=== PATIENT | female | born 1985 | race Caucasian/White ===

== ENCOUNTER 2018-11-05 08:21 | Emergency (ER) | payer SELFPAY ==
[~2018-11-05] VITALS: Ht 154.9 cm; Wt 117.9 kg
[~2018-11-05 08:21] MED LIST: ALPR1TAB2 PO; Docusate Sodium PO; Hydrocodone Bit/Acetaminophen PO; Ibuprofen PO; METF500T8 PO; NAPR-243 PO; OXYC-12 PO; PREN1TAB39
[2018-11-05 09:02] LABS: BILIRUBIN,URINE NEGATIVE (NEGATIVE); CLARITY,URINE SLIGHTLY CLOUDY; COLOR,URINE YELLOW; GLUCOSE, URINE (UA) NEGATIVE (NEGATIVE); KETONES,URINE NEGATIVE (NEGATIVE); LEUKOCYTE ESTERASE ,URINE NEGATIVE (NEGATIVE); NITRITE,URINE NEGATIVE (NEGATIVE); PH,URINE 6.5 (5-9); PROTEIN,URINE 1+ (NEGATIVE); UROBILINOGEN,URINE NORMAL (NORMAL)
[2018-11-05 09:15] LABS: BACTERIA,URINE LARGE /HPF; WBC,URINE 0-2 /HPF
[2018-11-05] MEDS ORDERED: NS IV 1000 ML 1,000 ML IV ONE (09:49)
[2018-11-05] MEDS ORDERED: fentaNYL INJECTION 100 MCG/2 ML AMP IVP STA (09:49)
[2018-11-05] MEDS ORDERED: KETOROLAC 30 MG/ML VIAL IVP STA (09:49)
--- NOTE | 2018-11-05 09:53 | ED Abdominal Pain ---
General Chief Complaint: Abdominal/GI Problems Stated Complaint: LOWER ABD PAIN Nursing Triage Note: pt presents to ed with complaints of l lower abdominal pain x 3 days that radiates to her back. pt also reports nausea but no vomting/diahrrea. Sepsis Screen: No Definite Risk Source of Information: Patient Exam Limitations: No Limitations History of Present Illness Date Seen by Provider: Nov 05, 2018 Time Seen by Provider: 09:44 Initial Comments Here with report of left-sided abdominal pain last 3 days. Pain radiates to her back. Better with positioning and worse when moving towards the left side. Denies nausea or vomiting. Denies weakness or breathing problems. Denies problems with bowel movements. Timing/Duration: 3-4 Days Severity/Quality: Mild, Moderate, Aching Location: LLQ, Flank Radiation: Back Activities at Onset: None Modifying Factors: Worsens With Movement; Improves With Resting Associated Symptoms: Back Pain; No Chest Pain, No Fever/Chills, No Nausea/ Vomiting, No Shortness of Air, No Weakness Allergies and Home Medications Allergies Coded Allergies: No Known Drug Allergies (Verified , 04/25/09) Home Medications Alprazolam 1 Mg Tablet, 1 MG PO QID PRN for ANXIETY, (Reported) PRN ANXIETY [Docusate Sodium] 100 MG CAP, 100 MG PO BID PRN for CONSTIPATION Prescribed by: AZAEL JOHNSON on 08/26/141751 [Hydrocodone Bit/Acetaminophen] 1 EA TABLET, 1-2 EA PO Q6H PRN for PAIN Prescribed by: AZAEL JOHNSON on 08/26/141751 [Ibuprofen] 600 MG TAB, 600 MG PO Q6H PRN for PAIN Prescribed by: AZAEL JOHNSON on 08/26/141751 Patient Home Medication List Home Medication List Reviewed: Yes Review of Systems Review of Systems Constitutional: see HPI; No chills, No fever EENTM: No Symptoms Reported Respiratory: No Symptoms Reported Cardiovascular: No Symptoms Reported Gastrointestinal: See HPI; Denies Constipated, Denies Diarrhea Genitourinary: No Symptoms Reported Musculoskeletal: see HPI Skin: no symptoms reported Psychiatric/Neurological: No Symptoms Reported All Other Systems Reviewed Negative Unless Noted: Yes Past Rvyvamx-Maqhdk-Rkicus Hx Past Med/Social Hx: Reviewed Nursing Past Med/Soc Hx Patient Social History Alcohol Use: Rarely Uses Recreational Drug Use: No Smoking Status: Never a Smoker Recent Foreign Travel: No Contact w/Someone Who Travel: No Recent Infectious Disease Expo: No Recent Hopitalizations: Yes Past Medical History Surgeries: Yes (pilodyal cyst removed, lower pannus removed, gastric sleeve) Section, Hysterectomy Respiratory: No Cardiac: No Neurological: No Reproductive Disorders: Yes Sexually Transmitted Disease: No Genitourinary: No Gastrointestinal: Yes Gastroesophageal Reflux Musculoskeletal: Yes (sciatica) Fibromyalgia Endocrine: No Psychosocial: Yes Sleep Difficulties, Anxiety Blood Disorders: No Adverse Reaction/Blood Tranf: No Family Medical History Reviewed Nursing Family Hx Alcoholism 19 FATHER Drug abuse 19 FATHER No Family History of: AIDS Jason's disease Alzheimer's disease Arthritis Cardiovascular disease Colon cancer Completed stroke Diabetes mellitus Hypertension Myocardial infarction Parkinson's disease Prostate cancer Psychosocial problem Respiratory disorder Seizure disorder Severe allergy Thyroid disease Tuberculosis No Pertinent Family Hx Physical Exam Vital Signs Vital Signs - First Documented 11/05/18 08:54 Temp 97.9 Pulse 80 Resp 16 B/P (MAP) 128/66 (86) Pulse Ox 100 Capillary Refill : Less Than 3 Seconds Height/Weight/BMI Height: 5'1.00" Weight: 260lbs. oz. 117.732781uf; BMI Method:Stated General Appearance: WD/WN, no apparent distress HEENT: PERRL/EOMI, pharynx normal Neck: full range of motion, supple Respiratory: lungs clear, normal breath sounds Cardiovascular: regular rate, rhythm, no murmur Gastrointestinal: non tender, soft, other (defect noted to the right side of the umbilicus. Defect noted on CT scan. Reducible without difficulty.) Extremities: non-tender, normal inspection Back: normal inspection, no CVA tenderness, no vertebral tenderness Neurologic/Psychiatric: alert, oriented x 3 Skin: normal color, warm/dry Progress/Results/Core Measures Results/Orders Lab Results Laboratory Tests Test 11/05/18 08:28 11/05/18 08:43 Range/Units Urine Color YELLOW Urine Clarity SLIGHTLY CLOUDY Urine pH 6.5 5-9 Urine Specific [place] 1.020 1.016-1.022 Urine Protein 1+ H NEGATIVE Urine Glucose (UA) NEGATIVE NEGATIVE Urine Ketones NEGATIVE NEGATIVE Urine Nitrite NEGATIVE NEGATIVE Urine Bilirubin NEGATIVE NEGATIVE Urine Urobilinogen NORMAL NORMAL MG/DL Urine Leukocyte Esterase NEGATIVE NEGATIVE Urine RBC (Auto) NEGATIVE NEGATIVE Urine RBC NONE /HPF Urine WBC 0-2 /HPF Urine Squamous Epithelial Cells 10-25 H /HPF Urine Crystals NONE /LPF Urine Bacteria LARGE H /HPF Urine Casts NONE /LPF Urine Mucus SMALL H /LPF Urine Culture Indicated YES White Blood Count 8.4 4.3-11.0 10^3/uL Red Blood Count 4.74 4.35-5.85 10^6/uL Hemoglobin 13.2 11.5-16.0 G/DL Hematocrit 42 35-52 % Mean Corpuscular Volume 88 80-99 FL Mean Corpuscular Hemoglobin 28 25-34 PG Mean Corpuscular Hemoglobin Concent 32 32-36 G/DL Red Cell Distribution Width 14.5 10.0-14.5 % Platelet Count 182 130-400 10^3/uL Mean Platelet Volume 13.1 H 7.4-10.4 FL Neutrophils (%) (Auto) 61 42-75 % Lymphocytes (%) (Auto) 31 12-44 % Monocytes (%) (Auto) 7 0-12 % Eosinophils (%) (Auto) 1 0-10 % Basophils (%) (Auto) 1 0-10 % Neutrophils # (Auto) 5.1 1.8-7.8 X 10^3 Lymphocytes # (Auto) 2.6 1.0-4.0 X 10^3 Monocytes # (Auto) 0.6 0.0-1.0 X 10^3 Eosinophils # (Auto) 0.1 0.0-0.3 10^3/uL Basophils # (Auto) 0.0 0.0-0.1 10^3/uL Sodium Level 139 135-145 MMOL/L Potassium Level 3.8 3.6-5.0 MMOL/L Chloride Level 106 98-107 MMOL/L Carbon Dioxide Level 24 21-32 MMOL/L Anion Gap 9 5-14 MMOL/L Blood Urea Nitrogen 12 7-18 MG/DL Creatinine 0.73 0.60-1.30 MG/DL Estimat Glomerular Filtration Rate > 60 BUN/Creatinine Ratio 16 Glucose Level 83 70-105 MG/DL Calcium Level 9.1 8.5-10.1 MG/DL Corrected Calcium 9.2 8.5-10.1 MG/DL Total Bilirubin 0.5 0.1-1.0 MG/DL Aspartate Amino Transf (AST/SGOT) 14 5-34 U/L Alanine Aminotransferase (ALT/SGPT) 17 0-55 U/L Alkaline Phosphatase 92 40-136 U/L C-Reactive Protein High Sensitivity 0.52 H 0.00-0.50 MG/DL Total Protein 6.4 6.4-8.2 GM/DL Albumin 3.9 3.2-4.5 GM/DL Lipase 26 8-78 U/L My Orders Orders - ALEXANDRA ROSALES MD Ua Culture If Indicated (11/05/18 08:50) Urine Culture (11/05/18 08:28) Cbc With Automated Diff (11/05/18 09:49) Comprehensive Metabolic Panel (11/05/18 09:49) Hs C Reactive Protein (11/05/18 09:49) Lipase (11/05/18 09:49) Saline Lock/Iv-Start (11/05/18 09:49) Ns Iv 1000 Ml (Sodium Chloride 0.9%) (11/05/18 09:49) Fentanyl Injection (Sublimaze Injection (11/05/18 09:49) Ketorolac Injection (Toradol Injection) (11/05/18 09:49) Ct Abdomen/Pelvis W (11/05/18 09:53) Iohexol Injection (Omnipaque 350 Mg/Ml 1 (11/05/18 10:45) Contrast Received (Contrast Received) (11/05/18 10:45) Ns (Ivpb) (Sodium Chloride 0.9% Ivpb Bag (11/05/18 10:45) Medications Given in ED Current Medications Medications Dose Ordered Sig/Stuart Route Start Time Stop Time Status Last Admin Dose Admin Iohexol 100 ml ONCE ONCE IV 11/05/18 10:45 11/05/18 10:46 DC 11/05/18 10:52 100 ML Sodium Chloride 100 ml ONCE ONCE IV 11/05/18 10:45 11/05/18 10:46 DC 11/05/18 10:52 80 ML Sodium Chloride 1,000 ml @ 0 mls/hr Q0M ONCE IV 11/05/18 09:49 11/05/18 09:51 DC 11/05/18 10:14 0 MLS/HR Vital Signs/I&O 11/05/18 08:54 Temp 97.9 Pulse 80 Resp 16 B/P (MAP) 128/66 (86) Pulse Ox 100 Blood Pressure Mean: 86 Progress Progress Note : Progress Note Seen and evaluated. IV, labs, UA, normal saline 1 L bolus, fentanyl 50 g IV, toradol 30 mg IV, NS [address] A/P ordered. Monitor patient. 1200: Ct results reviewed. No acute findings noted on CT other than abdominal defect. Was better with pain medicines but he is returning a little bit. She is declining further pain medicines. Discussed following up outpatient with surgeon which patient will do. Discharged home with return precautions. Patient verbalize understanding instructions and agreement with plan. Diagnostic Imaging Diagonstic Imaging: CT Plain Films/CT/US/NM/MRI: abdomen, pelvis Comments NAME: VALENTIN GUTIERREZ [facility] REC#: [id number] PT STATUS: REG ER : 1985 PHYSICIAN: ALEXANDRA ROSALES MD ADMIT DATE: 11/05/18/ER Draft Date of Exam:11/05/18 CT ABDOMEN/PELVIS W PROCEDURE: CT abdomen and pelvis with contrast. TECHNIQUE: Multiple contiguous axial images were obtained through the abdomen and pelvis after administration of intravenous contrast. INDICATION: Low abdominal pain. FINDINGS: The previous CT abdomen/pelvis exam of 06/27/2011 noted that there was a small retro-umbilical hernia. In the interval since the prior exam, the anterior abdominal wall near midline has become thinned, and a sizable collection of mesenteric fat has extended through the anterior abdominal wall into the subcutaneous region. This finding is best visualized on sagittal image 49/92. The mesenteric fat measures approximately 5.7 x 9.8 cm. There is no incarceration or obstruction of the bowel in this area. There is no acute abnormality of the abdomen or pelvis. The liver is of lower density than usually seen, and this appearance does suggest fatty metamorphosis. In the interval since the prior exam, the patient has undergone a cholecystectomy. Surgical clips are evident within the gallbladder fossa. The spleen, pancreas, adrenals, kidneys, aorta, and inferior vena cava show no sign of an acute abnormality. There are postsurgical changes involving the stomach consistent with the patient's history of a gastric sleeve procedure in 2016. There is no pelvic mass or free fluid collection evident. Also, in the interval since the prior exam, the patient has undergone a hysterectomy. The appendix was not well visualized, but there are no indirect signs of acute appendicitis. There do appear to be a few diverticula in the sigmoid and descending colon, but there is no sign of acute diverticulitis. The bone windows show no evidence for a fracture or for a destructive lesion. The lung bases are clear. IMPRESSION: 1. In the interval since the prior exam, a defect has developed in the anterior abdominal wall and there is a sizable portion of the mesenteric fat extending into the subcutaneous space in this region. There is no incarceration or obstruction of the bowel, however. 2. There is no acute abnormality of the abdomen or pelvis noted otherwise. 3. There are postsurgical changes consistent with an interval gastric sleeve procedure, a cholecystectomy, and a hysterectomy. Dictated on workstation # [id number] Dict: 11/05/18 1119 Trans: 11/05/18 1151 [id number] Interpreted by: MORGAN GARCIA MD Electronically signed by: Departure Impression Primary Impression: Left sided abdominal pain Additional Impression: Acute left-sided low back pain Qualified Codes: M54.5 - Low back pain Disposition: 01 HOME, SELF-CARE Condition: Improved Departure-Patient Inst. Decision time for Depature: 12:09 Referrals: LINCOLN DOSS MD (PCP) Primary Care Physician JOSE JUAN MUJICA MD Patient Instructions: Acute Abdomen (Belly Pain), Adult (DC), Low Back Pain ( DC) Add. Discharge Instructions: All discharge instructions reviewed with patient and/or family. Voiced understanding. You may take ibuprofen 600 mg every 8 hours as needed for pain. You may take Tylenol/acetaminophen 1000 mg every 8 hours as needed for pain. Follow-up with your Dr. in a few days for recheck. Follow-up with surgeon listed ordered choice to evaluate abdominal defect with hernia. Return for worse pain, fever, vomiting, weakness, breathing problems or other concerns as needed. Drink plenty of fluids. Eat a light diet or use clear liquids for 24 hours and then advance as tolerated. ALEXANDRA ROSALES MD Nov 05, 2018 09:53
[2018-11-05 09:55] LABS: BASOPHILS % (AUTO) 1 % (0-10); EOSINOPHILS # (AUTO) 0.1 10^3/uL (0.0-0.3); EOSINOPHILS % (AUTO) 1 % (0-10); HEMATOCRIT 42 % (35-52); HEMOGLOBIN 13.2 G/DL (11.5-16.0); LYMPHOCYTES # (AUTO) 2.6 X 10^3 (1.0-4.0); LYMPHOCYTES % (AUTO) 31 % (12-44); MEAN CORPUSCULAR HEMOGLOBIN 28 PG (25-34); MEAN CORPUSCULAR HGB CONC 32 G/DL (32-36); MEAN CORPUSCULAR VOLUME 88 FL (80-99); MEAN PLATELET VOLUME 13.1 FL (7.4-10.4); MONOCYTES # (AUTO) 0.6 X 10^3 (0.0-1.0); MONOCYTES % (AUTO) 7 % (0-12); NEUTROPHILS # (AUTO) 5.1 X 10^3 (1.8-7.8); NEUTROPHILS % (AUTO) 61 % (42-75); PLATELET COUNT 182 10^3/uL (130-400); RED BLOOD COUNT 4.74 10^6/uL (4.35-5.85); RED CELL DISTRIBUTION WIDTH 14.5 % (10.0-14.5); WHITE BLOOD COUNT 8.4 10^3/uL (4.3-11.0)
[2018-11-05 10:10] LABS: ALANINE AMINOTRANSFERASE 17 U/L (0-55); ALBUMIN 3.9 GM/DL (3.2-4.5); ALKALINE PHOSPHATASE 92 U/L (40-136); BILIRUBIN,TOTAL 0.5 MG/DL (0.1-1.0); BUN/CREATININE RATIO 16; CALCIUM 9.1 MG/DL (8.5-10.1); CARBON DIOXIDE 24 MMOL/L (21-32); CHLORIDE 106 MMOL/L (98-107); CREATININE SERUM 0.73 MG/DL (0.60-1.30); GFR ESTIMATED > 60; GLUCOSE 83 MG/DL (70-105); LIPASE 26 U/L (8-78); POTASSIUM 3.8 MMOL/L (3.6-5.0); SODIUM 139 MMOL/L (135-145); TOTAL PROTEIN 6.4 GM/DL (6.4-8.2)
[2018-11-05] MEDS ORDERED: NS 100 ML (IVPB) BAG IV ONE (10:45)
[2018-11-05] MEDS ORDERED: RECEIVED CONTRAST (Hold Metformin) IV SCH (10:45)
[2018-11-05] MEDS ORDERED: IOHEXOL 350 MG/ML 100 ML (OMNIPAQUE 350) VIAL IV ONE (10:45)
--- NOTE | 2018-11-05 11:52 | Diagnostic Imaging Report ---
PROCEDURE: CT abdomen and pelvis with contrast. TECHNIQUE: Multiple contiguous axial images were obtained through the abdomen and pelvis after administration of intravenous contrast. INDICATION: Low abdominal pain. FINDINGS: The previous CT abdomen/pelvis exam of 06/27/2011 noted that there was a small retro-umbilical hernia. In the interval since the prior exam, the anterior abdominal wall near midline has become thinned and there is now a defect in the anterior abdominal wall. Furthermore, a sizable collection of mesenteric fat has extended through the anterior abdominal wall into the subcutaneous region. This finding is best visualized on sagittal image 49/92. The amount of mesenteric fat measures approximately 5.7 x 9.8 cm. There is no incarceration or obstruction of the bowel in this area. There is no acute abnormality of the abdomen or pelvis. The liver is of lower density than usually seen, and this appearance does suggest fatty metamorphosis. In the interval since the prior exam, the patient has undergone a cholecystectomy. Surgical clips are evident within the gallbladder fossa. The spleen, pancreas, adrenals, kidneys, aorta, and inferior vena cava show no sign of an acute abnormality. There are postsurgical changes involving the stomach consistent with the patient's history of a gastric sleeve procedure in 2015. There is no pelvic mass or free fluid collection evident. Also, in the interval since the prior exam, the patient has undergone a hysterectomy. The appendix was not well visualized, but there are no indirect signs of acute appendicitis. There do appear to be a few diverticula in the sigmoid and descending colon, but there is no sign of acute diverticulitis. The bone windows show no evidence for a fracture or for a destructive lesion. The lung bases are clear. IMPRESSION: 1. In the interval since the prior exam, a defect has developed in the anterior abdominal wall and there is a sizable portion of the mesenteric fat extending into the subcutaneous space in this region. There is no incarceration or obstruction of the bowel, however. 2. There is no acute abnormality of the abdomen or pelvis noted otherwise. 3. There are postsurgical changes consistent with an interval gastric sleeve procedure, a cholecystectomy, and a hysterectomy. Dictated by: Dictated on workstation # [id number]
[2018-11-05 12:15] VITALS: BP 115/64
== END 2018-11-05 12:15 | disposition home or self-care (01) ==
LOC: EDUNIT# 08:21 → ER 08:22
DX: M54.5 Low back pain (principal); R10.32 Left lower quadrant pain; K21.9 Gastro-esophageal reflux disease without esophagitis; F41.9 Anxiety disorder, unspecified; Z90.710 Acquired absence of both cervix and uterus; Z98.890 Other specified postprocedural states; Z98.84 Bariatric surgery status
CPT/HCPCS: 36415; 74177; 80053; 81000; 83690; 85025; 86141; 87088; 96361; 96374; 96375

== ENCOUNTER 2018-11-14 05:38 | Outpatient (CLI) | payer OTHER ==
[~2018-11-14] VITALS: Ht 154.9 cm; Wt 117.9 kg
[2018-11-14] MEDS ORDERED: NF-ACI30T PO (10:49)
[2018-11-14] MEDS ORDERED: HYDR-3816 PO (10:49)
[2018-11-14] MEDS ORDERED: ZOLP10TA PO (10:49)
== END 2018-11-14 11:01 | disposition home or self-care (01) ==
LOC: PREOP 05:38
PROVIDERS: ATTEND Surgery
DX: Z01.818 Encounter for other preprocedural examination (principal)

== ENCOUNTER 2018-11-17 05:35 | Outpatient (CLI) | payer OTHER ==
[~2018-11-17] VITALS: Ht 154.9 cm; Wt 117.9 kg
[~2018-11-17 05:35] MED LIST changes: +HYDR-3816 PO; +NF-ACI30T PO; +ZOLP10TA PO
== END 2018-11-17 10:54 | disposition home or self-care (01) ==
LOC: PREOP 05:35
PROVIDERS: ATTEND Surgery
DX: Z01.818 Encounter for other preprocedural examination (principal)
CPT/HCPCS: 87081

== ENCOUNTER 2018-11-17 09:09 | Day surgery (SDC) | payer OTHER ==
[~2018-11-17] VITALS: Ht 154.9 cm; Wt 117.9 kg
[2018-11-17] MEDS ORDERED: LACTATED RINGERS 1,000 ML IV STA (09:42)
[2018-11-17] MEDS ORDERED: LACTATED RINGERS 1,000 ML IV ONE (09:46)
[2018-11-17 09:52] VITALS: BP 112/66
[2018-11-17] MEDS ORDERED: FAMOTIDINE 20MG/2ML IV (PEPCID) ONE (10:16)
[2018-11-17] MEDS ORDERED: FAMOTIDINE 20MG/2ML IV (PEPCID) IV ONE (10:30)
--- NOTE | 2018-11-17 13:22 | Progress Note-Pre Operative ---
Pre-Operative Progress Note H&P Reviewed The H&P was reviewed, patient examined and no changes noted. Time Seen by Provider: 13:19 Date H&P Reviewed: Nov 17, 2018 Time H&P Reviewed: 13:20 Pre-Operative Diagnosis: rectal bleed BRITTNEY MONTEZ DO Nov 17, 2018 13:22
[2018-11-17] MEDS ORDERED: PROPOFOL INJECTION 50 ML IV ONE (13:50)
[2018-11-17] MEDS ORDERED: MIDAZOLAM 2 MG/2 ML (VERSED) VIAL ONE (13:51)
[2018-11-17] MEDS ORDERED: HURRICAINE EXT TUBE (BENZOCAINE) ONE (13:55)
--- NOTE | 2018-11-17 14:25 | Progress Note-Post Operative ---
Post-Operative Progess Note Surgeon (s)/Pharmacy Picking Technician (s) Surgeon BRITTNEY MONTEZ DO Pharmacy Picking Technician: none Pre-Operative Diagnosis rectal bleed Post-Operative Diagnosis Nodules in terminal ileum Int hemorrhoids Procedure & Operative Findings Date of Procedure 11/17/18 Procedure Performed/Findings Colon with cold bx Anesthesia Type IV sedation by MILK SAMPLER Estimated Blood Loss Estimated blood loss (mL): scant Specimens/Packing Specimens Removed TI BRITTNEY Cochran DO Nov 17, 2018 14:25
--- NOTE | 2018-11-17 14:26 | Endoscopy Discharge Instruct ---
Endo Procedure/Findings Findings 1.: Internal Hemorrhoids Discharge Instructions - Activity: You might feel a little sleepy until tomorrow. This is due to the medicine you received to relax you. Until tomorrow, you should: NOT drive a car, operate machinery or power tools. NOT drink any alcoholic beverages. NOT make any important decisions or sign importortant papers. Do not return to work until tomorrow, unless otherwise instructed. Resume previous activities tomorrow. Diet: Start by taking liquids. If you tolerate liquids, advance to solid food. make an appointment for one week Notify Physician - If you experience excessive bleeding, unusual abdominal pain, fever, or chest pain, contact your doctor immediately. Follow-Up: - I have received and understand the above instructions and will call my doctor if I have any further questions. Patient Signature Date Nurse Signature Other (Relationship) BRITTNEY MONTEZ DO Nov 17, 2018 14:26
[2018-11-17 14:35] VITALS: BP 110/64
[2018-11-17 15:00] VITALS: BP 104/70
[2018-11-17 15:05] VITALS: BP 104/70
--- NOTE | 2018-11-17 15:43 | Anesthesia-General Post-Op ---
MAC Patient Condition Mental Status/LOC: Same as Preop Cardiovascular: Satisfactory Nausea/Vomiting: Absent Respiratory: Satisfactory Pain: Controlled Complications: Absent Post Op Complications Complications None Follow Up Care/Instructions Patient Instructions None needed. Anesthesiology Discharge Order Discharge Order Patient was seen after the procedure and she was doing well, no complaints, stable vital signs, no apparent adverse anesthesia problems. LIZ MARTE DO Nov 17, 2018 15:43
--- NOTE | 2018-11-18 03:26 | OPERATIVE REPORT ---
DATE OF SERVICE: 11/17/2018 PREOPERATIVE DIAGNOSIS: Rectal bleed. POSTOPERATIVE DIAGNOSES: Terminal ileum nodularity, internal hemorrhoids. PROCEDURE: Colonoscopy with biopsy. SURGEON: Teto Ng DO. DATA SYSTEMS ANALYST: None. ANESTHESIA: IV sedation by the ASSESSMENT COORDINATOR. SPECIMEN: Biopsy from terminal ileum. BLOOD LOSS: Scant. FLUIDS: Per anesthesia. POSTOPERATIVE CONDITION: Stable. INDICATION FOR PROCEDURE: The patient is a 33-year-old female who has been having some rectal bleeding and then needed workup. FINDINGS: The patient had some nodularity in the terminal ileum and some internal hemorrhoids, but no other obvious pathology. PROCEDURE NOTE: After informed consent was obtained, the patient was brought to the endoscopy suite, placed in the left lateral decubitus position. She administered IV sedation by the ASSESSMENT COORDINATOR who then monitored her vitals the entire time, heart rate, blood pressure, pulse ox and the scope was inserted, pushed all the way about 140 cm, able to get all the way to cecum, took a picture of appendiceal orifice and then noted the ileocecal valve, able to push in, noted some nodularity, like to do a biopsy here. Did a cold biopsy and then slowly withdrew the scope insufflating to look circumferentially at the pinto looking at the cecum up the ascending colon to the hepatic flexure, then down the transverse colon, the splenic flexure, into the descending colon and down to the sigmoid and finally into the rectum, retroflexed the rectal vault, saw some minimal internal hemorrhoids, took a picture and then removed the scope, all looked for anal fissure, did not see one. The patient tolerated the procedure. She was recovered in endoscopy suite. Job ID: [id number] DocumentID: [id number] Dictated Date: 11/17/2018 19:55:36 Cotton Classer Date: 11/18/2018 03:25:49 Dictated By: TETO NG DO
== END 2018-11-17 15:05 | disposition home or self-care (01) ==
LOC: ENDO 09:09
PROVIDERS: ATTEND Surgery
DX: K63.89 Other specified diseases of intestine (principal); K62.5 Hemorrhage of anus and rectum; M79.7 Fibromyalgia; K42.0 Umbilical hernia with obstruction, without gangrene; K21.9 Gastro-esophageal reflux disease without esophagitis; Z87.891 Personal history of nicotine dependence

== ENCOUNTER 2018-11-24 09:15 | Day surgery (SDC) | payer OTHER ==
[~2018-11-24] VITALS: Ht 154.9 cm; Wt 117.1 kg
[2018-11-24 09:15] VITALS: BP 112/72
[2018-11-24] MEDS ORDERED: ceFAZolin 2 GM IV Premixed 50 ML IV ONE (09:30)
--- OUTSIDE RECORDS SUMMARY | 2018-11-24 09:33 | XMS REPORT | Clinical Summary ---
Author Author [facility] Organization [facility] Address Unknown Phone Unavailable Care Team Providers Care Medical Office Technologist Name Role Phone Gavi Haywood MD Unavailable Dionicio Zee MD PCP Source Comments Some departments are not documenting in the electronic medical record. If you do not see the information that you expected, contact Release of Information in the Health Information Management department at [phone] for further assistance in locating additional records.[facility] Allergies No Known Allergies Medications End Date Status Medication Sig Dispensed Refills Start Date Active HYDROcodone/acetaminophen Take 1 Tab by 0 (NORCO) 5-325 mg tablet mouth every 8 hours as needed. Active ALPRAZolam (XANAX) 1 mg Take 1 mg by 0 tablet mouth as Needed. Active spironolactone Take 1 Tab by 90 Tab 3 (ALDACTONE) 100 mg tablet mouth daily. 4 Active norgestimate-ethinyl Take 1 Tab by 84 Tab 3 estradiol(+) mouth daily. 4 (TRI-SPRINTEC (28)) tablet Active Problems Problem Noted Date PCOS (polycystic ovarian syndrome) 06/03/2014 Obesity 06/03/2014 Irregular menstrual cycle 06/03/2014 Family History Relation Name Status Comments Father Alive Mother Alive Social History Date Tobacco Use Types Packs/Day Years Used Current Some Day Smoker Sex Assigned at Date Recorded Not on file Industry Job Start Date Occupation Not on file Not on file Not on file Travel End Travel History Travel Start No recent travel history available. Last Filed Vital Signs Time Taken Vital Sign Reading 06/03/2014 1:30 PM CDT Blood Pressure 118/75 06/03/2014 1:30 PM CDT Pulse 82 - Temperature - - Respiratory Rate - - Oxygen Saturation - - Inhaled Oxygen - Concentration 06/03/2014 1:30 PM CDT Weight 154.9 kg (341 lb 6.4 oz) 06/03/2014 1:30 PM CDT Height 160 cm (5' 3") 06/03/2014 1:30 PM CDT Body Mass Index 60.48 Plan of Treatment Health Maintenance Due Date Last Done Comments PHYSICAL (COMPREHENSIVE) 1991 EXAM HIV SCREENING 1999 DTAP/TDAP VACCINES (1 - 2002 Tdap) CERVICAL CANCER SCREENING 2014 INFLUENZA VACCINE 06/04/2018 Results Not on filefrom Last 3 Months Insurance Payer Benefit Subscriber ID Type Phone Address Plan / Group [employer] [place] [employer] x[employer]xx Medicaid [employer] Advance Directives Patient has advance care planning documents on file. For more information, please contact: [facility] [address] [place] [address]
--- OUTSIDE RECORDS SUMMARY | 2018-11-24 09:33 | XMS REPORT ---
Author Author [facility] Address [address] [place] [address] Care Team Providers [employer] Name Role Phone JOSY TIPTON Unavailable PROBLEMS Type Condition ICD9-CM Code [id number] Code Onset Dates Condition Status SNOMED Code Problem Sciatica, right side M54.31 Active 30117107 Problem Other chronic pain G89.29 Active 71000519 Problem Muscle spasm M62.838 Active 57798990 Problem Seasonal allergies J30.2 Active 991534293 Problem Episode of recurrent major depressive disorder, unspecified depression episode severity F33.9 Active 914908427 Problem Fibromyalgia M79.7 Active 890746791 Problem Chronic pain disorder G89.4 Active 345828067 Problem Morbid obesity E66.01 Active 077382405 Problem Mood disorder F39 Active 41885616 Problem Anxiety F41.9 Active 07449339 Problem Sciatica M54.30 Active 37648449 Problem Insomnia G47.00 Active 794245882 Problem GERD (gastroesophageal reflux disease) K21.9 Active 208929693 Problem Anemia D64.9 Active 319683414 Problem Major depressive disorder, recurrent episode, moderate F33.1 Active 871073995 Problem Obesity E66.9 Active 719078481 Problem Major depressive disorder with single episode, remission status unspecified F32.9 Active 62936759 Problem Skin tags, multiple acquired L91.8 Active 756812802 Problem Sciatica of left side M54.32 Active 59812905 ALLERGIES No Information ENCOUNTERS Encounter Location Date Diagnosis [facility] [address] [address] Oct, [facility] [address] [address] Oct, Major depressive disorder with single episode, remission status unspecified F32.9 ; Obesity E66.9 and Fibromyalgia M79.7 [facility] [id number] [address] Sep, [facility] [address] [facility] [id number] [address] Sep, Sciatica M54.30 ; BMI 40.0-44.9, adult Z68.41 ; Major depressive disorder with single episode, remission status unspecified F32.9 ; Fibromyalgia M79.7 and Obesity E66.[address] [id number] [id number] Aug, Chronic pain disorder G89.4 [address] [place] [address] [id number] Jul, BMI 45.0-49.9, adult Z68.42 ; Anxiety F41.9 ; Chronic pain disorder G89.4 and Insomnia G47.00 [address] [id number] [place] [address] [id number] Jun, Chronic pain disorder G89.4 ; Anxiety F41.9 ; Insomnia G47.00 ; GERD ( gastroesophageal reflux disease) K21.9 ; Episode of recurrent major depressive disorder, unspecified depression episode severity F33.9 and Seasonal allergies J30.2 [place] [id number] [place] [address] [id number] Jun, Chronic pain disorder G89.4 and Obesity E66.9 [address] [place] [address] [id number] Jun, [place] [id number] [place] [address] [id number] May, Plantar fasciitis, left M72.2 ; Anxiety F41.9 and BMI 40.0-44.9, adult Z68.41 [place] [id number] [place] [address] [id number] May, Chronic pain disorder G89.4 and Obesity E66.9 [address] [place] [address] [id number] May, [place] [id number] [place] [address] [id number] Apr, Episode of recurrent major depressive disorder, unspecified depression episode severity F33.9 ; Chronic pain disorder G89.4 ; Obesity E66.9 and BMI 40.0-44.9, adult Z68.41 [facility] [id number] [place] [address] [id number] Apr, [facility] [id number] [place] [address] [id number] Apr, Chronic pain disorder G89.4 and Obesity E66.9 [facility] [id number] [place] [address] [id number] March, Chronic pain disorder G89.4 and Obesity E66.9 [place] [address] [address] March, [facility] [id number] [place] [address] [id number] Feb, Chronic pain disorder G89.[address] [id number] Feb, Chronic pain disorder G89.4 and Obesity E66.9 [place] [id number] [place] [address] [id number] Jan, Insomnia G47.00 [place] [id number] [place] [address] [id number] Jan, Obesity E66.9 and Chronic pain disorder G89.4 [place] [id number] [place] [address] [id number] Jan, Chronic pain disorder G89.4 [facility] [id number] [place] [address] 2546 Jan, [facility] [id number] [place] [address]651[address] 6[address] Dec, [facility] [id number] [place] [address] [id number] Dec, Chronic pain disorder G89.4 [place] [id number] [place] [address] [id number] Dec, Calcaneal spur of left foot M77.32 and BMI 40.0-44.9, adult Z68.41 [address] [place] [address] 4[address] Nov, Chronic pain disorder G89.4 ; Sciatica, right side M54.31 ; Pain of left heel M79.672 ; Morbid obesity E66.01 ; Mood disorder F39 ; Obesity E66.9 ; Anxiety F41.9 ; Insomnia G47.00 and Muscle spasm M62.838 [id number] [id number] Nov, Chronic pain disorder G89.4 ; Sciatica, right side M54.31 ; Morbid obesity E66.01 ; Mood disorder F39 ; Obesity E66.9 ; Pain of left heel M79.672 ; Anxiety F41.9 ; Insomnia G47.00 ; Muscle spasm M62.838 and BMI 40.0-44.9, adult Z68.41 [address] [place] [address]35- 3[address] Oct, Chronic pain disorder G89.4 [id number] [place] [address]66[address] 48[address] Sep, Anxiety F41.9 ; Fibromyalgia M79.7 ; Chronic pain disorder G89.4 ; Mood disorder F39 ; GERD (gastroesophageal reflux disease) K21.9 and Muscle spasm M62.838 [address] [place] [address]- 2629 Sep, Plantar fasciitis M72.2 ; Morbid obesity E66.01 and BMI 40.0 -44.9, adult Z68.41 [place] [id number] [place] [address] 39179- 0[address] Aug, [address] [address] Aug, Anxiety F41.9 ; Muscle spasm M62.838 ; Major depressive disorder, recurrent episode, moderate F33.1 ; Obesity E66.9 ; Insomnia G47.00 ; Fibromyalgia M79.7 ; Chronic pain disorder G89.4 and Other chronic pain G89.29 [place] [address] [address] Jul, Muscle spasm M62.838 ; Anxiety F41.9 ; Sciatica M54.30 ; Insomnia G47.00 ; Major depressive disorder, recurrent episode, moderate F33.1 ; Other chronic pain G89.29 and GERD (gastroesophageal reflux disease) K21.9 [facility] [address] [address] Jun, Acute non-recurrent maxillary sinusitis J01.00 [facility] [place] [address] [address] Jun, Acute nasopharyngitis (common cold) J00 [place] [address] [address] May, Anxiety F41.9 [place] [address] [address] Apr, Insomnia G47.[address] [address] March, Anxiety F41.9 and Insomnia G47.00 [place] [address] [address] Feb, Obesity E66.9 and Screening cholesterol level Z13.220 [place] [address] [address] Feb, Insomnia G47.[address] [address] Dec, Sciatica M54.30 ; Obesity E66.9 ; Anxiety F41.9 ; Insomnia G47.00 ; GERD (gastroesophageal reflux disease) K21.9 ; Major depressive disorder, recurrent episode, moderate F33.1 ; Pain management R52 and Screening cholesterol level Z13.220 [place] [address], [place] [address] Dec, [facility] [id number] [place] [address] Nov, Acute non-recurrent frontal sinusitis J01.10 and Sore throat J02.9 [facility] [id number] [place] [address] 44398- 9838 Nov, [facility] [id number] [place] [address]51- 7095 Nov, Sciatica, right side M54.31 and Sciatica of left side M54.32 [facility] [id number] [place] [address] 58[address] Oct, [facility] [id number] [place] [address] 80378- 8561 Sep, [facility] [id number] [place] [address] 58887- [address] Aug, [facility] [id number] [place] [address] 70710- 5266 Aug, [facility] [id number] [place] [address] 10758- 1385 Jul, [facility] [id number], [place] [address] Jul, [facility] [id number] [place] [address] 02413- 1416 Jun, Sciatica M54.30 ; Insomnia G47.00 ; Obesity E66.9 ; Anxiety F41.9 and Major depressive disorder with single episode, remission status unspecified F32.9 [facility] [address] [place] [address] 72148- 7172 Jun, Major depressive disorder with single episode, remission status unspecified F32.9 [facility] [id number] [place] [address] 87078- 8970 Jun, [place] [id number] [place] [address] 20930- 9327 Jun, [place] [id number] [place] [address] 66474- 6747 Jun, Major depressive disorder with single episode, remission status unspecified F32.9 [place] [id number] [place] [address] 78571- 1775 Jun, Major depressive disorder, recurrent episode, moderate F33.1 [place] [id number] [place] [address] 75314- 0997 May, [place] [id number] [place] [address] 12751- 0810 Apr, [place] [id number] [place] [address] 95105- 2769 March, Obesity E66.9 ; Anxiety F41.9 ; Insomnia G47.00 ; GERD ( gastroesophageal reflux disease) K21.9 and Other chronic pain G89.29 [place] [id number] [place] [address] 41214- 4476 March, Sciatica M54.30 [place] [id number] [place] [address] 59040- 5132 March, Insomnia G47.00 and Anxiety F41.9 [place] [id number] [place] [address] 33905- 7731 Feb, Sciatica M54.30 [place] [id number] [place] [address] 31799- 1102 Feb, Dental examination Z01.20 [place] [id number] [place] [address] 20620- 3394 Jan, Obesity E66.9 ; Sciatica M54.30 ; Anxiety F41.9 ; Insomnia G47.00 ; GERD (gastroesophageal reflux disease) K21.9 and Anemia D64.9 [place] [id number], [place] [address] Dec, [facility] [id number] [place] [address] 01283- 1990 Dec, Skin tags, multiple acquired L91.8 [facility] [id number] [place] [address] 13808- 2695 Dec, [facility] [id number] [place] [address] 42395- 7246 Nov, Obesity E66.9 [facility] [id number] [place] [address] 11346- 9371 Nov, Sciatica M54.30 ; Obesity E66.9 ; Anxiety F41.9 ; Insomnia G47.00 and GERD (gastroesophageal reflux disease) K21.9 [facility] [id number] [place] [address] 58649- 5726 Aug, Sciatica M54.30 ; Obesity E66.9 ; Anxiety F41.9 ; Insomnia G47.00 and GERD (gastroesophageal reflux disease) K21.9 [facility] [id number] [place] [address] 42172- 2283 Feb, [facility] [id number] [place] [address] 34265- 3154 Feb, [facility] [address] [place] [address] 70463- 3964 Feb, [facility] [id number] [place] [address] 09447- 4715 Feb, [facility] [id number] [place] [address] 18175- 4411 Feb, [facility] [id number] [place] [address] 08061- 8226 Jan, [facility] [id number] [id number] Nov, [facility] [id number] [place] [address], [place] [id number] Nov, [facility] [address] [facility] [id number] Oct, [facility] [address] [facility] [id number] [address] Feb, [facility] [address] [facility] [id number] [address] Aug, [facility] [address] [facility] [id number] 10 Jul, 2010 IMMUNIZATIONS No Known Immunizations SOCIAL HISTORY Never Assessed REASON FOR VISIT Lab (walk-in) PLAN OF CARE Activity Details Pending Test TSH w/ FREE T4 Pending Test LIPID PANEL Pending Test CMP Pending Test ESR/SED RATE Pending Test CRP Pending Test RA (RHEUMATOID) FACTOR Pending Test JENNIFER VITAL SIGNS MEDICATIONS Unknown Medications RESULTS No Results PROCEDURES Procedure Date Ordered Result Body Site ASSAY THYROID STIM HORMONE Oct 14, 2018 ASSAY OF FREE THYROXINE Oct 14, 2018 ANTINUCLEAR ANTIBODIES Oct 14, 2018 RHEUMATOID FACTOR, QUANT Oct 14, 2018 COMPREHEN METABOLIC PANEL Oct 14, 2018 LIPID PANEL Oct 14, 2018 C-REACTIVE PROTEIN Oct 14, 2018 RBC SED RATE, AUTOMATED Oct 14, 2018 INSTRUCTIONS MEDICATIONS ADMINISTERED No Known Medications MEDICAL (GENERAL) HISTORY Type Description Date Medical History pcos Medical History metabolic syndrome Medical History sciatica Medical History anxiety Medical History insomnia Medical History depression Medical History obesity Medical History GERD Medical History seasonal allergies Surgical History hysterectomy-partial due to cyst on ovaries sep 2014 Surgical History tailbone cyst removed Surgical History tubal ligation Surgical History section Surgical History cholecystectomy Surgical History gastric sleeve march 2015 Hospitalization History for surgeries only
--- OUTSIDE RECORDS SUMMARY | 2018-11-24 09:33 | XMS REPORT ---
Author Author JOSY TIPTON Organization [facility] Address [address] [place] [address] Care Team Providers Care [employer] Professor Name Role Phone JOSY TIPTON Unavailable PROBLEMS Type Condition ICD9-CM Code HEM70-AL Code Onset Dates Condition Status SNOMED Code Problem Sciatica, right side M54.31 Active 15151562 Problem Other chronic pain G89.29 Active 86989343 Problem Muscle spasm M62.838 Active 92022122 Problem Seasonal allergies J30.2 Active 300828845 Problem Episode of recurrent major depressive disorder, unspecified depression episode severity F33.9 Active 082573578 Problem Fibromyalgia M79.7 Active 834042495 Problem Chronic pain disorder G89.4 Active 847311666 Problem Morbid obesity E66.01 Active 086080969 Problem Mood disorder F39 Active 99109116 Problem Anxiety F41.9 Active 76855706 Problem Sciatica M54.30 Active 05384210 Problem Insomnia G47.00 Active 785897383 Problem GERD (gastroesophageal reflux disease) K21.9 Active 915948847 Problem Anemia D64.9 Active 700721862 Problem Major depressive disorder, recurrent episode, moderate F33.1 Active 185490469 Problem Obesity E66.9 Active 036576025 Problem Major depressive disorder with single episode, remission status unspecified F32.9 Active 32632071 Problem Skin tags, multiple acquired L91.8 Active 286103929 Problem Sciatica of left side M54.32 Active 01981502 ALLERGIES No Known Allergies ENCOUNTERS Encounter Location Date Diagnosis [facility] [address] [address] 14 Oct, 2018 Fibromyalgia M79.7 ; Chronic pain disorder G89.4 and BMI 45.0-49.9, adult Z68.42 [facility] [id number] [address] 11 Oct, 2018 Major depressive disorder with single episode, remission status unspecified F32.9 ; Obesity E66.9 and Fibromyalgia M79.7 [facility] [address] [facility] [id number] [address] Sep, [facility] [address] [address] 14 Sep, 2018 Sciatica M54.30 ; BMI 40.0-44.9, adult Z68.41 ; Major depressive disorder with single episode, remission status unspecified F32.9 ; Fibromyalgia M79.7 and Obesity E66.[address] [id number] [id number] Aug, Chronic pain disorder G89.4 [address] [place] [address] [id number] Jul, BMI 45.0-49.9, adult Z68.42 ; Anxiety F41.9 ; Chronic pain disorder G89.4 and Insomnia G47.[address] [place] [id number] [place] [address] [id number] Jun, Chronic pain disorder G89.4 ; Anxiety F41.9 ; Insomnia G47.00 ; GERD ( gastroesophageal reflux disease) K21.9 ; Episode of recurrent major depressive disorder, unspecified depression episode severity F33.9 and Seasonal allergies J30.[address] [place] [address] [id number] Jun, Chronic pain disorder G89.4 and Obesity E66.9 [address] [place] [address] [id number] Jun, [address] [place] [address] [id number] May, Plantar fasciitis, left M72.2 ; Anxiety F41.9 and BMI 40.0-44.9, adult Z68.41 [address] [place] [address] [id number] May, Chronic pain disorder G89.4 and Obesity E66.9 [place] [id number] [place] [address] [id number] May, [facility] [place] [facility] [id number] [id number] Apr, Episode of recurrent major depressive disorder, unspecified depression episode severity F33.9 ; Chronic pain disorder G89.4 ; Obesity E66.9 and BMI 40.0-44.9, adult Z68.41 [facility] [place] [facility] [id number] [place] [address] [phone] Apr, [facility] [place] [facility] [address] [id number] Apr, Chronic pain disorder G89.4 and Obesity E66.9 [facility] [place] [facility] [id number] [place] [address] [id number] March, Chronic pain disorder G89.4 and Obesity E66.9 [facility] [id number] [place] [address] March, [facility] [place] [facility] [id number] [place] [address] [id number] Feb, Chronic pain disorder G89.4 [facility] [id number] [place] [address] [phone] Feb, Chronic pain disorder G89.4 and Obesity E66.9 [facility] [id number] [place] [address] [id number] Jan, Insomnia G47.00 [facility] [place] [facility] [id number] [place] [address] [id number] Jan, Obesity E66.9 and Chronic pain disorder G89.4 [facility] [place] [facility] [id number] [place] [address] [id number] Jan, Chronic pain disorder G89.4 [facility] [id number] [place] [id number] Jan, [facility] [id number] [place] [address] 34129- 2216 Dec, [facility] [id number] [place] [address] [id number] Dec, Chronic pain disorder G89.4 [facility] [address] [id number] [id number] Dec, Calcaneal spur of left foot M77.32 and BMI 40.0-44.9, adult Z68.41 [place] [id number] [place] [address]92[address] 9[address] Nov, Chronic pain disorder G89.4 ; Sciatica, right side M54.31 ; Pain of left heel M79.672 ; Morbid obesity E66.01 ; Mood disorder F39 ; Obesity E66.9 ; Anxiety F41.9 ; Insomnia G47.00 and Muscle spasm M62.838 [facility] [id number] [place] [address] [id number] Nov, Chronic pain disorder G89.4 ; Sciatica, right side M54.31 ; Morbid obesity E66.01 ; Mood disorder F39 ; Obesity E66.9 ; Pain of left heel M79.672 ; Anxiety F41.9 ; Insomnia G47.00 ; Muscle spasm M62.838 and BMI 40.0-44.9, adult Z68.41 [place] [address] [address] Oct, Chronic pain disorder G89.4 [place] [id number] [place] [address]8876- 2726 Sep, Anxiety F41.9 ; Fibromyalgia M79.7 ; Chronic pain disorder G89.4 ; Mood disorder F39 ; GERD (gastroesophageal reflux disease) K21.9 and Muscle spasm M62.838 [place] [id number] [place] [address]- 0[address] Sep, Plantar fasciitis M72.2 ; Morbid obesity E66.01 and BMI 40.0 -44.9, adult Z68.41 [place] [id number] [place] [address] 807[address]- [address] Aug, [place] [id number] [place] [address] 29[address] Aug, Anxiety F41.9 ; Muscle spasm M62.838 ; Major depressive disorder, recurrent episode, moderate F33.1 ; Obesity E66.9 ; Insomnia G47.00 ; Fibromyalgia M79.7 ; Chronic pain disorder G89.4 and Other chronic pain G89.29 [place] [address] [address] Jul, Muscle spasm M62.838 ; Anxiety F41.9 ; Sciatica M54.30 ; Insomnia G47.00 ; Major depressive disorder, recurrent episode, moderate F33.1 ; Other chronic pain G89.29 and GERD (gastroesophageal reflux disease) K21.9 [facility] [place] [address] [address] Jun, Acute non-recurrent maxillary sinusitis J01.00 [facility] [place] [address] [address] Jun, Acute nasopharyngitis (common cold) J00 [place] [address] [address] May, Anxiety F41.9 [place] [address] [address] Apr, Insomnia G47.[address] [address] March, Anxiety F41.9 and Insomnia G47.00 [place] [address] [address] Feb, Obesity E66.9 and Screening cholesterol level Z13.220 [place] [address] [address] Feb, Insomnia G47.00 [place] [address] [address] Dec, Sciatica M54.30 ; Obesity E66.9 ; Anxiety F41.9 ; Insomnia G47.00 ; GERD (gastroesophageal reflux disease) K21.9 ; Major depressive disorder, recurrent episode, moderate F33.1 ; Pain management R52 and Screening cholesterol level Z13.220 [facility] [id number] [place] [address]13[address] 9[address] Dec, [facility] [id number] [place] [address] 74961 -[address]87 Nov, Acute non-recurrent frontal sinusitis J01.10 and Sore throat J02.9 [facility] [id number] [place] [address] 05309- 0[address] Nov, [facility] [id number] [place] [address] 00133- 1362 Nov, Sciatica, right side M54.31 and Sciatica of left side M54.32 [place] [id number] [place] [address] 13807- 2664 Oct, [facility] [id number] [place] [address] 12250- 5991 Sep, [facility] [id number] [place] [address] 25944- 0735 Aug, [place] [id number] [place] [address] 58967- 8415 Aug, [place] [id number] [place] [address] 75305- 0719 16 Jul, 2016 [facility] [id number] [place] [address] 07527- 2225 Jul, [facility] [id number] [place] [address] 19165- 2616 Jun, Sciatica M54.30 ; Insomnia G47.00 ; Obesity E66.9 ; Anxiety F41.9 and Major depressive disorder with single episode, remission status unspecified F32.9 [facility] [address] [place] [address] 01229- 3870 Jun, Major depressive disorder with single episode, remission status unspecified F32.9 [facility] [id number] [place] [address] 61731- 0538 Jun, [facility] [id number] [place] [address] 68982- 6772 Jun, [facility] [id number] [place] [address] 17580- 1061 Jun, Major depressive disorder with single episode, remission status unspecified F32.9 [place] [id number] [place] [address] 39221- 8646 Jun, Major depressive disorder, recurrent episode, moderate F33.1 [place] [address] [address]- [address] May, [place] [id number] [place] [address] 19223- 7791 Apr, [place] [address] [address] March, Obesity E66.9 ; Anxiety F41.9 ; Insomnia G47.00 ; GERD ( gastroesophageal reflux disease) K21.9 and Other chronic pain G89.29 [place] [id number] [place] [address] 52165- 5778 March, Sciatica M54.30 [place] [id number] [place] [address] 62793- 5666 March, Insomnia G47.00 and Anxiety F41.9 [place] [id number] [place] [address] 52474- 1086 Feb, Sciatica M54.30 [place] [address] 28546- 6335 Feb, Dental examination Z01.20 [place] [id number] [place] [address] 82163- 7751 Jan, Obesity E66.9 ; Sciatica M54.30 ; Anxiety F41.9 ; Insomnia G47.00 ; GERD (gastroesophageal reflux disease) K21.9 and Anemia D64.9 [facility] [id number] [place] [address] 75636- 6328 Dec, [facility] [id number] [place] [address] 16513- 3112 Dec, Skin tags, multiple acquired L91.8 [facility] [address] 74873- 6387 Dec, [facility] [id number] [place] [address] 19957- 6525 Nov, Obesity E66.9 [place] [address] 16660- [address]32 Nov, Sciatica M54.30 ; Obesity E66.9 ; Anxiety F41.9 ; Insomnia G47.00 and GERD (gastroesophageal reflux disease) K21.9 [place] [id number] [place] [address] 16347- 3150 Aug, Sciatica M54.30 ; Obesity E66.9 ; Anxiety F41.9 ; Insomnia G47.00 and GERD (gastroesophageal reflux disease) K21.9 [place] [id number] [place] [address] 24747- 3674 Feb, [place] [address] [place] [address] 04910- 3720 Feb, [facility] [id number] [place] [address] 71464- 5632 Feb, [facility] [id number] [place] [address] 89545- 2055 Feb, [place] [id number] [place] [address] 68035- 6512 Feb, [facility] [address] [place] [address] 94984- 3422 Jan, [address] [place] [id number] Nov, [facility] [address] [facility] [id number] [place] [id number] Nov, [facility] [address] [facility] [id number] [address] Oct, [facility] [address] [facility] [id number] [address] 63[address] Feb, [facility] [address] [facility] [id number] [place] Aug, [facility] [address] [facility] [id number] [place] Jul, IMMUNIZATIONS No Known Immunizations SOCIAL HISTORY Never Assessed REASON FOR VISIT Med Review Ricky JACKSON PLAN OF CARE Activity Details Follow Up 3 Months Reason:pain VITAL SIGNS Height 63 in 2018-10-17 Weight 255.9 lbs 2018-10-17 Temperature 97.9 degrees Fahrenheit 2018-10-17 Heart Rate 78 bpm 2018-10-17 Respiratory Rate 18 2018-10-17 BMI 45.33 kg/m2 2018-10-17 Blood pressure systolic 122 mmHg 2018-10-17 Blood pressure diastolic 72 mmHg 2018-10-17 MEDICATIONS Medication Instructions Dosage Frequency Start Date End Date Duration Status Hydrocodone-Acetaminophen 7.5-325 MG Orally 3 times a day 1 tablet as needed 8h Oct, 28 days Active Ambien 10 mg Orally Once a day 1 tablet at bedtime as needed 24h 12 Jul, 2017 30 days Active Aciphex 20 mg Orally Once a day 1 tablet 24h Sep, Active Flonase 50 MCG/ACT Nasally Once a day 1 spray in each nostril 24h Jun, 90 days Active Duloxetine HCl 30 MG Orally Once a day 1 capsule 24h Sep, 30 day(s) Active RESULTS No Results PROCEDURES No Known procedures INSTRUCTIONS MEDICATIONS ADMINISTERED No Known Medications MEDICAL [...]
--- OUTSIDE RECORDS SUMMARY | 2018-11-24 09:34 | XMS REPORT ---
Author Author JOSY TIPTON [facility] Address [address] [place] [address] Care Team Providers Care Tax Compliance Agent Name Role Phone JOSY TIPTON Unavailable PROBLEMS Type Condition ICD9-CM Code [id number] Code Onset Dates Condition Status SNOMED Code Problem Sciatica, right side M54.31 Active 16087305 Problem Other chronic pain G89.29 Active 55546439 Problem Muscle spasm M62.838 Active 86890483 Problem Seasonal allergies J30.2 Active 988905901 Problem Episode of recurrent major depressive disorder, unspecified depression episode severity F33.9 Active 408125497 Problem Fibromyalgia M79.7 Active 079258218 Problem Chronic pain disorder G89.4 Active 724499707 Problem Morbid obesity E66.01 Active 308924952 Problem Mood disorder F39 Active 96403803 Problem Anxiety F41.9 Active 54718072 Problem Sciatica M54.30 Active 50297377 Problem Insomnia G47.00 Active 995410147 Problem GERD (gastroesophageal reflux disease) K21.9 Active 775939521 Problem Anemia D64.9 Active 277471947 Problem Major depressive disorder, recurrent episode, moderate F33.1 Active 847187231 Problem Obesity E66.9 Active 770905133 Problem Major depressive disorder with single episode, remission status unspecified F32.9 Active 59833450 Problem Skin tags, multiple acquired L91.8 Active 140254569 Problem Sciatica of left side M54.32 Active 50338680 ALLERGIES No Information ENCOUNTERS Encounter Location Date Diagnosis [facility] [address] [facility] [id number] [address] Oct, [facility] [address] [id number] [address] 29 Sep, 2018 [facility] [address] [id number] [address] 14 Nov, 2018 Sciatica M54.30 ; BMI 40.0-44.9, adult Z68.41 ; Major depressive disorder with single episode, remission status unspecified F32.9 ; Fibromyalgia M79.7 and Obesity E66.[address] [id number] [id number] Aug, Chronic pain disorder G89.4 [facility] [address] [facility] [id number] [id number] Jul, BMI 45.0-49.9, adult Z68.42 ; Anxiety F41.9 ; Chronic pain disorder G89.4 and Insomnia G47.[id number] [place] [address] [id number] Jun, Chronic pain disorder G89.4 ; Anxiety F41.9 ; Insomnia G47.00 ; GERD ( gastroesophageal reflux disease) K21.9 ; Episode of recurrent major depressive disorder, unspecified depression episode severity F33.9 and Seasonal allergies J30.[id number] [place] [address] [id number] Jun, Chronic pain disorder G89.4 and Obesity E66.[address] [id number] [id number] Jun, [place] [id number] [place] [address] [id number] May, Plantar fasciitis, left M72.2 ; Anxiety F41.9 and BMI 40.0-44.9, adult Z68.41 [address] [place] [address] [id number] May, Chronic pain disorder G89.4 and Obesity E66.9 [address] [place] [address] [id number] May, [place] [id number] [place] [address] [id number] Apr, Episode of recurrent major depressive disorder, unspecified depression episode severity F33.9 ; Chronic pain disorder G89.4 ; Obesity E66.9 and BMI 40.0-44.9, adult Z68.41 [id number] [id number] Apr, [facility] [id number] [id number] Apr, Chronic pain disorder G89.4 and Obesity E66.9 [facility] [id number] [place] [address] [id number] March, Chronic pain disorder G89.4 and Obesity E66.9 [place] [address] [address] March, [facility] [id number] [place] [address] [id number] Feb, Chronic pain disorder G89.4 [facility] [place] [id number] [place] [address] [id number] Feb, Chronic pain disorder G89.4 and Obesity E66.9 [facility] [id number] [place] [address] [id number] Jan, Insomnia G47.00 [facility] [id number] [place] [address] [id number] Jan, Obesity E66.9 and Chronic pain disorder G89.4 [facility] [id number] [place] [address] [id number] Jan, Chronic pain disorder G89.4 [place] [address] [place] [address] Jan, [place] [id number] [place] [address] Dec, [facility] [id number] [place] [address] [id number] Dec, Chronic pain disorder G89.4 [facility] [id number] [place] [address] [id number] Dec, Calcaneal spur of left foot M77.32 and BMI 40.0-44.9, adult Z68.41 [facility] [id number] [place] [address]671[address] Nov, Chronic pain disorder G89.4 ; Sciatica, right side M54.31 ; Pain of left heel M79.672 ; Morbid obesity E66.01 ; Mood disorder F39 ; Obesity E66.9 ; Anxiety F41.9 ; Insomnia G47.00 and Muscle spasm M62.838 [facility] [address] [id number] [id number] Nov, Chronic pain disorder G89.4 ; Sciatica, right side M54.31 ; Morbid obesity E66.01 ; Mood disorder F39 ; Obesity E66.9 ; Pain of left heel M79.672 ; Anxiety F41.9 ; Insomnia G47.00 ; Muscle spasm M62.838 and BMI 40.0-44.9, adult Z68.41 [id number] [place] [address] Oct, Chronic pain disorder G89.4 [place] [id number] [place] [address] Sep, Anxiety F41.9 ; Fibromyalgia M79.7 ; Chronic pain disorder G89.4 ; Mood disorder F39 ; GERD (gastroesophageal reflux disease) K21.9 and Muscle spasm M62.838 [id number] [place] [address]- [address] Sep, Plantar fasciitis M72.2 ; Morbid obesity E66.01 and BMI 40.0 -44.9, adult Z68.41 [place] [id number] [place] [address]- [address] Aug, [place] [id number] [place] [address] 8[address]55- [address] Aug, Anxiety F41.9 ; Muscle spasm M62.838 ; Major depressive disorder, recurrent episode, moderate F33.1 ; Obesity E66.9 ; Insomnia G47.00 ; Fibromyalgia M79.7 ; Chronic pain disorder G89.4 and Other chronic pain G89.29 [place] [id number] [place] [address]43- [address] 12 Sep, 2017 Muscle spasm M62.838 ; Anxiety F41.9 ; Sciatica M54.30 ; Insomnia G47.00 ; Major depressive disorder, recurrent episode, moderate F33.1 ; Other chronic pain G89.29 and GERD (gastroesophageal reflux disease) K21.9 [facility] [id number] [place] [address] Jun, Acute non-recurrent maxillary sinusitis J01.00 [facility] [address] [address] Jun, Acute nasopharyngitis (common cold) J00 [place] [address] [address] May, Anxiety F41.9 [place] [address] [address] Apr, Insomnia G47.[address] [address] March, Anxiety F41.9 and Insomnia G47.00 [place] [address] [address] Feb, Obesity E66.9 and Screening cholesterol level Z13.220 [place] [address] [address] Feb, Insomnia G47.[address] [address] Dec, Sciatica M54.30 ; Obesity E66.9 ; Anxiety F41.9 ; Insomnia G47.00 ; GERD (gastroesophageal reflux disease) K21.9 ; Major depressive disorder, recurrent episode, moderate F33.1 ; Pain management R52 and Screening cholesterol level Z13.220 [place] [id number] [place] [address]10- [address] Dec, [facility] [address] [address] Nov, Acute non-recurrent frontal sinusitis J01.10 and Sore throat J02.9 [facility] [address] [place] [address]- 3[address] Nov, [facility] [id number] [place] [address]56[address] Nov, Sciatica, right side M54.31 and Sciatica of left side M54.32 [facility] [id number] [place] [address] 43244- 3983 Oct, [facility] [id number] [place] [address]61- [address] Sep, [facility] [id number] [place] [address] 03710- [address]14 14 Aug, 2016 [facility] [id number] [place] [address] 22841- 9940 Aug, [facility] [id number] [place] [address] 70772- 4728 Jul, [facility] [id number] [place] [address] 94864- 3904 Jul, [facility] [id number] [place] [address] 76881- 0262 Jun, Sciatica M54.30 ; Insomnia G47.00 ; Obesity E66.9 ; Anxiety F41.9 and Major depressive disorder with single episode, remission status unspecified F32.9 [facility] [address] [address] Jun, Major depressive disorder with single episode, remission status unspecified F32.9 [facility] [id number] [place] [address] 52038- 2989 Jun, [facility] [id number] [place] [address] 72726- 8142 Jun, [facility] [id number] [place] [address] 87082- 1451 Jun, Major depressive disorder with single episode, remission status unspecified F32.9 [place] [address] [address]- [address]793 Jun, Major depressive disorder, recurrent episode, moderate F33.1 [place] [address] [address]- [address]67 May, [place] [address] [address]12- [address] Apr, [place] [address] [address]- [address] March, Obesity E66.9 ; Anxiety F41.9 ; Insomnia G47.00 ; GERD ( gastroesophageal reflux disease) K21.9 and Other chronic pain G89.29 [place] [address] [address]- [address] March, Sciatica M54.30 [place] [address] [address]63- 58[address] March, Insomnia G47.00 and Anxiety F41.9 [place] [address] 45482- 5799 Feb, Sciatica M54.30 [place] [address] 91202- 1352 Feb, Dental examination Z01.20 [place] [address] 57064- 8738 Jan, Obesity E66.9 ; Sciatica M54.30 ; Anxiety F41.9 ; Insomnia G47.00 ; GERD (gastroesophageal reflux disease) K21.9 and Anemia D64.9 [place] [address] [address]- [address] Dec, [place] [address] [address]- [address] 05 Feb, 2016 Skin tags, multiple acquired L91.8 [facility] [address] [address] Dec, [facility] [id number] [place] [address] 28803- 3576 Nov, Obesity E66.9 [facility] [id number] [place] [address] 94426 2546 Nov, Sciatica M54.30 ; Obesity E66.9 ; Anxiety F41.9 ; Insomnia G47.00 and GERD (gastroesophageal reflux disease) K21.9 [facility] [id number] [place] [address] 26711- 3048 Aug, Sciatica M54.30 ; Obesity E66.9 ; Anxiety F41.9 ; Insomnia G47.00 and GERD (gastroesophageal reflux disease) K21.9 [facility] [id number] [place] [address] 40483- 4534 Feb, [facility] [id number] [place] [address] 97363- 9809 Feb, [facility] [id number] [place] [address] 02720- 7771 Feb, [facility] [address] [address] Feb, [facility] [id number] [place] [address] 47687- 7579 Feb, [facility] [address] [address] Jan, [facility] [id number] [id number] Nov, [facility] [id number] [id number] Nov, [facility] [address] [address] Oct, [facility] [id number] [address] 13 Feb, 2011 [facility] [address] [facility] [id number] [place] [address] 2747 Aug, [facility] [address] [facility] [id number] [place] [address]- [address] 10 Jul, 2010 IMMUNIZATIONS No Known Immunizations SOCIAL HISTORY Never Assessed REASON FOR VISIT Controlled Med Refill PLAN OF CARE VITAL SIGNS MEDICATIONS Unknown Medications RESULTS No Results PROCEDURES No Known procedures [...]
--- OUTSIDE RECORDS SUMMARY | 2018-11-24 09:34 | XMS REPORT ---
Author Author ALBINO MEDINA [facility] Address [address] [place] [address] Care Team Providers Care Court Orderly Name Role Phone MEDINAALBINO Unavailable PROBLEMS Type Condition ICD9-CM Code VFO41-GE Code Onset Dates Condition Status SNOMED Code Problem Sciatica, right side M54.31 Active 88356729 Problem Other chronic pain G89.29 Active 68795617 Problem Muscle spasm M62.838 Active 91282211 Problem Seasonal allergies J30.2 Active 274849133 Problem Episode of recurrent major depressive disorder, unspecified depression episode severity F33.9 Active 878345210 Problem Fibromyalgia M79.7 Active 820916581 Problem Chronic pain disorder G89.4 Active 053451722 Problem Morbid obesity E66.01 Active 918377976 Problem Mood disorder F39 Active 33668905 Problem Anxiety F41.9 Active 27838723 Problem Sciatica M54.30 Active 44700889 Problem Insomnia G47.00 Active 004678088 Problem GERD (gastroesophageal reflux disease) K21.9 Active 449214458 Problem Anemia D64.9 Active 391322550 Problem Major depressive disorder, recurrent episode, moderate F33.1 Active 029858614 Problem Obesity E66.9 Active 554376605 Problem Major depressive disorder with single episode, remission status unspecified F32.9 Active 34917404 Problem Skin tags, multiple acquired L91.8 Active 551543516 Problem Sciatica of left side M54.32 Active 76156245 ALLERGIES No Information ENCOUNTERS Encounter Location Date Diagnosis [facility] [address] [facility] [id number] [place] [address] Sep, [facility] [address] [id number] [id number] Aug, Chronic pain disorder G89.4 [facility] [address] [id number] [id number] Jul, BMI 45.0-49.9, adult Z68.42 ; Anxiety F41.9 ; Chronic pain disorder G89.4 and Insomnia G47.00 [place] [id number] [place] [address] [id number] Jun, Chronic pain disorder G89.4 ; Anxiety F41.9 ; Insomnia G47.00 ; GERD ( gastroesophageal reflux disease) K21.9 ; Episode of recurrent major depressive disorder, unspecified depression episode severity F33.9 and Seasonal allergies J30.2 [place] [id number] [place] [address] [id number] Jun, Chronic pain disorder G89.4 and Obesity E66.9 [place] [id number] [place] [address] [id number] Jun, [address] [id number] May, Plantar fasciitis, left M72.2 ; Anxiety F41.9 and BMI 40.0-44.9, adult Z68.41 [place] [id number] [place] [address] [id number] May, Chronic pain disorder G89.4 and Obesity E66.9 [place] [id number] [place] [address] [id number] May, [place] [id number] [place] [address] [id number] Apr, Episode of recurrent major depressive disorder, unspecified depression episode severity F33.9 ; Chronic pain disorder G89.4 ; Obesity E66.9 and BMI 40.0-44.9, adult Z68.41 [address] [place] [address] [id number] Apr, [address] [place] [address] [id number] Apr, Chronic pain disorder G89.4 and Obesity E66.9 [place] [id number] [place] [address] [id number] March, Chronic pain disorder G89.4 and Obesity E66.9 [facility] [address] [place] [address] March, [facility] [id number] [id number] Feb, Chronic pain disorder G89.4 [address] [place] [address] [id number] Feb, Chronic pain disorder G89.4 and Obesity E66.9 [address] [place] [address] [id number] Jan, Insomnia G47.00 [place] [id number] [place] [address] [id number] Jan, Obesity E66.9 and Chronic pain disorder G89.4 [place] [id number] [place] [address] [id number] Jan, Chronic pain disorder G89.4 [place] [address] [place] [id number] [place] [address] Jan, [facility] [address] [place] [id number] [place] [address] Dec, [address] [place] [address] [id number] Dec, Chronic pain disorder G89.4 [address] [place] [address] [id number] Dec, Calcaneal spur of left foot M77.32 and BMI 40.0-44.9, adult Z68.41 [facility] [address] [place] [id number] [place] [address] Nov, Chronic pain disorder G89.4 ; Sciatica, right side M54.31 ; Pain of left heel M79.672 ; Morbid obesity E66.01 ; Mood disorder F39 ; Obesity E66.9 ; Anxiety F41.9 ; Insomnia G47.00 and Muscle spasm M62.838 [address] [id number] Nov, Chronic pain disorder G89.4 ; Sciatica, right side M54.31 ; Morbid obesity E66.01 ; Mood disorder F39 ; Obesity E66.9 ; Pain of left heel M79.672 ; Anxiety F41.9 ; Insomnia G47.00 ; Muscle spasm M62.838 and BMI 40.0-44.9, adult Z68.41 [place] [id number] [place] [address] Oct, Chronic pain disorder G89.[address] [address] Sep, Anxiety F41.9 ; Fibromyalgia M79.7 ; Chronic pain disorder G89.4 ; Mood disorder F39 ; GERD (gastroesophageal reflux disease) K21.9 and Muscle spasm M62.[address] [address] Sep, Plantar fasciitis M72.2 ; Morbid obesity E66.01 and BMI 40.0 -44.9, adult Z68.[address] [address] Aug, [address] [address] Aug, Anxiety F41.9 ; Muscle spasm M62.838 ; Major depressive disorder, recurrent episode, moderate F33.1 ; Obesity E66.9 ; Insomnia G47.00 ; Fibromyalgia M79.7 ; Chronic pain disorder G89.4 and Other chronic pain G89.29 [place] [id number] [place] [address] Jul, Muscle spasm M62.838 ; Anxiety F41.9 ; Sciatica M54.30 ; Insomnia G47.00 ; Major depressive disorder, recurrent episode, moderate F33.1 ; Other chronic pain G89.29 and GERD (gastroesophageal reflux disease) K21.9 [facility] [place] [id number] [place] [address] Jun, Acute non-recurrent maxillary sinusitis J01.00 [facility] [address] [place] [address] Jun, Acute nasopharyngitis (common cold) J00 [facility] [address] [address] May, Anxiety F41.9 [facility] [address] [address] Apr, Insomnia G47.00 [place] [address] [address] March, Anxiety F41.9 and Insomnia G47.[address] [address] Feb, Obesity E66.9 and Screening cholesterol level Z13.220 [place] [address] [address] Feb, Insomnia G47.00 [place] [address] [address] Dec, Sciatica M54.30 ; Obesity E66.9 ; Anxiety F41.9 ; Insomnia G47.00 ; GERD (gastroesophageal reflux disease) K21.9 ; Major depressive disorder, recurrent episode, moderate F33.1 ; Pain management R52 and Screening cholesterol level Z13.220 [place] [address] [place] [id number] [place] [address] Dec, [facility] [address] [address] Nov, Acute non-recurrent frontal sinusitis J01.10 and Sore throat J02.9 [place] [address] [address] Nov, [facility] [address] [address] Nov, Sciatica, right side M54.31 and Sciatica of left side M54.32 [place] [address] [place] [address] Oct, [facility] [address] [address] Sep, [facility] [address] [address] 14 Aug, 2016 [facility] [address] [place] [address] Aug, [facility] [address] [place] [address] 16 Jul, 2016 [facility] [address] [place] [address] Jul, [facility] [address] [address] Jun, Sciatica M54.30 ; Insomnia G47.00 ; Obesity E66.9 ; Anxiety F41.9 and Major depressive disorder with single episode, remission status unspecified F32.9 [facility] [address] [address] Jun, Major depressive disorder with single episode, remission status unspecified F32.9 [facility] [address] [address] Jun, [facility] [address] [address] Jun, [facility] [address] [address] Jun, Major depressive disorder with single episode, remission status unspecified F32.9 [facility] [address] [address] Jun, Major depressive disorder, recurrent episode, moderate F33.1 [facility] [address] [address] May, [facility] [address] [address] Apr, [place] [address] [address] March, Obesity E66.9 ; Anxiety F41.9 ; Insomnia G47.00 ; GERD ( gastroesophageal reflux disease) K21.9 and Other chronic pain G89.29 [place] [address] [address] March, Sciatica M54.30 [place] [address] [address] March, Insomnia G47.00 and Anxiety F41.9 [place] [address] [address] Feb, Sciatica M54.30 [place] [address] [address]- [address] Feb, Dental examination Z01.20 [place] [address] [address] Jan, Obesity E66.9 ; Sciatica M54.30 ; Anxiety F41.9 ; Insomnia G47.00 ; GERD (gastroesophageal reflux disease) K21.9 and Anemia D64.9 [place] [address] [address] Dec, [place] [address] [address] Dec, Skin tags, multiple acquired L91.8 [place] [address] [address] Dec, [place] [address] [address] Nov, Obesity E66.9 [place] [address] [address]- [address] Nov, Sciatica M54.30 ; Obesity E66.9 ; Anxiety F41.9 ; Insomnia G47.00 and GERD (gastroesophageal reflux disease) K21.9 [facility] [address] [place] [id number] [place] [address]367- 47[address] Aug, Sciatica M54.30 ; Obesity E66.9 ; Anxiety F41.9 ; Insomnia G47.00 and GERD (gastroesophageal reflux disease) K21.9 [facility] [address] [place] [id number] [place] [address] 09363- 9450 Feb, [facility] [address] [place] [id number] [place] [address] 70936- 0772 Feb, [facility] [address] [place] [id number] [place] [address]106- 4900 Feb, [facility] [address] [place] [id number] [place] [address]88- 3664 Feb, [facility] [address] [place] [id number] [place] [address] 79887- 4129 Feb, [facility] [address] [place] [id number] [place] [address] 71658- [address] Jan, [place] [id number] [place] [address] [id number] Nov, [place] [id number] [place] [address] [id number] Nov, [facility] [address] [place] [id number] [place] [address]43- 3541 Oct, [facility] [address] [place] [id number] [place] [address]01- 7139 Feb, [facility] [address] [place] [id number] [place] [address] 66568- 1573 Aug, [facility] [address] [place] [id number] [place] [address] 59644- 7749 10 Jul, 2010 IMMUNIZATIONS No Known Immunizations SOCIAL HISTORY Never Assessed REASON FOR VISIT refill request PLAN OF CARE VITAL SIGNS MEDICATIONS Medication Instructions Dosage Frequency Start Date End Date Duration Status Hydrocodone-Acetaminophen 7.5-325 MG Orally 3 times a day 1 tablet as needed 8h Aug, 14 days Active RESULTS No Results PROCEDURES No Known [...]
--- OUTSIDE RECORDS SUMMARY | 2018-11-24 09:34 | XMS REPORT ---
Author Author JOSY TIPTON Organization [facility] [place] Address [address] [place] [address] Care Team Providers Care Imaging Analyst Name Role Phone JOSY TIPTON Unavailable PROBLEMS Type Condition ICD9-CM Code [id number] Code Onset Dates Condition Status SNOMED Code Problem Sciatica, right side M54.31 Active 75096012 Problem Other chronic pain G89.29 Active 28588950 Problem Muscle spasm M62.838 Active 15885049 Problem Seasonal allergies J30.2 Active 970016245 Problem Episode of recurrent major depressive disorder, unspecified depression episode severity F33.9 Active 991003356 Problem Fibromyalgia M79.7 Active 797646864 Problem Chronic pain disorder G89.4 Active 107338824 Problem Morbid obesity E66.01 Active 833926173 Problem Mood disorder F39 Active 90647901 Problem Anxiety F41.9 Active 97422519 Problem Sciatica M54.30 Active 93873105 Problem Insomnia G47.00 Active 757116668 Problem GERD (gastroesophageal reflux disease) K21.9 Active 626527206 Problem Anemia D64.9 Active 478467029 Problem Major depressive disorder, recurrent episode, moderate F33.1 Active 568067903 Problem Obesity E66.9 Active 063586483 Problem Major depressive disorder with single episode, remission status unspecified F32.9 Active 88342866 Problem Skin tags, multiple acquired L91.8 Active 766152504 Problem Sciatica of left side M54.32 Active 14858783 ALLERGIES No Known Allergies ENCOUNTERS Encounter Location Date Diagnosis [facility] [place] [address] [facility] [id number], [place] [address] Oct, [facility] [place] [address] [facility] [id number], [place] [address] 14 Sep, 2018 Sciatica M54.30 ; BMI 40.0-44.9, adult Z68.41 ; Major depressive disorder with single episode, remission status unspecified F32.9 ; Fibromyalgia M79.7 and Obesity E66.9 [place] [address] [facility] [id number] [id number] Aug, Chronic pain disorder G89.4 [facility] [id number] [place] [address] [id number] Jul, BMI 45.0-49.9, adult Z68.42 ; Anxiety F41.9 ; Chronic pain disorder G89.4 and Insomnia G47.00 [place] [address] [place] [id number] [place] [address] [id number] Jun, Chronic pain disorder G89.4 ; Anxiety F41.9 ; Insomnia G47.00 ; GERD ( gastroesophageal reflux disease) K21.9 ; Episode of recurrent major depressive disorder, unspecified depression episode severity F33.9 and Seasonal allergies J30.[id number] [place] [address] [id number] Jun, Chronic pain disorder G89.4 and Obesity E66.9 [address] [place] [address] [id number] Jun, [place] [id number] [place] [address] [id number] May, Plantar fasciitis, left M72.2 ; Anxiety F41.9 and BMI 40.0-44.9, adult Z68.41 [address] [place] [address] [id number] May, Chronic pain disorder G89.4 and Obesity E66.9 [place] [id number] [place] [address] [id number] May, [address] [place] [address] [id number] Apr, Episode of recurrent major depressive disorder, unspecified depression episode severity F33.9 ; Chronic pain disorder G89.4 ; Obesity E66.9 and BMI 40.0-44.9, adult Z68.41 [address] [place] [address] [id number] Apr, [place] [id number] [place] [address] [id number] Apr, Chronic pain disorder G89.4 and Obesity E66.9 [address] [place] [address] [id number] March, Chronic pain disorder G89.4 and Obesity E66.9 [facility] [place] [address] [place] [id number] [place] [address] March, [facility] [address] [place] [id number] [place] [address] [id number] Feb, Chronic pain disorder G89.4 [address] [place] [address] [id number] Feb, Chronic pain disorder G89.4 and Obesity E66.9 [place] [id number] [place] [address] [id number] Jan, Insomnia G47.[address] [place] [address] [id number] Jan, Obesity E66.9 and Chronic pain disorder G89.4 [place] [id number] [place] [address] [id number] Jan, Chronic pain disorder G89.4 [facility] [place] [address] [place] [id number] [place] [address] Jan, [facility] [place] [id number] [place] [address] [id number] Dec, [place] [id number] [place] [address] [id number] Dec, Chronic pain disorder G89.4 [address] [place] [address] [id number] Dec, Calcaneal spur of left foot M77.32 and BMI 40.0-44.9, adult Z68.41 [facility] [place] [address] [place] [address] Nov, Chronic pain disorder G89.4 ; Sciatica, right side M54.31 ; Pain of left heel M79.672 ; Morbid obesity E66.01 ; Mood disorder F39 ; Obesity E66.9 ; Anxiety F41.9 ; Insomnia G47.00 and Muscle spasm M62.838 [facility] [address] [facility] [id number] [id number] Nov, Chronic pain disorder G89.4 ; Sciatica, right side M54.31 ; Morbid obesity E66.01 ; Mood disorder F39 ; Obesity E66.9 ; Pain of left heel M79.672 ; Anxiety F41.9 ; Insomnia G47.00 ; Muscle spasm M62.838 and BMI 40.0-44.9, adult Z68.41 [place] [address] [place] [address] Oct, Chronic pain disorder G89.4 [place] [id number] [place] [address] Sep, Anxiety F41.9 ; Fibromyalgia M79.7 ; Chronic pain disorder G89.4 ; Mood disorder F39 ; GERD (gastroesophageal reflux disease) K21.9 and Muscle spasm M62.838 [address] [place] [address] Sep, Plantar fasciitis M72.2 ; Morbid obesity E66.01 and BMI 40.0 -44.9, adult Z68.41 [address] [place] [address] Aug, [place] [id number] [place] [address] Aug, Anxiety F41.9 ; Muscle spasm M62.838 ; Major depressive disorder, recurrent episode, moderate F33.1 ; Obesity E66.9 ; Insomnia G47.00 ; Fibromyalgia M79.7 ; Chronic pain disorder G89.4 and Other chronic pain G89.29 [place] [address] [place] [address] Jul, Muscle spasm M62.838 ; Anxiety F41.9 ; Sciatica M54.30 ; Insomnia G47.00 ; Major depressive disorder, recurrent episode, moderate F33.1 ; Other chronic pain G89.29 and GERD (gastroesophageal reflux disease) K21.9 [facility] [address] [address] Jun, Acute non-recurrent maxillary sinusitis J01.00 [facility] [place] [address] [address] Jun, Acute nasopharyngitis (common cold) J00 [place] [address] [address] May, Anxiety F41.9 [place]2507[address] Apr, Insomnia G47.[address] [address] March, Anxiety F41.9 and Insomnia G47.00 [place] [address] [address] Feb, Obesity E66.9 and Screening cholesterol level Z13.[address] 065331- [address] Feb, Insomnia G47.[address] [address] Dec, Sciatica M54.30 ; Obesity E66.9 ; Anxiety F41.9 ; Insomnia G47.00 ; GERD (gastroesophageal reflux disease) K21.9 ; Major depressive disorder, recurrent episode, moderate F33.1 ; Pain management R52 and Screening cholesterol level Z13.[address] [address] Dec, [facility] [address] [address] Nov, Acute non-recurrent frontal sinusitis J01.10 and Sore throat J02.9 [id number] [address] Nov, [facility] [place] [address] [address] Nov, Sciatica, right side M54.31 and Sciatica of left side M54.32 [facility] [place] [address], [place] [address] Oct, [facility] [place] [address] [place] [id number] [place] [address] Sep, [facility] [place] [address] [address] Aug, [facility] [place] [address] [place] [id number] [place] [address] 207[address] Aug, [facility] [place] [address], [place] [address] Jul, [facility] [place] [address], [place] [address] Jul, [facility] [place] [address], [place] [address] Jun, Sciatica M54.30 ; Insomnia G47.00 ; Obesity E66.9 ; Anxiety F41.9 and Major depressive disorder with single episode, remission status unspecified F32.9 [facility] [place] [address], [place] [address] Jun, Major depressive disorder with single episode, remission status unspecified F32.9 [facility] [place] [address], [place] [address] Jun, [facility] [place] [address], [place] [address] Jun, [facility] [place] [address] [address] Jun, Major depressive disorder with single episode, remission status unspecified F32.9 [place] [address] [address] Jun, Major depressive disorder, recurrent episode, moderate F33.1 [place] [address] [address] May, [place] [address] [address] Apr, [place] [address] [address] March, Obesity E66.9 ; Anxiety F41.9 ; Insomnia G47.00 ; GERD ( gastroesophageal reflux disease) K21.9 and Other chronic pain G89.29 [place] [address] [address] March, Sciatica M54.30 [place] [address] [address] March, Insomnia G47.00 and Anxiety F41.9 [place] [address] [address]- [address] Feb, Sciatica M54.30 [place] [address] [address]- [address] Feb, Dental examination Z01.20 [place] [address] [address] Jan, Obesity E66.9 ; Sciatica M54.30 ; Anxiety F41.9 ; Insomnia G47.00 ; GERD (gastroesophageal reflux disease) K21.9 and Anemia D64.9 [place] [address] [address]- [address] Dec, [place] [address] [address]- [address] 05 Dec, 2015 Skin tags, multiple acquired L91.8 [place] [address] [address] Dec, [facility] [place] [address], [place] [address] Nov, Obesity E66.9 [facility] [address] [place] [address]- [address] Nov, Sciatica M54.30 ; Obesity E66.9 ; Anxiety F41.9 ; Insomnia G47.00 and GERD (gastroesophageal reflux disease) K21.9 [facility] [address] [place] [id number] [place] [address]- [address] Aug, Sciatica M54.30 ; Obesity E66.9 ; Anxiety F41.9 ; Insomnia G47.00 and GERD (gastroesophageal reflux disease) K21.9 [facility] [place] [address] [place] [id number] [place] [address]39- [address] Feb, [facility] [place] [address] [place] [id number] [place] [address] 19522- 1762 Feb, [facility] [place] [address] [place] [id number] [place] [address] 65[address]- [address] Feb, [facility] [place] [address] [place] [id number] [place] [address] 84841- [address] Feb, [facility] [place] [address] [place] [address] 67[address]- 0858 Feb, [facility] [place] [address], [place] [address] Jan, [facility] [id number] [id number] Nov, [facility] [id number] [id number] Nov, [facility] [place] [address] [place] [id number] [place] [address]90- 4736 Oct, [facility] [place] [address], [place] [address] Feb, [facility] [place] [address] [id number] [address] Aug, [facility] [address] [facility] [id number] [place] [address] Jul, IMMUNIZATIONS No Known Immunizations SOCIAL HISTORY Never Assessed REASON FOR VISIT New provider visit David Brown MA PLAN OF CARE Activity Details Follow Up 3 months or as indicated by lab Reason:pain. Pain VITAL SIGNS Height 63 in 2018-09-17 Weight 253.2 lbs 2018-09-17 Temperature 97.8 degrees Fahrenheit 2018-09-17 Heart Rate 74 bpm 2018-09-17 Respiratory Rate 20 2018-09-17 BMI 44.85 kg/m2 2018-09-17 Blood pressure systolic 128 mmHg 2018-09-17 Blood pressure diastolic 72 mmHg 2018-09-17 MEDICATIONS Medication Instructions Dosage Frequency Start Date End Date Duration Status Ambien 10 mg Orally Once a day 1 tablet at bedtime as needed 24h 12 Jul, 2017 30 days Active Aciphex 20 mg Orally Once a day 1 tablet 24h Sep, Active Flonase 50 MCG/ACT Nasally Once a day 1 spray in each nostril 24h Jun, 90 days Active Hydrocodone-Acetaminophen 7.5-325 MG Orally 3 times a day 1 tablet as needed 8h Sep, 28 days Active Duloxetine HCl 30 MG Orally [...]
--- OUTSIDE RECORDS SUMMARY | 2018-11-24 09:35 | XMS REPORT ---
Author Author BRAXTON ABDI [facility] Address [address] [place] [address] Care Team Providers Care Switchboard Troubleshooter Name Role Phone BRAXTON ABDI Unavailable PROBLEMS Type Condition ICD9-CM Code LRT96-XS Code Onset Dates Condition Status SNOMED Code Problem Sciatica, right side M54.31 Active 33918679 Problem Other chronic pain G89.29 Active 14894996 Problem Muscle spasm M62.838 Active 90717784 Problem Seasonal allergies J30.2 Active 506741996 Problem Episode of recurrent major depressive disorder, unspecified depression episode severity F33.9 Active 281843940 Problem Fibromyalgia M79.7 Active 636472327 Problem Chronic pain disorder G89.4 Active 510137876 Problem Morbid obesity E66.01 Active 075959692 Problem Mood disorder F39 Active 50896102 Problem Anxiety F41.9 Active 85106076 Problem Sciatica M54.30 Active 80073466 Problem Insomnia G47.00 Active 489067035 Problem GERD (gastroesophageal reflux disease) K21.9 Active 924686218 Problem Anemia D64.9 Active 948331031 Problem Major depressive disorder, recurrent episode, moderate F33.1 Active 409381674 Problem Obesity E66.9 Active 664421191 Problem Major depressive disorder with single episode, remission status unspecified F32.9 Active 52806415 Problem Skin tags, multiple acquired L91.8 Active 642953246 Problem Sciatica of left side M54.32 Active 76728946 ALLERGIES No Known Allergies ENCOUNTERS Encounter Location Date Diagnosis [address] [id number] [id number] Jul, BMI 45.0-49.9, adult Z68.42 ; Anxiety F41.9 ; Chronic pain disorder G89.4 and Insomnia G47.[address] [id number] [id number] Jun, Chronic pain disorder G89.4 ; Anxiety F41.9 ; Insomnia G47.00 ; GERD ( gastroesophageal reflux disease) K21.9 ; Episode of recurrent major depressive disorder, unspecified depression episode severity F33.9 and Seasonal allergies J30.2 [facility] [id number] [place] [id number] Jun, Chronic pain disorder G89.4 and Obesity E66.9 [place] [id number] [place] [id number] Jun, [address] [id number] May, Plantar fasciitis, left M72.2 ; Anxiety F41.9 and BMI 40.0-44.9, adult Z68.[address] [place] [id number] [place] [address] [id number] May, Chronic pain disorder G89.4 and Obesity E66.9 [place] [id number] [place] [address] [id number] May, [facility] [id number] [place] [address] [id number] Apr, Episode of recurrent major depressive disorder, unspecified depression episode severity F33.9 ; Chronic pain disorder G89.4 ; Obesity E66.9 and BMI 40.0-44.9, adult Z68.41 [facility] [address] [place] [address] [id number] Apr, [place] [id number] [place] [address] [id number] Apr, Chronic pain disorder G89.4 and Obesity E66.9 [address] [place] [address] [id number] March, Chronic pain disorder G89.4 and Obesity E66.9 [facility] [address] [address] March, [facility] [address] [place] [address] [id number] Feb, Chronic pain disorder G89.4 [id number] [id number] Feb, Chronic pain disorder G89.4 and Obesity E66.9 [facility] [address] [id number] Jan, Insomnia G47.00 [address] [place] [address] [id number] Jan, Obesity E66.9 and Chronic pain disorder G89.4 [facility] [place] [id number] [place] [address] [id number] Jan, Chronic pain disorder G89.4 [place] [address] [place] [address] [id number] [place] [address] [phone] Jan, [place] [address] [place] [address] [id number] [place] [id number] 2546 Dec, [address] [place] [address] [id number] Dec, Chronic pain disorder G89.4 [facility] [place] [id number] [place] [address] [id number] Dec, Calcaneal spur of left foot M77.32 and BMI 40.0-44.9, adult Z68.41 [place] [address] [place] [address] [id number] [place] [address]395 Nov, Chronic pain disorder G89.4 ; Sciatica, right side M54.31 ; Pain of left heel M79.672 ; Morbid obesity E66.01 ; Mood disorder F39 ; Obesity E66.9 ; Anxiety F41.9 ; Insomnia G47.00 and Muscle spasm M62.838 [address] [place] [address] [id number] Nov, Chronic pain disorder G89.4 ; Sciatica, right side M54.31 ; Morbid obesity E66.01 ; Mood disorder F39 ; Obesity E66.9 ; Pain of left heel M79.672 ; Anxiety F41.9 ; Insomnia G47.00 ; Muscle spasm M62.838 and BMI 40.0-44.9, adult Z68.41 [place] [address] [place] [address] [id number] [place] [address] 8086 Oct, Chronic pain disorder G89.4 [place] [address] [address] Sep, Anxiety F41.9 ; Fibromyalgia M79.7 ; Chronic pain disorder G89.4 ; Mood disorder F39 ; GERD (gastroesophageal reflux disease) K21.9 and Muscle spasm M62.[address] [address] Sep, Plantar fasciitis M72.2 ; Morbid obesity E66.01 and BMI 40.0 -44.9, adult Z68.[address] [address] Aug, [address] [address] Aug, Anxiety F41.9 ; Muscle spasm M62.838 ; Major depressive disorder, recurrent episode, moderate F33.1 ; Obesity E66.9 ; Insomnia G47.00 ; Fibromyalgia M79.7 ; Chronic pain disorder G89.4 and Other chronic pain G89.29 [place] [id number] [place] [address] 70[address] Jul, Muscle spasm M62.838 ; Anxiety F41.9 ; Sciatica M54.30 ; Insomnia G47.00 ; Major depressive disorder, recurrent episode, moderate F33.1 ; Other chronic pain G89.29 and GERD (gastroesophageal reflux disease) K21.9 [facility] [address] [place] [id number] [place] [address]83 Jun, Acute non-recurrent maxillary sinusitis J01.00 [facility] [address] [place] [id number] [place] [address] Jun, Acute nasopharyngitis (common cold) J00 [address] [address] May, Anxiety F41.9 [facility] [id number] [place] [address] Apr, Insomnia G47.00 [place] [address] [address] March, Anxiety F41.9 and Insomnia G47.00 [place] [address] [address] Feb, Obesity E66.9 and Screening cholesterol level Z13.220 [facility] [address] [address] Feb, Insomnia G47.00 [place] [address] [address]- [address] Dec, Sciatica M54.30 ; Obesity E66.9 ; Anxiety F41.9 ; Insomnia G47.00 ; GERD (gastroesophageal reflux disease) K21.9 ; Major depressive disorder, recurrent episode, moderate F33.1 ; Pain management R52 and Screening cholesterol level Z13.220 [place] [address] [address] Dec, [facility] [id number] [place] [address] Nov, Acute non-recurrent frontal sinusitis J01.10 and Sore throat J02.9 [place] [address] [place] [address] [id number] [place] [address] 48062- 5[address] Nov, [facility] [address] [address] Nov, Sciatica, right side M54.31 and Sciatica of left side M54.32 [place] [address] [address] Oct, [facility] [address] [address]- [address] Sep, [place] [address] [address] 14 Aug, 2016 [facility] [id number] [place] [address] 64365- [address] 11 Aug, 2016 [facility] [address] [id number] [address] 16 Jul, 2016 [facility] [id number] [place] [address] 38358- 0[address] 07 Jul, 2016 [facility] [address] [place] [address] 83312- 2955 Jun, Sciatica M54.30 ; Insomnia G47.00 ; Obesity E66.9 ; Anxiety F41.9 and Major depressive disorder with single episode, remission status unspecified F32.9 [facility] [address], [place] [address] Jun, Major depressive disorder with single episode, remission status unspecified F32.9 [facility] [address], [place] [address] Jun, [facility] [address] [place] [address] 93001- 6801 Jun, [facility] [address], [place] [address] Jun, Major depressive disorder with single episode, remission status unspecified F32.9 [facility] [address], [place] [address] Jun, Major depressive disorder, recurrent episode, moderate F33.1 [facility] [address], [place] [address] May, [facility] [id number] [address] Apr, [facility] [address] [place] [address] March, Obesity E66.9 ; Anxiety F41.9 ; Insomnia G47.00 ; GERD ( gastroesophageal reflux disease) K21.9 and Other chronic pain G89.29 [place] [address] [address]- [address] March, Sciatica M54.30 [place] [address] [address]- [address] March, Insomnia G47.00 and Anxiety F41.9 [place] [address] [address]- [address] Feb, Sciatica M54.30 [place] [address] 6[address]42- 9193 Feb, Dental examination Z01.20 [place] [address] [address]- [address] Jan, Obesity E66.9 ; Sciatica M54.30 ; Anxiety F41.9 ; Insomnia G47.00 ; GERD (gastroesophageal reflux disease) K21.9 and Anemia D64.9 [place] [address] [address]- [address] Dec, [place] [address] 75267- 6980 Dec, Skin tags, multiple acquired L91.8 [place] [address] [address]- 2427 Dec, [place] [address] [address]- [address]141 Nov, Obesity E66.9 [place] [address] 31639- 6783 Nov, Sciatica M54.30 ; Obesity E66.9 ; Anxiety F41.9 ; Insomnia G47.00 and GERD (gastroesophageal reflux disease) K21.9 [place] [address] [address]- 6917 Aug, Sciatica M54.30 ; Obesity E66.9 ; Anxiety F41.9 ; Insomnia G47.00 and GERD (gastroesophageal reflux disease) K21.9 [facility] [id number] [place] [address] 9[address]60- 2868 14 Feb, 2015 [facility] [id number] [place] [address] 69856- 9067 Feb, [facility] [id number] [place] [address] 53193- 8064 Feb, [facility] [id number] [place] [address] 24252- 9053 Feb, [facility] [address] [address]- [address]228 Feb, [facility] [address] [place] [address] [id number] [place] [address] 73362- 1293 Jan, [facility] [address] [id number] [place] [address] [id number] Nov, [place] [id number] [place] [address] [id number] Nov, [facility] [address] [id number] [place] [address] 01178- 1440 Oct, [facility] [id number] [place] [address] 59219- 2287 Feb, [facility] [address] [id number] [place] [address] 79393- 9082 Aug, [facility] [id number] [place] [address] 54751- 3313 Jul, IMMUNIZATIONS No Known Immunizations SOCIAL HISTORY Never Assessed REASON FOR VISIT Anxiety follow up Latasha [facility] PLAN OF CARE Activity Details Follow Up 3 Months Reason:chronic pain VITAL SIGNS Height 63 in 2018-07-29 Weight 254.2 lbs 2018-07-29 Temperature 98.1 degrees Fahrenheit 2018-07-29 Heart Rate 70 bpm 2018-07-29 Respiratory Rate 18 2018-07-29 BMI 45.02 kg/m2 2018-07-29 Blood pressure systolic 110 mmHg 2018-07-29 Blood pressure diastolic 60 mmHg 2018-07-29 MEDICATIONS Medication Instructions Dosage Frequency Start Date End Date Duration Status Hydrocodone-Acetaminophen 7.5-325 MG Orally 3 times a day 1 tablet as needed 8h Jul, 30 days Active Ambien 10 mg Orally Once a day 1 tablet at bedtime as needed 24h 12 Jul, 2017 30 days Active Aciphex 20 mg Orally Once a day 1 tablet 24h Sep, Active Lorazepam 0.5 MG Orally 2 times a day 1 tablet as needed 12h May, 30 days Active Flonase 50 MCG/ACT Nasally Once a day 1 spray in each nostril 24h Jun, 90 days Active Sertraline HCl 100 mg Orally Once a day 1 tablet 24h Jun, 90 days Active RESULTS No Results PROCEDURES No [...]
--- OUTSIDE RECORDS SUMMARY | 2018-11-24 09:35 | XMS REPORT ---
Author Author BRAXTON ABDI [facility] Address [address] [place] [address] Care Team Providers Care Brothel Keeper Name Role Phone BRAXTON ABDI Unavailable PROBLEMS Type Condition ICD9-CM Code XUQ26-DM Code Onset Dates Condition Status SNOMED Code Problem Sciatica, right side M54.31 Active 34607950 Problem Other chronic pain G89.29 Active 27417785 Problem Muscle spasm M62.838 Active 20654279 Problem Seasonal allergies J30.2 Active 048789181 Problem Episode of recurrent major depressive disorder, unspecified depression episode severity F33.9 Active 067221455 Problem Fibromyalgia M79.7 Active 963904738 Problem Chronic pain disorder G89.4 Active 979393254 Problem Morbid obesity E66.01 Active 354653150 Problem Mood disorder F39 Active 00758126 Problem Anxiety F41.9 Active 44422407 Problem Sciatica M54.30 Active 21896139 Problem Insomnia G47.00 Active 037932374 Problem GERD (gastroesophageal reflux disease) K21.9 Active 844899058 Problem Anemia D64.9 Active 288133531 Problem Major depressive disorder, recurrent episode, moderate F33.1 Active 940867942 Problem Obesity E66.9 Active 099654429 Problem Major depressive disorder with single episode, remission status unspecified F32.9 Active 51892713 Problem Skin tags, multiple acquired L91.8 Active 679729356 Problem Sciatica of left side M54.32 Active 64793037 ALLERGIES No Information ENCOUNTERS Encounter Location Date Diagnosis [address] [id number] [id number] Jul, BMI 45.0-49.9, adult Z68.42 ; Anxiety F41.9 ; Chronic pain disorder G89.4 and Insomnia G47.00 [facility] [address] [facility] [id number] [phone] Jun, Chronic pain disorder G89.4 ; Anxiety F41.9 ; Insomnia G47.00 ; GERD ( gastroesophageal reflux disease) K21.9 ; Episode of recurrent major depressive disorder, unspecified depression episode severity F33.9 and Seasonal allergies J30.2 [facility] [id number] [place] [id number] Jun, Chronic pain disorder G89.4 and Obesity E66.9 [place] [id number] [place] [address] [id number] Jun, [facility] [address] [id number] May, Plantar fasciitis, left M72.2 ; Anxiety F41.9 and BMI 40.0-44.9, adult Z68.41 [place] [id number] [place] [address] [id number] May, Chronic pain disorder G89.4 and Obesity E66.9 [place] [id number] [place] [address] [id number] May, [facility] [id number] [place] [address] [id number] Apr, Episode of recurrent major depressive disorder, unspecified depression episode severity F33.9 ; Chronic pain disorder G89.4 ; Obesity E66.9 and BMI 40.0-44.9, adult Z68.41 [facility] [address] [place] [address] [id number] Apr, [place] [id number] [place] [address] [id number] Apr, Chronic pain disorder G89.4 and Obesity E66.9 [facility] [address] [place] [address] [id number] March, Chronic pain disorder G89.4 and Obesity E66.9 [facility] [address] [place] [address] [id number] March, [facility] [address] [place] [address] [id number] Feb, Chronic pain disorder G89.4 [facility] [address] [id number] Feb, Chronic pain disorder G89.4 and Obesity E66.9 [facility] [id number] [place] [id number] Jan, Insomnia G47.00 [facility] [id number] [place] [address] [id number] Jan, Obesity E66.9 and Chronic pain disorder G89.4 [facility] [id number] [place] [address] [id number] Jan, Chronic pain disorder G89.4 [place] [address] [address] Jan, [place] [id number] [place] [phone] Dec, [facility] [address] [place] [address] [id number] Dec, Chronic pain disorder G89.4 [facility] [id number] [place] [address] [id number] Dec, Calcaneal spur of left foot M77.32 and BMI 40.0-44.9, adult Z68.41 [place] [id number] [place] [address] Nov, Chronic pain disorder G89.4 ; Sciatica, right side M54.31 ; Pain of left heel M79.672 ; Morbid obesity E66.01 ; Mood disorder F39 ; Obesity E66.9 ; Anxiety F41.9 ; Insomnia G47.00 and Muscle spasm M62.838 [facility] [address] [place] [address] [id number] Nov, Chronic pain disorder G89.4 ; Sciatica, right side M54.31 ; Morbid obesity E66.01 ; Mood disorder F39 ; Obesity E66.9 ; Pain of left heel M79.672 ; Anxiety F41.9 ; Insomnia G47.00 ; Muscle spasm M62.838 and BMI 40.0-44.9, adult Z68.41 [place] [id number] [place] [address] Oct, Chronic pain disorder G89.[address] [address] Sep, Anxiety F41.9 ; Fibromyalgia M79.7 ; Chronic pain disorder G89.4 ; Mood disorder F39 ; GERD (gastroesophageal reflux disease) K21.9 and Muscle spasm M62.[address] [address] Sep, Plantar fasciitis M72.2 ; Morbid obesity E66.01 and BMI 40.0 -44.9, adult Z68.[address] [address] Aug, [address] [address] Aug, Anxiety F41.9 ; Muscle spasm M62.838 ; Major depressive disorder, recurrent episode, moderate F33.1 ; Obesity E66.9 ; Insomnia G47.00 ; Fibromyalgia M79.7 ; Chronic pain disorder G89.4 and Other chronic pain G89.[address] [address] Jul, Muscle spasm M62.838 ; Anxiety F41.9 ; Sciatica M54.30 ; Insomnia G47.00 ; Major depressive disorder, recurrent episode, moderate F33.1 ; Other chronic pain G89.29 and GERD (gastroesophageal reflux disease) K21.9 [facility] [address] [place] [id number] [place] [phone] Jun, Acute non-recurrent maxillary sinusitis J01.00 [facility] [address] [place] [id number] [place] [address]686 Jun, Acute nasopharyngitis (common cold) J00 [address] [address] May, Anxiety F41.9 [facility] [id number] [place] [address] Apr, Insomnia G47.00 [place] [address] [address] March, Anxiety F41.9 and Insomnia G47.00 [place] [address] [address] Feb, Obesity E66.9 and Screening cholesterol level Z13.220 [facility] [address] [address] Feb, Insomnia G47.00 [place] [address] [address] Dec, Sciatica M54.30 ; Obesity E66.9 ; Anxiety F41.9 ; Insomnia G47.00 ; GERD (gastroesophageal reflux disease) K21.9 ; Major depressive disorder, recurrent episode, moderate F33.1 ; Pain management R52 and Screening cholesterol level Z13.220 [place] [address] [address] Dec, [facility] [address] [address] Nov, Acute non-recurrent frontal sinusitis J01.10 and Sore throat J02.9 [place] [address] [address]- [address] Nov, [facility] [address] [address] Nov, Sciatica, right side M54.31 and Sciatica of left side M54.32 [facility] [address] [address] Oct, [facility] [address] [address] Sep, [facility] [address] [address] 14 Aug, 2016 [facility] [id number] [place] [address]- [address] 11 Aug, 2016 [facility] [address] [address] 16 Jul, 2016 [facility] [address] [place] [address]- [address] 07 Jul, 2016 [facility] [address] [address] Jun, Sciatica M54.30 ; Insomnia G47.00 ; Obesity E66.9 ; Anxiety F41.9 and Major depressive disorder with single episode, remission status unspecified F32.9 [facility] [address] [address] Jun, Major depressive disorder with single episode, remission status unspecified F32.9 [facility] [address] [address] Jun, [facility] [address] [address] Jun, [facility] [address] [address] Jun, Major depressive disorder with single episode, remission status unspecified F32.9 [facility] [address] [address] Jun, Major depressive disorder, recurrent episode, moderate F33.1 [facility] [address] [address] May, [facility] [id number] [address] Apr, [facility] [address] [address] March, Obesity E66.9 ; Anxiety F41.9 ; Insomnia G47.00 ; GERD ( gastroesophageal reflux disease) K21.9 and Other chronic pain G89.29 [place] [address] [address] March, Sciatica M54.30 [place] [address] [address]- [address] March, Insomnia G47.00 and Anxiety F41.9 [place] [address] [address] Feb, Sciatica M54.30 [place] [address] [address]- [address] Feb, Dental examination Z01.20 [place] [address] [address]- [address] Jan, Obesity E66.9 ; Sciatica M54.30 ; Anxiety F41.9 ; Insomnia G47.00 ; GERD (gastroesophageal reflux disease) K21.9 and Anemia D64.9 [place] [address] [address]- [address] Dec, [place] [address] [address]- [address] Dec, Skin tags, multiple acquired L91.8 [place] [address] [address]- [address] Dec, [place] [address] [address]- [address] Nov, Obesity E66.9 [place] [address] [address]- 287[address] Nov, Sciatica M54.30 ; Obesity E66.9 ; Anxiety F41.9 ; Insomnia G47.00 and GERD (gastroesophageal reflux disease) K21.9 [place] [address] [address] Aug, Sciatica M54.30 ; Obesity E66.9 ; Anxiety F41.9 ; Insomnia G47.00 and GERD (gastroesophageal reflux disease) K21.9 [facility] [id number] [place] [address]81- 8092 Feb, [facility] [id number] [place] [address] 72847- 9211 Feb, [facility] [id number] [place] [address] 638[address]- 2994 Feb, [facility] [id number] [place] [address] 579655- 9895 Feb, [facility] [id number] [place] [address] 516803- 9933 Feb, [facility] [id number] [place] [address] 8[address]32- [address] Jan, [place] [id number] [place] [address] [id number] Nov, [place] [id number] [place] [address] [id number] Nov, [facility] [id number] [place] [address] 98456- 9344 Oct, [facility] [id number] [place] [address] 646[address]- 0727 Feb, [facility] [id number] [place] [address] 01601- 1677 Aug, [facility] [id number] [place] [address] 23777- 7289 Jul, IMMUNIZATIONS No Known Immunizations SOCIAL HISTORY Never Assessed REASON FOR VISIT narcotic refill PLAN OF CARE VITAL SIGNS MEDICATIONS Medication Instructions Dosage Frequency Start Date End Date Duration Status Hydrocodone-Acetaminophen 7.5-325 MG Orally 3 times a day 1 tablet as needed 8h Apr, 30 days Active Phentermine HCl 37.5 MG Orally Once a day 1 tablet 24h Jan, 30 days Active RESULTS No Results PROCEDURES No [...]
--- OUTSIDE RECORDS SUMMARY | 2018-11-24 09:35 | XMS REPORT ---
Author Author BRAXTON ABDI [facility] Address [address] [place] [address] Care Team Providers Care Automatic Coil Machine Operator Name Role Phone BRAXTON ABDI Unavailable PROBLEMS Type Condition ICD9-CM Code FMA52-HN Code Onset Dates Condition Status SNOMED Code Problem Sciatica, right side M54.31 Active 53260854 Problem Other chronic pain G89.29 Active 26815140 Problem Muscle spasm M62.838 Active 74814847 Problem Seasonal allergies J30.2 Active 627362347 Problem Episode of recurrent major depressive disorder, unspecified depression episode severity F33.9 Active 275493822 Problem Fibromyalgia M79.7 Active 049526805 Problem Chronic pain disorder G89.4 Active 358531417 Problem Morbid obesity E66.01 Active 674009118 Problem Mood disorder F39 Active 83675702 Problem Anxiety F41.9 Active 05329010 Problem Sciatica M54.30 Active 19901752 Problem Insomnia G47.00 Active 148783967 Problem GERD (gastroesophageal reflux disease) K21.9 Active 333410538 Problem Anemia D64.9 Active 967550631 Problem Major depressive disorder, recurrent episode, moderate F33.1 Active 564301046 Problem Obesity E66.9 Active 174561745 Problem Major depressive disorder with single episode, remission status unspecified F32.9 Active 23810779 Problem Skin tags, multiple acquired L91.8 Active 013289806 Problem Sciatica of left side M54.32 Active 54124619 ALLERGIES No Known Allergies ENCOUNTERS Encounter Location Date Diagnosis [address] [id number] [id number] Jul, BMI 45.0-49.9, adult Z68.42 ; Anxiety F41.9 ; Chronic pain disorder G89.4 and Insomnia G47.[address] [id number] [id number] Jun, Chronic pain disorder G89.4 ; Anxiety F41.9 ; Insomnia G47.00 ; GERD ( gastroesophageal reflux disease) K21.9 ; Episode of recurrent major depressive disorder, unspecified depression episode severity F33.9 and Seasonal allergies J30.2 [facility] [id number] [place] [address] [id number] Jun, Chronic pain disorder G89.4 and Obesity E66.9 [place] [id number] [place] [id number] Jun, [address] [id number] May, Plantar fasciitis, left M72.2 ; Anxiety F41.9 and BMI 40.0-44.9, adult Z68.41 [place] [id number] [place] [address] [id number] May, Chronic pain disorder G89.4 and Obesity E66.9 [place] [id number] [place] [address] [id number] May, [facility] [id number] [place] [address] [id number] Apr, Episode of recurrent major depressive disorder, unspecified depression episode severity F33.9 ; Chronic pain disorder G89.4 ; Obesity E66.9 and BMI 40.0-44.9, adult Z68.41 [facility] [address] [place] [address] [id number] Apr, [place] [id number] [place] [address] [id number] Apr, Chronic pain disorder G89.4 and Obesity E66.9 [address] [place] [address] [id number] March, Chronic pain disorder G89.4 and Obesity E66.9 [facility] [address] [address] March, [facility] [address] [place] [address] [id number] Feb, Chronic pain disorder G89.4 [place] [id number] [id number] Feb, Chronic pain disorder G89.4 and Obesity E66.9 [facility] [address] [id number] Jan, Insomnia G47.[address] [place] [address] [id number] Jan, Obesity E66.9 and Chronic pain disorder G89.4 [facility] [place] [id number] [place] [address] [id number] Jan, Chronic pain disorder G89.4 [place] [address] [place] [id number] [place] [id number] [phone] Jan, [place] [address] [place] [id number] [place] [address]64 [phone] Dec, [address] [place] [address] [id number] Dec, Chronic pain disorder G89.4 [facility] [place] [id number] [place] [address] [id number] Dec, Calcaneal spur of left foot M77.32 and BMI 40.0-44.9, adult Z68.41 [facility] [address] [place] [id number] [place] [address]- 8774 Nov, Chronic pain disorder G89.4 ; Sciatica, right side M54.31 ; Pain of left heel M79.672 ; Morbid obesity E66.01 ; Mood disorder F39 ; Obesity E66.9 ; Anxiety F41.9 ; Insomnia G47.00 and Muscle spasm M62.838 [address] [place] [address] [id number] Nov, Chronic pain disorder G89.4 ; Sciatica, right side M54.31 ; Morbid obesity E66.01 ; Mood disorder F39 ; Obesity E66.9 ; Pain of left heel M79.672 ; Anxiety F41.9 ; Insomnia G47.00 ; Muscle spasm M62.838 and BMI 40.0-44.9, adult Z68.41 [place] [place] [address] [place] [id number] [place] [address] 9[address]79- 6663 Oct, Chronic pain disorder G89.4 [place] [address] [address] Sep, Anxiety F41.9 ; Fibromyalgia M79.7 ; Chronic pain disorder G89.4 ; Mood disorder F39 ; GERD (gastroesophageal reflux disease) K21.9 and Muscle spasm M62.[address] [address] Sep, Plantar fasciitis M72.2 ; Morbid obesity E66.01 and BMI 40.0 -44.9, adult Z68.[address] [address] Aug, [address] [address] Aug, Anxiety F41.9 ; Muscle spasm M62.838 ; Major depressive disorder, recurrent episode, moderate F33.1 ; Obesity E66.9 ; Insomnia G47.00 ; Fibromyalgia M79.7 ; Chronic pain disorder G89.4 and Other chronic pain G89.29 [place] [id number] [place] [address]- [address] Jul, Muscle spasm M62.838 ; Anxiety F41.9 ; Sciatica M54.30 ; Insomnia G47.00 ; Major depressive disorder, recurrent episode, moderate F33.1 ; Other chronic pain G89.29 and GERD (gastroesophageal reflux disease) K21.9 [facility] [address] [place] [id number] [place] [address]703 Jun, Acute non-recurrent maxillary sinusitis J01.00 [facility] [address] [place] [id number] [place] [phone] Jun, Acute nasopharyngitis (common cold) J00 [address] [address] May, Anxiety F41.9 [facility] [id number] [place] [address]016- 3090 Apr, Insomnia G47.00 [place] [address] [address] March, Anxiety F41.9 and Insomnia G47.00 [place] [address] [address] Feb, Obesity E66.9 and Screening cholesterol level Z13.220 [facility] [address] [address] Feb, Insomnia G47.00 [place] [address] [address]- [address] Dec, Sciatica M54.30 ; Obesity E66.9 ; Anxiety F41.9 ; Insomnia G47.00 ; GERD (gastroesophageal reflux disease) K21.9 ; Major depressive disorder, recurrent episode, moderate F33.1 ; Pain management R52 and Screening cholesterol level Z13.220 [place] [address] [address]- [address]164 Dec, [facility] [id number] [place] [address]8478 Nov, Acute non-recurrent frontal sinusitis J01.10 and Sore throat J02.9 [place] [address] [place] [id number] [place] [address] 87498- 8501 Nov, [facility] [address] [address]- [address] Nov, Sciatica, right side M54.31 and Sciatica of left side M54.32 [place] [address] [address]- 2011 Oct, [facility] [address] [address] Sep, [place] [address], [place] [address] 14 Aug, 2016 [facility] [address] [id number] [place] [address] 84575- 9601 11 Aug, 2016 [facility] [id number] [address] 16 Jul, 2016 [facility] [id number] [place] [address] 92940- 6087 07 Jul, 2016 [facility] [address] [place] [address] 59475- 7909 Jun, Sciatica M54.30 ; Insomnia G47.00 ; Obesity E66.9 ; Anxiety F41.9 and Major depressive disorder with single episode, remission status unspecified F32.9 [facility] [address], [place] [address] Jun, Major depressive disorder with single episode, remission status unspecified F32.9 [facility] [address], [place] [address] Jun, [facility] [address] [place] [address] 62193- 1751 Jun, [facility] [address], [place] [address] Jun, Major depressive disorder with single episode, remission status unspecified F32.9 [facility] [address] [address] Jun, Major depressive disorder, recurrent episode, moderate F33.1 [facility] [address], [place] [address] May, [facility] [address] [id number] [address] Apr, [facility] [address], [place] [address] March, Obesity E66.9 ; Anxiety F41.9 ; Insomnia G47.00 ; GERD ( gastroesophageal reflux disease) K21.9 and Other chronic pain G89.29 [place] [address] [address]- [address] March, Sciatica M54.30 [place] [address] [address]- [address]67 March, Insomnia G47.00 and Anxiety F41.9 [place] [address] [address]- [address] Feb, Sciatica M54.30 [place] [address] [address]- [address] Feb, Dental examination Z01.20 [place] [address] [address]- 6[address] Jan, Obesity E66.9 ; Sciatica M54.30 ; Anxiety F41.9 ; Insomnia G47.00 ; GERD (gastroesophageal reflux disease) K21.9 and Anemia D64.9 [place] [address] [address]- [address]83 Dec, [place] [address] [address]- [address] Dec, Skin tags, multiple acquired L91.8 [place] [address] 7[address]66- 8148 Dec, [place] [address] 47153- 1362 Nov, Obesity E66.9 [place] [address] [address]27- 4367 Nov, Sciatica M54.30 ; Obesity E66.9 ; Anxiety F41.9 ; Insomnia G47.00 and GERD (gastroesophageal reflux disease) K21.9 [place] [address] 4[address]- 9736 Aug, Sciatica M54.30 ; Obesity E66.9 ; Anxiety F41.9 ; Insomnia G47.00 and GERD (gastroesophageal reflux disease) K21.9 [facility] [id number] [place] [address]- 1993 Feb, [facility] [address] [place] [id number] [place] [address] 30170- 8563 Feb, [facility] [address] [address]- 5776 Feb, [facility] [address] [address]21- [address]70 Feb, [facility] [address] [address]72- [address]64 Feb, [facility] [address] [place] [id number] [place] [address] 03193- 8117 Jan, [facility] [address] [id number] [place] [address] [id number] Nov, [place] [id number] [place] [address] [id number] Nov, [facility] [address] [place] [id number] [place] [address] 28722- 5174 Oct, [facility] [id number] [place] [address] 11822- 9223 Feb, [facility] [address] [place] [id number] [place] [address] 63161- 6708 Aug, [facility] [address] [id number] [place] [address] 65714- 8013 Jul, IMMUNIZATIONS No Known Immunizations SOCIAL HISTORY Never Assessed REASON FOR VISIT CHM- Chronic Pain Valarie JACKSON PLAN OF CARE Activity Details Follow Up 3 Months Reason: VITAL SIGNS Height 63 in 2018-07-03 Weight 254 lbs 2018-07-03 Temperature 97.1 degrees Fahrenheit 2018-07-03 Heart Rate 73 bpm 2018-07-03 Respiratory Rate 16 2018-07-03 BMI 44.99 kg/m2 2018-07-03 Blood pressure systolic 128 mmHg 2018-07-03 Blood pressure diastolic 70 mmHg 2018-07-03 MEDICATIONS Medication Instructions Dosage Frequency Start Date End Date Duration Status Flonase 50 MCG/ACT Nasally Once a day 1 spray in each nostril 24h Jun, 90 days Active Hydrocodone-Acetaminophen 7.5-325 MG Orally 3 times a day 1 tablet as needed 8h Jun, 30 days Active Ambien 10 mg Orally Once a day 1 tablet at bedtime as needed 24h Jul, Active Lorazepam 0.5 MG Orally 2 times a day 1 tablet as needed 12h May, Active Flonase 50 MCG/ACT Nasally Once a day 1 spray in each nostril 24h Jun, 30 day(s) Active Aciphex 20 mg Orally Once a day 1 tablet 24h Sep, Active Sertraline HCl 100 mg Orally Once [...]
--- OUTSIDE RECORDS SUMMARY | 2018-11-24 09:35 | XMS REPORT ---
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 Name Role Phone BRAXTON ABDI Unavailable PROBLEMS Type Condition ICD9-CM Code EJM25-YL Code Onset Dates Condition Status SNOMED Code Problem Sciatica, right side M54.31 Active 16835404 Problem Other chronic pain G89.29 Active 03724925 Problem Muscle spasm M62.838 Active 90251260 Problem Seasonal allergies J30.2 Active 034577577 Problem Episode of recurrent major depressive disorder, unspecified depression episode severity F33.9 Active 257929574 Problem Fibromyalgia M79.7 Active 269701531 Problem Chronic pain disorder G89.4 Active 587633929 Problem Morbid obesity E66.01 Active 937192865 Problem Mood disorder F39 Active 48405000 Problem Anxiety F41.9 Active 95214066 Problem Sciatica M54.30 Active 46916837 Problem Insomnia G47.00 Active 853490565 Problem GERD (gastroesophageal reflux disease) K21.9 Active 725626835 Problem Anemia D64.9 Active 827929293 Problem Major depressive disorder, recurrent episode, moderate F33.1 Active 332437797 Problem Obesity E66.9 Active 818631703 Problem Major depressive disorder with single episode, remission status unspecified F32.9 Active 10714104 Problem Skin tags, multiple acquired L91.8 Active 427697104 Problem Sciatica of left side M54.32 Active 61578091 ALLERGIES No Known Allergies ENCOUNTERS Encounter Location Date Diagnosis [address] [id number] [id number] Jul, BMI 45.0-49.9, adult Z68.42 ; Anxiety F41.9 ; Chronic pain disorder G89.4 and Insomnia G47.[address] [id number] [id number] Jun, Chronic pain disorder G89.4 ; Anxiety F41.9 ; Insomnia G47.00 ; GERD ( gastroesophageal reflux disease) K21.9 ; Episode of recurrent major depressive disorder, unspecified depression episode severity F33.9 and Seasonal allergies J30.2 [facility] [id number] [place] [id number] Jun, Chronic pain disorder G89.4 and Obesity E66.9 [place] [id number] [place] [id number] Jun, [address] [id number] May, Plantar fasciitis, left M72.2 ; Anxiety F41.9 and BMI 40.0-44.9, adult Z68.41 [place] [id number] [place] [address] [id number] May, Chronic pain disorder G89.4 and Obesity E66.9 [place] [id number] [place] [address] [id number] May, [facility] [id number] [place] [address] [id number] Apr, Episode of recurrent major depressive disorder, unspecified depression episode severity F33.9 ; Chronic pain disorder G89.4 ; Obesity E66.9 and BMI 40.0-44.9, adult Z68.41 [facility] [address] [place] [address] [id number] Apr, [place] [id number] [place] [address] [id number] Apr, Chronic pain disorder G89.4 and Obesity E66.9 [address] [place] [address] [id number] March, Chronic pain disorder G89.4 and Obesity E66.9 [facility] [address] [address] March, [facility] [address] [place] [address] [id number] Feb, Chronic pain disorder G89.4 [id number] [id number] Feb, Chronic pain disorder G89.4 and Obesity E66.9 [facility] [address] [id number] Jan, Insomnia G47.[address] [place] [address] [id number] Jan, Obesity E66.9 and Chronic pain disorder G89.4 [facility] [place] [id number] [place] [address] [id number] Jan, Chronic pain disorder G89.4 [place] [id number] [place] [id number] Jan, [place] [address] [id number] [place] [address] 2546 Dec, [address] [place] [address] [id number] Dec, Chronic pain disorder G89.4 [facility] [place] [id number] [place] [address] [id number] Dec, Calcaneal spur of left foot M77.32 and BMI 40.0-44.9, adult Z68.41 [place] [address] [address] [id number] [place] [address]- [address] Nov, Chronic pain disorder G89.4 ; Sciatica, right side M54.31 ; Pain of left heel M79.672 ; Morbid obesity E66.01 ; Mood disorder F39 ; Obesity E66.9 ; Anxiety F41.9 ; Insomnia G47.00 and Muscle spasm M62.838 [address] [place] [address] [id number] Nov, Chronic pain disorder G89.4 ; Sciatica, right side M54.31 ; Morbid obesity E66.01 ; Mood disorder F39 ; Obesity E66.9 ; Pain of left heel M79.672 ; Anxiety F41.9 ; Insomnia G47.00 ; Muscle spasm M62.838 and BMI 40.0-44.9, adult Z68.41 [place] [address] [id number] [place] [address] 6[address] Oct, Chronic pain disorder G89.4 [place] [address] [address] Sep, Anxiety F41.9 ; Fibromyalgia M79.7 ; Chronic pain disorder G89.4 ; Mood disorder F39 ; GERD (gastroesophageal reflux disease) K21.9 and Muscle spasm M62.[address] [address] Sep, Plantar fasciitis M72.2 ; Morbid obesity E66.01 and BMI 40.0 -44.9, adult Z68.[address] [address] Aug, [address] [address] Aug, Anxiety F41.9 ; Muscle spasm M62.838 ; Major depressive disorder, recurrent episode, moderate F33.1 ; Obesity E66.9 ; Insomnia G47.00 ; Fibromyalgia M79.7 ; Chronic pain disorder G89.4 and Other chronic pain G89.29 [place] [id number] [place] [address] Jul, Muscle spasm M62.838 ; Anxiety F41.9 ; Sciatica M54.30 ; Insomnia G47.00 ; Major depressive disorder, recurrent episode, moderate F33.1 ; Other chronic pain G89.29 and GERD (gastroesophageal reflux disease) K21.9 [facility] [address] [place], [place] [id number] [place] [address] Jun, Acute non-recurrent maxillary sinusitis J01.00 [facility] [address] [place] [id number] [place] [address] Jun, Acute nasopharyngitis (common cold) J00 [address] [address] May, Anxiety F41.9 [facility] [id number] [place] [address] Apr, Insomnia G47.00 [place] [address] [address] March, Anxiety F41.9 and Insomnia G47.00 [place] [address] [address] Feb, Obesity E66.9 and Screening cholesterol level Z13.220 [facility] [address] [address] Feb, Insomnia G47.00 [place] [address] [address] Dec, Sciatica M54.30 ; Obesity E66.9 ; Anxiety F41.9 ; Insomnia G47.00 ; GERD (gastroesophageal reflux disease) K21.9 ; Major depressive disorder, recurrent episode, moderate F33.1 ; Pain management R52 and Screening cholesterol level Z13.220 [place] [address] [address] Dec, [facility] [id number] [place] [address] Nov, Acute non-recurrent frontal sinusitis J01.10 and Sore throat J02.9 [place] [address] [address] [id number] [place] [address]656- 3546 Nov, [facility] [address] [address] Nov, Sciatica, right side M54.31 and Sciatica of left side M54.32 [place] [address] [address] Oct, [facility] [address] [address] Sep, [place] [address] [address] 14 Aug, 2016 [facility] [id number] [place] [address]- [address] 11 Aug, 2016 [facility] [id number] [address] 16 Jul, 2016 [facility] [id number] [place] [address] 9[address]38- [address] 07 Jul, 2016 [facility] [address] [place] [address] 13293- 4[address] Jun, Sciatica M54.30 ; Insomnia G47.00 ; Obesity E66.9 ; Anxiety F41.9 and Major depressive disorder with single episode, remission status unspecified F32.9 [facility] [address] [address] Jun, Major depressive disorder with single episode, remission status unspecified F32.9 [facility] [address] [address] Jun, [facility] [address] [place] [address] 07960- 9163 Jun, [facility] [address] [address] Jun, Major depressive disorder with single episode, remission status unspecified F32.9 [facility] [address] [address] Jun, Major depressive disorder, recurrent episode, moderate F33.1 [facility] [address] [address] May, [facility] [id number] [address] Apr, [facility] [address] [address] March, Obesity E66.9 ; Anxiety F41.9 ; Insomnia G47.00 ; GERD ( gastroesophageal reflux disease) K21.9 and Other chronic pain G89.29 [place] [address] [address] March, Sciatica M54.30 [place] [address] [address] March, Insomnia G47.00 and Anxiety F41.9 [place] [address] [address] Feb, Sciatica M54.30 [place] [address] [address]- [address] Feb, Dental examination Z01.20 [place] [address] [address]- [address] Jan, Obesity E66.9 ; Sciatica M54.30 ; Anxiety F41.9 ; Insomnia G47.00 ; GERD (gastroesophageal reflux disease) K21.9 and Anemia D64.9 [place] [address] [address]- [address] Dec, [place] [address] [address]- [address] Dec, Skin tags, multiple acquired L91.8 [place] [address] [address]- [address] Dec, [place] [address] [address] Nov, Obesity E66.9 [place] [address] [address]- [address] Nov, Sciatica M54.30 ; Obesity E66.9 ; Anxiety F41.9 ; Insomnia G47.00 and GERD (gastroesophageal reflux disease) K21.9 [place] [address] [address]- [address] Aug, Sciatica M54.30 ; Obesity E66.9 ; Anxiety F41.9 ; Insomnia G47.00 and GERD (gastroesophageal reflux disease) K21.9 [facility] [id number] [place] [address]- [address]78 Feb, [facility] [id number] [place] [address] 07650- 8012 Feb, [facility] [address] [address]- [address] Feb, [facility] [address] [address]- [address] Feb, [facility] [address] [address]- [address] Feb, [facility] [address] [id number] [place] [address] 7[address]- [address] Jan, [facility] [id number] [place] [address] [id number] Nov, [place] [id number] [place] [address] [id number] Nov, [facility] [address] [address] [id number] [place] [address] 46[address]- 8724 Oct, [facility] [address] [id number] [place] [address] 14307- 3333 Feb, [facility] [address] [address] [id number] [place] [address] 59083- 4226 Aug, [facility] [address] [address] [id number] [place] [address] 51755- 4351 Jul, IMMUNIZATIONS No Known Immunizations SOCIAL HISTORY Never Assessed REASON FOR VISIT Procedure- plantar fascia injection, left foot [facility] PLAN OF CARE Activity Details Follow Up prn Reason: VITAL SIGNS Height 63 in 2018-05-30 Weight 251 lbs 2018-05-30 Temperature 97.8 degrees Fahrenheit 2018-05-30 Heart Rate 78 bpm 2018-05-30 Respiratory Rate 16 2018-05-30 BMI 44.46 kg/m2 2018-05-30 Blood pressure systolic 120 mmHg 2018-05-30 Blood pressure diastolic 68 mmHg 2018-05-30 MEDICATIONS Medication Instructions Dosage Frequency Start Date End Date Duration Status Sertraline HCl 50 mg Orally Once a day 2 tablet 24h Apr, 45 days Active Lorazepam 0.5 MG Orally 2 times a day 1 tablet as needed 12h May, 30 days Active Aciphex 20 mg Orally Once a day 1 tablet 24h Sep, 30 day(s) Active Phentermine HCl 37.5 MG Orally Once a day 1 tablet 24h Jan, 30 days Active Rabeprazole Sodium 20 MG TAKE ONE TABLET BY MOUTH ONCE DAILY 30 Active Cyclobenzaprine HCl 10 mg Orally Three times a day 1 tablet as needed 8h Jul, 90 days Active Flonase 50 MCG/ACT Nasally Once a day 1 spray in each nostril 24h Jun, 30 day(s) Active Ambien 10 mg Orally Once a day 1 tablet at bedtime as needed 24h Jul, 30 days Active Hydrocodone-Acetaminophen 7.5-325 MG Orally 3 times a day 1 tablet as needed 8h Apr, 30 days Active RESULTS No Results PROCEDURES Procedure Date Ordered Result Body Site INJ TENDON SHEATH/LIGAMENT May 30, 2018 INSTRUCTIONS MEDICATIONS ADMINISTERED No Known Medications [...]
--- OUTSIDE RECORDS SUMMARY | 2018-11-24 09:36 | XMS REPORT ---
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 Name Role Phone BRAXTON ABDI Unavailable PROBLEMS Type Condition ICD9-CM Code RWO79-AV Code Onset Dates Condition Status SNOMED Code Problem Sciatica, right side M54.31 Active 03812771 Problem Other chronic pain G89.29 Active 97413570 Problem Muscle spasm M62.838 Active 54593418 Problem Seasonal allergies J30.2 Active 517571122 Problem Episode of recurrent major depressive disorder, unspecified depression episode severity F33.9 Active 697197269 Problem Fibromyalgia M79.7 Active 650078591 Problem Chronic pain disorder G89.4 Active 516948944 Problem Morbid obesity E66.01 Active 283814263 Problem Mood disorder F39 Active 85387009 Problem Anxiety F41.9 Active 58952172 Problem Sciatica M54.30 Active 51323304 Problem Insomnia G47.00 Active 264703437 Problem GERD (gastroesophageal reflux disease) K21.9 Active 404134814 Problem Anemia D64.9 Active 176649723 Problem Major depressive disorder, recurrent episode, moderate F33.1 Active 837257332 Problem Obesity E66.9 Active 855004261 Problem Major depressive disorder with single episode, remission status unspecified F32.9 Active 57940163 Problem Skin tags, multiple acquired L91.8 Active 308172614 Problem Sciatica of left side M54.32 Active 55675499 ALLERGIES No Information ENCOUNTERS Encounter Location Date Diagnosis [address] [id number] [id number] Jun, Chronic pain disorder G89.4 ; Anxiety F41.9 ; Insomnia G47.00 ; GERD ( gastroesophageal reflux disease) K21.9 ; Episode of recurrent major depressive disorder, unspecified depression episode severity F33.9 and Seasonal allergies J30.2 [facility] [address] [id number] Jun, Chronic pain disorder G89.4 and Obesity E66.9 [facility] [id number] [place] [address] [id number] Jun, [facility] [address] [id number] May, Plantar fasciitis, left M72.2 ; Anxiety F41.9 and BMI 40.0-44.9, adult Z68.41 [facility] [id number] [place] [address] [id number] May, Chronic pain disorder G89.4 and Obesity E66.9 [facility] [id number] [place] [address] [id number] May, [facility] [id number] [place] [address] [id number] Apr, Episode of recurrent major depressive disorder, unspecified depression episode severity F33.9 ; Chronic pain disorder G89.4 ; Obesity E66.9 and BMI 40.0-44.9, adult Z68.41 [facility] [id number] [place] [address] [id number] Apr, [facility] [id number] [place] [address] [id number] Apr, Chronic pain disorder G89.4 and Obesity E66.9 [address] [place] [address] [id number] March, Chronic pain disorder G89.4 and Obesity E66.9 [facility] [address] [address] March, [facility] [address] [place] [address] [id number] Feb, Chronic pain disorder G89.4 [place] [id number] [place] [address] [id number] Feb, Chronic pain disorder G89.4 and Obesity E66.9 [address] [place] [address] [id number] Jan, Insomnia G47.00 [place] [id number] [id number] Jan, Obesity E66.9 and Chronic pain disorder G89.4 [facility] [id number] [place] [address] [id number] Jan, Chronic pain disorder G89.4 [place] [address] [place] [id number] [place] [address] 85458- 9730 Jan, [place] [address] [id number] [place] [address] 36957- 7347 Dec, [facility] [address] [place] [address] [id number] Dec, Chronic pain disorder G89.4 [address] [place] [address] [id number] Dec, Calcaneal spur of left foot M77.32 and BMI 40.0-44.9, adult Z68.41 [place] [id number] [place] [address] 60139- 1236 Nov, Chronic pain disorder G89.4 ; Sciatica, right side M54.31 ; Pain of left heel M79.672 ; Morbid obesity E66.01 ; Mood disorder F39 ; Obesity E66.9 ; Anxiety F41.9 ; Insomnia G47.00 and Muscle spasm M62.838 [address] [place] [address] [id number] Nov, Chronic pain disorder G89.4 ; Sciatica, right side M54.31 ; Morbid obesity E66.01 ; Mood disorder F39 ; Obesity E66.9 ; Pain of left heel M79.672 ; Anxiety F41.9 ; Insomnia G47.00 ; Muscle spasm M62.838 and BMI 40.0-44.9, adult Z68.41 [place] [address] [place] [address] 75860- 3287 Oct, Chronic pain disorder G89.4 [place] [address] [id number] [place] [address] 53916- 9504 Sep, Anxiety F41.9 ; Fibromyalgia M79.7 ; Chronic pain disorder G89.4 ; Mood disorder F39 ; GERD (gastroesophageal reflux disease) K21.9 and Muscle spasm M62.[address] [address]67- 7505 Sep, Plantar fasciitis M72.2 ; Morbid obesity E66.01 and BMI 40.0 -44.9, adult Z68.[address] 38973- 7842 Aug, [address] 70291- 7905 Aug, Anxiety F41.9 ; Muscle spasm M62.838 ; Major depressive disorder, recurrent episode, moderate F33.1 ; Obesity E66.9 ; Insomnia G47.00 ; Fibromyalgia M79.7 ; Chronic pain disorder G89.4 and Other chronic pain G89.[address] 8[address]23- 7155 Jul, Muscle spasm M62.838 ; Anxiety F41.9 ; Sciatica M54.30 ; Insomnia G47.00 ; Major depressive disorder, recurrent episode, moderate F33.1 ; Other chronic pain G89.29 and GERD (gastroesophageal reflux disease) K21.9 [facility] [address] [address] Jun, Acute non-recurrent maxillary sinusitis J01.00 [facility] IN [place] [id number] [place] [address] 28523 -7587 Jun, Acute nasopharyngitis (common cold) J00 [address] 90089- 8340 May, Anxiety F41.[address] 70248- 3856 Apr, Insomnia G47.[address] 62484- 9664 March, Anxiety F41.9 and Insomnia G47.00 [facility] [address] [address]12- 3161 Feb, Obesity E66.9 and Screening cholesterol level Z13.220 [facility] [address] 07626- 5796 Feb, Insomnia G47.00 [place] [address] 54077- 4546 Dec, Sciatica M54.30 ; Obesity E66.9 ; Anxiety F41.9 ; Insomnia G47.00 ; GERD (gastroesophageal reflux disease) K21.9 ; Major depressive disorder, recurrent episode, moderate F33.1 ; Pain management R52 and Screening cholesterol level Z13.220 [place] [address] 80738- 7895 Dec, [facility] [address] [address]74 [address] Nov, Acute non-recurrent frontal sinusitis J01.10 and Sore throat J02.9 [place] [address] 33587- 6546 Nov, [place] [address] 00778- 1822 Nov, Sciatica, right side M54.31 and Sciatica of left side M54.32 [place] [id number] [place] [address] 34528- 9075 Oct, [place] [address] 29985- 1904 Sep, [place] [address] 45946- 5910 14 Aug, 2016 [place] [address] 09436- 2742 Aug, [place] [address] [address] 16 Jul, 2016 [facility] [id number] [place] [address] 65311- 2888 Jul, [facility] [address] [place] [address] 48610- 9414 Jun, Sciatica M54.30 ; Insomnia G47.00 ; Obesity E66.9 ; Anxiety F41.9 and Major depressive disorder with single episode, remission status unspecified F32.9 [facility] [address] [place] [address] 59957- 2785 Jun, Major depressive disorder with single episode, remission status unspecified F32.9 [facility] [id number] [place] [address] 20164- 7836 Jun, [place] [id number] [place] [address] 24655- 1703 Jun, [facility] [id number] [place] [address] 89085- 1993 Jun, Major depressive disorder with single episode, remission status unspecified F32.9 [facility] [address] [place] [address] 36175- 5636 Jun, Major depressive disorder, recurrent episode, moderate F33.1 [place] [address] [address] 9[address] May, [facility] [address] [place] [address] 28466- 7197 Apr, [facility] [id number] [place] [address] 35112- 7215 March, Obesity E66.9 ; Anxiety F41.9 ; Insomnia G47.00 ; GERD ( gastroesophageal reflux disease) K21.9 and Other chronic pain G89.29 [facility] [address] [address] March, Sciatica M54.30 [place] [address] 47032- 0779 March, Insomnia G47.00 and Anxiety F41.9 [place] [address] 08514- 2660 Feb, Sciatica M54.30 [place] [address] 08699- 8014 Feb, Dental examination Z01.20 [place] [address] 61327- 1153 Jan, Obesity E66.9 ; Sciatica M54.30 ; Anxiety F41.9 ; Insomnia G47.00 ; GERD (gastroesophageal reflux disease) K21.9 and Anemia D64.9 [place] [address] 90338- 0910 Dec, [place] [address] 81128- 5098 Dec, Skin tags, multiple acquired L91.8 [place] [address] 58894- 5092 Dec, [place] [address] 96011- 9252 Nov, Obesity E66.9 [place] [address] 40226- 9080 Nov, Sciatica M54.30 ; Obesity E66.9 ; Anxiety F41.9 ; Insomnia G47.00 and GERD (gastroesophageal reflux disease) K21.9 [place] [address] 23436- 8264 13 Aug, 2015 Sciatica M54.30 ; Obesity E66.9 ; Anxiety F41.9 ; Insomnia G47.00 and GERD (gastroesophageal reflux disease) K21.9 [place] [address] 41140- 6064 14 Feb, 2015 [facility] [id number] [address]- 68[address] Feb, [facility] [address], [place] [address]- 4986 Feb, [facility] [address], [place] [address]- 9657 Feb, [facility] [address], [place] [address]- 9612 Feb, [facility] [address], [place] [address]- 2491 Jan, [facility] [address] [id number] Nov, [facility] [address] [id number] Nov, [facility] [address], [place] [address]- 2733 Oct, [facility] [address], [place] [address]- 3188 Feb, [facility] [address], [place] [address]- 9264 Aug, [facility] [address], [place] [address]- 5904 10 Jul, 2010 IMMUNIZATIONS No Known Immunizations SOCIAL HISTORY Never Assessed REASON FOR VISIT Controlled Med Refill PLAN OF CARE VITAL SIGNS MEDICATIONS No Known Medications RESULTS No Results PROCEDURES No Known [...]
--- OUTSIDE RECORDS SUMMARY | 2018-11-24 09:36 | XMS REPORT ---
Author Author BRAXTON ABDI [facility] [place] Address [address] [place] [address] Care Team Providers Care Orthotist Name Role Phone BRAXTON ABDI Unavailable PROBLEMS Type Condition ICD9-CM Code EHW28-VA Code Onset Dates Condition Status SNOMED Code Problem Sciatica, right side M54.31 Active 86824130 Problem Other chronic pain G89.29 Active 42481348 Problem Muscle spasm M62.838 Active 55763496 Problem Seasonal allergies J30.2 Active 885112489 Problem Episode of recurrent major depressive disorder, unspecified depression episode severity F33.9 Active 099417477 Problem Fibromyalgia M79.7 Active 844184721 Problem Chronic pain disorder G89.4 Active 210317849 Problem Morbid obesity E66.01 Active 507387446 Problem Mood disorder F39 Active 26358490 Problem Anxiety F41.9 Active 46203979 Problem Sciatica M54.30 Active 05544615 Problem Insomnia G47.00 Active 293070035 Problem GERD (gastroesophageal reflux disease) K21.9 Active 998956897 Problem Anemia D64.9 Active 445589448 Problem Major depressive disorder, recurrent episode, moderate F33.1 Active 926010416 Problem Obesity E66.9 Active 269971255 Problem Major depressive disorder with single episode, remission status unspecified F32.9 Active 00192462 Problem Skin tags, multiple acquired L91.8 Active 176208527 Problem Sciatica of left side M54.32 Active 23664208 ALLERGIES No Information ENCOUNTERS Encounter Location Date Diagnosis [address] [id number] [id number] Jul, [facility] [address] [facility] [id number] [id number] Jun, Chronic pain disorder G89.4 ; Anxiety F41.9 ; Insomnia G47.00 ; GERD ( gastroesophageal reflux disease) K21.9 ; Episode of recurrent major depressive disorder, unspecified depression episode severity F33.9 and Seasonal allergies J30.2 [facility] [id number] [place] [address] [id number] Jun, Chronic pain disorder G89.4 and Obesity E66.9 [facility] [id number] [place] [address] [id number] Jun, [facility] [id number] [place] [address] [id number] May, Plantar fasciitis, left M72.2 ; Anxiety F41.9 and BMI 40.0-44.9, adult Z68.41 [facility] [id number] [place] [address] [id number] May, Chronic pain disorder G89.4 and Obesity E66.9 [facility] [id number] [place] [address] [id number] May, [facility] [id number] [place] [address] [id number] Apr, Episode of recurrent major depressive disorder, unspecified depression episode severity F33.9 ; Chronic pain disorder G89.4 ; Obesity E66.9 and BMI 40.0-44.9, adult Z68.41 [facility] [id number] [place] [address] [id number] Apr, [facility] [id number] [place] [address] [id number] Apr, Chronic pain disorder G89.4 and Obesity E66.9 [facility] [id number] [place] [address] [id number] March, Chronic pain disorder G89.4 and Obesity E66.9 [facility] [place] [address] [address] March, [facility] [id number] [place] [address] [id number] Feb, Chronic pain disorder G89.4 [facility] [id number] [place] [address] [id number] Feb, Chronic pain disorder G89.4 and Obesity E66.9 [facility] [id number] [id number] Jan, Insomnia G47.00 [facility] [id number] [place] [address] [id number] Jan, Obesity E66.9 and Chronic pain disorder G89.4 [facility] [id number] [place] [address] [id number] Jan, Chronic pain disorder G89.4 [place] [address] [id number]- 0282 Jan, [place] [address] [place] [id number] [place] [address] 17892- 0655 Dec, [facility] [id number] [place] [address] [id number] Dec, Chronic pain disorder G89.4 [facility] [address] [place] [address] [id number] Dec, Calcaneal spur of left foot M77.32 and BMI 40.0-44.9, adult Z68.41 [place] [address] [place] [id number] [place] [address] 87575- 5659 Nov, Chronic pain disorder G89.4 ; Sciatica, right side M54.31 ; Pain of left heel M79.672 ; Morbid obesity E66.01 ; Mood disorder F39 ; Obesity E66.9 ; Anxiety F41.9 ; Insomnia G47.00 and Muscle spasm M62.838 [facility] [address] [id number] Nov, Chronic pain disorder G89.4 ; Sciatica, right side M54.31 ; Morbid obesity E66.01 ; Mood disorder F39 ; Obesity E66.9 ; Pain of left heel M79.672 ; Anxiety F41.9 ; Insomnia G47.00 ; Muscle spasm M62.838 and BMI 40.0-44.9, adult Z68.41 [place] [address] [place] [address] [id number]- 0241 Oct, Chronic pain disorder G89.4 [place] [address] [place] [id number] [place] [address] 01942- 5582 Sep, Anxiety F41.9 ; Fibromyalgia M79.7 ; Chronic pain disorder G89.4 ; Mood disorder F39 ; GERD (gastroesophageal reflux disease) K21.9 and Muscle spasm M62.838 [place] [address] 74419- 4830 Sep, Plantar fasciitis M72.2 ; Morbid obesity E66.01 and BMI 40.0 -44.9, adult Z68.[address] 91937- 7399 Aug, [address] 62501- 9392 Aug, Anxiety F41.9 ; Muscle spasm M62.838 ; Major depressive disorder, recurrent episode, moderate F33.1 ; Obesity E66.9 ; Insomnia G47.00 ; Fibromyalgia M79.7 ; Chronic pain disorder G89.4 and Other chronic pain G89.29 [place] [id number] [place] [address]90- 1983 Jul, Muscle spasm M62.838 ; Anxiety F41.9 ; Sciatica M54.30 ; Insomnia G47.00 ; Major depressive disorder, recurrent episode, moderate F33.1 ; Other chronic pain G89.29 and GERD (gastroesophageal reflux disease) K21.9 [facility] [address] [place] [id number] [place] [address] 25988 -0752 Jun, Acute non-recurrent maxillary sinusitis J01.00 [facility] [place] [id number] [place] [address] 22148 -1016 Jun, Acute nasopharyngitis (common cold) J00 [place] [id number] [place] [address] 61236- 4897 May, Anxiety F41.[address] 93171- 3802 Apr, Insomnia G47.00 [place] [address] [place] [address] [id number] [place] [address] 66478- 4226 March, Anxiety F41.9 and Insomnia G47.00 [place] [address] 52807- 6927 Feb, Obesity E66.9 and Screening cholesterol level Z13.220 [place] [address] 50087- 2795 Feb, Insomnia G47.00 [place] [address] 49387- 6874 Dec, Sciatica M54.30 ; Obesity E66.9 ; Anxiety F41.9 ; Insomnia G47.00 ; GERD (gastroesophageal reflux disease) K21.9 ; Major depressive disorder, recurrent episode, moderate F33.1 ; Pain management R52 and Screening cholesterol level Z13.220 [place] [address] 10535- 7295 Dec, [facility] [address] 98539 -8648 Nov, Acute non-recurrent frontal sinusitis J01.10 and Sore throat J02.[address] 38675- 2782 Nov, [place] [address] 27920- 9318 Nov, Sciatica, right side M54.31 and Sciatica of left side M54.[address] 14968- 5037 Oct, [place] [address] 64755- 7926 Sep, [place] [address] 57186- 6540 14 Aug, 2016 [place] [address] [place] [address] 94795- 9046 Aug, [facility] [place] [address] [place] [id number] [place] [address] 12746- 8710 16 Jul, 2016 [facility] [place] [address] [place] [id number] [place] [address] 54229- 1939 Jul, [place] [address] [place] [id number] [place] [address] 01580- 7530 Jun, Sciatica M54.30 ; Insomnia G47.00 ; Obesity E66.9 ; Anxiety F41.9 and Major depressive disorder with single episode, remission status unspecified F32.9 [place] [address] [place] [id number] [place] [address] 87182- 2663 Jun, Major depressive disorder with single episode, remission status unspecified F32.9 [place] [address] [place] [id number] [place] [address] 75551- 3850 Jun, [place] [address] [place] [id number] [place] [address] 36038- 0392 Jun, [place] [address] [place] [id number] [place] [address] 13989- 0148 Jun, Major depressive disorder with single episode, remission status unspecified F32.9 [place] [address] [place] [id number] [place] [address] 94402- 6915 Jun, Major depressive disorder, recurrent episode, moderate F33.1 [place] [address] [place] [id number] [place] [address] 88018- 9854 May, [facility] [place] [address] [place] [address] 21586- 1719 Apr, [place] [address] [place] [id number] [place] [address] 85210- 0759 March, Obesity E66.9 ; Anxiety F41.9 ; Insomnia G47.00 ; GERD ( gastroesophageal reflux disease) K21.9 and Other chronic pain G89.29 [place] [address] 02184- 3530 March, Sciatica M54.30 [place] [address] 77559- 1507 March, Insomnia G47.00 and Anxiety F41.9 [place] [address] 78756- 9826 Feb, Sciatica M54.30 [place] [address] 23555- 9922 Feb, Dental examination Z01.20 [place] [address] 23452- 5884 Jan, Obesity E66.9 ; Sciatica M54.30 ; Anxiety F41.9 ; Insomnia G47.00 ; GERD (gastroesophageal reflux disease) K21.9 and Anemia D64.9 [place] [address] 11683- 1227 Dec, [place] [address] 98760- 9091 Dec, Skin tags, multiple acquired L91.8 [place] [address] 81667- 8565 Dec, [place] [address] 56822- 8371 Nov, Obesity E66.9 [place] [address] 48869- 9377 Nov, Sciatica M54.30 ; Obesity E66.9 ; Anxiety F41.9 ; Insomnia G47.00 and GERD (gastroesophageal reflux disease) K21.9 [place] [address] [place] [id number] [place] [address] 55161- 2654 Aug, Sciatica M54.30 ; Obesity E66.9 ; Anxiety F41.9 ; Insomnia G47.00 and GERD (gastroesophageal reflux disease) K21.9 [facility] [place] [id number] [place] [address] 14 Feb, 2015 [facility], [place] [id number], [place] [address] Feb, [facility], [place] [id number] [place] [address] Feb, [facility], [place] [id number] [place] [address] Feb, [facility], [place] [id number] [place] [address] Feb, [facility], [place] [id number] [place] [id number] Jan, [id number] [id number] Nov, [place] [id number] [place] [id number] Nov, [facility], [place] [id number], [place] [address] Oct, [facility], [place] [id number] [address] Feb, [facility], [place] [id number], [place] [address] Aug, [facility], [place] [id number] [address] 10 Jul, 2010 IMMUNIZATIONS No Known Immunizations SOCIAL HISTORY Never Assessed REASON FOR VISIT Medication refill request PLAN OF CARE VITAL SIGNS MEDICATIONS Unknown [...]
--- OUTSIDE RECORDS SUMMARY | 2018-11-24 09:36 | XMS REPORT ---
Author Author BRAXTON ABDI [facility] Address [address] [place] [address] Care Team Providers Care Yard Brakeman Name Role Phone BRAXTON ABDI Unavailable PROBLEMS Type Condition ICD9-CM Code NDB55-VX Code Onset Dates Condition Status SNOMED Code Problem Sciatica, right side M54.31 Active 75703297 Problem Other chronic pain G89.29 Active 47676927 Problem Muscle spasm M62.838 Active 84627224 Problem Seasonal allergies J30.2 Active 232532916 Problem Episode of recurrent major depressive disorder, unspecified depression episode severity F33.9 Active 689727983 Problem Fibromyalgia M79.7 Active 594694381 Problem Chronic pain disorder G89.4 Active 474578585 Problem Morbid obesity E66.01 Active 363635853 Problem Mood disorder F39 Active 70063070 Problem Anxiety F41.9 Active 05239118 Problem Sciatica M54.30 Active 74697024 Problem Insomnia G47.00 Active 071654129 Problem GERD (gastroesophageal reflux disease) K21.9 Active 131648923 Problem Anemia D64.9 Active 571518195 Problem Major depressive disorder, recurrent episode, moderate F33.1 Active 139019419 Problem Obesity E66.9 Active 060988081 Problem Major depressive disorder with single episode, remission status unspecified F32.9 Active 25123789 Problem Skin tags, multiple acquired L91.8 Active 003474481 Problem Sciatica of left side M54.32 Active 09848109 ALLERGIES No Information ENCOUNTERS Encounter Location Date Diagnosis [address] [id number] [id number] Jun, Chronic pain disorder G89.4 ; Anxiety F41.9 ; Insomnia G47.00 ; GERD ( gastroesophageal reflux disease) K21.9 ; Episode of recurrent major depressive disorder, unspecified depression episode severity F33.9 and Seasonal allergies J30.2 [facility] [address] [id number] Jun, Chronic pain disorder G89.4 and Obesity E66.9 [facility] [address] [place] [id number] [place] [address] [id number] Jun, [facility] [address] [id number] May, Plantar fasciitis, left M72.2 ; Anxiety F41.9 and BMI 40.0-44.9, adult Z68.41 [facility] [id number] [place] [address] [phone] May, Chronic pain disorder G89.4 and Obesity E66.9 [facility] [id number] [place] [address] [id number] May, [facility] [id number] [place] [address] [id number] Apr, Episode of recurrent major depressive disorder, unspecified depression episode severity F33.9 ; Chronic pain disorder G89.4 ; Obesity E66.9 and BMI 40.0-44.9, adult Z68.41 [facility] [id number] [place] [address] [id number] Apr, [facility] [id number] [place] [address] [id number] Apr, Chronic pain disorder G89.4 and Obesity E66.9 [address] [place] [address] [id number] March, Chronic pain disorder G89.4 and Obesity E66.9 [facility] [address] [address] March, [facility] [address] [place] [address] [id number] Feb, Chronic pain disorder G89.4 [place] [id number] [place] [address] [id number] Feb, Chronic pain disorder G89.4 and Obesity E66.9 [address] [place] [address] [id number] Jan, Insomnia G47.00 [place] [id number] [id number] Jan, Obesity E66.9 and Chronic pain disorder G89.4 [facility] [id number] [place] [address] [id number] Jan, Chronic pain disorder G89.4 [place] [address] [place] [address] [id number] [place] [address] 14357- 3096 Jan, [place] [address] [place] [address] [id number] [place] [address] 57461- 5743 Dec, [facility] [address] [place] [address] [id number] Dec, Chronic pain disorder G89.4 [address] [place] [address] [id number] Dec, Calcaneal spur of left foot M77.32 and BMI 40.0-44.9, adult Z68.41 [place] [address] [place] [address] [id number] [place] [address] 83020- 4616 Nov, Chronic pain disorder G89.4 ; Sciatica, right side M54.31 ; Pain of left heel M79.672 ; Morbid obesity E66.01 ; Mood disorder F39 ; Obesity E66.9 ; Anxiety F41.9 ; Insomnia G47.00 and Muscle spasm M62.[address] [place] [address] [id number] Nov, Chronic pain disorder G89.4 ; Sciatica, right side M54.31 ; Morbid obesity E66.01 ; Mood disorder F39 ; Obesity E66.9 ; Pain of left heel M79.672 ; Anxiety F41.9 ; Insomnia G47.00 ; Muscle spasm M62.838 and BMI 40.0-44.9, adult Z68.41 [place] [address] [place] [address] 37267- 9439 Oct, Chronic pain disorder G89.4 [place] [address] [place] [id number] [place] [address] 63617- 3769 Sep, Anxiety F41.9 ; Fibromyalgia M79.7 ; Chronic pain disorder G89.4 ; Mood disorder F39 ; GERD (gastroesophageal reflux disease) K21.9 and Muscle spasm M62.[address] 00118- 4461 Sep, Plantar fasciitis M72.2 ; Morbid obesity E66.01 and BMI 40.0 -44.9, adult Z68.[address] [address]76- 6494 Aug, [address] 79081- 4184 Aug, Anxiety F41.9 ; Muscle spasm M62.838 ; Major depressive disorder, recurrent episode, moderate F33.1 ; Obesity E66.9 ; Insomnia G47.00 ; Fibromyalgia M79.7 ; Chronic pain disorder G89.4 and Other chronic pain G89.[address] 47359- 2083 Jul, Muscle spasm M62.838 ; Anxiety F41.9 ; Sciatica M54.30 ; Insomnia G47.00 ; Major depressive disorder, recurrent episode, moderate F33.1 ; Other chronic pain G89.29 and GERD (gastroesophageal reflux disease) K21.9 [facility] [address] [address]2317 Jun, Acute non-recurrent maxillary sinusitis J01.00 [facility] [place] [id number] [place] [address] 10200 -6754 Jun, Acute nasopharyngitis (common cold) J[address] 05696- 8120 May, Anxiety F41.[address] 65160- 7922 Apr, Insomnia G47.[address] 41363- 8410 March, Anxiety F41.9 and Insomnia G47.00 [facility] [address] 84641- 3988 Feb, Obesity E66.9 and Screening cholesterol level Z13.220 [facility] [address] 04045- 3482 Feb, Insomnia G47.00 [place] [address] 09253- 2505 Dec, Sciatica M54.30 ; Obesity E66.9 ; Anxiety F41.9 ; Insomnia G47.00 ; GERD (gastroesophageal reflux disease) K21.9 ; Major depressive disorder, recurrent episode, moderate F33.1 ; Pain management R52 and Screening cholesterol level Z13.220 [place] [address] 36031- 4086 Dec, [facility] [address] 73172 -7893 Nov, Acute non-recurrent frontal sinusitis J01.10 and Sore throat J02.9 [place] [address] 64443- 5930 Nov, [place] [address] 52932- 3317 Nov, Sciatica, right side M54.31 and Sciatica of left side M54.32 [place] [address] [place] [address] [id number] [place] [address] 85001- 8445 Oct, [place] [address] 91504- 9102 Sep, [place] [address] 04373- 1607 14 Aug, 2016 [place] [address] 66138- 4304 Aug, [place] [address] [address] 7[address] 16 Jul, 2016 [facility] [id number] [place] [address] 25341- 7000 Jul, [facility] [address] [place] [address] 33677- 3797 Jun, Sciatica M54.30 ; Insomnia G47.00 ; Obesity E66.9 ; Anxiety F41.9 and Major depressive disorder with single episode, remission status unspecified F32.9 [facility] [address] [place] [address] 06449- 3171 Jun, Major depressive disorder with single episode, remission status unspecified F32.9 [facility] [id number] [place] [address] 85315- 9234 Jun, [place] [id number] [place] [address] 55726- 0920 Jun, [facility] [id number] [place] [address] 92003- 4356 Jun, Major depressive disorder with single episode, remission status unspecified F32.9 [facility] [address] [place] [address] 27831- 5113 Jun, Major depressive disorder, recurrent episode, moderate F33.1 [place] [address] [address] 8[address] May, [facility] [address] [place] [address] 02423- 2272 Apr, [facility] [id number] [place] [address] 62367- 1108 March, Obesity E66.9 ; Anxiety F41.9 ; Insomnia G47.00 ; GERD ( gastroesophageal reflux disease) K21.9 and Other chronic pain G89.29 [facility] [address] [address] March, Sciatica M54.30 [place] [address] 94861- 9236 March, Insomnia G47.00 and Anxiety F41.9 [place] [address] 10549- 2925 Feb, Sciatica M54.30 [place] [address] 46920- 8389 Feb, Dental examination Z01.20 [place] [address] 59015- 7973 Jan, Obesity E66.9 ; Sciatica M54.30 ; Anxiety F41.9 ; Insomnia G47.00 ; GERD (gastroesophageal reflux disease) K21.9 and Anemia D64.9 [place] [address] 43527- 6000 Dec, [place] [address] 64097- 6058 Dec, Skin tags, multiple acquired L91.8 [place] [address] 78447- 1195 Dec, [place] [address] 78003- 0593 Nov, Obesity E66.9 [place] [address] 91687- 9235 Nov, Sciatica M54.30 ; Obesity E66.9 ; Anxiety F41.9 ; Insomnia G47.00 and GERD (gastroesophageal reflux disease) K21.9 [place] [address] 81958- 3651 13 Aug, 2015 Sciatica M54.30 ; Obesity E66.9 ; Anxiety F41.9 ; Insomnia G47.00 and GERD (gastroesophageal reflux disease) K21.9 [place] [address] 58484- 6496 14 Feb, 2015 [facility] [address] [id number] [address] Feb, [facility] [address] [address]- 0086 Feb, [facility] [address] [address]- 9976 Feb, [facility] [address] [id number] [address]- 4020 Feb, [facility] [address] [address]- 2[address] Jan, [address] [place] [address] [id number] Nov, [address] [place] [address] [phone] Nov, [facility] [address] [address]- 0111 Oct, [facility] [address] [address]- 6602 Feb, [facility] [address] [place] [address] 94647- 9443 Aug, [facility] [address] [address]- 3039 10 Jul, 2010 IMMUNIZATIONS No Known Immunizations SOCIAL HISTORY Never Assessed REASON FOR VISIT refill for narcotics PLAN OF CARE VITAL SIGNS MEDICATIONS Medication Instructions Dosage Frequency Start Date End Date Duration Status Hydrocodone-Acetaminophen 7.5-325 MG Orally 3 times a day 1 tablet as needed 8h May, 30 days Active Phentermine HCl 37.5 MG [...]
--- OUTSIDE RECORDS SUMMARY | 2018-11-24 09:37 | XMS REPORT ---
Author Author BRAXTON ABDI [facility] Address [address] [place] [address] Care Team Providers Care Chemical Preparer Name Role Phone BRAXTON ABDI Unavailable PROBLEMS Type Condition ICD9-CM Code UZR31-SI Code Onset Dates Condition Status SNOMED Code Problem Sciatica, right side M54.31 Active 96396112 Problem Muscle spasm M62.838 Active 01118241 Problem Sciatica of left side M54.32 Active 43964390 Problem Episode of recurrent major depressive disorder, unspecified depression episode severity F33.9 Active 943485738 Problem Morbid obesity E66.01 Active 093899336 Problem Chronic pain disorder G89.4 Active 611276211 Problem Other chronic pain G89.29 Active 00713869 Problem Mood disorder F39 Active 78494862 Problem Fibromyalgia M79.7 Active 895500526 Problem GERD (gastroesophageal reflux disease) K21.9 Active 492194164 Problem Anxiety F41.9 Active 26609162 Problem Insomnia G47.00 Active 022993480 Problem Skin tags, multiple acquired L91.8 Active 445356874 Problem Anemia D64.9 Active 108823503 Problem Sciatica M54.30 Active 14261106 Problem Major depressive disorder, recurrent episode, moderate F33.1 Active 172274316 Problem Obesity E66.9 Active 779908961 Problem Major depressive disorder with single episode, remission status unspecified F32.9 Active 95023241 ALLERGIES No Information ENCOUNTERS Encounter Location Date Diagnosis [facility] [address] [id number] [id number] Jun, [facility] [address] [id number] [id number] Jun, Chronic pain disorder G89.4 and Obesity E66.9 [facility] [address] [id number] [id number] Jun, [facility] [id number] [place] [address] [id number] May, Plantar fasciitis, left M72.2 and Anxiety F41.9 [facility] [address] [place] [id number] [place] [address] [id number] May, Chronic pain disorder G89.4 and Obesity E66.9 [facility] [address] [id number] [place] [address] [id number] May, [facility] [address] [id number] Apr, Episode of recurrent major depressive disorder, unspecified depression episode severity F33.9 ; Chronic pain disorder G89.4 ; Obesity E66.9 and BMI 40.0-44.9, adult Z68.41 [facility] [address] [place] [id number] [place] [address] [id number] Apr, [facility] [id number] [place] [address] [id number] Apr, Chronic pain disorder G89.4 and Obesity E66.9 [facility] [id number] [place] [address] [id number] March, Chronic pain disorder G89.4 and Obesity E66.9 [facility] [address] 30536- 9073 March, [facility] [id number] [place] [address] [id number] Feb, Chronic pain disorder G89.4 [facility] [id number] [place] [address] [id number] Feb, Chronic pain disorder G89.4 and Obesity E66.9 [place] [id number] [place] [address] [id number] Jan, Insomnia G47.00 [facility] [address] [id number] Jan, Obesity E66.9 and Chronic pain disorder G89.4 [facility] [address] [id number] [place] [address] [id number] Jan, Chronic pain disorder G89.4 [facility] [address] [place] [id number] [place] [address] [phone]- 6356 Jan, [place] [address] 61375- 9726 Dec, [facility] [address] [place] [address] [id number] Dec, Chronic pain disorder G89.4 [facility] [address] [id number] [place] [address] [id number] Dec, Calcaneal spur of left foot M77.32 and BMI 40.0-44.9, adult Z68.41 [place] [address] 83989- 0539 Nov, Chronic pain disorder G89.4 ; Sciatica, right side M54.31 ; Pain of left heel M79.672 ; Morbid obesity E66.01 ; Mood disorder F39 ; Obesity E66.9 ; Anxiety F41.9 ; Insomnia G47.00 and Muscle spasm M62.838 [facility] [address] [place] [address] [id number] Nov, Chronic pain disorder G89.4 ; Sciatica, right side M54.31 ; Morbid obesity E66.01 ; Mood disorder F39 ; Obesity E66.9 ; Pain of left heel M79.672 ; Anxiety F41.9 ; Insomnia G47.00 ; Muscle spasm M62.838 and BMI 40.0-44.9, adult Z68.41 [place] [address] [place] [id number] [place] [address] 90625- 0082 Oct, Chronic pain disorder G89.4 [place] [address] [place] [id number] [place] [address] 52960- 1560 Sep, Anxiety F41.9 ; Fibromyalgia M79.7 ; Chronic pain disorder G89.4 ; Mood disorder F39 ; GERD (gastroesophageal reflux disease) K21.9 and Muscle spasm M62.838 [place] [address] [place] [id number] [place] [address] 11513- 1729 27 Nov, 2017 Plantar fasciitis M72.2 ; Morbid obesity E66.01 and BMI 40.0 -44.9, adult Z68.[address] 06304- 5343 Aug, [place] [address] 99227- 5263 Aug, Anxiety F41.9 ; Muscle spasm M62.838 ; Major depressive disorder, recurrent episode, moderate F33.1 ; Obesity E66.9 ; Insomnia G47.00 ; Fibromyalgia M79.7 ; Chronic pain disorder G89.4 and Other chronic pain G89.[address] 10602- 3476 Jul, Muscle spasm M62.838 ; Anxiety F41.9 ; Sciatica M54.30 ; Insomnia G47.00 ; Major depressive disorder, recurrent episode, moderate F33.1 ; Other chronic pain G89.29 and GERD (gastroesophageal reflux disease) K21.9 [facility] [address] [id number] [place] [address] 78975 -8592 Jun, Acute non-recurrent maxillary sinusitis J01.00 [facility] [address] 36492 -0725 Jun, Acute nasopharyngitis (common cold) J00 [place] [id number] [place] [address] 50539- 9238 May, Anxiety F41.9 [place] [address] 13596- 8481 Apr, Insomnia G47.[address] 48216- 5803 March, Anxiety F41.9 and Insomnia G47.00 [place] [id number] [place] [address] 93542- 0688 Feb, Obesity E66.9 and Screening cholesterol level Z13.220 [place] [address] [place] [address] 51333- 9733 Feb, Insomnia G47.00 [facility] [address] 79098- 4275 Dec, Sciatica M54.30 ; Obesity E66.9 ; Anxiety F41.9 ; Insomnia G47.00 ; GERD (gastroesophageal reflux disease) K21.9 ; Major depressive disorder, recurrent episode, moderate F33.1 ; Pain management R52 and Screening cholesterol level Z13.220 [facility] [address] 66392- 2593 Dec, [facility] [address] 81977 -8216 Nov, Acute non-recurrent frontal sinusitis J01.10 and Sore throat J02.9 [place] [address] 31239- 4577 Nov, [facility] [address] 55426- 5017 Nov, Sciatica, right side M54.31 and Sciatica of left side M54.32 [place] [address] [place] [id number] [place] [address] 70173- 1522 Oct, [facility] [address] [place] [id number] [place] [address] 27071- 0624 Sep, [facility] [address] [place] [id number] [place] [address] 04528- 6180 14 Aug, 2016 [facility] [address] [place] [id number] [place] [address] 13020- 1405 11 Aug, 2016 [facility] [address] 41932- 3157 16 Jul, 2016 [facility] [address] [place] [id number] [place] [address] 86716- 5198 07 Jul, 2016 [facility] [address] 44524- 7311 Jun, Sciatica M54.30 ; Insomnia G47.00 ; Obesity E66.9 ; Anxiety F41.9 and Major depressive disorder with single episode, remission status unspecified F32.9 [facility] [address] [place] [id number] [place] [address] 83319- 0076 Jun, Major depressive disorder with single episode, remission status unspecified F32.9 [facility] [address] [place] [id number] [place] [address] 09669- 7706 Jun, [facility] [address] [place] [id number] [place] [address] 55373- 7410 Jun, [place] [address] [place] [id number] [place] [address] 55166- 1241 Jun, Major depressive disorder with single episode, remission status unspecified F32.9 [place] [address] [place] [id number] [place] [address] 43853- 7317 Jun, Major depressive disorder, recurrent episode, moderate F33.1 [place] [address] [place] [id number] [place] [address] 05307- 4997 May, [place] [address] [place] [id number] [place] [address] 75566- 9254 Apr, [place] [address] [place] [id number] [place] [address] 29991- 3297 March, Obesity E66.9 ; Anxiety F41.9 ; Insomnia G47.00 ; GERD ( gastroesophageal reflux disease) K21.9 and Other chronic pain G89.29 [place] [address] [place] [id number] [place] [address] 36096- 5350 March, Sciatica M54.30 [place] [address] [place] [id number] [place] [address] 21380- 7385 March, Insomnia G47.00 and Anxiety F41.9 [place] [address] [place] [id number] [place] [address] 12719- 7164 Feb, Sciatica M54.30 [place] [address] [place] [id number] [place] [address] 22708- 3078 Feb, Dental examination Z01.20 [place] [address] 12561- 2954 Jan, Obesity E66.9 ; Sciatica M54.30 ; Anxiety F41.9 ; Insomnia G47.00 ; GERD (gastroesophageal reflux disease) K21.9 and Anemia D64.9 [place] [address] 87443- 7244 Dec, [place] [address] 68419- 4840 Dec, Skin tags, multiple acquired L91.8 [place] [address] 96231- 4944 Dec, [place] [address] 66535- 1726 Nov, Obesity E66.9 [place] [address] 96169- 9000 Nov, Sciatica M54.30 ; Obesity E66.9 ; Anxiety F41.9 ; Insomnia G47.00 and GERD (gastroesophageal reflux disease) K21.9 [place] [address] 14121- 3680 Aug, Sciatica M54.30 ; Obesity E66.9 ; Anxiety F41.9 ; Insomnia G47.00 and GERD (gastroesophageal reflux disease) K21.9 [place] [address] [place] [id number] [place] [address] 71518- 7596 Feb, [place] [address] 45734- 2676 Feb, [place] [address] 90905- 5477 Feb, [place] [address], [place] [address]- 4796 Feb, [facility] [address], [place] [address]- 8916 Feb, [facility] [address], [place] [address]- [address] Jan, [facility] [id number] [id number] Nov, [facility] [address] [place] [id number] [place] [id number] Nov, [facility] [id number] [place] [address] Oct, [facility] [id number] [place] [address] Feb, [facility] [id number] [address] Aug, [facility] [id number] [address] Jul, 2010 IMMUNIZATIONS No Known Immunizations SOCIAL HISTORY Never Assessed REASON FOR VISIT refill phentermine and hydrocone PLAN OF CARE VITAL SIGNS MEDICATIONS Unknown [...]
--- OUTSIDE RECORDS SUMMARY | 2018-11-24 09:37 | XMS REPORT ---
Author Author BRAXTON ABDI [facility] Address [address] [place] [address] Care Team Providers Care Manager Of Development Name Role Phone BRAXTON ABDI Unavailable PROBLEMS Type Condition ICD9-CM Code [id number] Code Onset Dates Condition Status SNOMED Code Problem Sciatica, right side M54.31 Active 66246364 Problem Muscle spasm M62.838 Active 20316670 Problem Sciatica of left side M54.32 Active 24852045 Problem Episode of recurrent major depressive disorder, unspecified depression episode severity F33.9 Active 157688508 Problem Morbid obesity E66.01 Active 329129838 Problem Chronic pain disorder G89.4 Active 899598698 Problem Other chronic pain G89.29 Active 34729664 Problem Mood disorder F39 Active 19768314 Problem Fibromyalgia M79.7 Active 771544033 Problem GERD (gastroesophageal reflux disease) K21.9 Active 738681775 Problem Anxiety F41.9 Active 68647977 Problem Insomnia G47.00 Active 908770177 Problem Skin tags, multiple acquired L91.8 Active 380916414 Problem Anemia D64.9 Active 816648591 Problem Sciatica M54.30 Active 03610503 Problem Major depressive disorder, recurrent episode, moderate F33.1 Active 173845405 Problem Obesity E66.9 Active 551997263 Problem Major depressive disorder with single episode, remission status unspecified F32.9 Active 09706642 ALLERGIES No Information ENCOUNTERS Encounter Location Date Diagnosis [facility] [address] [id number] [id number] Jun, [facility] [address] [id number][place] [id number] Jun, [facility] [address] [id number][place] [phone] May, Plantar fasciitis, left M72.2 and Anxiety F41.9 [facility] [address] [id number][place] [id number] May, Chronic pain disorder G89.4 and Obesity E66.9 [facility] [place] [id number] [place] [address] [id number] May, [facility] [place] [id number] [place] [address] [id number] Apr, Episode of recurrent major depressive disorder, unspecified depression episode severity F33.9 ; Chronic pain disorder G89.4 ; Obesity E66.9 and BMI 40.0-44.9, adult Z68.41 [facility] [place] [id number] [place] [address] [id number] Apr, [facility] [place] [id number] [place] [address] [id number] Apr, Chronic pain disorder G89.4 and Obesity E66.9 [facility] [place] [id number] [place] [address] [id number] March, Chronic pain disorder G89.4 and Obesity E66.9 [facility] [id number] [place] [address] [id number] March, [facility] [place] [id number] [place] [address] [id number] Feb, Chronic pain disorder G89.4 [facility] [place] [id number] [place] [address] [id number] Feb, Chronic pain disorder G89.4 and Obesity E66.9 [facility] [place] [id number] [place] [address] [id number] Jan, Insomnia G47.00 [facility] [place] [id number] [place] [address] [id number] Jan, Obesity E66.9 and Chronic pain disorder G89.4 [facility] [place] [id number] [place] [address] [id number] Jan, Chronic pain disorder G89.4 [facility] [address] [address] Jan, [facility] [address] [place] [address] Dec, [facility] [id number] [place] [address] [id number] Dec, Chronic pain disorder G89.4 [facility] [id number] [place] [address] [id number] Dec, Calcaneal spur of left foot M77.32 and BMI 40.0-44.9, adult Z68.41 [place] [address] [address] Nov, Chronic pain disorder G89.4 ; Sciatica, right side M54.31 ; Pain of left heel M79.672 ; Morbid obesity E66.01 ; Mood disorder F39 ; Obesity E66.9 ; Anxiety F41.9 ; Insomnia G47.00 and Muscle spasm M62.838 [facility] [id number] [place] [address] [id number] Nov, Chronic pain disorder G89.4 ; Sciatica, right side M54.31 ; Morbid obesity E66.01 ; Mood disorder F39 ; Obesity E66.9 ; Pain of left heel M79.672 ; Anxiety F41.9 ; Insomnia G47.00 ; Muscle spasm M62.838 and BMI 40.0-44.9, adult Z68.41 [place] [id number] [place] [address] Oct, Chronic pain disorder G89.4 [place] [id number] [place] [address] Sep, Anxiety F41.9 ; Fibromyalgia M79.7 ; Chronic pain disorder G89.4 ; Mood disorder F39 ; GERD (gastroesophageal reflux disease) K21.9 and Muscle spasm M62.838 [place] [address] [address] Sep, Plantar fasciitis M72.2 ; Morbid obesity E66.01 and BMI 40.0 -44.9, adult Z68.41 [place] [address] [address] Aug, [place] [address] [address] Aug, Anxiety F41.9 ; Muscle spasm M62.838 ; Major depressive disorder, recurrent episode, moderate F33.1 ; Obesity E66.9 ; Insomnia G47.00 ; Fibromyalgia M79.7 ; Chronic pain disorder G89.4 and Other chronic pain G89.29 [place] [address] [address] Jul, Muscle spasm M62.838 ; Anxiety F41.9 ; Sciatica M54.30 ; Insomnia G47.00 ; Major depressive disorder, recurrent episode, moderate F33.1 ; Other chronic pain G89.29 and GERD (gastroesophageal reflux disease) K21.9 [facility] [address] [address] Jun, Acute non-recurrent maxillary sinusitis J01.00 [facility] [address] [address] Jun, Acute nasopharyngitis (common cold) J00 [place] [address] [address] May, Anxiety F41.[address] [address] Apr, Insomnia G47.[address] [address] March, Anxiety F41.9 and Insomnia G47.[address] [address] Feb, Obesity E66.9 and Screening cholesterol level Z13.[address] [address] Feb, Insomnia G47.00 [address] [place] [address] 24 Dec, 2016 Sciatica M54.30 ; Obesity E66.9 ; Anxiety F41.9 ; Insomnia G47.00 ; GERD (gastroesophageal reflux disease) K21.9 ; Major depressive disorder, recurrent episode, moderate F33.1 ; Pain management R52 and Screening cholesterol level Z13.220 [facility] [address] [address] Dec, [facility] [address] [address] Nov, Acute non-recurrent frontal sinusitis J01.10 and Sore throat J02.9 [place] [address] [address] Nov, [place] [address] [address] Nov, Sciatica, right side M54.31 and Sciatica of left side M54.32 [place] [id number] [place] [address] Oct, [place] [address] [address] Sep, [place] [address] [address] 14 Aug, 2016 [place] [id number] [place] [address] Aug, [place] [id number] [place] [address]- [address] 16 Jul, 2016 [place] [address] [address] Jul, [place] [address] [address] Jun, Sciatica M54.30 ; Insomnia G47.00 ; Obesity E66.9 ; Anxiety F41.9 and Major depressive disorder with single episode, remission status unspecified F32.9 [facility] [address] [address] Jun, Major depressive disorder with single episode, remission status unspecified F32.9 [facility] [id number] [place] [address]- [address] Jun, [facility] [id number] [place] [address]- [address] Jun, [facility] [id number] [place] [address]- [address] Jun, Major depressive disorder with single episode, remission status unspecified F32.9 [facility] [id number] [place] [address]- [address] Jun, Major depressive disorder, recurrent episode, moderate F33.1 [place] [id number] [place] [address]- [address] May, [facility] [id number] [place] [address]- [address] Apr, [place] [id number] [place] [address]- [address] March, Obesity E66.9 ; Anxiety F41.9 ; Insomnia G47.00 ; GERD ( gastroesophageal reflux disease) K21.9 and Other chronic pain G89.29 [place] [id number] [place] [address]- [address] March, Sciatica M54.30 [place] [id number] [place] [address]- [address] March, Insomnia G47.00 and Anxiety F41.9 [place] [id number] [place] [address]- [address] Feb, Sciatica M54.30 [place] [id number] [place] [address]58- [address] 06 Apr, 2016 Dental examination Z01.20 [facility] [id number] [place] [address]- [address] Jan, Obesity E66.9 ; Sciatica M54.30 ; Anxiety F41.9 ; Insomnia G47.00 ; GERD (gastroesophageal reflux disease) K21.9 and Anemia D64.9 [place] [address] [address] Dec, [place] [address] [address] Dec, Skin tags, multiple acquired L91.8 [place] [address] [address]- [address] Dec, [place] [address] [address] Nov, Obesity E66.9 [place] [address] [address]- [address] Nov, Sciatica M54.30 ; Obesity E66.9 ; Anxiety F41.9 ; Insomnia G47.00 and GERD (gastroesophageal reflux disease) K21.9 [place] [address] [address] Aug, Sciatica M54.30 ; Obesity E66.9 ; Anxiety F41.9 ; Insomnia G47.00 and GERD (gastroesophageal reflux disease) K21.9 [place] [address] [address]- [address] Feb, [place] [address] [address] Feb, [place] [address] [address]- [address] Feb, [place] [address] [address]- [address] Feb, [place] [address] [address]- [address] Feb, [facility] [address] [facility] [id number] [address] Jan, [facility] [address] [id number] [id number] Nov, [facility] [address] [facility] [id number] [id number] Nov, [facility] [address] [address] Oct, [facility] [address] [facility] [id number] [address] Feb, [facility] [address] [place] [address] Aug, [facility] [address] [facility] [id number], [place] [address] Jul, IMMUNIZATIONS No Known Immunizations SOCIAL HISTORY Never Assessed REASON FOR VISIT PLAN OF CARE VITAL SIGNS MEDICATIONS Medication Instructions Dosage Frequency Start Date End Date Duration Status Phentermine HCl 37.5 MG Orally Once a day 1 tablet 24h Jan, 28 days Active Hydrocodone-Acetaminophen 7.5-325 MG Orally 3 times a day 1 tablet as needed 8h Apr, 28 days Active Topamax 25 MG Orally Once a day 1 tablet 24h 28 days Active RESULTS No Results PROCEDURES No [...]
--- OUTSIDE RECORDS SUMMARY | 2018-11-24 09:37 | XMS REPORT ---
Author Author BRAXTON ABDI [facility] Address [address] [place] [address] Care Team Providers Care Senior Payroll Specialist Name Role Phone BRAXTON ABDI Unavailable PROBLEMS Type Condition ICD9-CM Code [id number] Code Onset Dates Condition Status SNOMED Code Problem Sciatica, right side M54.31 Active 01925231 Problem Other chronic pain G89.29 Active 49071901 Problem Muscle spasm M62.838 Active 61498468 Problem Seasonal allergies J30.2 Active 806623208 Problem Episode of recurrent major depressive disorder, unspecified depression episode severity F33.9 Active 839910593 Problem Fibromyalgia M79.7 Active 380863064 Problem Chronic pain disorder G89.4 Active 812165011 Problem Morbid obesity E66.01 Active 256097535 Problem Mood disorder F39 Active 33606861 Problem Anxiety F41.9 Active 19415907 Problem Sciatica M54.30 Active 06459472 Problem Insomnia G47.00 Active 139896692 Problem GERD (gastroesophageal reflux disease) K21.9 Active 631432095 Problem Anemia D64.9 Active 033642846 Problem Major depressive disorder, recurrent episode, moderate F33.1 Active 776231056 Problem Obesity E66.9 Active 906278383 Problem Major depressive disorder with single episode, remission status unspecified F32.9 Active 86570347 Problem Skin tags, multiple acquired L91.8 Active 110627583 Problem Sciatica of left side M54.32 Active 65578821 ALLERGIES No Known Allergies ENCOUNTERS Encounter Location Date Diagnosis [address] [id number] [id number] Jun, Chronic pain disorder G89.4 ; Anxiety F41.9 ; Insomnia G47.00 ; GERD ( gastroesophageal reflux disease) K21.9 ; Episode of recurrent major depressive disorder, unspecified depression episode severity F33.9 and Seasonal allergies J30.2 [facility] [id number] [place] [address] [id number] Jun, Chronic pain disorder G89.4 and Obesity E66.9 [facility] [id number] [place] [address] [id number] Jun, [facility] [id number] [place] [address] [id number] May, Plantar fasciitis, left M72.2 ; Anxiety F41.9 and BMI 40.0-44.9, adult Z68.41 [facility] [id number] [place] [address] [id number] May, Chronic pain disorder G89.4 and Obesity E66.9 [place] [id number] [place] [address] [id number] May, [facility] [id number] [place] [address] [id number] Apr, Episode of recurrent major depressive disorder, unspecified depression episode severity F33.9 ; Chronic pain disorder G89.4 ; Obesity E66.9 and BMI 40.0-44.9, adult Z68.41 [facility] [id number] [place] [address] [id number] Apr, [facility] [id number] [place] [address] [id number] Apr, Chronic pain disorder G89.4 and Obesity E66.9 [address] [place] [address] [id number] March, Chronic pain disorder G89.4 and Obesity E66.9 [facility] [address] [address] March, [facility] [address] [id number] Feb, Chronic pain disorder G89.4 [address] [place] [address] [id number] Feb, Chronic pain disorder G89.4 and Obesity E66.9 [address] [place] [address] [id number] Jan, Insomnia G47.00 [facility] [id number] [id number] Jan, Obesity E66.9 and Chronic pain disorder G89.4 [facility] [address] [place] [address] [id number] Jan, Chronic pain disorder G89.4 [place] [id number] [place] [address]- [address] Jan, [place] [id number] [place] [address]82- 5366 Dec, [facility] [address] [place] [address] [id number] Dec, Chronic pain disorder G89.4 [address] [place] [address] [id number] Dec, Calcaneal spur of left foot M77.32 and BMI 40.0-44.9, adult Z68.41 [place] [id number] [place] [address] Nov, Chronic pain disorder G89.4 ; Sciatica, right side M54.31 ; Pain of left heel M79.672 ; Morbid obesity E66.01 ; Mood disorder F39 ; Obesity E66.9 ; Anxiety F41.9 ; Insomnia G47.00 and Muscle spasm M62.838 [facility] [address] [place] [address] [id number] Nov, Chronic pain disorder G89.4 ; Sciatica, right side M54.31 ; Morbid obesity E66.01 ; Mood disorder F39 ; Obesity E66.9 ; Pain of left heel M79.672 ; Anxiety F41.9 ; Insomnia G47.00 ; Muscle spasm M62.838 and BMI 40.0-44.9, adult Z68.41 [place] [id number] [place] [address]18- 9839 Oct, Chronic pain disorder G89.4 [place] [id number] [place] [address] 9[address]25- [address]879 Sep, Anxiety F41.9 ; Fibromyalgia M79.7 ; Chronic pain disorder G89.4 ; Mood disorder F39 ; GERD (gastroesophageal reflux disease) K21.9 and Muscle spasm M62.838 [place] [address] [address] Sep, Plantar fasciitis M72.2 ; Morbid obesity E66.01 and BMI 40.0 -44.9, adult Z68.[address] [address] Aug, [address] [address] Aug, Anxiety F41.9 ; Muscle spasm M62.838 ; Major depressive disorder, recurrent episode, moderate F33.1 ; Obesity E66.9 ; Insomnia G47.00 ; Fibromyalgia M79.7 ; Chronic pain disorder G89.4 and Other chronic pain G89.[address] [address] Jul, Muscle spasm M62.838 ; Anxiety F41.9 ; Sciatica M54.30 ; Insomnia G47.00 ; Major depressive disorder, recurrent episode, moderate F33.1 ; Other chronic pain G89.29 and GERD (gastroesophageal reflux disease) K21.9 [facility] [address] [address] Jun, Acute non-recurrent maxillary sinusitis J01.00 [facility] [place] [id number] [place] [address] Jun, Acute nasopharyngitis (common cold) J00 [address] [address] May, Anxiety F41.[address] [address] Apr, Insomnia G47.[address] [address] March, Anxiety F41.9 and Insomnia G47.00 [facility] [address] [address] Feb, Obesity E66.9 and Screening cholesterol level Z13.220 [facility] [address] [address] Feb, Insomnia G47.00 [place] [address] [address] Dec, Sciatica M54.30 ; Obesity E66.9 ; Anxiety F41.9 ; Insomnia G47.00 ; GERD (gastroesophageal reflux disease) K21.9 ; Major depressive disorder, recurrent episode, moderate F33.1 ; Pain management R52 and Screening cholesterol level Z13.220 [facility] [address] [address] Dec, [facility] [address] [address] Nov, Acute non-recurrent frontal sinusitis J01.10 and Sore throat J02.9 [place] [address] [address] Nov, [facility] [address] [address] Nov, Sciatica, right side M54.31 and Sciatica of left side M54.32 [place] [id number] [place] [address] 06148- [address] Oct, [facility] [address] [address] Sep, [facility] [address] [address]- [address] 14 Aug, 2016 [facility] [address] [address] Aug, [facility] [address] [address] 16 Jul, 2016 [facility] [id number] [place] [address]58[address] Jul, [facility] [id number] [place] [address] 32286- [address] Jun, Sciatica M54.30 ; Insomnia G47.00 ; Obesity E66.9 ; Anxiety F41.9 and Major depressive disorder with single episode, remission status unspecified F32.9 [place] [id number] [place] [address]29- [address] Jun, Major depressive disorder with single episode, remission status unspecified F32.9 [place] [id number] [place] [address] Jun, [place] [id number] [place] [address] 10144- 36[address] Jun, [place] [id number] [place] [address] 24[address]- 18[address] Jun, Major depressive disorder with single episode, remission status unspecified F32.9 [place] [id number] [place] [address] 77124- 58[address] Jun, Major depressive disorder, recurrent episode, moderate F33.1 [place] [id number] [place] [address] 20887- 6[address] May, [place] [id number] [place] [address] 18631- 86[address] Apr, [place] [id number] [place] [address] 0[address]24- [address] March, Obesity E66.9 ; Anxiety F41.9 ; Insomnia G47.00 ; GERD ( gastroesophageal reflux disease) K21.9 and Other chronic pain G89.29 [place] [id number] [place] [address] 89265- [address] March, Sciatica M54.30 [place] [address] [address]- [address] March, Insomnia G47.00 and Anxiety F41.9 [place] [address] [address]- [address] Feb, Sciatica M54.30 [place] [address] 8[address]- [address] Feb, Dental examination Z01.20 [place] [address] [address]- [address] Jan, Obesity E66.9 ; Sciatica M54.30 ; Anxiety F41.9 ; Insomnia G47.00 ; GERD (gastroesophageal reflux disease) K21.9 and Anemia D64.9 [place] [address] [address]- [address] Dec, [place] [address] [address]- [address] Dec, Skin tags, multiple acquired L91.8 [place] [address] 6[address]25- [address] Dec, [place] [address] [address]- [address] Nov, Obesity E66.9 [place] [address] 8[address]01- 60[address] Nov, Sciatica M54.30 ; Obesity E66.9 ; Anxiety F41.9 ; Insomnia G47.00 and GERD (gastroesophageal reflux disease) K21.9 [place] [address] [address]- [address] Aug, Sciatica M54.30 ; Obesity E66.9 ; Anxiety F41.9 ; Insomnia G47.00 and GERD (gastroesophageal reflux disease) K21.9 [place] [address] [address]- [address] 14 Feb, 2015 [facility] [id number] [address] Feb, [facility] [address], [place] [address] Feb, [facility] [address], [place] [address]46 Feb, [facility] [id number] [address] Feb, [facility] [address], [place] [address] Jan, [facility] [address] [place] [address] [phone] Nov, [facility] [address] [place] [address] [id number] Nov, [facility] [id number] [place] [address] 36742- 0763 Oct, [facility] [address], [place] [address] Feb, [facility] [id number] [place] [address] 24314- 9523 Aug, [facility] [address], [place] [address] Jul, IMMUNIZATIONS No Known Immunizations SOCIAL HISTORY Never Assessed REASON FOR VISIT Routine 3 month follow up for controlled pain medication, Follow up, on Phentermine [place] [facility] Activity Details Follow Up 4-6 wks depression, 3 months for chronic pain Reason: VITAL SIGNS Height 63 in 2018 Weight 247 lbs 2018 Temperature 98 degrees Fahrenheit 2018 Heart Rate 82 bpm 2018 Respiratory Rate 16 2018 BMI 43.75 kg/m2 2018 Blood pressure systolic 110 mmHg 2018 Blood pressure diastolic 68 mmHg 2018 MEDICATIONS Medication Instructions Dosage Frequency Start Date End Date Duration Status Phentermine HCl 37.5 MG Orally Once a day 1 tablet 24h Jan,May 30 days Active Cyclobenzaprine HCl 10 mg Orally Three times a day 1 tablet as needed 8h Jul, 90 days Active Hydrocodone-Acetaminophen 7.5-325 MG Orally 3 times a day 1 tablet as needed 8h Apr, May, 30 days Active Aciphex 20 mg Orally Once a day 1 tablet 24h Sep, 30 day(s) Active Sertraline HCl 50 mg Orally Once a day 2 tablet 24h Apr, 45 days Active Ambien 10 mg Orally Once a day 1 tablet at bedtime as needed 24h Jul, 30 days Active Flonase 50 MCG/ACT Nasally Once a day 1 spray in each nostril 24h Jun, 30 day(s) Active RESULTS No Results PROCEDURES [...]
--- OUTSIDE RECORDS SUMMARY | 2018-11-24 09:37 | XMS REPORT ---
Author Author BRAXTON ABDI [facility] Address [address] [place] [address] Care Team Providers Care Hair Designer Name Role Phone BRAXTON ABDI Unavailable PROBLEMS Type Condition ICD9-CM Code XPP12-YQ Code Onset Dates Condition Status SNOMED Code Problem Sciatica, right side M54.31 Active 03101051 Problem Muscle spasm M62.838 Active 47186641 Problem Sciatica of left side M54.32 Active 13741247 Problem Episode of recurrent major depressive disorder, unspecified depression episode severity F33.9 Active 685940036 Problem Morbid obesity E66.01 Active 379829191 Problem Chronic pain disorder G89.4 Active 501949032 Problem Other chronic pain G89.29 Active 68295769 Problem Mood disorder F39 Active 83639400 Problem Fibromyalgia M79.7 Active 353411649 Problem GERD (gastroesophageal reflux disease) K21.9 Active 144141843 Problem Anxiety F41.9 Active 39520905 Problem Insomnia G47.00 Active 894753042 Problem Skin tags, multiple acquired L91.8 Active 624371346 Problem Anemia D64.9 Active 417798195 Problem Sciatica M54.30 Active 30594268 Problem Major depressive disorder, recurrent episode, moderate F33.1 Active 621584374 Problem Obesity E66.9 Active 940085316 Problem Major depressive disorder with single episode, remission status unspecified F32.9 Active 48560302 ALLERGIES No Information ENCOUNTERS Encounter Location Date Diagnosis [facility] [address] [facility] [id number] [id number] May, Plantar fasciitis, left M72.2 and Anxiety F41.9 [facility] [address] [id number] [id number] May, Chronic pain disorder G89.4 and Obesity E66.9 [facility] [address] [id number] [id number] May, [facility] [id number] [id number] Apr, Episode of recurrent major depressive disorder, unspecified depression episode severity F33.9 ; Chronic pain disorder G89.4 ; Obesity E66.9 and BMI 40.0-44.9, adult Z68.41 [facility] [address] [place] [id number] [place] [id number] Apr, [facility] [id number] [place] [address] [id number] Apr, Chronic pain disorder G89.4 and Obesity E66.9 [facility] [place] [id number] [place] [id number] March, Chronic pain disorder G89.4 and Obesity E66.9 [facility] [id number] [place] [address] 10023- 2606 March, [facility] [id number] [place] [address] [id number] Feb, Chronic pain disorder G89.4 [facility] [id number] [place] [address] [id number] Feb, Chronic pain disorder G89.4 and Obesity E66.9 [facility] [id number] [place] [address] [id number] Jan, Insomnia G47.00 [facility] [id number] [place] [id number] Jan, Obesity E66.9 and Chronic pain disorder G89.4 [facility] [id number] [place] [address] [id number] Jan, Chronic pain disorder G89.4 [facility] [address] [id number] Jan, [facility] [address] [id number] Dec, [facility] [id number] [place] [id number] Dec, Chronic pain disorder G89.4 [facility] [address] [id number] [id number] Dec, Calcaneal spur of left foot M77.32 and BMI 40.0-44.9, adult Z68.41 [place] [id number] [place] [address] 80500- 7540 Nov, Chronic pain disorder G89.4 ; Sciatica, right side M54.31 ; Pain of left heel M79.672 ; Morbid obesity E66.01 ; Mood disorder F39 ; Obesity E66.9 ; Anxiety F41.9 ; Insomnia G47.00 and Muscle spasm M62.838 [facility] [id number] [place] [id number] Nov, Chronic pain disorder G89.4 ; Sciatica, right side M54.31 ; Morbid obesity E66.01 ; Mood disorder F39 ; Obesity E66.9 ; Pain of left heel M79.672 ; Anxiety F41.9 ; Insomnia G47.00 ; Muscle spasm M62.838 and BMI 40.0-44.9, adult Z68.41 [place] [id number] [place] [address] 02613- 3923 Oct, Chronic pain disorder G89.4 [facility] [place] [id number] [place] [address] 50644- 4029 Sep, Anxiety F41.9 ; Fibromyalgia M79.7 ; Chronic pain disorder G89.4 ; Mood disorder F39 ; GERD (gastroesophageal reflux disease) K21.9 and Muscle spasm M62.838 [place] [id number] [place] [address] 55568- 1506 Sep, Plantar fasciitis M72.2 ; Morbid obesity E66.01 and BMI 40.0 -44.9, adult Z68.41 [place] [id number] [place] [address] 16661- 5773 Aug, [place] [address] 16[address]- 1277 Aug, Anxiety F41.9 ; Muscle spasm M62.838 ; Major depressive disorder, recurrent episode, moderate F33.1 ; Obesity E66.9 ; Insomnia G47.00 ; Fibromyalgia M79.7 ; Chronic pain disorder G89.4 and Other chronic pain G89.29 [place] [address] [address]- [address] Jul, Muscle spasm M62.838 ; Anxiety F41.9 ; Sciatica M54.30 ; Insomnia G47.00 ; Major depressive disorder, recurrent episode, moderate F33.1 ; Other chronic pain G89.29 and GERD (gastroesophageal reflux disease) K21.9 [facility] [place] [address] [address] Jun, Acute non-recurrent maxillary sinusitis J01.00 [facility] [place] [address] [address] Jun, Acute nasopharyngitis (common cold) J00 [place] [address] 97[address]- [address]1 May, Anxiety F41.9 [place] [address] 65784- 4774 Apr, Insomnia G47.00 [place] [address] 73074- 8191 March, Anxiety F41.9 and Insomnia G47.00 [place] [address] 75886- 0836 Feb, Obesity E66.9 and Screening cholesterol level Z13.220 [place] [address] [address]48- 4865 Feb, Insomnia G47.00 [place] [address] 94417- 9428 Dec, Sciatica M54.30 ; Obesity E66.9 ; Anxiety F41.9 ; Insomnia G47.00 ; GERD (gastroesophageal reflux disease) K21.9 ; Major depressive disorder, recurrent episode, moderate F33.1 ; Pain management R52 and Screening cholesterol level Z13.220 [facility] [id number] [place] [address] 27523- 3198 07 Dec, 2016 [facility] [id number] [place] [address]28 -0089 Nov, Acute non-recurrent frontal sinusitis J01.10 and Sore throat J02.9 [facility] [id number] [place] [address] 15297- 9080 Nov, [facility] [id number] [place] [address] 85357- 4070 Nov, Sciatica, right side M54.31 and Sciatica of left side M54.32 [place] [id number] [place] [address] 69912- 7346 Oct, [facility] [address] 40631- 1022 Sep, [facility] [id number] [place] [address] 24301- 3174 Aug, [place] [id number] [place] [address] 28237- 1802 Aug, [place] [id number] [place] [address] 14578- 5517 16 Jul, 2016 [facility] [id number] [place] [address] 25496- 9783 Jul, [facility] [id number] [place] [address] 91589- 2923 Jun, Sciatica M54.30 ; Insomnia G47.00 ; Obesity E66.9 ; Anxiety F41.9 and Major depressive disorder with single episode, remission status unspecified F32.9 [facility] [id number] [place] [address] 78873- 7988 Jun, Major depressive disorder with single episode, remission status unspecified F32.9 [facility] [id number] [place] [address] 61260- 3801 Jun, [facility] [id number] [place] [address] 93518- 1129 Jun, [place] [id number] [place] [address] 98067- 4605 Jun, Major depressive disorder with single episode, remission status unspecified F32.9 [facility] [id number] [place] [address] 57284- 8461 Jun, Major depressive disorder, recurrent episode, moderate F33.1 [place] [id number] [place] [address] 22355- 1594 May, [place] [id number] [place] [address] 89604- 3335 Apr, [place] [id number] [place] [address] 04211- 4056 March, Obesity E66.9 ; Anxiety F41.9 ; Insomnia G47.00 ; GERD ( gastroesophageal reflux disease) K21.9 and Other chronic pain G89.29 [place] [id number] [place] [address] 18869- 9992 March, Sciatica M54.30 [place] [id number] [place] [address] 81388- 9953 March, Insomnia G47.00 and Anxiety F41.9 [place] [id number] [place] [address] 46107- 3148 Feb, Sciatica M54.30 [place] [id number] [place] [address] 97522- 1492 Feb, Dental examination Z01.20 [place] [id number] [place] [address] 27958- 6879 Jan, Obesity E66.9 ; Sciatica M54.30 ; Anxiety F41.9 ; Insomnia G47.00 ; GERD (gastroesophageal reflux disease) K21.9 and Anemia D64.9 [facility] [id number] [place] [address] 11006- 9419 Dec, [facility] [id number] [place] [address] 74763- 9015 Dec, Skin tags, multiple acquired L91.8 [facility] [id number] [place] [address] 94225- 9589 Dec, [facility] [id number] [place] [address] 35360- 0969 Nov, Obesity E66.9 [place] [id number] [place] [address] 57538- 3975 Nov, Sciatica M54.30 ; Obesity E66.9 ; Anxiety F41.9 ; Insomnia G47.00 and GERD (gastroesophageal reflux disease) K21.9 [facility] [id number] [place] [address] 35757- 7745 Aug, Sciatica M54.30 ; Obesity E66.9 ; Anxiety F41.9 ; Insomnia G47.00 and GERD (gastroesophageal reflux disease) K21.9 [facility] [id number] [place] [address] 17764- 5139 Feb, [facility] [id number] [place] [address] 23083- 8246 Feb, [facility] [id number] [place] [address] 29341- 9019 Feb, [facility] [id number] [place] [address] 39165- 9415 Feb, [facility] [id number] [place] [address] 73451- 3868 Feb, [facility] [id number] [place] [address] 74127- 0169 Jan, [place] [id number] [place] [id number] Nov, [facility] [address] [facility] [id number] [place] [id number] Nov, [facility] [address] [id number] [address]- 8056 Oct, [facility] [address] [id number] [address]- 1574 Feb, [facility] [address] [address]- 5883 Aug, [facility] [address] [id number] Jul, IMMUNIZATIONS No Known Immunizations SOCIAL HISTORY Never Assessed REASON FOR VISIT Controlled Med Refill PLAN OF CARE VITAL SIGNS MEDICATIONS Medication Instructions Dosage Frequency Start Date End Date Duration Status Topamax 25 MG Orally Once a day 1 tablet 24h 30 days Active Hydrocodone-Acetaminophen 7.5-325 MG Orally 3 times a day 1 tablet as needed 8h March, 30 days Active Phentermine HCl 37.5 MG [...]
--- OUTSIDE RECORDS SUMMARY | 2018-11-24 09:38 | XMS REPORT ---
Author Author BRAXTON ABDI [facility] Address [address] [place] [address] Care Team Providers Care Side Panel Padder Name Role Phone BRAXTON ABDI Unavailable PROBLEMS Type Condition ICD9-CM Code [id number] Code Onset Dates Condition Status SNOMED Code Problem Sciatica, right side M54.31 Active 24744234 Problem Muscle spasm M62.838 Active 25514706 Problem Sciatica of left side M54.32 Active 17375025 Problem Episode of recurrent major depressive disorder, unspecified depression episode severity F33.9 Active 131582931 Problem Morbid obesity E66.01 Active 545444043 Problem Chronic pain disorder G89.4 Active 016379378 Problem Other chronic pain G89.29 Active 01592469 Problem Mood disorder F39 Active 12609204 Problem Fibromyalgia M79.7 Active 598011654 Problem GERD (gastroesophageal reflux disease) K21.9 Active 506178060 Problem Anxiety F41.9 Active 07634077 Problem Insomnia G47.00 Active 291473931 Problem Skin tags, multiple acquired L91.8 Active 625741876 Problem Anemia D64.9 Active 647310423 Problem Sciatica M54.30 Active 14607575 Problem Major depressive disorder, recurrent episode, moderate F33.1 Active 494465457 Problem Obesity E66.9 Active 008025772 Problem Major depressive disorder with single episode, remission status unspecified F32.9 Active 20273576 ALLERGIES No Information ENCOUNTERS Encounter Location Date Diagnosis [facility] [address] [facility] [id number] [id number] May, Plantar fasciitis, left M72.2 and Anxiety F41.9 [facility] [address] [id number] [id number] May, Chronic pain disorder G89.4 and Obesity E66.9 [facility] [address] [id number] [id number] May, [facility] [id number] [id number] Apr, Episode of recurrent major depressive disorder, unspecified depression episode severity F33.9 ; Chronic pain disorder G89.4 ; Obesity E66.9 and BMI 40.0-44.9, adult Z68.41 [facility] [id number] [place] [address] [id number] Apr, [facility] [id number] [place] [address] [id number] Apr, Chronic pain disorder G89.4 and Obesity E66.9 [facility] [id number] [place] [address] [id number] March, Chronic pain disorder G89.4 and Obesity E66.9 [facility] [id number] [place] [address] 80160- 4936 March, [facility] [id number] [place] [address] [id number] Feb, Chronic pain disorder G89.4 [facility] [id number] [place] [address] [id number] Feb, Chronic pain disorder G89.4 and Obesity E66.9 [facility] [id number] [place] [address] [id number] Jan, Insomnia G47.00 [facility] [id number] [place] [address] [id number] Jan, Obesity E66.9 and Chronic pain disorder G89.4 [facility] [id number] [place] [address] [id number] Jan, Chronic pain disorder G89.4 [facility] [address] [id number] Jan, [facility] [address] [id number] Dec, [facility] [id number] [place] [address] [id number] Dec, Chronic pain disorder G89.4 [facility] [address] [id number] [id number] Dec, Calcaneal spur of left foot M77.32 and BMI 40.0-44.9, adult Z68.41 [place] [id number] [place] [address] 65048- 5979 Nov, Chronic pain disorder G89.4 ; Sciatica, right side M54.31 ; Pain of left heel M79.672 ; Morbid obesity E66.01 ; Mood disorder F39 ; Obesity E66.9 ; Anxiety F41.9 ; Insomnia G47.00 and Muscle spasm M62.838 [facility] [id number] [place] [address] [id number] Nov, Chronic pain disorder G89.4 ; Sciatica, right side M54.31 ; Morbid obesity E66.01 ; Mood disorder F39 ; Obesity E66.9 ; Pain of left heel M79.672 ; Anxiety F41.9 ; Insomnia G47.00 ; Muscle spasm M62.838 and BMI 40.0-44.9, adult Z68.41 [place] [id number] [place] [address] 86304- 2069 Oct, Chronic pain disorder G89.4 [place] [id number] [place] [address] 36602- 1158 Sep, Anxiety F41.9 ; Fibromyalgia M79.7 ; Chronic pain disorder G89.4 ; Mood disorder F39 ; GERD (gastroesophageal reflux disease) K21.9 and Muscle spasm M62.838 [place] [id number] [place] [address] 84220- 1306 Sep, Plantar fasciitis M72.2 ; Morbid obesity E66.01 and BMI 40.0 -44.9, adult Z68.41 [place] [id number] [place] [address] 96307- 3692 Aug, [place] [address] 92519- 3189 Aug, Anxiety F41.9 ; Muscle spasm M62.838 ; Major depressive disorder, recurrent episode, moderate F33.1 ; Obesity E66.9 ; Insomnia G47.00 ; Fibromyalgia M79.7 ; Chronic pain disorder G89.4 and Other chronic pain G89.29 [place] [address] 58480- 4861 Jul, Muscle spasm M62.838 ; Anxiety F41.9 ; Sciatica M54.30 ; Insomnia G47.00 ; Major depressive disorder, recurrent episode, moderate F33.1 ; Other chronic pain G89.29 and GERD (gastroesophageal reflux disease) K21.9 [facility] [place] [address] [address] Jun, Acute non-recurrent maxillary sinusitis J01.00 [facility] [place] [address] 86582 -2490 Jun, Acute nasopharyngitis (common cold) J00 [place] [address] 36179- 8314 May, Anxiety F41.9 [place] [address] 55849- 8198 Apr, Insomnia G47.00 [place] [address] 04078- 0902 March, Anxiety F41.9 and Insomnia G47.00 [place] [address] 53327- 9188 Feb, Obesity E66.9 and Screening cholesterol level Z13.220 [place] [address] 20064- 2756 Feb, Insomnia G47.00 [place] [address] 06043- 4612 Dec, Sciatica M54.30 ; Obesity E66.9 ; Anxiety F41.9 ; Insomnia G47.00 ; GERD (gastroesophageal reflux disease) K21.9 ; Major depressive disorder, recurrent episode, moderate F33.1 ; Pain management R52 and Screening cholesterol level Z13.220 [facility] [id number] [place] [address] 07809- 4655 07 Dec, 2016 [facility] [id number] [place] [address] 90345 -1347 Nov, Acute non-recurrent frontal sinusitis J01.10 and Sore throat J02.9 [facility] [id number] [place] [address] 98272- 2107 Nov, [facility] [id number] [place] [address] 31125- 8283 Nov, Sciatica, right side M54.31 and Sciatica of left side M54.32 [place] [id number] [place] [address] 51358- 4651 Oct, [facility] [address] 98692- 2712 Sep, [facility] [id number] [place] [address] 95706- 8883 Aug, [place] [id number] [place] [address] 00344- 2524 Aug, [place] [id number] [place] [address] 41138- 4757 16 Jul, 2016 [facility] [id number] [place] [address] 31126- 5390 Jul, [facility] [id number] [place] [address] 14608- 1870 Jun, Sciatica M54.30 ; Insomnia G47.00 ; Obesity E66.9 ; Anxiety F41.9 and Major depressive disorder with single episode, remission status unspecified F32.9 [facility] [id number] [place] [address] 08761- 0850 Jun, Major depressive disorder with single episode, remission status unspecified F32.9 [facility] [id number] [place] [address] 83821- 5076 Jun, [facility] [id number] [place] [address] 91961- 9162 Jun, [place] [id number] [place] [address] 61228- 9674 Jun, Major depressive disorder with single episode, remission status unspecified F32.9 [facility] [id number] [place] [address] 39814- 6348 Jun, Major depressive disorder, recurrent episode, moderate F33.1 [place] [id number] [place] [address] 34686- 2543 May, [place] [id number] [place] [address] 49474- 0137 Apr, [place] [id number] [place] [address] 61243- 5554 March, Obesity E66.9 ; Anxiety F41.9 ; Insomnia G47.00 ; GERD ( gastroesophageal reflux disease) K21.9 and Other chronic pain G89.29 [place] [id number] [place] [address] 40900- 8266 March, Sciatica M54.30 [place] [id number] [place] [address] 83456- 7708 March, Insomnia G47.00 and Anxiety F41.9 [place] [id number] [place] [address] 06417- 1311 Feb, Sciatica M54.30 [place] [id number] [place] [address] 55244- 0920 Feb, Dental examination Z01.20 [place] [id number] [place] [address] 54396- 1144 Jan, Obesity E66.9 ; Sciatica M54.30 ; Anxiety F41.9 ; Insomnia G47.00 ; GERD (gastroesophageal reflux disease) K21.9 and Anemia D64.9 [facility] [id number] [place] [address] 00558- 9695 Dec, [facility] [id number] [place] [address] 69015- 2880 Dec, Skin tags, multiple acquired L91.8 [facility] [id number] [place] [address] 48969- 5646 Dec, [facility] [id number] [place] [address] 83580- 7751 Nov, Obesity E66.9 [place] [id number] [place] [address] 31099- 7596 Nov, Sciatica M54.30 ; Obesity E66.9 ; Anxiety F41.9 ; Insomnia G47.00 and GERD (gastroesophageal reflux disease) K21.9 [facility] [id number] [place] [address] 85714- 3002 Aug, Sciatica M54.30 ; Obesity E66.9 ; Anxiety F41.9 ; Insomnia G47.00 and GERD (gastroesophageal reflux disease) K21.9 [facility] [id number] [place] [address] 65677- 5248 Feb, [facility] [id number] [place] [address] 48619- 6532 Feb, [facility] [id number] [place] [address] 50719- 1363 Feb, [facility] [id number] [place] [address] 94811- 9561 Feb, [facility] [id number] [place] [address] 81562- 7632 Feb, [facility] [id number] [place] [address] 77398- 6674 Jan, [place] [id number] [id number] Nov, [facility] [address] [facility] [id number] [place] [id number] Nov, [facility] [address] [address] 3143 Oct, [facility] [address] [address]- 6437 Feb, [facility] [address] [address]- 0712 Aug, [facility] [address] [address]- 0682 10 Jul, 2010 IMMUNIZATIONS No Known Immunizations SOCIAL HISTORY Never Assessed REASON FOR VISIT Requests return call PLAN OF CARE VITAL SIGNS MEDICATIONS Unknown [...]
--- OUTSIDE RECORDS SUMMARY | 2018-11-24 09:38 | XMS REPORT ---
Author Author BRAXTON ABDI [facility] Address [address] [place] [address] Care Team Providers Care Hair Machine Operator Name Role Phone BRAXTON ABDI Unavailable PROBLEMS Type Condition ICD9-CM Code QQD49-YC Code Onset Dates Condition Status SNOMED Code Problem Sciatica, right side M54.31 Active 37356062 Problem Muscle spasm M62.838 Active 73996851 Problem Sciatica of left side M54.32 Active 88394410 Problem Episode of recurrent major depressive disorder, unspecified depression episode severity F33.9 Active 499763294 Problem Morbid obesity E66.01 Active 309415272 Problem Chronic pain disorder G89.4 Active 337220339 Problem Other chronic pain G89.29 Active 31109520 Problem Mood disorder F39 Active 72830649 Problem Fibromyalgia M79.7 Active 133868612 Problem GERD (gastroesophageal reflux disease) K21.9 Active 839277814 Problem Anxiety F41.9 Active 52362503 Problem Insomnia G47.00 Active 551245061 Problem Skin tags, multiple acquired L91.8 Active 399261717 Problem Anemia D64.9 Active 021193201 Problem Sciatica M54.30 Active 53634885 Problem Major depressive disorder, recurrent episode, moderate F33.1 Active 983550130 Problem Obesity E66.9 Active 609371320 Problem Major depressive disorder with single episode, remission status unspecified F32.9 Active [id number] ALLERGIES No Information ENCOUNTERS Encounter Location Date Diagnosis [facility] [address] [facility] [id number] [id number] May, Plantar fasciitis, left M72.2 and Anxiety F41.9 [facility] [address] [id number] [id number] May, Chronic pain disorder G89.4 and Obesity E66.9 [facility] [address] [id number] [id number] May, [facility] [place] [id number] [id number] Apr, Episode of recurrent major depressive disorder, unspecified depression episode severity F33.9 ; Chronic pain disorder G89.4 ; Obesity E66.9 and BMI 40.0-44.9, adult Z68.41 [facility] [place] [address] [place] [id number] [place] [id number] Apr, [facility] [place] [id number] [place] [address] [id number] Apr, Chronic pain disorder G89.4 and Obesity E66.9 [facility] [place] [id number] [place] [address] [id number] March, Chronic pain disorder G89.4 and Obesity E66.9 [facility] [id number] [place] [address] 56156- 7036 March, [facility] [id number] [place] [address] [id number] Feb, Chronic pain disorder G89.4 [facility] [id number] [place] [address] [id number] Feb, Chronic pain disorder G89.4 and Obesity E66.9 [facility] [id number] [place] [address] [id number] Jan, Insomnia G47.00 [facility] [place] [id number] [place] [address] [id number] Jan, Obesity E66.9 and Chronic pain disorder G89.4 [facility] [id number] [place] [address] [id number] Jan, Chronic pain disorder G89.4 [facility] [address] [id number] Jan, [facility] [address] [id number] Dec, [facility] [id number] [place] [address] [id number] Dec, Chronic pain disorder G89.4 [facility] [address] [id number] [id number] Dec, Calcaneal spur of left foot M77.32 and BMI 40.0-44.9, adult Z68.41 [place] [id number] [place] [address] 01591- 1117 Nov, Chronic pain disorder G89.4 ; Sciatica, right side M54.31 ; Pain of left heel M79.672 ; Morbid obesity E66.01 ; Mood disorder F39 ; Obesity E66.9 ; Anxiety F41.9 ; Insomnia G47.00 and Muscle spasm M62.838 [facility] [id number] [place] [id number] Nov, Chronic pain disorder G89.4 ; Sciatica, right side M54.31 ; Morbid obesity E66.01 ; Mood disorder F39 ; Obesity E66.9 ; Pain of left heel M79.672 ; Anxiety F41.9 ; Insomnia G47.00 ; Muscle spasm M62.838 and BMI 40.0-44.9, adult Z68.41 [place] [id number] [place] [address] 26902- 9311 Oct, Chronic pain disorder G89.4 [place] [id number] [place] [address] 46491- 0703 Sep, Anxiety F41.9 ; Fibromyalgia M79.7 ; Chronic pain disorder G89.4 ; Mood disorder F39 ; GERD (gastroesophageal reflux disease) K21.9 and Muscle spasm M62.838 [place] [id number] [place] [address] 56829- 6556 Sep, Plantar fasciitis M72.2 ; Morbid obesity E66.01 and BMI 40.0 -44.9, adult Z68.41 [place] [id number] [place] [address] 89239- 6051 Aug, [place] [address] 87749- 7481 Aug, Anxiety F41.9 ; Muscle spasm M62.838 ; Major depressive disorder, recurrent episode, moderate F33.1 ; Obesity E66.9 ; Insomnia G47.00 ; Fibromyalgia M79.7 ; Chronic pain disorder G89.4 and Other chronic pain G89.29 [place] [address] 34513- 7985 Jul, Muscle spasm M62.838 ; Anxiety F41.9 ; Sciatica M54.30 ; Insomnia G47.00 ; Major depressive disorder, recurrent episode, moderate F33.1 ; Other chronic pain G89.29 and GERD (gastroesophageal reflux disease) K21.9 [facility] [place] [address] [address]83 -2762 Jun, Acute non-recurrent maxillary sinusitis J01.00 [facility] [place] [address] 13702 -3769 Jun, Acute nasopharyngitis (common cold) J00 [place] [address] 98712- 8963 May, Anxiety F41.9 [place] [address] 88608- 0993 Apr, Insomnia G47.00 [place] [address] 93073- 3328 March, Anxiety F41.9 and Insomnia G47.00 [place] [address] 19880- 6455 Feb, Obesity E66.9 and Screening cholesterol level Z13.220 [place] [address] 66661- 5035 Feb, Insomnia G47.00 [place] [address] 50574- 5852 Dec, Sciatica M54.30 ; Obesity E66.9 ; Anxiety F41.9 ; Insomnia G47.00 ; GERD (gastroesophageal reflux disease) K21.9 ; Major depressive disorder, recurrent episode, moderate F33.1 ; Pain management R52 and Screening cholesterol level Z13.220 [facility] [id number] [place] [address] 41683- 1963 07 Dec, 2016 [facility] [id number] [place] [address] 19162 -6595 Nov, Acute non-recurrent frontal sinusitis J01.10 and Sore throat J02.9 [facility] [id number] [place] [address] 63040- 4280 Nov, [facility] [id number] [place] [address] 35587- 6720 Nov, Sciatica, right side M54.31 and Sciatica of left side M54.32 [place] [id number] [place] [address] 91863- 6558 Oct, [facility] [address] 93469- 7919 Sep, [facility] [id number] [place] [address] 51005- 8907 Aug, [place] [id number] [place] [address] 98992- 1340 Aug, [place] [id number] [place] [address] 19938- 0168 16 Jul, 2016 [facility] [id number] [place] [address] 85825- 9927 Jul, [facility] [id number] [place] [address] 61476- 2247 Jun, Sciatica M54.30 ; Insomnia G47.00 ; Obesity E66.9 ; Anxiety F41.9 and Major depressive disorder with single episode, remission status unspecified F32.9 [facility] [id number] [place] [address] 43627- 1464 Jun, Major depressive disorder with single episode, remission status unspecified F32.9 [facility] [address] [place] [address] 74154- 4109 Jun, [facility] [id number] [place] [address] 61140- 4488 Jun, [place] [id number] [place] [address] 85299- 9240 Jun, Major depressive disorder with single episode, remission status unspecified F32.9 [facility] [id number] [place] [address] 34173- 6691 Jun, Major depressive disorder, recurrent episode, moderate F33.1 [place] [id number] [place] [address] 96128- 5908 May, [place] [id number] [place] [address] 24666- 8412 Apr, [place] [id number] [place] [address] 17290- 7951 March, Obesity E66.9 ; Anxiety F41.9 ; Insomnia G47.00 ; GERD ( gastroesophageal reflux disease) K21.9 and Other chronic pain G89.29 [place] [id number] [place] [address] 01384- 8736 March, Sciatica M54.30 [place] [id number] [place] [address] 08728- 2151 March, Insomnia G47.00 and Anxiety F41.9 [place] [id number] [place] [address] 60306- 5747 Feb, Sciatica M54.30 [place] [id number] [place] [address] 31305- 7816 Feb, Dental examination Z01.20 [place] [id number] [place] [address] 64590- 1018 Jan, Obesity E66.9 ; Sciatica M54.30 ; Anxiety F41.9 ; Insomnia G47.00 ; GERD (gastroesophageal reflux disease) K21.9 and Anemia D64.9 [facility] [address] [place] [address] 93745- 8640 Dec, [facility] [id number] [place] [address] 95052- 5170 Dec, Skin tags, multiple acquired L91.8 [facility] [id number] [place] [address] 08064- 6056 Dec, [facility] [id number] [place] [address] 14748- 1189 Nov, Obesity E66.9 [place] [id number] [place] [address] 62035- 3585 Nov, Sciatica M54.30 ; Obesity E66.9 ; Anxiety F41.9 ; Insomnia G47.00 and GERD (gastroesophageal reflux disease) K21.9 [facility] [id number] [place] [address] 02922- 7349 Aug, Sciatica M54.30 ; Obesity E66.9 ; Anxiety F41.9 ; Insomnia G47.00 and GERD (gastroesophageal reflux disease) K21.9 [facility] [address] [place] [address] 20370- 4901 Feb, [facility] [address] [place] [address] 50464- 0025 Feb, [facility] [address] [place] [address] 37639- 1804 Feb, [facility] [address] [place] [address] 03547- 2987 Feb, [facility] [address] [place] [address] 71721- 7366 Feb, [facility] [address] [place] [address] 57206- 0020 Jan, [place] [id number] [place] [phone] Nov, [facility] [address] [facility] [id number] [place] [id number] Nov, [facility] [address] [address]- 6896 Oct, [facility] [address] [address]- 1357 Feb, [facility] [address] [address]- 2199 Aug, [facility] [address] [address]- 8438 10 Jul, 2010 IMMUNIZATIONS No Known Immunizations SOCIAL HISTORY Never Assessed REASON FOR VISIT refill for phentermine and hydrocodone PLAN OF CARE VITAL SIGNS MEDICATIONS Medication Instructions Dosage Frequency Start Date End Date Duration Status Phentermine HCl 37.5 MG Orally Once a day 1 tablet 24h Jan,March 14 days Active RESULTS No Results PROCEDURES [...]
--- OUTSIDE RECORDS SUMMARY | 2018-11-24 09:38 | XMS REPORT ---
Author Author BRAXTON ABDI [facility] Address [address] [place] [address] Care Team Providers Care Hot Stamp Operator Name Role Phone BRAXTON ABDI Unavailable PROBLEMS Type Condition ICD9-CM Code LOQ30-ZW Code Onset Dates Condition Status SNOMED Code Problem Sciatica, right side M54.31 Active 52406003 Problem Muscle spasm M62.838 Active 94122030 Problem Sciatica of left side M54.32 Active 24024642 Problem Episode of recurrent major depressive disorder, unspecified depression episode severity F33.9 Active 769554811 Problem Morbid obesity E66.01 Active 603937350 Problem Chronic pain disorder G89.4 Active 702392907 Problem Other chronic pain G89.29 Active 43173868 Problem Mood disorder F39 Active 56687303 Problem Fibromyalgia M79.7 Active 805005459 Problem GERD (gastroesophageal reflux disease) K21.9 Active 672283993 Problem Anxiety F41.9 Active 56250695 Problem Insomnia G47.00 Active 309394346 Problem Skin tags, multiple acquired L91.8 Active 375289343 Problem Anemia D64.9 Active 742719979 Problem Sciatica M54.30 Active 97317780 Problem Major depressive disorder, recurrent episode, moderate F33.1 Active 663276229 Problem Obesity E66.9 Active 190658671 Problem Major depressive disorder with single episode, remission status unspecified F32.9 Active 85977241 ALLERGIES No Information ENCOUNTERS Encounter Location Date Diagnosis [facility] [address] [facility] [id number] [id number] May, Plantar fasciitis, left M72.2 and Anxiety F41.9 [facility] [address] [id number] [id number] May, Chronic pain disorder G89.4 and Obesity E66.9 [facility] [address] [id number] [id number] May, [facility] [id number] [id number] Apr, Episode of recurrent major depressive disorder, unspecified depression episode severity F33.9 ; Chronic pain disorder G89.4 ; Obesity E66.9 and BMI 40.0-44.9, adult Z68.41 [facility] [id number] [place] [id number] Apr, [facility] [id number] [place] [id number] Apr, Chronic pain disorder G89.4 and Obesity E66.9 [facility] [id number] [place] [id number] March, Chronic pain disorder G89.4 and Obesity E66.9 [facility] [id number] [place] [address] 61270- 4586 March, [facility] [id number] [place] [address] [id number] Feb, Chronic pain disorder G89.4 [facility] [id number] [place] [address] [id number] Feb, Chronic pain disorder G89.4 and Obesity E66.9 [facility] [id number] [place] [address] [id number] Jan, Insomnia G47.00 [facility] [id number] [place] [address] [id number] Jan, Obesity E66.9 and Chronic pain disorder G89.4 [facility] [id number] [place] [address] [id number] Jan, Chronic pain disorder G89.4 [facility] [address] [id number] [id number] Jan, [facility] [address] [phone] Dec, [facility] [id number] [place] [address] [id number] Dec, Chronic pain disorder G89.4 [facility] [address] [id number] [id number] Dec, Calcaneal spur of left foot M77.32 and BMI 40.0-44.9, adult Z68.41 [place] [id number] [place] [address] 05166- 2121 Nov, Chronic pain disorder G89.4 ; Sciatica, right side M54.31 ; Pain of left heel M79.672 ; Morbid obesity E66.01 ; Mood disorder F39 ; Obesity E66.9 ; Anxiety F41.9 ; Insomnia G47.00 and Muscle spasm M62.838 [facility] [id number] [place] [address] [id number] Nov, Chronic pain disorder G89.4 ; Sciatica, right side M54.31 ; Morbid obesity E66.01 ; Mood disorder F39 ; Obesity E66.9 ; Pain of left heel M79.672 ; Anxiety F41.9 ; Insomnia G47.00 ; Muscle spasm M62.838 and BMI 40.0-44.9, adult Z68.41 [place] [id number] [place] [address] 54562- 6575 Oct, Chronic pain disorder G89.4 [place] [id number] [place] [address] 35881- 0828 Sep, Anxiety F41.9 ; Fibromyalgia M79.7 ; Chronic pain disorder G89.4 ; Mood disorder F39 ; GERD (gastroesophageal reflux disease) K21.9 and Muscle spasm M62.838 [place] [id number] [place] [address] 59525- 6036 Sep, Plantar fasciitis M72.2 ; Morbid obesity E66.01 and BMI 40.0 -44.9, adult Z68.41 [place] [id number] [place] [address] 94906- 8117 Aug, [place] [address] 55280- 7008 Aug, Anxiety F41.9 ; Muscle spasm M62.838 ; Major depressive disorder, recurrent episode, moderate F33.1 ; Obesity E66.9 ; Insomnia G47.00 ; Fibromyalgia M79.7 ; Chronic pain disorder G89.4 and Other chronic pain G89.29 [place] [address] 56467- 8496 Jul, Muscle spasm M62.838 ; Anxiety F41.9 ; Sciatica M54.30 ; Insomnia G47.00 ; Major depressive disorder, recurrent episode, moderate F33.1 ; Other chronic pain G89.29 and GERD (gastroesophageal reflux disease) K21.9 [facility] [place] [address] 7[address]12 -[phone] Jun, Acute non-recurrent maxillary sinusitis J01.00 [facility] [place] [address] 54871 -0751 Jun, Acute nasopharyngitis (common cold) J00 [place] [address] 58235- 3382 May, Anxiety F41.9 [place] [address] 45635- 8726 Apr, Insomnia G47.00 [place] [address] 46907- 5612 March, Anxiety F41.9 and Insomnia G47.00 [place] [address] 67545- 3273 Feb, Obesity E66.9 and Screening cholesterol level Z13.220 [place] [address] 28358- 5217 Feb, Insomnia G47.00 [place] [address] 21931- 5001 Dec, Sciatica M54.30 ; Obesity E66.9 ; Anxiety F41.9 ; Insomnia G47.00 ; GERD (gastroesophageal reflux disease) K21.9 ; Major depressive disorder, recurrent episode, moderate F33.1 ; Pain management R52 and Screening cholesterol level Z13.220 [facility] [id number] [place] [address] 38457- 6874 07 Dec, 2016 [facility] [id number] [place] [address] 61495 -1142 Nov, Acute non-recurrent frontal sinusitis J01.10 and Sore throat J02.9 [facility] [id number] [place] [address] 92579- 9285 Nov, [facility] [id number] [place] [address] 51972- 0368 Nov, Sciatica, right side M54.31 and Sciatica of left side M54.32 [place] [id number] [place] [address] 12085- 9900 Oct, [facility] [address] 96520- 7518 Sep, [facility] [id number] [place] [address] 13465- 7701 Aug, [place] [id number] [place] [address] 83909- 8534 Aug, [place] [id number] [place] [address] 07274- 0560 16 Jul, 2016 [facility] [id number] [place] [address] 91622- 8400 Jul, [facility] [id number] [place] [address] 90258- 4701 Jun, Sciatica M54.30 ; Insomnia G47.00 ; Obesity E66.9 ; Anxiety F41.9 and Major depressive disorder with single episode, remission status unspecified F32.9 [facility] [id number] [place] [address] 63505- 8542 Jun, Major depressive disorder with single episode, remission status unspecified F32.9 [facility] [id number] [place] [address] 00864- 5501 Jun, [facility] [id number] [place] [address] 77057- 3328 Jun, [place] [id number] [place] [address] 94574- 2229 Jun, Major depressive disorder with single episode, remission status unspecified F32.9 [facility] [id number] [place] [address] 07919- 3999 Jun, Major depressive disorder, recurrent episode, moderate F33.1 [place] [id number] [place] [address] 59285- 1888 May, [place] [id number] [place] [address] 29416- 4364 Apr, [place] [id number] [place] [address] 61437- 3811 March, Obesity E66.9 ; Anxiety F41.9 ; Insomnia G47.00 ; GERD ( gastroesophageal reflux disease) K21.9 and Other chronic pain G89.29 [place] [id number] [place] [address] 53267- 2161 March, Sciatica M54.30 [place] [id number] [place] [address] 11891- 5223 March, Insomnia G47.00 and Anxiety F41.9 [place] [id number] [place] [address] 90193- 5249 Feb, Sciatica M54.30 [place] [id number] [place] [address] 72730- 3072 Feb, Dental examination Z01.20 [place] [id number] [place] [address] 45606- 6531 Jan, Obesity E66.9 ; Sciatica M54.30 ; Anxiety F41.9 ; Insomnia G47.00 ; GERD (gastroesophageal reflux disease) K21.9 and Anemia D64.9 [facility] [id number] [place] [address] 46877- 7905 Dec, [facility] [id number] [place] [address] 75772- 4224 Dec, Skin tags, multiple acquired L91.8 [facility] [id number] [place] [address] 66724- 8655 Dec, [facility] [id number] [place] [address] 13758- 8138 Nov, Obesity E66.9 [place] [id number] [place] [address] 20697- 3159 Nov, Sciatica M54.30 ; Obesity E66.9 ; Anxiety F41.9 ; Insomnia G47.00 and GERD (gastroesophageal reflux disease) K21.9 [facility] [id number] [place] [address] 75608- 3377 Aug, Sciatica M54.30 ; Obesity E66.9 ; Anxiety F41.9 ; Insomnia G47.00 and GERD (gastroesophageal reflux disease) K21.9 [facility] [id number] [place] [address] 93728- 8023 Feb, [facility] [id number] [place] [address] 71829- 9294 Feb, [facility] [id number] [place] [address] 06061- 9051 Feb, [facility] [id number] [place] [address] 44417- 9385 Feb, [facility] [id number] [place] [address] 78946- 9461 Feb, [facility] [id number] [place] [address] 91323- 1524 Jan, [place] [id number] [place] [id number] Nov, [facility] [address] [facility] [id number] [place] [id number] Nov, [facility] [address] [address] 8353 Oct, [facility] [address] [address]- 0545 Feb, [facility] [id number] [address]75 Aug, [facility] [id number] [id number]- 2462 Jul, IMMUNIZATIONS No Known Immunizations SOCIAL HISTORY Never Assessed REASON FOR VISIT refill on hydrocodone PLAN OF CARE VITAL SIGNS MEDICATIONS Medication Instructions Dosage Frequency Start Date End Date Duration Status Hydrocodone-Acetaminophen 7.5-325 MG Orally 3 times a day 1 tablet as needed Jan, 14 days Active RESULTS No Results PROCEDURES [...]
--- OUTSIDE RECORDS SUMMARY | 2018-11-24 09:39 | XMS REPORT ---
Author Author BRAXTON ABDI [facility] Address [address] [place] [address] Care Team Providers Care Sewer Hand Name Role Phone BRAXTON ABDI Unavailable PROBLEMS Type Condition ICD9-CM Code [id number] Code Onset Dates Condition Status SNOMED Code Problem Sciatica, right side M54.31 Active 70104829 Problem Muscle spasm M62.838 Active 60398283 Problem Sciatica of left side M54.32 Active 27284479 Problem Episode of recurrent major depressive disorder, unspecified depression episode severity F33.9 Active 192587271 Problem Morbid obesity E66.01 Active 822918306 Problem Chronic pain disorder G89.4 Active 019003146 Problem Other chronic pain G89.29 Active 19027027 Problem Mood disorder F39 Active 47953527 Problem Fibromyalgia M79.7 Active 615835806 Problem GERD (gastroesophageal reflux disease) K21.9 Active 624847596 Problem Anxiety F41.9 Active 46157206 Problem Insomnia G47.00 Active 942340536 Problem Skin tags, multiple acquired L91.8 Active 480947358 Problem Anemia D64.9 Active 718571160 Problem Sciatica M54.30 Active 40413324 Problem Major depressive disorder, recurrent episode, moderate F33.1 Active 826564338 Problem Obesity E66.9 Active 748420361 Problem Major depressive disorder with single episode, remission status unspecified F32.9 Active 38921086 ALLERGIES No Known Allergies ENCOUNTERS Encounter Location Date Diagnosis [facility] [address] [facility] [id number] [id number] May, Plantar fasciitis, left M72.2 and Anxiety F41.9 [facility] [address] [id number] [id number] May, Chronic pain disorder G89.4 and Obesity E66.9 [facility] [address] [id number] [id number] May, [facility] [place] [id number] [id number] Apr, Episode of recurrent major depressive disorder, unspecified depression episode severity F33.9 ; Chronic pain disorder G89.4 ; Obesity E66.9 and BMI 40.0-44.9, adult Z68.41 [facility] [place] [id number] [place] [id number] Apr, [facility] [place] [id number] [place] [id number] Apr, Chronic pain disorder G89.4 and Obesity E66.9 [facility] [place] [id number] [place] [phone] March, Chronic pain disorder G89.4 and Obesity E66.9 [facility] [id number] [place] [address] 69590- 4886 March, [facility] [place] [id number] [place] [address] [id number] Feb, Chronic pain disorder G89.4 [facility] [id number] [place] [address] [id number] Feb, Chronic pain disorder G89.4 and Obesity E66.9 [facility] [id number] [place] [address] [id number] Jan, Insomnia G47.00 [facility] [place] [id number] [place] [address] [id number] Jan, Obesity E66.9 and Chronic pain disorder G89.4 [facility] [id number] [place] [address] [id number] Jan, Chronic pain disorder G89.4 [facility] [address] [address]- [address]33 Jan, [facility] [address] [id number] [phone] Dec, [facility] [id number] [place] [address] [id number] Dec, Chronic pain disorder G89.4 [place] [address] [id number] [id number] Dec, Calcaneal spur of left foot M77.32 and BMI 40.0-44.9, adult Z68.41 [facility] [id number] [place] [address] 69281- 4006 Nov, Chronic pain disorder G89.4 ; Sciatica, right side M54.31 ; Pain of left heel M79.672 ; Morbid obesity E66.01 ; Mood disorder F39 ; Obesity E66.9 ; Anxiety F41.9 ; Insomnia G47.00 and Muscle spasm M62.838 [facility] [id number] [place] [address] [id number] Nov, Chronic pain disorder G89.4 ; Sciatica, right side M54.31 ; Morbid obesity E66.01 ; Mood disorder F39 ; Obesity E66.9 ; Pain of left heel M79.672 ; Anxiety F41.9 ; Insomnia G47.00 ; Muscle spasm M62.838 and BMI 40.0-44.9, adult Z68.41 [place] [id number] [place] [address] 58424- 5637 Oct, Chronic pain disorder G89.4 [place] [id number] [place] [address] 00351- 7371 Sep, Anxiety F41.9 ; Fibromyalgia M79.7 ; Chronic pain disorder G89.4 ; Mood disorder F39 ; GERD (gastroesophageal reflux disease) K21.9 and Muscle spasm M62.838 [place] [address] [id number] [place] [address] 47380- 6109 Sep, Plantar fasciitis M72.2 ; Morbid obesity E66.01 and BMI 40.0 -44.9, adult Z68.41 [facility] [id number] [place] [address] 39864- 3730 Aug, [place] [id number] [place] [address] 70283- 0994 03 Oct, 2017 Anxiety F41.9 ; Muscle spasm M62.838 ; Major depressive disorder, recurrent episode, moderate F33.1 ; Obesity E66.9 ; Insomnia G47.00 ; Fibromyalgia M79.7 ; Chronic pain disorder G89.4 and Other chronic pain G89.29 [place] [address] 81434- 4802 Jul, Muscle spasm M62.838 ; Anxiety F41.9 ; Sciatica M54.30 ; Insomnia G47.00 ; Major depressive disorder, recurrent episode, moderate F33.1 ; Other chronic pain G89.29 and GERD (gastroesophageal reflux disease) K21.9 [facility] [address] [place] [address] [address] Jun, Acute non-recurrent maxillary sinusitis J01.00 [facility] [place] [address] [address]1096 Jun, Acute nasopharyngitis (common cold) J00 [place] [address] [address]66- [address] May, Anxiety F41.9 [place] [address] 03060- 9153 Apr, Insomnia G47.00 [place] [address] 66052- 2384 March, Anxiety F41.9 and Insomnia G47.00 [place] [address] 60862- 3573 Feb, Obesity E66.9 and Screening cholesterol level Z13.220 [place] [address] 84009- 3559 Feb, Insomnia G47.00 [place] [address] 14851- 5691 Dec, Sciatica M54.30 ; Obesity E66.9 ; Anxiety F41.9 ; Insomnia G47.00 ; GERD (gastroesophageal reflux disease) K21.9 ; Major depressive disorder, recurrent episode, moderate F33.1 ; Pain management R52 and Screening cholesterol level Z13.220 [facility] [id number] [place] [address] 12279- 4164 07 Dec, 2016 [facility] [id number] [place] [address] 69397 -0795 Nov, Acute non-recurrent frontal sinusitis J01.10 and Sore throat J02.9 [facility] [id number] [place] [address] 52571- 5860 Nov, [facility] [id number] [place] [address] 66291- 0793 Nov, Sciatica, right side M54.31 and Sciatica of left side M54.32 [place] [id number] [place] [address] 83865- 8975 Oct, [place] [id number] [place] [address] 56006- 5646 Sep, [facility] [id number] [place] [address] 23195- 7237 Aug, [place] [id number] [place] [address] 81338- 6459 Aug, [place] [id number] [place] [address] 78450- 6124 Jul, [place] [id number] [place] [address] 96208- 3511 Jul, [place] [id number] [place] [address] 02882- 4805 Jun, Sciatica M54.30 ; Insomnia G47.00 ; Obesity E66.9 ; Anxiety F41.9 and Major depressive disorder with single episode, remission status unspecified F32.9 [facility] [id number] [place] [address] 69338- 9857 Jun, Major depressive disorder with single episode, remission status unspecified F32.9 [facility] [id number] [place] [address] 28398- 2163 Jun, [facility] [id number] [place] [address] 66938- 1307 Jun, [place] [id number] [place] [address] 90447- 1653 Jun, Major depressive disorder with single episode, remission status unspecified F32.9 [place] [id number] [place] [address] 59044- 6363 Jun, Major depressive disorder, recurrent episode, moderate F33.1 [place] [id number] [place] [address] 22598- 6048 May, [place] [id number] [place] [address] 27493- 8415 Apr, [place] [id number] [place] [address] 87559- 8540 March, Obesity E66.9 ; Anxiety F41.9 ; Insomnia G47.00 ; GERD ( gastroesophageal reflux disease) K21.9 and Other chronic pain G89.29 [place] [id number] [place] [address] 20243- 5731 March, Sciatica M54.30 [place] [id number] [place] [address] 87391- 0161 March, Insomnia G47.00 and Anxiety F41.9 [place] [id number] [place] [address] 77660- 9488 Feb, Sciatica M54.30 [place] [id number] [place] [address] 35119- 9831 Feb, Dental examination Z01.20 [place] [id number] [place] [address] 15140- 9315 Jan, Obesity E66.9 ; Sciatica M54.30 ; Anxiety F41.9 ; Insomnia G47.00 ; GERD (gastroesophageal reflux disease) K21.9 and Anemia D64.9 [facility] [id number] [place] [address] 18877- 0165 Dec, [facility] [id number] [place] [address] 55631- 8156 Dec, Skin tags, multiple acquired L91.8 [facility] [address] 42644- 7897 Dec, [facility] [id number] [place] [address] 68653- 9210 Nov, Obesity E66.9 [place] [id number] [place] [address] 78585- 2557 Nov, Sciatica M54.30 ; Obesity E66.9 ; Anxiety F41.9 ; Insomnia G47.00 and GERD (gastroesophageal reflux disease) K21.9 [facility] [id number] [place] [address] 85433- 2256 Aug, Sciatica M54.30 ; Obesity E66.9 ; Anxiety F41.9 ; Insomnia G47.00 and GERD (gastroesophageal reflux disease) K21.9 [facility] [id number] [place] [address] 51353- 1489 Feb, [place] [id number] [place] [address] 68811- 5838 Feb, [facility] [id number] [place] [address] 77139- 6744 Feb, [facility] [id number] [place] [address] 60884- 9987 Feb, [facility] [id number] [place] [address] 58674- 7615 Feb, [facility] [id number] [place] [address] 01299- 3615 Jan, [place] [id number] [place] [id number] Nov, [facility] [address] [facility] [id number] [place] [id number] Nov, [facility] [address] [facility] [id number] [place] [address]- 9465 Oct, [facility] [address] [facility] [id number] [place] [address]- 7017 Feb, [facility] [address] [facility] [id number] [place] [address]- 0690 Aug, [facility] [address] [facility] [id number] [place] [address]- 8563 Jul, IMMUNIZATIONS No Known Immunizations SOCIAL HISTORY Never Assessed 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 PLAN OF CARE Activity Details Follow Up 3 Months Reason: VITAL SIGNS Height 63 in 2018-01-30 Weight 253.6 lbs 2018-01-30 Temperature 98.6 degrees Fahrenheit 2018-01-30 Heart Rate 90 bpm 2018-01-30 Respiratory Rate 16 2018-01-30 BMI 44.92 kg/m2 2018-01-30 Blood pressure systolic 132 mmHg 2018-01-30 Blood pressure diastolic 84 mmHg 2018-01-30 MEDICATIONS Medication Instructions Dosage Frequency Start Date End Date Duration Status Topamax 25 MG Orally Once a day 1 tablet 24h Jan, 28 days Active Aciphex 20 mg Orally Once a day 1 tablet 24h Sep, 30 day(s) Active Phentermine HCl 37.5 MG Orally Once a day 1 tablet 24h Jan,Feb 28 days Active Clonazepam 1 MG Orally Twice a day 1 tablet 12h Aug, 28 days Not-Taking Ambien 10 mg Orally Once a day 1 tablet at bedtime as needed 24h Jul, 30 days Active Hydrocodone-Acetaminophen 7.5-325 MG Orally 3 times a day 1 tablet as needed 8h Jan, 28 days Active Paxil 20 mg Orally Once a day 1 tablet in the morning 24h 18 Nov, 2017 90 days Not-Taking Cyclobenzaprine HCl 10 mg Orally Three times a day 1 tablet as needed 8h Jul, 90 days Active Flonase 50 MCG/ACT Nasally Once a day 1 spray in each nostril 24h Jun, 30 day(s) Active Albuterol Sulfate (2.5 MG/3ML) 0.083% Inhalation Three times a day 3 ml 8h Active RESULTS No Results PROCEDURES No Known [...]
--- OUTSIDE RECORDS SUMMARY | 2018-11-24 09:39 | XMS REPORT ---
Author Author BRAXTON ABDI [facility] Address [address] [place] [address] Care Team Providers Care Chief Librarian Music Department Name Role Phone BRAXTON ABDI Unavailable PROBLEMS Type Condition ICD9-CM Code IOX76-SN Code Onset Dates Condition Status SNOMED Code Problem Sciatica, right side M54.31 Active 95221862 Problem Muscle spasm M62.838 Active 31571928 Problem Sciatica of left side M54.32 Active 06925412 Problem Episode of recurrent major depressive disorder, unspecified depression episode severity F33.9 Active 340019116 Problem Morbid obesity E66.01 Active 129682723 Problem Chronic pain disorder G89.4 Active 557764768 Problem Other chronic pain G89.29 Active 46471238 Problem Mood disorder F39 Active 30922865 Problem Fibromyalgia M79.7 Active 085521089 Problem GERD (gastroesophageal reflux disease) K21.9 Active 573608437 Problem Anxiety F41.9 Active 58588628 Problem Insomnia G47.00 Active 700273868 Problem Skin tags, multiple acquired L91.8 Active 666613146 Problem Anemia D64.9 Active 075565711 Problem Sciatica M54.30 Active 92723778 Problem Major depressive disorder, recurrent episode, moderate F33.1 Active 273813331 Problem Obesity E66.9 Active 880968154 Problem Major depressive disorder with single episode, remission status unspecified F32.9 Active 97711851 ALLERGIES No Information ENCOUNTERS Encounter Location Date Diagnosis [facility] [address] [facility] [id number] [place] [id number] May, [place] [address] [facility] [id number] [id number] Apr, Episode of recurrent major depressive disorder, unspecified depression episode severity F33.9 ; Chronic pain disorder G89.4 ; Obesity E66.9 and BMI 40.0-44.9, adult Z68.41 [facility] [id number] [id number] Apr, [facility] [place] [address] [place] [id number] [place] [id number] Apr, Chronic pain disorder G89.4 and Obesity E66.9 [facility] [place] [address] [place] [id number] [place] [id number] March, Chronic pain disorder G89.4 and Obesity E66.9 [place] [id number] [place] [id number] [place] [address] March, [facility] [place] [id number] [place] [address] [id number] Feb, Chronic pain disorder G89.4 [facility] [place] [address] [id number] [place] [address] [id number] Feb, Chronic pain disorder G89.4 and Obesity E66.9 [place] [id number] [place] [address] [id number] Jan, Insomnia G47.00 [facility] [address] [place] [id number] [place] [address] [id number] Jan, Obesity E66.9 and Chronic pain disorder G89.4 [facility] [place] [address] [place] [id number] [place] [address] [id number] Jan, Chronic pain disorder G89.4 [facility] [address] [place] [id number] [place] [address] 66674- 4476 Jan, [facility] [address] [place] [id number] [place] [address] 2546 Dec, [facility] [id number] [place] [address] [id number] Dec, Chronic pain disorder G89.4 [facility] [address] [place] [id number] [place] [address] [id number] Dec, Calcaneal spur of left foot M77.32 and BMI 40.0-44.9, adult Z68.41 [facility] [address] [place] [id number] [place] [address]- 9224 Nov, Chronic pain disorder G89.4 ; Sciatica, right side M54.31 ; Pain of left heel M79.672 ; Morbid obesity E66.01 ; Mood disorder F39 ; Obesity E66.9 ; Anxiety F41.9 ; Insomnia G47.00 and Muscle spasm M62.838 [id number] [id number] Nov, Chronic pain disorder G89.4 ; Sciatica, right side M54.31 ; Morbid obesity E66.01 ; Mood disorder F39 ; Obesity E66.9 ; Pain of left heel M79.672 ; Anxiety F41.9 ; Insomnia G47.00 ; Muscle spasm M62.838 and BMI 40.0-44.9, adult Z68.41 [place] [id number] [place] [address] 29847- 75[address] Oct, Chronic pain disorder G89.4 [place] [id number] [place] [address] 56566- 6647 Sep, Anxiety F41.9 ; Fibromyalgia M79.7 ; Chronic pain disorder G89.4 ; Mood disorder F39 ; GERD (gastroesophageal reflux disease) K21.9 and Muscle spasm M62.838 [address] [place] [address] [place] [address] 71232- 3636 Sep, Plantar fasciitis M72.2 ; Morbid obesity E66.01 and BMI 40.0 -44.9, adult Z68.41 [address] [place] [address] [place] [address] 78999- 1544 Aug, [place] [id number] [place] [address] 54627- 6795 Aug, Anxiety F41.9 ; Muscle spasm M62.838 ; Major depressive disorder, recurrent episode, moderate F33.1 ; Obesity E66.9 ; Insomnia G47.00 ; Fibromyalgia M79.7 ; Chronic pain disorder G89.4 and Other chronic pain G89.29 [place] [id number] [place] [address] 71626- 9795 Jul, Muscle spasm M62.838 ; Anxiety F41.9 ; Sciatica M54.30 ; Insomnia G47.00 ; Major depressive disorder, recurrent episode, moderate F33.1 ; Other chronic pain G89.29 and GERD (gastroesophageal reflux disease) K21.9 [facility] [address] [address] Jun, Acute non-recurrent maxillary sinusitis J01.00 [facility] [address] [address] Jun, Acute nasopharyngitis (common cold) J00 [place] [address] [address] May, Anxiety F41.9 [place] [address] 25[address]- [address] Apr, Insomnia G47.00 [place] [address] 8[address]30- [address] March, Anxiety F41.9 and Insomnia G47.00 [place] [address] 80981- [address] Feb, Obesity E66.9 and Screening cholesterol level Z13.220 [place] [address] 71697- [address]6 Feb, Insomnia G47.00 [place] [address] 05707- [address]66 Dec, Sciatica M54.30 ; Obesity E66.9 ; Anxiety F41.9 ; Insomnia G47.00 ; GERD (gastroesophageal reflux disease) K21.9 ; Major depressive disorder, recurrent episode, moderate F33.1 ; Pain management R52 and Screening cholesterol level Z13.220 [place] [address] [address]5867- [address]9 Dec, [facility] [address] [address] Nov, Acute non-recurrent frontal sinusitis J01.10 and Sore throat J02.9 [facility] [address] [place] [address] 02572- 0678 Nov, [facility] [address] [place] [id number] [place] [address] 81973- 2157 Nov, Sciatica, right side M54.31 and Sciatica of left side M54.32 [facility] [address] [place] [id number] [place] [address] 51078- 0388 Oct, [facility] [address] [place] [id number] [place] [address] 76829- 9564 Sep, [facility] [address] [place] [id number] [place] [address] 08082- 5448 14 Aug, 2016 [facility] [address] [place] [id number] [place] [address] 49942- 6441 Aug, [facility] [address] [place] [id number] [place] [address] 45098- 1663 16 Jul, 2016 [facility] [address] [place] [id number] [place] [address] 92899- 3089 Jul, [facility] [address] [place] [id number] [place] [address] 11296- 5435 Jun, Sciatica M54.30 ; Insomnia G47.00 ; Obesity E66.9 ; Anxiety F41.9 and Major depressive disorder with single episode, remission status unspecified F32.9 [facility] [address] [address] Jun, Major depressive disorder with single episode, remission status unspecified F32.9 [facility] [address] [place] [id number] [place] [address] 92914- 4334 Jun, [facility] [address] [place] [id number] [place] [address] 37868- 8811 Jun, [facility] [address] [place] [id number] [place] [address] 54669- 2401 Jun, Major depressive disorder with single episode, remission status unspecified F32.9 [place] [address] 48935- 9036 Jun, Major depressive disorder, recurrent episode, moderate F33.1 [place] [address] [address]77- [address] May, [place] [address] [address]- [address] Apr, [place] [address] 55118- 34[address] March, Obesity E66.9 ; Anxiety F41.9 ; Insomnia G47.00 ; GERD ( gastroesophageal reflux disease) K21.9 and Other chronic pain G89.29 [place] [address] 64894- 6431 March, Sciatica M54.30 [place] [address] 75213- 6[address] March, Insomnia G47.00 and Anxiety F41.9 [place] [address] 48[address]- [address] Feb, Sciatica M54.30 [place] [address] [place] [id number] [place] [address] 26317- 3616 Feb, Dental examination Z01.20 [place] [address] 74487- 5283 Jan, Obesity E66.9 ; Sciatica M54.30 ; Anxiety F41.9 ; Insomnia G47.00 ; GERD (gastroesophageal reflux disease) K21.9 and Anemia D64.9 [place] [address] [place] [id number] [place] [address] 69980- 4719 Dec, [place] [address] 58315- 1739 Dec, Skin tags, multiple acquired L91.8 [facility] [address] [place] [id number] [place] [address] 56448- 7958 Dec, [facility] [address] [place] [id number] [place] [address] 40907- 5190 Nov, Obesity E66.9 [facility] [address] 18575- 4079 Nov, Sciatica M54.30 ; Obesity E66.9 ; Anxiety F41.9 ; Insomnia G47.00 and GERD (gastroesophageal reflux disease) K21.9 [facility] [address] 75002- 2967 Aug, Sciatica M54.30 ; Obesity E66.9 ; Anxiety F41.9 ; Insomnia G47.00 and GERD (gastroesophageal reflux disease) K21.9 [facility] [address] [place] [id number] [place] [address] 38943- 1385 Feb, [facility] [address] [place] [id number] [place] [address] 33912- 3073 Feb, [facility] [address] [place] [id number] [place] [address] 98091- 0017 Feb, [facility] [address] [place] [id number] [place] [address] 61100- 5856 Feb, [facility] [address] [place] [id number] [place] [address] 20544- 7036 Feb, [facility] [address] [place] [id number] [place] [address] 90553- 9056 Jan, [facility] [address] [id number] [place] [address] [id number] Nov, [facility] [address] [place] [id number] [place] [address] [id number] Nov, [facility] [address] [place] [id number] [place] [address] 469416- 4842 Oct, [facility] [address] [facility] [id number] [place] [address] Feb, [facility] [address] [facility] [id number] [address] Aug, [facility] [address] [facility] [id number] [place] 10 Jul, 2010 IMMUNIZATIONS No Known Immunizations SOCIAL HISTORY Never Assessed REASON FOR VISIT refill request for Ambien PLAN OF CARE VITAL SIGNS MEDICATIONS Medication Instructions Dosage Frequency Start Date End Date Duration Status Ambien 10 mg Orally Once a day 1 tablet at bedtime as needed 24h Jul, 30 days Active RESULTS No Results PROCEDURES [...]
--- OUTSIDE RECORDS SUMMARY | 2018-11-24 09:39 | XMS REPORT ---
Author FIDELINA Townsend [facility] e[employer] Address Unknown Phone Unavailable Care Team Providers Care Manager Icu Name Role Phone FIDELINA TIPTON CP Unavailable Allergies, Adverse Reactions, Alerts Substance Reaction Event Type N.K.D.A. Info Not Available Non Drug Allergy Problems Problem Type Condition Code Onset Dates Condition Status Assessment GERD (gastroesophageal reflux disease) K21.9 Active Assessment Anxiety F41.9 Active Assessment Insomnia G47.00 Active Problem Obesity E66.9 Active Problem Anxiety F41.9 Active Problem Sciatica M54.30 Active Assessment Sciatica M54.30 Active Assessment Obesity E66.9 Active Problem Insomnia G47.00 Active Problem GERD (gastroesophageal reflux disease) K21.9 Active Medications Medication Code System Code Instructions Start Date End Date Status Dosage Zolpidem Tartrate [facility] [address]-78 5 MG Orally Once a day 1 tablet at bedtime Hydrocodone-Acetaminophen [facility] [address]-08 7.5-325 MG Orally every 6 hrs 1 tablet as needed Aciphex [facility] [address]-72 20 MG Orally 2 times a day Aug 16, 2015 1 tablet Xanax [facility] [address]-03 1 MG Orally Twice a day prn 1 tablet Procedures Procedure Coding System Code Date DRUG SCREEN NON TLC DEVICES CPT-4 52263 Nov 21, 2015 Office Visit, Est Pt., Level 4 CPT-4 15183 Nov 21, 2015 Vital Signs Date/Time: Nov 21, 2015 Temperature 97.7 F Weight 252.7 lbs Height 63 in BMI 44.76 Index Blood Pressure Diastolic 80 mmHg Blood Pressure Systolic 116 mmHg Cardiac Monitoring Heart Rate 72 bpm Results Name Result Date Reference Range Unit Abnormality Flag URINE DRUG SCREEN (IN HOUSE) ----MDMA negative 20151121 ----TCA negative 20151121 ----BENZO positive 20151121 ----OPIATE negative 20151121 ----THC negative 20151121 ----MTD negative 20151121 ----AMPH negative 20151121 ----BAR negative 20151121 ----PCP negative 20151121 ----MAMP negative 20151121 ----OXY negative 20151121 ----Lot # [id number] ----Exp date 20151121 ----Control + 20151121 ----COCAINE negative 20151121 Summary Purpose eClinicalWorks Submission
--- OUTSIDE RECORDS SUMMARY | 2018-11-24 09:39 | XMS REPORT ---
Author Author BRAXTON ABDI [facility] Address [address] [place] [address] Care Team Providers Care Check Processing Clerk Name Role Phone BRAXTON ABDI Unavailable PROBLEMS Type Condition ICD9-CM Code [id number] Code Onset Dates Condition Status SNOMED Code Problem Sciatica, right side M54.31 Active 98058733 Problem Muscle spasm M62.838 Active 16695518 Problem Sciatica of left side M54.32 Active 57169539 Problem Episode of recurrent major depressive disorder, unspecified depression episode severity F33.9 Active 054048898 Problem Morbid obesity E66.01 Active 802012317 Problem Chronic pain disorder G89.4 Active 833511084 Problem Other chronic pain G89.29 Active 88976964 Problem Mood disorder F39 Active 03013606 Problem Fibromyalgia M79.7 Active 729359000 Problem GERD (gastroesophageal reflux disease) K21.9 Active 765896993 Problem Anxiety F41.9 Active 95488069 Problem Insomnia G47.00 Active 593835110 Problem Skin tags, multiple acquired L91.8 Active 459663911 Problem Anemia D64.9 Active 108608359 Problem Sciatica M54.30 Active 57448786 Problem Major depressive disorder, recurrent episode, moderate F33.1 Active 970818649 Problem Obesity E66.9 Active 216342913 Problem Major depressive disorder with single episode, remission status unspecified F32.9 Active 50426963 ALLERGIES No Information ENCOUNTERS Encounter Location Date Diagnosis [place] [address] [facility] [id number] [id number] Apr, Episode of recurrent major depressive disorder, unspecified depression episode severity F33.9 ; Chronic pain disorder G89.4 ; Obesity E66.9 and BMI 40.0-44.9, adult Z68.41 [facility] [address] [facility] [id number] [place] [id number] Apr, [facility] [id number] [place] [id number] Apr, Chronic pain disorder G89.4 and Obesity E66.9 [facility] [address] [place] [id number] [place] [address] [id number] March, Chronic pain disorder G89.4 and Obesity E66.9 [place] [address] [place] [id number] [place] [address] 43298 2546 March, [facility] [address] [id number] [place] [address] [phone] Feb, Chronic pain disorder G89.4 [facility] [address] [id number] [place] [address] [id number] Feb, Chronic pain disorder G89.4 and Obesity E66.9 [facility] [address] [id number] [place] [address] [phone] Jan, Insomnia G47.00 [facility] [address] [place] [id number] [place] [address] [phone] Jan, Obesity E66.9 and Chronic pain disorder G89.4 [facility] [address] [id number] [place] [address] [phone] Jan, Chronic pain disorder G89.4 [place] [address] [place] [id number] [place] [address] 52033- 5296 Jan, [facility] [address] [place] [id number] [place] [address] 75896- 2293 Dec, [facility] [address] [id number] [place] [address] [id number] Dec, Chronic pain disorder G89.4 [facility] [address] [place] [address] [id number] Dec, Calcaneal spur of left foot M77.32 and BMI 40.0-44.9, adult Z68.41 [facility] [address] [place] [address] 02347- 9396 Nov, Chronic pain disorder G89.4 ; Sciatica, right side M54.31 ; Pain of left heel M79.672 ; Morbid obesity E66.01 ; Mood disorder F39 ; Obesity E66.9 ; Anxiety F41.9 ; Insomnia G47.00 and Muscle spasm M62.838 [facility] [address] [place] [id number] [id number] Nov, Chronic pain disorder G89.4 ; Sciatica, right side M54.31 ; Morbid obesity E66.01 ; Mood disorder F39 ; Obesity E66.9 ; Pain of left heel M79.672 ; Anxiety F41.9 ; Insomnia G47.00 ; Muscle spasm M62.838 and BMI 40.0-44.9, adult Z68.41 [place] [address] [place] [id number] [place] [address] 21784- 0252 Oct, Chronic pain disorder G89.4 [place] [address] [place] [id number] [place] [address] 65911- 4605 Sep, Anxiety F41.9 ; Fibromyalgia M79.7 ; Chronic pain disorder G89.4 ; Mood disorder F39 ; GERD (gastroesophageal reflux disease) K21.9 and Muscle spasm M62.838 [place] [address] [place] [id number] [place] [address] 70157- 6141 Sep, Plantar fasciitis M72.2 ; Morbid obesity E66.01 and BMI 40.0 -44.9, adult Z68.41 [place] [address] [place] [address] 80455- 6054 Aug, [place] [address] [place] [id number] [place] [address] 52146- 9723 Aug, Anxiety F41.9 ; Muscle spasm M62.838 ; Major depressive disorder, recurrent episode, moderate F33.1 ; Obesity E66.9 ; Insomnia G47.00 ; Fibromyalgia M79.7 ; Chronic pain disorder G89.4 and Other chronic pain G89.29 [place] [address] [place] [id number] [place] [address] 60680- 2499 Jul, Muscle spasm M62.838 ; Anxiety F41.9 ; Sciatica M54.30 ; Insomnia G47.00 ; Major depressive disorder, recurrent episode, moderate F33.1 ; Other chronic pain G89.29 and GERD (gastroesophageal reflux disease) K21.9 [facility] [address] [address] Jun, Acute non-recurrent maxillary sinusitis J01.00 [facility] [address] [address]2268 Jun, Acute nasopharyngitis (common cold) J00 [place] [address] 65[address]- 8538 May, Anxiety F41.[address] 07176- 6697 Apr, Insomnia G47.[address] [address]- [address] March, Anxiety F41.9 and Insomnia G47.[address] 13756- 4106 Feb, Obesity E66.9 and Screening cholesterol level Z13.[address] 57354- 5514 Feb, Insomnia G47.[address] 86896- 4261 Dec, Sciatica M54.30 ; Obesity E66.9 ; Anxiety F41.9 ; Insomnia G47.00 ; GERD (gastroesophageal reflux disease) K21.9 ; Major depressive disorder, recurrent episode, moderate F33.1 ; Pain management R52 and Screening cholesterol level Z13.[address] 70795- 7142 Dec, [facility] [address] [address] Nov, Acute non-recurrent frontal sinusitis J01.10 and Sore throat J02.9 [facility] [address] [address] 6[address] Nov, [facility] [address] [place] [id number] [place] [address] 81915- 3060 Nov, Sciatica, right side M54.31 and Sciatica of left side M54.32 [facility] [address] [place] [address] 17417- 3779 Oct, [facility] [address] [place] [id number] [place] [address] 47738- 4240 Sep, [facility] [address] [place] [id number] [place] [address] 52898- 9787 Aug, [facility] [address] [place] [id number] [place] [address] 97266- 3381 Aug, [facility] [address] [place] [id number] [place] [address] 06655- 4765 Jul, [facility] [address] [place] [address] 77654- 6869 Jul, [facility] [address] [place] [id number] [place] [address] 55269- 3765 Jun, Sciatica M54.30 ; Insomnia G47.00 ; Obesity E66.9 ; Anxiety F41.9 and Major depressive disorder with single episode, remission status unspecified F32.9 [facility] [address], [place] [address] Jun, Major depressive disorder with single episode, remission status unspecified F32.9 [facility] [address] [address]- 2417 Jun, [facility] [address] [place] [address] 97582- 0181 Jun, [facility] [address] [address]- 5262 Jun, Major depressive disorder with single episode, remission status unspecified F32.9 [place] [address] [place] [id number] [place] [address] 21254- 2773 Jun, Major depressive disorder, recurrent episode, moderate F33.1 [place] [address] [place] [id number] [place] [address] 62627- 2196 May, [place] [address] 13745- 7703 Apr, [place] [address] 03107- 4339 March, Obesity E66.9 ; Anxiety F41.9 ; Insomnia G47.00 ; GERD ( gastroesophageal reflux disease) K21.9 and Other chronic pain G89.29 [place] [address] 45548- 3680 March, Sciatica M54.30 [place] [address] 12352- 9282 March, Insomnia G47.00 and Anxiety F41.9 [place] [address] 56012- 3979 Feb, Sciatica M54.30 [place] [address] 71136- 8964 Feb, Dental examination Z01.20 [place] [address] 83818- 2769 Jan, Obesity E66.9 ; Sciatica M54.30 ; Anxiety F41.9 ; Insomnia G47.00 ; GERD (gastroesophageal reflux disease) K21.9 and Anemia D64.9 [place] [address] 32428- 5730 Dec, [place] [address] 55616- 8707 05 Dec, 2015 Skin tags, multiple acquired L91.8 [place] [address] [place] [address] 4[address] Dec, [facility] [address] [place] [id number] [place] [address] 625126- 4703 Nov, Obesity E66.9 [facility] [address] [place] [id number] [place] [address] 22899- 4334 Nov, Sciatica M54.30 ; Obesity E66.9 ; Anxiety F41.9 ; Insomnia G47.00 and GERD (gastroesophageal reflux disease) K21.9 [facility] [address] [place] [id number] [place] [address] 56239- 3547 Aug, Sciatica M54.30 ; Obesity E66.9 ; Anxiety F41.9 ; Insomnia G47.00 and GERD (gastroesophageal reflux disease) K21.9 [facility] [address] [place] [id number] [place] [address] 16513- 3096 Feb, [facility] [address] [place] [id number] [place] [address] 34436- 8362 Feb, [facility] [address] [place] [id number] [place] [address] 92075- 8685 Feb, [facility] [address] [place] [id number] [place] [address] 38533- 9380 Feb, [facility] [address] [place] [id number] [place] [address] 31611- 3517 Feb, [facility] [address] [place] [id number] [place] [address] 80788- 5529 Jan, [facility] [id number] [id number] Nov, [facility] [id number] [place] [address] [id number] Nov, [facility] [address] [place] [id number] [place] [address] 59364- 9616 Oct, [facility] [address] [place] [id number] [place] [address] 423699- 6979 Feb, [facility] [address] [facility] [id number] [place] [address] Aug, [facility] [address] [facility] [id number] [place] Jul, IMMUNIZATIONS No Known Immunizations SOCIAL HISTORY Never Assessed REASON FOR VISIT refill request for hydrocodone PLAN OF CARE VITAL SIGNS MEDICATIONS Medication Instructions Dosage Frequency Start Date End Date Duration Status Hydrocodone-Acetaminophen 7.5-325 MG Orally 3 times a day 1 tablet as needed 8h Jan, 28 days Active RESULTS No Results PROCEDURES [...]
--- OUTSIDE RECORDS SUMMARY | 2018-11-24 09:40 | XMS REPORT ---
Author Author MADAI MENDENHALL [facility] Address [address] [place] [address] Care Team Providers Care Linux Systems Analyst Name Role Phone MADAI MENDENHALL Unavailable PROBLEMS Type Condition ICD9-CM Code TTW28-SM Code Onset Dates Condition Status SNOMED Code Problem Major depressive disorder with single episode, remission status unspecified F32.9 Active 79925071 Problem Sciatica of left side M54.32 Active 14182635 Problem Sciatica, right side M54.31 Active 61491917 Problem Morbid obesity E66.01 Active 653627441 Problem Mood disorder F39 Active 98675780 Problem Other chronic pain G89.29 Active 47158053 Problem Muscle spasm M62.838 Active 25282766 Problem Fibromyalgia M79.7 Active 478084091 Problem Chronic pain disorder G89.4 Active 260633752 Problem Insomnia G47.00 Active 561012990 Problem GERD (gastroesophageal reflux disease) K21.9 Active 968595526 Problem Obesity E66.9 Active 800378646 Problem Skin tags, multiple acquired L91.8 Active 871893227 Problem Anxiety F41.9 Active 49559734 Problem Anemia D64.9 Active 219966096 Problem Sciatica M54.30 Active 82214082 Problem Major depressive disorder, recurrent episode, moderate F33.1 Active 342332712 ALLERGIES No Known Allergies ENCOUNTERS Encounter Location Date Diagnosis [facility] [id number] [id number] Apr, Chronic pain disorder G89.4 and Obesity E66.9 [facility] [id number] [place] [address] [id number] March, Chronic pain disorder G89.4 and Obesity E66.9 [facility] [address] [place] [id number] [address] March, [facility] [id number] [place] [address] [phone] Feb, Chronic pain disorder G89.4 [facility] [address] [id number] [id number] Feb, Chronic pain disorder G89.4 and Obesity E66.9 [facility] [id number] [id number] Jan, Insomnia G47.00 [facility] [id number] [id number] Jan, Obesity E66.9 and Chronic pain disorder G89.4 [facility] [id number] [id number] Jan, Chronic pain disorder G89.4 [facility] [address] [place] [id number] [place] [address] 62451- 2546 Jan, [facility] [id number] [place] [address] 27848- 0065 Dec, [facility] [id number] [place] [address] [id number] Dec, Chronic pain disorder G89.4 [address] [id number] Dec, Calcaneal spur of left foot M77.32 and BMI 40.0-44.9, adult Z68.41 [facility] [address] [address]- 7989 Nov, Chronic pain disorder G89.4 ; Sciatica, right side M54.31 ; Pain of left heel M79.672 ; Morbid obesity E66.01 ; Mood disorder F39 ; Obesity E66.9 ; Anxiety F41.9 ; Insomnia G47.00 and Muscle spasm M62.838 [facility] [address] [place] [address] [id number] Nov, Chronic pain disorder G89.4 ; Sciatica, right side M54.31 ; Morbid obesity E66.01 ; Mood disorder F39 ; Obesity E66.9 ; Pain of left heel M79.672 ; Anxiety F41.9 ; Insomnia G47.00 ; Muscle spasm M62.838 and BMI 40.0-44.9, adult Z68.41 [place] [address] [place] [address] [id number] [place] [address] 00540- 5397 Oct, Chronic pain disorder G89.4 [place] [address] 47363- 4662 Sep, Anxiety F41.9 ; Fibromyalgia M79.7 ; Chronic pain disorder G89.4 ; Mood disorder F39 ; GERD (gastroesophageal reflux disease) K21.9 and Muscle spasm M62.838 [place] [address] 93231- 7672 Sep, Plantar fasciitis M72.2 ; Morbid obesity E66.01 and BMI 40.0 -44.9, adult Z68.41 [place] [address] 36790- 5365 Aug, [address] [address]- 9885 Aug, Anxiety F41.9 ; Muscle spasm M62.838 ; Major depressive disorder, recurrent episode, moderate F33.1 ; Obesity E66.9 ; Insomnia G47.00 ; Fibromyalgia M79.7 ; Chronic pain disorder G89.4 and Other chronic pain G89.29 [place] [address] [place] [id number] [place] [address] 35533- 7612 Jul, Muscle spasm M62.838 ; Anxiety F41.9 ; Sciatica M54.30 ; Insomnia G47.00 ; Major depressive disorder, recurrent episode, moderate F33.1 ; Other chronic pain G89.29 and GERD (gastroesophageal reflux disease) K21.9 [facility] [address] [address]90 Jun, Acute non-recurrent maxillary sinusitis J01.00 [facility] [place] [id number] [place] [address] 86991 -9558 Jun, Acute nasopharyngitis (common cold) J00 [place] [address] [address] [id number] [place] [address] 55681- 4160 May, Anxiety F41.9 [place] [address] 78444- 4872 Apr, Insomnia G47.00 [place] [address] 33859- 3570 March, Anxiety F41.9 and Insomnia G47.00 [place] [address] 05628- 2178 Feb, Obesity E66.9 and Screening cholesterol level Z13.220 [place] [address] 40574- 3047 Feb, Insomnia G47.00 [place] [address] 40712- 4442 Dec, Sciatica M54.30 ; Obesity E66.9 ; Anxiety F41.9 ; Insomnia G47.00 ; GERD (gastroesophageal reflux disease) K21.9 ; Major depressive disorder, recurrent episode, moderate F33.1 ; Pain management R52 and Screening cholesterol level Z13.220 [place] [address] [address] [id number] [place] [address] 07939- 2561 Dec, [facility] [id number] [place] [address] 05213 -0529 Nov, Acute non-recurrent frontal sinusitis J01.10 and Sore throat J02.9 [place] [address] [place] [id number] [place] [address] 74391- 0025 Nov, [address] 49552- 7663 Nov, Sciatica, right side M54.31 and Sciatica of left side M54.32 [place] [address] [place] [id number] [place] [address] 94203- 2583 Oct, [place] [address] [place] [address]- 1559 Sep, [facility] [address] [address]- 1508 14 Aug, 2016 [facility] [address] [address]- 2365 Aug, [facility] [id number] [place] [address] 94293- 4791 16 Jul, 2016 [facility] [address] [place] [address] 52867- 1947 Jul, [facility] [address] [place] [address] 64471- 9633 Jun, Sciatica M54.30 ; Insomnia G47.00 ; Obesity E66.9 ; Anxiety F41.9 and Major depressive disorder with single episode, remission status unspecified F32.9 [facility] [address] [address]- 5383 Jun, Major depressive disorder with single episode, remission status unspecified F32.9 [facility] [address] [address]- 0024 Jun, [facility] [address] [address]- 8696 Jun, [facility] [address] [address]- 3355 Jun, Major depressive disorder with single episode, remission status unspecified F32.9 [facility] [address] [address]- 3800 Jun, Major depressive disorder, recurrent episode, moderate F33.1 [facility] [address] [address]- 8518 May, [facility] [address] [address]- 8723 Apr, [facility] [address] 89105- 2763 March, Obesity E66.9 ; Anxiety F41.9 ; Insomnia G47.00 ; GERD ( gastroesophageal reflux disease) K21.9 and Other chronic pain G89.29 [place] [address] 70208- 1800 March, Sciatica M54.30 [place] [address] 69050- 4279 March, Insomnia G47.00 and Anxiety F41.9 [place] [address] 25815- 8362 Feb, Sciatica M54.30 [place] [address] 71755- 4789 Feb, Dental examination Z01.20 [place] [address] 01393- 6262 Jan, Obesity E66.9 ; Sciatica M54.30 ; Anxiety F41.9 ; Insomnia G47.00 ; GERD (gastroesophageal reflux disease) K21.9 and Anemia D64.9 [place] [address] 29969- 9275 Dec, [place] [address] 08339- 9839 Dec, Skin tags, multiple acquired L91.8 [place] [address] 20273- 0282 Dec, [place] [address] 85558- 0624 Nov, Obesity E66.9 [place] [address] 53344- 9273 Nov, Sciatica M54.30 ; Obesity E66.9 ; Anxiety F41.9 ; Insomnia G47.00 and GERD (gastroesophageal reflux disease) K21.9 [place] [address] [address]- 3728 Aug, Sciatica M54.30 ; Obesity E66.9 ; Anxiety F41.9 ; Insomnia G47.00 and GERD (gastroesophageal reflux disease) K21.9 [facility] [id number] [place] [address] 03457- 4424 14 Feb, 2015 [facility] [address] 54114- 4060 Feb, [facility] [id number] [place] [address] 84739- 4015 Feb, [facility] [id number] [place] [address] 64864- 7340 Feb, [facility] [id number] [place] [address] 94570- 1251 Feb, [facility] [id number] [place] [address] 52386- 3212 Jan, [facility] [id number] [place] [address] [id number] Nov, [place] [id number] [place] [address] [phone] Nov, [facility] [id number] [place] [address] 53588- 0781 Oct, [facility] [id number] [place] [address] 40531- 6925 Feb, [facility] [id number] [place] [address] 95159- 5821 Aug, [facility] [id number] [place] [address] 234624- 7314 Jul, IMMUNIZATIONS No Known Immunizations SOCIAL HISTORY Never Assessed REASON FOR VISIT Foot pain on left heel for two months--Agnieszka Vale MA PLAN OF CARE Activity Details Follow Up Regular appt Reason: VITAL SIGNS Height 63 in 2017-09-30 Weight 251.3 lbs 2017-09-30 Temperature 98.4 degrees Fahrenheit 2017-09-30 Heart Rate 68 bpm 2017-09-30 Respiratory Rate 18 2017-09-30 BMI 44.51 kg/m2 2017-09-30 Blood pressure systolic 120 mmHg 2017-09-30 Blood pressure diastolic 78 mmHg 2017-09-30 MEDICATIONS Medication Instructions Dosage Frequency Start Date End Date Duration Status Ambien 10 mg Orally Once a day 1 tablet at bedtime as needed 24h Jul, 30 days Active Albuterol Sulfate (2.5 MG/3ML) 0.083% Inhalation Three times a day 3 ml 8h Active Xanax 1 MG Orally Twice a day prn 1 tablet 28 days Not-Taking Flonase 50 MCG/ACT Nasally Once a day 1 spray in each nostril 24h Jun, 30 day(s) Not-Taking Omeprazole 40 mg Orally Once a day 1 capsule 24h Jul, 90 days Active Clonazepam 1 MG Orally Twice a day 1 tablet 12h Aug, 30 days Not-Taking Alprazolam 1 MG Orally once daily as needed 1 tablet PRN breakthrough panic attack Aug, 30 days Not-Taking Diclofenac Sodium 75 MG Orally Twice a day 1 tablet with food or milk 12h Sep, Nov, 30 day(s) Active Cyclobenzaprine HCl 10 mg Orally Three times a day 1 tablet as needed 8h Jul, 60 days Active Hydrocodone-Acetaminophen 7.5-325 MG Orally every 8 hours 1 tablet as needed 8h Sep, Sep, 28 days Active RESULTS No Results PROCEDURES [...]
--- OUTSIDE RECORDS SUMMARY | 2018-11-24 09:40 | XMS REPORT ---
Author Author BRAXTON ABDI [facility] Address [address] [place] [address] Care Team Providers Care Configuration Management Specialist Name Role Phone BRAXTON ABDI Unavailable PROBLEMS Type Condition ICD9-CM Code [id number] Code Onset Dates Condition Status SNOMED Code Problem Sciatica, right side M54.31 Active 83575941 Problem Muscle spasm M62.838 Active 07366345 Problem Sciatica of left side M54.32 Active 27168448 Problem Episode of recurrent major depressive disorder, unspecified depression episode severity F33.9 Active 677346218 Problem Morbid obesity E66.01 Active 030465471 Problem Chronic pain disorder G89.4 Active 699771138 Problem Other chronic pain G89.29 Active 44005988 Problem Mood disorder F39 Active 83510959 Problem Fibromyalgia M79.7 Active 140995425 Problem GERD (gastroesophageal reflux disease) K21.9 Active 419566168 Problem Anxiety F41.9 Active 44981336 Problem Insomnia G47.00 Active 218774149 Problem Skin tags, multiple acquired L91.8 Active 263285362 Problem Anemia D64.9 Active 653832082 Problem Sciatica M54.30 Active 63964092 Problem Major depressive disorder, recurrent episode, moderate F33.1 Active 303840285 Problem Obesity E66.9 Active 388290538 Problem Major depressive disorder with single episode, remission status unspecified F32.9 Active 83246874 ALLERGIES No Information ENCOUNTERS Encounter Location Date Diagnosis [place] [address] [address] [facility] [id number] [id number] Apr, Episode of recurrent major depressive disorder, unspecified depression episode severity F33.9 ; Chronic pain disorder G89.4 ; Obesity E66.9 and BMI 40.0-44.9, adult Z68.41 [facility] [address] [facility] [id number] [id number] Apr, [facility] [id number] [id number] Apr, Chronic pain disorder G89.4 and Obesity E66.9 [facility] [id number] [place] [address] [id number] March, Chronic pain disorder G89.4 and Obesity E66.9 [place] [address] [place] [id number] [place] [address] 28451 2546 March, [facility] [id number] [place] [address] [id number] Feb, Chronic pain disorder G89.4 [facility] [id number] [place] [address] [id number] Feb, Chronic pain disorder G89.4 and Obesity E66.9 [facility] [id number] [place] [address] [id number] Jan, Insomnia G47.00 [facility] [id number] [place] [address] [id number] Jan, Obesity E66.9 and Chronic pain disorder G89.4 [facility] [id number] [place] [address] [id number] Jan, Chronic pain disorder G89.4 [place] [address] [place] [id number] [place] [address] 06538- 5466 Jan, [facility] [id number] [place] [address] 22652- 8138 Dec, [facility] [id number] [place] [address] [id number] Dec, Chronic pain disorder G89.4 [facility] [address] [place] [address] [id number] Dec, Calcaneal spur of left foot M77.32 and BMI 40.0-44.9, adult Z68.41 [facility] [address] [place] [address] 22345- 9796 Nov, Chronic pain disorder G89.4 ; Sciatica, right side M54.31 ; Pain of left heel M79.672 ; Morbid obesity E66.01 ; Mood disorder F39 ; Obesity E66.9 ; Anxiety F41.9 ; Insomnia G47.00 and Muscle spasm M62.838 [facility] [address] [id number] [id number] Nov, Chronic pain disorder G89.4 ; Sciatica, right side M54.31 ; Morbid obesity E66.01 ; Mood disorder F39 ; Obesity E66.9 ; Pain of left heel M79.672 ; Anxiety F41.9 ; Insomnia G47.00 ; Muscle spasm M62.838 and BMI 40.0-44.9, adult Z68.41 [place] [address] [place] [id number] [place] [address] 55028- 0848 Oct, Chronic pain disorder G89.4 [place] [address] [place] [id number] [place] [address] 90946- 3259 Sep, Anxiety F41.9 ; Fibromyalgia M79.7 ; Chronic pain disorder G89.4 ; Mood disorder F39 ; GERD (gastroesophageal reflux disease) K21.9 and Muscle spasm M62.838 [place] [address] [place] [id number] [place] [address] 57562- 9583 Sep, Plantar fasciitis M72.2 ; Morbid obesity E66.01 and BMI 40.0 -44.9, adult Z68.41 [place] [address] [place] [address] 81909- 9910 Aug, [place] [address] [place] [id number] [place] [address] 28381- 0887 Aug, Anxiety F41.9 ; Muscle spasm M62.838 ; Major depressive disorder, recurrent episode, moderate F33.1 ; Obesity E66.9 ; Insomnia G47.00 ; Fibromyalgia M79.7 ; Chronic pain disorder G89.4 and Other chronic pain G89.29 [place] [address] [place] [id number] [place] [address] 95705- 6052 Jul, Muscle spasm M62.838 ; Anxiety F41.9 ; Sciatica M54.30 ; Insomnia G47.00 ; Major depressive disorder, recurrent episode, moderate F33.1 ; Other chronic pain G89.29 and GERD (gastroesophageal reflux disease) K21.9 [facility] [address] [address]284 -9500 Jun, Acute non-recurrent maxillary sinusitis J01.00 [facility] [address] 89993 -4069 Jun, Acute nasopharyngitis (common cold) J00 [place] [address] 12832- 3561 May, Anxiety F41.[address] 47810- 2525 Apr, Insomnia G47.[address] 86490- 9281 March, Anxiety F41.9 and Insomnia G47.[address] 43431- 6287 Feb, Obesity E66.9 and Screening cholesterol level Z13.[address] 23851- 5273 Feb, Insomnia G47.[address] 19583- 9924 Dec, Sciatica M54.30 ; Obesity E66.9 ; Anxiety F41.9 ; Insomnia G47.00 ; GERD (gastroesophageal reflux disease) K21.9 ; Major depressive disorder, recurrent episode, moderate F33.1 ; Pain management R52 and Screening cholesterol level Z13.[address] 06396- 8020 Dec, [facility] WALK IN [facility] [address] 59685 -5774 Nov, Acute non-recurrent frontal sinusitis J01.[address] [facility] [address] [address] Nov, [facility] [id number] [place] [address] 10158- 9341 Nov, Sciatica, right side M54.31 and Sciatica of left side M54.32 [facility] [address] [place] [address] 11497- 7356 Oct, [facility] [id number] [place] [address] 19020- 5365 Sep, [facility] [address] [id number] [place] [address] 63084- 9794 Aug, [facility] [id number] [place] [address] 99150- 3020 Aug, [facility] [address] [id number] [place] [address] 57110- 1112 Jul, [facility] [address] [place] [address] 61644- 8003 Jul, [facility] [address] [address] [id number] [place] [address] 76705- 3258 Jun, Sciatica M54.30 ; Insomnia G47.00 ; Obesity E66.9 ; Anxiety F41.9 and Major depressive disorder with single episode, remission status unspecified F32.9 [facility] [address] [address]- 30[address] Jun, Major depressive disorder with single episode, remission status unspecified F32.9 [facility] [address] [address] 97[address] Jun, [facility] [address] [place] [address] 40229- 7535 Jun, [facility] [address] [address]- 8451 Jun, Major depressive disorder with single episode, remission status unspecified F32.9 [place] [address] [place] [id number] [place] [address] 55567- 9587 Jun, Major depressive disorder, recurrent episode, moderate F33.1 [place] [address] [place] [id number] [place] [address] 56251- 6692 May, [place] [address] 62778- 7965 Apr, [place] [address] 30048- 4936 March, Obesity E66.9 ; Anxiety F41.9 ; Insomnia G47.00 ; GERD ( gastroesophageal reflux disease) K21.9 and Other chronic pain G89.29 [place] [address] 39030- 7523 March, Sciatica M54.30 [place] [address] 88075- 6850 March, Insomnia G47.00 and Anxiety F41.9 [place] [address] 68609- 1985 Feb, Sciatica M54.30 [place] [address] 00139- 5049 Feb, Dental examination Z01.20 [place] [address] 52826- 5854 Jan, Obesity E66.9 ; Sciatica M54.30 ; Anxiety F41.9 ; Insomnia G47.00 ; GERD (gastroesophageal reflux disease) K21.9 and Anemia D64.9 [place] [address] 13012- 9618 Dec, [place] [address] 68178- 4780 05 Dec, 2015 Skin tags, multiple acquired L91.8 [place] [address] [place] [address] 12[address] Dec, [facility] [id number] [place] [address] 262225- 8134 Nov, Obesity E66.9 [facility] [address] [id number] [place] [address] 64217- 8324 Nov, Sciatica M54.30 ; Obesity E66.9 ; Anxiety F41.9 ; Insomnia G47.00 and GERD (gastroesophageal reflux disease) K21.9 [facility] [id number] [place] [address] 79455- 8991 Aug, Sciatica M54.30 ; Obesity E66.9 ; Anxiety F41.9 ; Insomnia G47.00 and GERD (gastroesophageal reflux disease) K21.9 [facility] [id number] [place] [address] 00142- 2256 Feb, [facility] [address] [id number] [place] [address] 97386- 3073 Feb, [facility] [address] [id number] [place] [address] 57001- 9696 Feb, [facility] [address] [id number] [place] [address] 95616- 1756 Feb, [facility] [id number] [place] [address] 61690- 7753 Feb, [facility] [id number] [place] [address] 50340- 2313 Jan, [facility] [id number] [id number] Nov, [facility] [id number] [place] [id number] Nov, [facility] [address] [id number] [place] [address] 98637- 2336 Oct, [facility] [id number] [place] [address] 297965- [address] Feb, [facility] [address] [facility] [id number] [place] [address] Aug, [facility] [address] [facility] [id number] [place] [address]88 Jul, IMMUNIZATIONS No Known Immunizations SOCIAL HISTORY Never Assessed REASON FOR VISIT Requests return call PLAN OF CARE VITAL SIGNS MEDICATIONS No [...]
--- OUTSIDE RECORDS SUMMARY | 2018-11-24 09:40 | XMS REPORT ---
Author Author BRAXTON ABDI [facility] Address [address] [place] [address] Care Team Providers Care Tie In Hand Name Role Phone BRAXTON ABDI Unavailable PROBLEMS Type Condition ICD9-CM Code UHC01-TI Code Onset Dates Condition Status SNOMED Code Problem Sciatica, right side M54.31 Active 40780030 Problem Muscle spasm M62.838 Active 82326203 Problem Sciatica of left side M54.32 Active 67865751 Problem Episode of recurrent major depressive disorder, unspecified depression episode severity F33.9 Active 937752329 Problem Morbid obesity E66.01 Active 856072217 Problem Chronic pain disorder G89.4 Active 074430443 Problem Other chronic pain G89.29 Active 74808694 Problem Mood disorder F39 Active 92240851 Problem Fibromyalgia M79.7 Active 214097394 Problem GERD (gastroesophageal reflux disease) K21.9 Active 190596792 Problem Anxiety F41.9 Active 99680706 Problem Insomnia G47.00 Active 114742807 Problem Skin tags, multiple acquired L91.8 Active 021075214 Problem Anemia D64.9 Active 759391015 Problem Sciatica M54.30 Active 83472948 Problem Major depressive disorder, recurrent episode, moderate F33.1 Active 247163743 Problem Obesity E66.9 Active 136283456 Problem Major depressive disorder with single episode, remission status unspecified F32.9 Active 78631169 ALLERGIES No Information ENCOUNTERS Encounter Location Date Diagnosis [place] [address] [facility] [id number] [id number] Apr, Episode of recurrent major depressive disorder, unspecified depression episode severity F33.9 ; Chronic pain disorder G89.4 ; Obesity E66.9 and BMI 40.0-44.9, adult Z68.41 [facility] [address] [facility] [id number] [id number] Apr, [facility] [id number] [id number] Apr, Chronic pain disorder G89.4 and Obesity E66.9 [facility] [address] [id number] [place] [address] [id number] March, Chronic pain disorder G89.4 and Obesity E66.9 [place] [address] [place] [id number] [place] [address] 40207 2546 March, [facility] [address] [id number] [place] [address] [id number] Feb, Chronic pain disorder G89.4 [facility] [address] [id number] [place] [address] [id number] Feb, Chronic pain disorder G89.4 and Obesity E66.9 [facility] [address] [id number] [place] [address] [id number] Jan, Insomnia G47.00 [facility] [address] [place] [id number] [place] [address] [id number] Jan, Obesity E66.9 and Chronic pain disorder G89.4 [facility] [address] [id number] [place] [address] [id number] Jan, Chronic pain disorder G89.4 [place] [address] [place] [id number] [place] [address] 54451- 4316 Jan, [facility] [id number] [place] [address] 60138- 8412 Dec, [facility] [address] [id number] [place] [address] [id number] Dec, Chronic pain disorder G89.4 [facility] [address] [place] [address] [id number] Dec, Calcaneal spur of left foot M77.32 and BMI 40.0-44.9, adult Z68.41 [facility] [address] [place] [address] 77064- 7626 Nov, Chronic pain disorder G89.4 ; Sciatica, right side M54.31 ; Pain of left heel M79.672 ; Morbid obesity E66.01 ; Mood disorder F39 ; Obesity E66.9 ; Anxiety F41.9 ; Insomnia G47.00 and Muscle spasm M62.838 [facility] [address] [place] [id number] [id number] Nov, Chronic pain disorder G89.4 ; Sciatica, right side M54.31 ; Morbid obesity E66.01 ; Mood disorder F39 ; Obesity E66.9 ; Pain of left heel M79.672 ; Anxiety F41.9 ; Insomnia G47.00 ; Muscle spasm M62.838 and BMI 40.0-44.9, adult Z68.41 [place] [address] [address] [id number] [place] [address] 52554- 2960 Oct, Chronic pain disorder G89.4 [place] [address] [place] [address] [id number] [place] [address] 01246- 6886 Sep, Anxiety F41.9 ; Fibromyalgia M79.7 ; Chronic pain disorder G89.4 ; Mood disorder F39 ; GERD (gastroesophageal reflux disease) K21.9 and Muscle spasm M62.838 [place] [address] [address] [id number] [place] [address] 23834- 6907 Sep, Plantar fasciitis M72.2 ; Morbid obesity E66.01 and BMI 40.0 -44.9, adult Z68.41 [place] [address] [place] [address] 18619- 9013 Aug, [place] [address] [id number] [place] [address] 58094- 4062 Aug, Anxiety F41.9 ; Muscle spasm M62.838 ; Major depressive disorder, recurrent episode, moderate F33.1 ; Obesity E66.9 ; Insomnia G47.00 ; Fibromyalgia M79.7 ; Chronic pain disorder G89.4 and Other chronic pain G89.29 [place] [address] [address] [id number] [place] [address] 53084- 6158 Jul, Muscle spasm M62.838 ; Anxiety F41.9 ; Sciatica M54.30 ; Insomnia G47.00 ; Major depressive disorder, recurrent episode, moderate F33.1 ; Other chronic pain G89.29 and GERD (gastroesophageal reflux disease) K21.9 [facility] W[facility] IN [address] 7[address]86 -6239 Jun, Acute non-recurrent maxillary sinusitis J01.00 [facility] [address] 41537 -4788 Jun, Acute nasopharyngitis (common cold) J00 [place] [address] 05321- 4162 May, Anxiety F41.[address] 65323- 4377 Apr, Insomnia G47.[address] 31521- 7286 March, Anxiety F41.9 and Insomnia G47.[address] 61023- 8615 Feb, Obesity E66.9 and Screening cholesterol level Z13.[address] 34432- 5353 Feb, Insomnia G47.[address] 59203- 1564 Dec, Sciatica M54.30 ; Obesity E66.9 ; Anxiety F41.9 ; Insomnia G47.00 ; GERD (gastroesophageal reflux disease) K21.9 ; Major depressive disorder, recurrent episode, moderate F33.1 ; Pain management R52 and Screening cholesterol level Z13.[address] 58129- 8828 Dec, [facility] WALK IN [facility] [address] 40610 -8797 Nov, Acute non-recurrent frontal sinusitis J01.10 and Sore throat J02.9 [facility] [address] [address]- 9387 Nov, [facility] [id number] [place] [address] 04222- 9578 Nov, Sciatica, right side M54.31 and Sciatica of left side M54.32 [facility] [address] [place] [address] 33701- 2536 Oct, [facility] [id number] [place] [address] 67724- 4469 Sep, [facility] [address] [id number] [place] [address] 13993- 2320 Aug, [facility] [id number] [place] [address] 82667- 6555 Aug, [facility] [id number] [place] [address] 82680- 9613 Jul, [facility] [address] [place] [address] 83051- 8982 Jul, [facility] [id number] [place] [address] 74007- 4820 Jun, Sciatica M54.30 ; Insomnia G47.00 ; Obesity E66.9 ; Anxiety F41.9 and Major depressive disorder with single episode, remission status unspecified F32.9 [facility] [address] [address]- 3952 Jun, Major depressive disorder with single episode, remission status unspecified F32.9 [facility] [address] [address]- 6949 Jun, [facility] [address] [place] [address] 01403- 7039 Jun, [facility] [address] [address]- 9692 Jun, Major depressive disorder with single episode, remission status unspecified F32.9 [place] [id number] [place] [address] 87881- 6095 Jun, Major depressive disorder, recurrent episode, moderate F33.1 [place] [id number] [place] [address] 65250- 9101 May, [place] [address] 93100- 3231 Apr, [place] [address] 79479- 9617 March, Obesity E66.9 ; Anxiety F41.9 ; Insomnia G47.00 ; GERD ( gastroesophageal reflux disease) K21.9 and Other chronic pain G89.29 [place] [address] 02858- 8566 March, Sciatica M54.30 [place] [address] 83832- 2034 March, Insomnia G47.00 and Anxiety F41.9 [place] [address] 27859- 6865 Feb, Sciatica M54.30 [place] [address] 23176- 0969 Feb, Dental examination Z01.20 [place] [address] 28881- 3253 Jan, Obesity E66.9 ; Sciatica M54.30 ; Anxiety F41.9 ; Insomnia G47.00 ; GERD (gastroesophageal reflux disease) K21.9 and Anemia D64.9 [place] [address] 92590- 3412 Dec, [place] [address] 29808- 5616 05 Dec, 2015 Skin tags, multiple acquired L91.8 [place] [address] [place] [address]- 3196 Dec, [facility] [id number] [place] [address] 178371- 8212 Nov, Obesity E66.9 [facility] [id number] [place] [address] 64512- 9374 Nov, Sciatica M54.30 ; Obesity E66.9 ; Anxiety F41.9 ; Insomnia G47.00 and GERD (gastroesophageal reflux disease) K21.9 [facility] [id number] [place] [address] 98315- 5205 Aug, Sciatica M54.30 ; Obesity E66.9 ; Anxiety F41.9 ; Insomnia G47.00 and GERD (gastroesophageal reflux disease) K21.9 [facility] [id number] [place] [address] 80235- 3053 Feb, [facility] [id number] [place] [address] 36833- 2479 Feb, [facility] [id number] [place] [address] 30507- 5315 Feb, [facility] [id number] [place] [address] [phone] Feb, [facility] [id number] [place] [address] [phone] Feb, [facility] [id number] [place] [address] [phone] Jan, [facility] [id number] [id number] Nov, [facility] [id number] [place] [id number] Nov, [facility] [id number] [place] [address] [phone] Oct, [facility] [id number] [place] [address] [id number] Feb, [facility] [address] [facility] [id number] [place] [address] Aug, [facility] [address] [facility] [id number] [place] [phone] Jul, IMMUNIZATIONS No Known Immunizations SOCIAL HISTORY Never Assessed REASON FOR VISIT refill request PLAN OF CARE VITAL SIGNS MEDICATIONS No [...]
--- OUTSIDE RECORDS SUMMARY | 2018-11-24 09:40 | XMS REPORT ---
Author FIDELINA Townsend [facility] eClinicalWorks Address Unknown Phone Unavailable Care Team Providers Care Mixed Livestock Farmer Name Role Phone FIDELINA TIPTON CP Unavailable Allergies No Known Allergies Problems Problem Type Condition Code Onset Dates Condition Status Problem Obesity E66.9 Active Problem Anxiety F41.9 Active Problem Sciatica M54.30 Active Problem Insomnia G47.00 Active Problem GERD (gastroesophageal reflux disease) K21.9 Active Medications No Known Medications Results No Known Results Summary Purpose eClinicalWorks Submission
--- OUTSIDE RECORDS SUMMARY | 2018-11-24 09:41 | XMS REPORT ---
Author Author FIDELINA TIPTON [facility] eClinicalWorks Address Unknown Phone Unavailable Care Team Providers Care Ice Guard Inspector Name Role Phone FIDELINA TIPTON CP Unavailable Allergies No Known Allergies Problems Problem Type Condition Code Onset Dates Condition Status Problem Insomnia G47.00 Active Problem GERD (gastroesophageal reflux disease) K21.9 Active Problem Major depressive disorder, recurrent episode, moderate F33.1 Active Problem Anemia D64.9 Active Problem Major depressive disorder with single episode, remission status unspecified F32.9 Active Problem Obesity E66.9 Active Problem Anxiety F41.9 Active Problem Skin tags, multiple acquired L91.8 Active Problem Sciatica M54.30 Active Medications Medication Code System Code Instructions Start Date End Date Status Dosage Xanax [facility] [address]-21 1 MG Orally Twice a day prn 1 tablet Hydrocodone-Acetaminophen [facility] [address]-74 7.5-325 MG Orally 2 times a day 1 tablet as needed Results No Known Results Summary Purpose eClinicalWorks Submission
--- OUTSIDE RECORDS SUMMARY | 2018-11-24 09:41 | XMS REPORT ---
Author Author FIDELINA TIPTON Organization [facility] Address [address] [place] [address] Care Team Providers Care Tip Cutter Name Role Phone FIDELINA TIPTON Unavailable PROBLEMS Type Condition ICD9-CM Code ASZ07-DY Code Onset Dates Condition Status SNOMED Code Problem GERD (gastroesophageal reflux disease) K21.9 Active 468932443 Problem Anxiety F41.9 Active 38215720 Problem Insomnia G47.00 Active 627960286 Problem Major depressive disorder with single episode, remission status unspecified F32.9 Active 25845113 Problem Major depressive disorder, recurrent episode, moderate F33.1 Active 536661825 Problem Sciatica M54.30 Active 50819869 Problem Obesity E66.9 Active 651971172 Problem Anemia D64.9 Active 259002715 Problem Skin tags, multiple acquired L91.8 Active 351595692 ALLERGIES Unknown Allergies SOCIAL HISTORY No smoking Hx information available PLAN OF CARE VITAL SIGNS MEDICATIONS Medication Instructions Dosage Frequency Start Date End Date Duration Status Hydrocodone-Acetaminophen 7.5-325 MG Orally 2 times a day 1 tablet as needed 12h Active RESULTS No Results PROCEDURES No Known procedures IMMUNIZATIONS No Known Immunizations
--- OUTSIDE RECORDS SUMMARY | 2018-11-24 09:41 | XMS REPORT ---
Author Author BRAXTON ABDI [facility] Address [address] [place] [address] Care Team Providers Care Telephone Ad Taker Name Role Phone DAVIDRIPKAIA BRAXTON Unavailable PROBLEMS Type Condition ICD9-CM Code HGA80-FM Code Onset Dates Condition Status SNOMED Code Problem Major depressive disorder with single episode, remission status unspecified F32.9 Active 49917691 Problem Sciatica of left side M54.32 Active 95560236 Problem Sciatica, right side M54.31 Active 33381372 Problem Morbid obesity E66.01 Active 190418572 Problem Mood disorder F39 Active 39697528 Problem Other chronic pain G89.29 Active 37254815 Problem Muscle spasm M62.838 Active 39233139 Problem Fibromyalgia M79.7 Active 170377687 Problem Chronic pain disorder G89.4 Active 542406898 Problem Insomnia G47.00 Active 349854770 Problem GERD (gastroesophageal reflux disease) K21.9 Active 281536315 Problem Obesity E66.9 Active 885116359 Problem Skin tags, multiple acquired L91.8 Active 638046410 Problem Anxiety F41.9 Active 73382778 Problem Anemia D64.9 Active 927054086 Problem Sciatica M54.30 Active 16508063 Problem Major depressive disorder, recurrent episode, moderate F33.1 Active 630092748 ALLERGIES No Known Allergies ENCOUNTERS Encounter Location Date Diagnosis [facility] [address] [id number] [id number] March, Chronic pain disorder G89.4 and Obesity E66.9 [facility] [address] [address] March, [facility] [id number] [id number] Feb, Chronic pain disorder G89.4 [facility] [id number] [id number] Feb, Chronic pain disorder G89.4 and Obesity E66.9 [facility] [id number] [id number] Jan, Insomnia G47.00 [facility] [address] [id number] Jan, Obesity E66.9 and Chronic pain disorder G89.4 [address] [place] [id number] Jan, Chronic pain disorder G89.4 [facility] [id number] [place] [address] Jan, [facility] [id number] [place] [address] Dec, [address] [id number] Dec, Chronic pain disorder G89.4 [address] [place] [id number] Dec, Calcaneal spur of left foot M77.32 and BMI 40.0-44.9, adult Z68.41 [facility] [address] [place] [address] Nov, Chronic pain disorder G89.4 ; Sciatica, right side M54.31 ; Pain of left heel M79.672 ; Morbid obesity E66.01 ; Mood disorder F39 ; Obesity E66.9 ; Anxiety F41.9 ; Insomnia G47.00 and Muscle spasm M62.838 [facility] [address] [id number] [id number] Nov, Chronic pain disorder G89.4 ; Sciatica, right side M54.31 ; Morbid obesity E66.01 ; Mood disorder F39 ; Obesity E66.9 ; Pain of left heel M79.672 ; Anxiety F41.9 ; Insomnia G47.00 ; Muscle spasm M62.838 and BMI 40.0-44.9, adult Z68.41 [facility] [id number] [place] [address] Oct, Chronic pain disorder G89.4 [facility] [address] [address] Sep, Anxiety F41.9 ; Fibromyalgia M79.7 ; Chronic pain disorder G89.4 ; Mood disorder F39 ; GERD (gastroesophageal reflux disease) K21.9 and Muscle spasm M62.838 [facility] [facility] [address] [address] Sep, Plantar fasciitis M72.2 ; Morbid obesity E66.01 and BMI 40.0 -44.9, adult Z68.41 [facility] [address] [address] Aug, [facility] [address] [address] Aug, Anxiety F41.9 ; Muscle spasm M62.838 ; Major depressive disorder, recurrent episode, moderate F33.1 ; Obesity E66.9 ; Insomnia G47.00 ; Fibromyalgia M79.7 ; Chronic pain disorder G89.4 and Other chronic pain G89.29 [facility] [address] [address] Jul, Muscle spasm M62.838 ; Anxiety F41.9 ; Sciatica M54.30 ; Insomnia G47.00 ; Major depressive disorder, recurrent episode, moderate F33.1 ; Other chronic pain G89.29 and GERD (gastroesophageal reflux disease) K21.9 [facility] [id number] [place] [address] Jun, Acute non-recurrent maxillary sinusitis J01.00 [facility] [address] [place] [address] Jun, Acute nasopharyngitis (common cold) J00 [place] [address] [address] May, Anxiety F41.9 [facility] [id number] [place] [address] Apr, Insomnia G47.00 [facility] [id number] [place] [address] March, Anxiety F41.9 and Insomnia G47.00 [facility] [id number] [place] [address]31[address] Feb, Obesity E66.9 and Screening cholesterol level Z13.220 [facility] [facility] [address] [address] Feb, Insomnia G47.00 [facility] [place] [address] [address] Dec, Sciatica M54.30 ; Obesity E66.9 ; Anxiety F41.9 ; Insomnia G47.00 ; GERD (gastroesophageal reflux disease) K21.9 ; Major depressive disorder, recurrent episode, moderate F33.1 ; Pain management R52 and Screening cholesterol level Z13.220 [facility] [id number] [place] [address]4793- [address] Dec, [facility] [id number] [place] [address] Nov, Acute non-recurrent frontal sinusitis J01.10 and Sore throat J02.9 [facility] [id number] [place] [address] 5[address] Nov, [facility] [id number] [place] [address] 10952[address] 9[address] Nov, Sciatica, right side M54.31 and Sciatica of left side M54.32 [facility] [id number] [place] [address]677[address] 39[address] Oct, [facility] [id number] [place] [address] 83215[address] Sep, [facility] [address] [place] [address] 14 Aug, 2016 [facility] [address] [place] [address] 13565- 3607 11 Aug, 2016 [facility] [address] [place] [address] 15907- 8[address] 16 Jul, 2016 [facility] [id number] [place] [address] 31678- 395[address] Jul, [facility] [id number] [place] [address] 43007- 4[address] Jun, Sciatica M54.30 ; Insomnia G47.00 ; Obesity E66.9 ; Anxiety F41.9 and Major depressive disorder with single episode, remission status unspecified F32.9 [facility] [address] [place] [address] 19422[address] 9[address] Jun, Major depressive disorder with single episode, remission status unspecified F32.9 [facility] [address] [place] [address] 23878- 9992 Jun, [facility] [address] [place] [address] 81928- 7[address] Jun, [facility] [address] [place] [address] 52833- 2[address] Jun, Major depressive disorder with single episode, remission status unspecified F32.9 [facility] [address], [place] [address] Jun, Major depressive disorder, recurrent episode, moderate F33.1 [facility] [address], [place] [address] May, [facility] [address] [place] [address] 72385- 3[address] Apr, [facility] [address], [place] [address] March, Obesity E66.9 ; Anxiety F41.9 ; Insomnia G47.00 ; GERD ( gastroesophageal reflux disease) K21.9 and Other chronic pain G89.29 [facility] [facility] [address] [address] March, Sciatica M54.30 [facility] [address] [address] March, Insomnia G47.00 and Anxiety F41.9 [place] [address] [address] Feb, Sciatica M54.30 [facility] [address] [address] Feb, Dental examination Z01.20 [place] [address] [address] Jan, Obesity E66.9 ; Sciatica M54.30 ; Anxiety F41.9 ; Insomnia G47.00 ; GERD (gastroesophageal reflux disease) K21.9 and Anemia D64.9 [facility] [address] [address] Dec, [place] [address] [address] Dec, Skin tags, multiple acquired L91.8 [facility] [facility] [address] [address] Dec, [facility] [address] [address] Nov, Obesity E66.9 [place] [address] [address] Nov, Sciatica M54.30 ; Obesity E66.9 ; Anxiety F41.9 ; Insomnia G47.00 and GERD (gastroesophageal reflux disease) K21.9 [place] [address] [address] Aug, Sciatica M54.30 ; Obesity E66.9 ; Anxiety F41.9 ; Insomnia G47.00 and GERD (gastroesophageal reflux disease) K21.9 [facility] [id number] [place] [address] 80418- 0445 14 Feb, 2015 [facility] [id number] [place] [address] 45624- 2504 Feb, [facility] [address] [address] Feb, [facility] [id number] [place] [address] 39635- 0872 Feb, [facility] [id number] [place] [address] 813361- 3212 Feb, [facility] [id number] [place] [address] 17029- 4046 Jan, [facility] [id number] [place] [phone] Nov, [id number] [place] [address] [phone] Nov, [facility] [id number] [place] [address] 53388- 4906 Oct, [facility] [id number] [place] [address] 31574- 0066 Feb, [facility] [id number] [place] [address] 88134- 4891 Aug, [facility] [id number] [place] [address] 97766- 9006 Jul, IMMUNIZATIONS No Known Immunizations SOCIAL HISTORY Never Assessed REASON FOR VISIT pain management, pt. states shantel was making her very angry so has stopped taking ---CRyburn,CCMA PLAN OF CARE Activity Details Follow Up 4 Weeks Reason: VITAL SIGNS Height 63 in 2017-08-06 Weight 252.3 lbs 2017-08-06 Temperature 97.8 degrees Fahrenheit 2017-08-06 Heart Rate 77 bpm 2017-08-06 Respiratory Rate 18 2017-08-06 BMI 44.69 kg/m2 2017-08-06 Blood pressure systolic 131 mmHg 2017-08-06 Blood pressure diastolic 78 mmHg 2017-08-06 MEDICATIONS Medication Instructions Dosage Frequency Start Date End Date Duration Status Ambien 10 mg Orally Once a day 1 tablet at bedtime as needed 24h Jul, 30 days Active Omeprazole 40 mg Orally Once a day 1 capsule 24h Jul, 90 days Active Cyclobenzaprine HCl 10 mg Orally Three times a day 1 tablet as needed 8h Jul, 60 days Active Albuterol Sulfate (2.5 MG/3ML) 0.083% Inhalation Three times a day 3 ml 8h Active Ambien 10 mg Orally Once a day 1 tablet at bedtime as needed 24h Jan, 28 days Active Xanax 1 MG Orally Twice a day prn 1 tablet 28 days Active Hydrocodone-Acetaminophen 7.5-325 MG Orally every 8 hours, PRN 1 tablet as needed Aug, Sep, 30 days Active Clonazepam 1 MG Orally Twice a day 1 tablet 12h Aug, 30 days Active Alprazolam 1 MG Orally once daily as needed 1 tablet PRN breakthrough panic attack Aug, 30 days Active RESULTS No Results PROCEDURES [...]
--- OUTSIDE RECORDS SUMMARY | 2018-11-24 09:41 | XMS REPORT ---
Author Author FIDELINA TIPTON Organization [facility] Address [address] [place] [address] Care Team Providers Care Outside Operator Name Role Phone FIDELINA TIPTON Unavailable PROBLEMS Type Condition ICD9-CM Code PAU42-GG Code Onset Dates Condition Status SNOMED Code Problem Anxiety F41.9 Active 75579220 Problem Sciatica M54.30 Active 54446453 Problem Obesity E66.9 Active 269092318 Problem GERD (gastroesophageal reflux disease) K21.9 Active 723147093 Problem Insomnia G47.00 Active 183021422 Problem Sciatica, right side M54.31 Active 69810374 Problem Sciatica of left side M54.32 Active 39855013 Problem Anemia D64.9 Active 244004565 Problem Skin tags, multiple acquired L91.8 Active 713463869 Problem Major depressive disorder with single episode, remission status unspecified F32.9 Active 67400771 Problem Major depressive disorder, recurrent episode, moderate F33.1 Active 755130583 ALLERGIES Unknown Allergies SOCIAL HISTORY No smoking Hx information available PLAN OF CARE VITAL SIGNS MEDICATIONS Unknown Medications RESULTS No Results PROCEDURES No Known procedures IMMUNIZATIONS No Known Immunizations
--- OUTSIDE RECORDS SUMMARY | 2018-11-24 09:41 | XMS REPORT ---
Author Author FIDELINA TIPTON [facility] Address [address] [place] [address] Care Team Providers Care Chemical Test Engineer Name Role Phone DANUTA FIDELINA Unavailable PROBLEMS Type Condition ICD9-CM Code UKC55-VR Code Onset Dates Condition Status SNOMED Code Problem Sciatica M54.30 Active 60615638 Problem Anemia D64.9 Active 981544086 Problem Skin tags, multiple acquired L91.8 Active 276350868 Problem Insomnia G47.00 Active 750817086 Problem GERD (gastroesophageal reflux disease) K21.9 Active 020421364 Problem Anxiety F41.9 Active 91860637 Problem Obesity E66.9 Active 787069120 Problem Other chronic pain G89.29 Active 04061192 Problem Muscle spasm M62.838 Active 20479193 Problem Major depressive disorder with single episode, remission status unspecified F32.9 Active 00374249 Problem Major depressive disorder, recurrent episode, moderate F33.1 Active 793968059 Problem Sciatica of left side M54.32 Active 69295369 Problem Sciatica, right side M54.31 Active 72811209 ALLERGIES No Known Allergies SOCIAL HISTORY Never Assessed PLAN OF CARE Activity Details Follow Up 3 Months Reason:[facility] VITAL SIGNS Height 63 in 2016-12-28 Weight 236 lbs 2016-12-28 Temperature 97.7 degrees Fahrenheit 2016-12-28 Heart Rate 78 bpm 2016-12-28 Respiratory Rate 18 2016-12-28 BMI 41.80 kg/m2 2016-12-28 Blood pressure systolic 104 mmHg 2016-12-28 Blood pressure diastolic 72 mmHg 2016-12-28 MEDICATIONS Medication Instructions Dosage Frequency Start Date End Date Duration Status Lexapro 10 mg Orally Once a day 1 24h Active Aciphex 20 mg Orally 2 times a day 1 tablet 12h 13 Aug, 2015 Active Hydrocodone-Acetaminophen 7.5-325 MG Orally 3 times a day 1 tablet as needed 8h 24 Dec, 2016 Active Ambien 10 mg Orally Once a day 1 tablet at bedtime as needed 24h Jan, Active Xanax 1 MG Orally Twice a day prn 1 tablet Active RESULTS Name Result Date Reference Range AMERITOX 2016-12-28 PROCEDURES Procedure Date Ordered Result Body Site No Charge Dec 28, 2016 IMMUNIZATIONS No Known Immunizations MEDICAL (GENERAL) HISTORY Type Description Date Medical [...]
--- OUTSIDE RECORDS SUMMARY | 2018-11-24 09:41 | XMS REPORT ---
Author Author FIDELINA TIPTON [facility] eClinicalWorks Address Unknown Phone Unavailable Care Team Providers Care Fourdrinier Operator Name Role Phone FIDELINA TIPTON Unavailable Allergies No Known Allergies Problems Problem [...] L91.8 Active Problem Sciatica M54.30 Active Medications No Known Medications Results No Known Results Summary Purpose eClinicalWorks Submission
--- OUTSIDE RECORDS SUMMARY | 2018-11-24 09:41 | XMS REPORT ---
Author Author FIDELINA TIPTON [facility] eClinicalWorks Address Unknown Phone Unavailable Care Team Providers Care Chief School Finance Officer Name Role Phone FIDELINA TIPTON CP Unavailable [...] Instructions Start Date End Date Status Dosage Alprazolam [facility] 58192388460 1 MG orally twice daily TAKE ONE TABLET BY MOUTH TWICE DAILY NEEDED Zolpidem Tartrate [facility] 01113940647 10 MG orally once daily TAKE ONE TABLET BY MOUTH AT BEDTIME NEEDED Results No Known Results Summary Purpose eClinicalWorks Submission
--- OUTSIDE RECORDS SUMMARY | 2018-11-24 09:41 | XMS REPORT ---
Author Author FIDELINA TIPTON Organization [facility] Address [address] [place] [address] Care Team Providers Care Bar Hostess Name Role Phone DANUTA FIDELINA Unavailable PROBLEMS Type Condition ICD9-CM Code UWH45-BL Code Onset Dates Condition Status SNOMED Code Problem Anxiety F41.9 Active 29563207 Problem Sciatica M54.30 Active 10501331 Problem Obesity E66.9 Active 044769152 Problem Insomnia G47.00 Active 425683799 Problem GERD (gastroesophageal reflux disease) K21.9 Active 938457872 Problem Sciatica, right side M54.31 Active 01927447 Problem Sciatica of left side M54.32 Active 62125865 Problem Anemia D64.9 Active 704727328 Problem Skin tags, multiple acquired L91.8 Active 137055492 Problem Major depressive disorder with single episode, remission status unspecified F32.9 Active 38797875 Problem Major depressive disorder, recurrent episode, moderate F33.1 Active 250515075 ALLERGIES Unknown Allergies SOCIAL HISTORY No smoking Hx information available PLAN OF CARE VITAL SIGNS MEDICATIONS Medication Instructions Dosage Frequency Start Date End Date Duration Status Hydrocodone-Acetaminophen 7.5-325 MG Orally 2 times a day 1 tablet as needed 12h 10 Nov, 2016 Dec, 28 days Active Ambien 10 mg Orally Once a day 1 tablet at bedtime as needed 24h Jan, 30 days Active Xanax 1 MG Orally Twice a day prn 1 tablet 28 days Active RESULTS No Results PROCEDURES No Known procedures IMMUNIZATIONS No Known Immunizations
--- OUTSIDE RECORDS SUMMARY | 2018-11-24 09:41 | XMS REPORT ---
Author Author CHEMA SILVERIO Organization [facility] Address [address] [place] [address] Care Team Providers Care Research Quality Assurance Analyst Name Role Phone CHEMA SILVERIO Unavailable PROBLEMS Type Condition ICD9-CM Code XJP18-GP Code Onset Dates Condition Status SNOMED Code Problem Anxiety F41.9 Active 28979413 Problem Sciatica M54.30 Active 67429753 Problem Obesity E66.9 Active 143878548 Problem Insomnia G47.00 Active 818088446 Problem GERD (gastroesophageal reflux disease) K21.9 Active 323309574 Problem Sciatica, right side M54.31 Active 85880542 Problem Sciatica of left side M54.32 Active 06370814 Problem Anemia D64.9 Active 887849979 Problem Skin tags, multiple acquired L91.8 Active 621590388 Problem Major depressive disorder with single episode, remission status unspecified F32.9 Active 41866411 Problem Major depressive disorder, recurrent episode, moderate F33.1 Active 694531952 ALLERGIES Substance Reaction Event Type Date Status N.K.D.A. Unknown Non Drug Allergy Nov, Unknown SOCIAL HISTORY No smoking Hx information available PLAN OF CARE Activity Details Follow Up prn Reason: VITAL SIGNS Height 63 in 2016-11-26 Weight 236.4 lbs 2016-11-26 Temperature 97.6 degrees Fahrenheit 2016-11-26 Heart Rate 80 bpm 2016-11-26 Respiratory Rate 18 2016-11-26 BMI 41.87 kg/m2 2016-11-26 Blood pressure systolic 128 mmHg 2016-11-26 Blood pressure diastolic 78 mmHg 2016-11-26 MEDICATIONS Medication Instructions Dosage Frequency Start Date End Date Duration Status Alprazolam 1 MG orally twice daily TAKE ONE TABLET BY MOUTH TWICE DAILY NEEDED Active Augmentin 875-125 MG Orally every 12 hrs 1 tablet 12h 23 Nov, 2016 Dec, 10 day(s) Active Aciphex 20 MG Orally 2 times a day 1 tablet 12h 13 Aug, 2015 Active Lexapro 10 mg Orally Once a day 1 24h 30 Active Ambien 10 mg Orally Once a day 1 tablet at bedtime as needed 24h 29 Jan, 2016 30 days Active Xanax 1 MG Orally Twice a day prn 1 tablet 28 days Active Hydrocodone-Acetaminophen 7.5-325 MG Orally 2 times a day 1 tablet as needed 12h 10 Nov, 2016 Dec, 28 days Active Rabeprazole Sodium 20 MG TAKE ONE TABLET BY MOUTH TWICE DAILY 30 Active RESULTS Name Result Date Reference Range STREP A (IN HOUSE) 2016-11-26 STREP A negative Control + Lot # [id number] Exp date jun 21 PROCEDURES Procedure Date Ordered Related Diagnosis Body Site Office Visit, Est Pt., Level 3 Nov 26, 2016 STREP A ASSAY W/OPTIC Nov 26, 2016 IMMUNIZATIONS No Known Immunizations
[2018-11-24] MEDS: LACTATED RINGERS 1,000 ML IV PRN ×2 (09:42→12:10)
--- OUTSIDE RECORDS SUMMARY | 2018-11-24 09:42 | XMS REPORT ---
Author Author FIDELINA TIPTON Organization [facility] Address [address] [place] [address] Care Team Providers Care Strain Technician Name Role Phone FIDELINA TIPTON Unavailable PROBLEMS Type Condition ICD9-CM Code [id number]-UW Code Onset Dates Condition Status SNOMED Code Problem GERD (gastroesophageal reflux disease) K21.9 Active 894855134 Problem Anxiety F41.9 Active 79193336 Problem Insomnia G47.00 Active 632785018 Problem Major depressive disorder with single episode, remission status unspecified F32.9 Active 61335248 Problem Major depressive disorder, recurrent episode, moderate F33.1 Active 721494302 Problem Sciatica M54.30 Active 85021161 Problem Obesity E66.9 Active 757793563 Problem Anemia D64.9 Active 211995374 Problem Skin tags, multiple acquired L91.8 Active 959966942 ALLERGIES Unknown Allergies SOCIAL HISTORY No smoking Hx information available PLAN OF CARE VITAL SIGNS MEDICATIONS Medication Instructions Dosage Frequency Start Date End Date Duration Status Xanax 1 MG Orally Twice a day prn 1 tablet Active Ambien 10 mg Orally Once a day 1 tablet at bedtime as needed 24h 29 Jan, 2016 Active Hydrocodone-Acetaminophen 7.5-325 MG Orally 2 times a day 1 tablet as needed 12h 12 Oct, 2016 Active RESULTS No Results PROCEDURES No Known procedures IMMUNIZATIONS No Known Immunizations
--- OUTSIDE RECORDS SUMMARY | 2018-11-24 09:42 | XMS REPORT ---
Author Author BRAXTON ABDI [facility] Address [address] [place] [address] Care Team Providers Care Shop And Alteration Tailor Name Role Phone DAVIDRIPKAIA BRAXTON Unavailable PROBLEMS Type Condition ICD9-CM Code [id number] Code Onset Dates Condition Status SNOMED Code Problem Major depressive disorder with single episode, remission status unspecified F32.9 Active 74159439 Problem Sciatica of left side M54.32 Active 67890140 Problem Sciatica, right side M54.31 Active 65362284 Problem Morbid obesity E66.01 Active 678961824 Problem Mood disorder F39 Active 91914413 Problem Other chronic pain G89.29 Active 11629016 Problem Muscle spasm M62.838 Active 85021306 Problem Fibromyalgia M79.7 Active 283127174 Problem Chronic pain disorder G89.4 Active 326598174 Problem Insomnia G47.00 Active 873965046 Problem GERD (gastroesophageal reflux disease) K21.9 Active 780402961 Problem Obesity E66.9 Active 648212797 Problem Skin tags, multiple acquired L91.8 Active 225590725 Problem Anxiety F41.9 Active 19516171 Problem Anemia D64.9 Active 675035712 Problem Sciatica M54.30 Active 62632730 Problem Major depressive disorder, recurrent episode, moderate F33.1 Active 017912051 ALLERGIES No Information ENCOUNTERS Encounter Location Date Diagnosis [facility] [id number] [id number] March, Chronic pain disorder G89.4 and Obesity E66.9 [facility] [id number] [place] [address]50[address] March, [facility] [id number] [id number] Feb, Chronic pain disorder G89.4 [facility] [id number] [place] [id number] Feb, Chronic pain disorder G89.4 and Obesity E66.9 [facility] [id number] [id number] Jan, Insomnia G47.00 [facility] [id number] [place] [address] [id number] Jan, Obesity E66.9 and Chronic pain disorder G89.4 [address] [place] [address] [id number] Jan, Chronic pain disorder G89.4 [place] [id number] [place] [address] 30945- 7756 Jan, [place] [id number] [place] [address] 06233- 9296 Dec, [address] [place] [address] [id number] Dec, Chronic pain disorder G89.4 [address] [place] [address] [id number] Dec, Calcaneal spur of left foot M77.32 and BMI 40.0-44.9, adult Z68.41 [place] [id number] [place] [address] 242492- 0994 Nov, Chronic pain disorder G89.4 ; Sciatica, right side M54.31 ; Pain of left heel M79.672 ; Morbid obesity E66.01 ; Mood disorder F39 ; Obesity E66.9 ; Anxiety F41.9 ; Insomnia G47.00 and Muscle spasm M62.838 [facility] [address] [id number] [id number] Nov, Chronic pain disorder G89.4 ; Sciatica, right side M54.31 ; Morbid obesity E66.01 ; Mood disorder F39 ; Obesity E66.9 ; Pain of left heel M79.672 ; Anxiety F41.9 ; Insomnia G47.00 ; Muscle spasm M62.838 and BMI 40.0-44.9, adult Z68.41 [place] [address] 75134- 6718 Oct, Chronic pain disorder G89.4 [place] [address] 47913- 6027 Sep, Anxiety F41.9 ; Fibromyalgia M79.7 ; Chronic pain disorder G89.4 ; Mood disorder F39 ; GERD (gastroesophageal reflux disease) K21.9 and Muscle spasm M62.838 [place] [address] 21671- 6560 Sep, Plantar fasciitis M72.2 ; Morbid obesity E66.01 and BMI 40.0 -44.9, adult Z68.41 [place] [address] 96701- 3443 Aug, [place] [address] 94270- 1026 Aug, Anxiety F41.9 ; Muscle spasm M62.838 ; Major depressive disorder, recurrent episode, moderate F33.1 ; Obesity E66.9 ; Insomnia G47.00 ; Fibromyalgia M79.7 ; Chronic pain disorder G89.4 and Other chronic pain G89.29 [place] [address] 23654- 2340 Jul, Muscle spasm M62.838 ; Anxiety F41.9 ; Sciatica M54.30 ; Insomnia G47.00 ; Major depressive disorder, recurrent episode, moderate F33.1 ; Other chronic pain G89.29 and GERD (gastroesophageal reflux disease) K21.9 [facility] [id number] [place] [address] 75351 -6362 Jun, Acute non-recurrent maxillary sinusitis J01.00 [facility] [address] [place] [address]017 -3095 Jun, Acute nasopharyngitis (common cold) J00 [place] [address] 27298- 9598 May, Anxiety F41.9 [facility] [id number] [place] [address] 51011- 9355 Apr, Insomnia G47.00 [place] [address] 13601- 3407 March, Anxiety F41.9 and Insomnia G47.00 [place] [address] 66920- 1495 Feb, Obesity E66.9 and Screening cholesterol level Z13.220 [place] [address] 82457- 0980 Feb, Insomnia G47.00 [place] [address] 54171- 4227 Dec, Sciatica M54.30 ; Obesity E66.9 ; Anxiety F41.9 ; Insomnia G47.00 ; GERD (gastroesophageal reflux disease) K21.9 ; Major depressive disorder, recurrent episode, moderate F33.1 ; Pain management R52 and Screening cholesterol level Z13.220 [place] [id number] [place] [address] 46840- 5959 Dec, [facility] [id number] [place] [address] 56994 -3406 Nov, Acute non-recurrent frontal sinusitis J01.10 and Sore throat J02.9 [place] [id number] [place] [address] 89051- 8067 Nov, [facility] [address] 94556- 6344 Nov, Sciatica, right side M54.31 and Sciatica of left side M54.32 [place] [id number] [place] [address] 07099- 3266 Oct, [facility] [id number] [place] [address] 99153- 2954 Sep, [facility] [address] [place] [address] 14 Aug, 2016 [facility] [address] [address] 11 Aug, 2016 [facility] [address] [address] 16 Jul, 2016 [facility] [address] [place] [address] 18802- 4184 Jul, [facility] [address] [place] [address] 62264- 3900 Jun, Sciatica M54.30 ; Insomnia G47.00 ; Obesity E66.9 ; Anxiety F41.9 and Major depressive disorder with single episode, remission status unspecified F32.9 [facility] [address] [address] Jun, Major depressive disorder with single episode, remission status unspecified F32.9 [facility] [address] [address] Jun, [facility] [address] [place] [address] 69768- 0310 Jun, [facility] [address] [address] 65[address] Jun, Major depressive disorder with single episode, remission status unspecified F32.9 [facility] [address] [place] [address] 92[address] Jun, Major depressive disorder, recurrent episode, moderate F33.1 [facility] [address] [address] May, [facility] [address], [place] [address] 3941 Apr, [facility] [address] [address] March, Obesity E66.9 ; Anxiety F41.9 ; Insomnia G47.00 ; GERD ( gastroesophageal reflux disease) K21.9 and Other chronic pain G89.29 [place] [address] 80272- 6435 March, Sciatica M54.30 [place] [address] 70719- 7120 March, Insomnia G47.00 and Anxiety F41.9 [place] [address] 16583- 4359 Feb, Sciatica M54.30 [place] [address] 75546- 8412 Feb, Dental examination Z01.20 [place] [address] 23823- 1376 Jan, Obesity E66.9 ; Sciatica M54.30 ; Anxiety F41.9 ; Insomnia G47.00 ; GERD (gastroesophageal reflux disease) K21.9 and Anemia D64.9 [place] [address] 40300- 7528 Dec, [place] [address] 01451- 8904 Dec, Skin tags, multiple acquired L91.8 [place] [address] 17443- 2776 Dec, [place] [address] 79810- 8220 Nov, Obesity E66.9 [place] [address] 85705- 4815 Nov, Sciatica M54.30 ; Obesity E66.9 ; Anxiety F41.9 ; Insomnia G47.00 and GERD (gastroesophageal reflux disease) K21.9 [place] [address] 23214- 0959 13 Oct, 2015 Sciatica M54.30 ; Obesity E66.9 ; Anxiety F41.9 ; Insomnia G47.00 and GERD (gastroesophageal reflux disease) K21.9 [facility] [id number] [place] [address] 19312- 8891 14 Feb, 2015 [facility] [id number] [place] [address] 92198- 8148 Feb, [facility] [address] 68328- 0046 Feb, [facility] [id number] [place] [address] 454880- 5855 Feb, [facility] [id number] [place] [address] 985177- 8278 Feb, [facility] [id number] [place] [address] 29698- 9046 Jan, [place] [id number] [place] [address] [id number] Nov, [place] [id number] [place] [address] [id number] Nov, [place] [address] 20293- 0055 Oct, [facility] [id number] [place] [address] 13431- 5763 Feb, [place] [id number] [place] [address] 04114- 0774 Aug, [facility] [id number] [place] [address] 54781- 5256 Jul, IMMUNIZATIONS No Known Immunizations SOCIAL HISTORY Never Assessed REASON FOR VISIT Refill request PLAN OF CARE VITAL SIGNS MEDICATIONS Medication Instructions Dosage Frequency Start Date End Date Duration Status Hydrocodone-Acetaminophen 7.5-325 MG Orally every 8 hours [...]
--- OUTSIDE RECORDS SUMMARY | 2018-11-24 09:42 | XMS REPORT ---
Author Author BRAXTON ABDI [facility] Address [address] [place] [address] Care Team Providers Care Strategic Partnership Representative Name Role Phone JIN BRAXTON Unavailable PROBLEMS Type Condition ICD9-CM Code [id number] Code Onset Dates Condition Status SNOMED Code Problem Major depressive disorder with single episode, remission status unspecified F32.9 Active 07909989 Problem Sciatica of left side M54.32 Active 70817317 Problem Sciatica, right side M54.31 Active 87071757 Problem Morbid obesity E66.01 Active 539556388 Problem Mood disorder F39 Active 57706162 Problem Other chronic pain G89.29 Active 40406501 Problem Muscle spasm M62.838 Active 26583540 Problem Fibromyalgia M79.7 Active 980215111 Problem Chronic pain disorder G89.4 Active 495005393 Problem Insomnia G47.00 Active 423666749 Problem GERD (gastroesophageal reflux disease) K21.9 Active 494160345 Problem Obesity E66.9 Active 345606423 Problem Skin tags, multiple acquired L91.8 Active 421719006 Problem Anxiety F41.9 Active 57304722 Problem Anemia D64.9 Active 778159713 Problem Sciatica M54.30 Active 79157021 Problem Major depressive disorder, recurrent episode, moderate F33.1 Active 683924252 ALLERGIES No Information ENCOUNTERS Encounter Location Date Diagnosis [facility] [address] [facility] [id number] [id number] Apr, [facility] [address] [id number] [id number] Apr, Chronic pain disorder G89.4 and Obesity E66.9 [facility] [address] [facility] [id number] [id number] March, Chronic pain disorder G89.4 and Obesity E66.9 [facility] [address] [place] [address] 40405- 2546 March, [facility] [id number] [place] [address] [id number] Feb, Chronic pain disorder G89.4 [facility] [id number] [place] [address] [id number] Feb, Chronic pain disorder G89.4 and Obesity E66.9 [id number] [place] [address] [id number] Jan, Insomnia G47.00 [facility] [id number] [place] [address] [id number] Jan, Obesity E66.9 and Chronic pain disorder G89.4 [address] [address] [id number] [place] [address] [id number] Jan, Chronic pain disorder G89.4 [place] [id number] [place] [address] 40013 2546 Jan, [place] [address] 0[address]32- 6456 Dec, [address] [id number] [place] [address] [id number] Dec, Chronic pain disorder G89.4 [address] [id number] [place] [address] [id number] Dec, Calcaneal spur of left foot M77.32 and BMI 40.0-44.9, adult Z68.41 [place] [id number] [place] [address] 15476- 1616 Nov, Chronic pain disorder G89.4 ; Sciatica, right side M54.31 ; Pain of left heel M79.672 ; Morbid obesity E66.01 ; Mood disorder F39 ; Obesity E66.9 ; Anxiety F41.9 ; Insomnia G47.00 and Muscle spasm M62.838 [facility] [address] [place] [address] [id number] Nov, Chronic pain disorder G89.4 ; Sciatica, right side M54.31 ; Morbid obesity E66.01 ; Mood disorder F39 ; Obesity E66.9 ; Pain of left heel M79.672 ; Anxiety F41.9 ; Insomnia G47.00 ; Muscle spasm M62.838 and BMI 40.0-44.9, adult Z68.41 [place] [id number] [place] [address] 64923- 0218 Oct, Chronic pain disorder G89.[address] 9[address]64- 9905 Sep, Anxiety F41.9 ; Fibromyalgia M79.7 ; Chronic pain disorder G89.4 ; Mood disorder F39 ; GERD (gastroesophageal reflux disease) K21.9 and Muscle spasm M62.[address] 11308- 6063 Sep, Plantar fasciitis M72.2 ; Morbid obesity E66.01 and BMI 40.0 -44.9, adult Z68.[address] 84068- 0296 Aug, [address] 26347- 6180 Aug, Anxiety F41.9 ; Muscle spasm M62.838 ; Major depressive disorder, recurrent episode, moderate F33.1 ; Obesity E66.9 ; Insomnia G47.00 ; Fibromyalgia M79.7 ; Chronic pain disorder G89.4 and Other chronic pain G89.[address] 73760- 1508 Jul, Muscle spasm M62.838 ; Anxiety F41.9 ; Sciatica M54.30 ; Insomnia G47.00 ; Major depressive disorder, recurrent episode, moderate F33.1 ; Other chronic pain G89.29 and GERD (gastroesophageal reflux disease) K21.9 [facility] [address] [id number] [place] [address] 81603 -8504 Jun, Acute non-recurrent maxillary sinusitis J01.00 [facility] [address] [place] [address] Jun, Acute nasopharyngitis (common cold) J00 [facility] [address] 75062- 7326 May, Anxiety F41.9 [facility] [address] 87540- 2270 Apr, Insomnia G47.00 [place] [address] 96824- 6661 March, Anxiety F41.9 and Insomnia G47.[address] 90406- 2254 Feb, Obesity E66.9 and Screening cholesterol level Z13.220 [place] [address] 84862- 4829 Feb, Insomnia G47.00 [place] [address] 58796- 5127 Dec, Sciatica M54.30 ; Obesity E66.9 ; Anxiety F41.9 ; Insomnia G47.00 ; GERD (gastroesophageal reflux disease) K21.9 ; Major depressive disorder, recurrent episode, moderate F33.1 ; Pain management R52 and Screening cholesterol level Z13.220 [place] [id number] [place] [address] 12458- 9959 Dec, [facility] [id number] [place] [address] 33454 -0395 Nov, Acute non-recurrent frontal sinusitis J01.10 and Sore throat J02.[address] 26478- 1797 Nov, [facility] [id number] [place] [address] 38332- 7198 Nov, Sciatica, right side M54.31 and Sciatica of left side M54.32 [address] [address]- 4[address] Oct, [facility] [address] [address]- 2265 Sep, [facility] [address] [address]- 0449 14 Aug, 2016 [facility] [id number] [place] [address] 45027- 5420 Aug, [facility] [address] [id number] [address]- 5176 16 Jul, 2016 [facility] [id number] [place] [address] 95727- 8135 Jul, [facility] [address] [address]- 3633 Jun, Sciatica M54.30 ; Insomnia G47.00 ; Obesity E66.9 ; Anxiety F41.9 and Major depressive disorder with single episode, remission status unspecified F32.9 [facility] [address] [address]- 9560 Jun, Major depressive disorder with single episode, remission status unspecified F32.9 [facility] [address] [address]- 3237 Jun, [facility] [address] [address]- 2464 Jun, [facility] [address] [address]- 8994 Jun, Major depressive disorder with single episode, remission status unspecified F32.9 [facility] [address] [address]- 2168 Jun, Major depressive disorder, recurrent episode, moderate F33.1 [facility] [address] [address]- 2419 May, [facility] [address] 41498- 7851 Apr, [place] [address] 76826- 3226 March, Obesity E66.9 ; Anxiety F41.9 ; Insomnia G47.00 ; GERD ( gastroesophageal reflux disease) K21.9 and Other chronic pain G89.29 [place] [address] 95552- 7767 March, Sciatica M54.30 [place] [address] 50679- 8435 March, Insomnia G47.00 and Anxiety F41.9 [place] [address] 72308- 6027 Feb, Sciatica M54.30 [place] [address] 64372- 4509 Feb, Dental examination Z01.20 [place] [address] 99181- 5645 Jan, Obesity E66.9 ; Sciatica M54.30 ; Anxiety F41.9 ; Insomnia G47.00 ; GERD (gastroesophageal reflux disease) K21.9 and Anemia D64.9 [place] [address] 86170- 2711 Dec, [place] [address] 35957- 5976 Dec, Skin tags, multiple acquired L91.8 [place] [address] 06239- 5157 Dec, [place] [address] 19378- 1652 Nov, Obesity E66.9 [place] [address] 34112- 4990 Nov, Sciatica M54.30 ; Obesity E66.9 ; Anxiety F41.9 ; Insomnia G47.00 and GERD (gastroesophageal reflux disease) K21.9 [facility] [id number] [place] [address] 21416- 8562 Aug, Sciatica M54.30 ; Obesity E66.9 ; Anxiety F41.9 ; Insomnia G47.00 and GERD (gastroesophageal reflux disease) K21.9 [facility] [id number] [place] [address] 98780- 9806 Feb, [facility] [id number] [place] [address] 69011- 4754 Feb, [facility] [id number] [place] [address] 42762- 7762 Feb, [facility] [id number] [place] [address] 42243- 7552 Feb, [facility] [id number] [place] [address] 12183- 4394 Feb, [facility] [id number] [place] [address] 99278- 1363 Jan, [place] [id number] [place] [address] [id number] Nov, [place] [id number] [place] [address] [id number] Nov, [facility] [id number] [place] [address] 38552- 5704 Oct, [facility] [id number] [place] [address] 65086- 1356 Feb, [facility] [id number] [place] [address] 75497- 6771 Aug, [facility] [id number] [place] [address] 10242- 1472 Jul, IMMUNIZATIONS No Known Immunizations SOCIAL HISTORY Never Assessed REASON FOR VISIT PLAN OF CARE VITAL SIGNS MEDICATIONS Medication Instructions Dosage Frequency Start Date End Date Duration Status Hydrocodone-Acetaminophen 7.5-325 MG Orally 3 times a day 1 tablet as needed 8h Oct, 28 days Active RESULTS No Results PROCEDURES [...]
--- OUTSIDE RECORDS SUMMARY | 2018-11-24 09:42 | XMS REPORT ---
Author FIDELINA Townsend [facility] [employer] Address Unknown Phone Unavailable Care Team Providers Care Senior Architectural Designer Name Role Phone FIDELINA TIPTON CP Unavailable [...] Instructions Start Date End Date Status Dosage Aciphex [facility] [address]-38 20 MG Orally 2 times a day Aug 16, 2015 1 tablet Hydrocodone-Acetaminophen [facility] [address]-68 10-325 MG Orally 2 times a day Sep 15, 2015 1/2 tablet as needed Xanax [facility] [address]-32 1 MG Orally Twice a day prn 1 tablet Zolpidem Tartrate [facility] [address]-79 5 MG Orally Once a day 1 tablet at bedtime Procedures Procedure Coding System Code Date Office Visit, Est Pt., Level 4 CPT-4 06212 Aug 16, 2015 No Charge CPT-4 76312 Aug 16, 2015 Vital Signs Date/Time: Aug 16, 2015 Temperature 98.2 F Weight 269.9 lbs Height 63 in BMI 47.81 Index Blood Pressure Diastolic 60 mmHg Blood Pressure Systolic 120 mmHg Cardiac Monitoring Heart Rate 78 bpm Results No Known Results Summary Purpose [employer]ClinicalWorks Submission
--- OUTSIDE RECORDS SUMMARY | 2018-11-24 09:42 | XMS REPORT ---
Author Author FIDELINA TIPTON Organization [employer] Address Unknown Phone Unavailable Care Team Providers Care Child And Adolescent Psychiatrist Name Role Phone FIDELINA TIPTON CP Unavailable Allergies No Known Allergies Problems Problem Type Condition Code Onset Dates Condition Status Problem Obesity E66.9 Active Problem Anxiety F41.9 Active Problem Sciatica M54.30 Active Assessment Obesity E66.9 Active Problem Insomnia G47.00 Active Problem GERD (gastroesophageal reflux disease) K21.9 Active Medications No Known Medications Procedures Procedure Coding System Code Date ASSAY OF INSULIN CPT-4 69817 Nov 30, 2015 COMPLETE CBC W/AUTO DIFF WBC CPT-4 23368 Nov 30, 2015 ASSAY THYROID STIM HORMONE CPT-4 19237 Nov 30, 2015 COMPREHEN METABOLIC PANEL CPT-4 23140 Nov 30, 2015 LIPID PANEL CPT-4 65414 Nov 30, 2015 VENIPUNCT, ROUTINE* CPT-4 60762 Nov 30, 2015 Results Name Result Date Reference Range Unit Abnormality Flag ROUTINE VENIPUNCTURE Summary Purpose [employer]ClinicalWorks Submission
--- OUTSIDE RECORDS SUMMARY | 2018-11-24 09:42 | XMS REPORT ---
Author FIDELINA Townsend [facility] [place] [employer] Address Unknown Phone Unavailable Care Team Providers Care Wrister Name Role Phone FIDELINA TIPTON CP Unavailable Allergies No Known Allergies Problems Problem Type Condition Code Onset Dates Condition Status Problem Skin tags, multiple acquired L91.8 Active Problem Sciatica M54.30 Active Problem Anemia D64.9 Active Problem Insomnia G47.00 Active Problem GERD (gastroesophageal reflux disease) K21.9 Active Problem Obesity E66.9 Active Problem Anxiety F41.9 Active Medications Medication Code System Code Instructions Start Date End Date Status Dosage Hydrocodone-Acetaminophen [facility] 2001 [address]-69 7.5-325 MG Orally 2 times a day 1 tablet as needed Results No Known Results Summary Purpose [employer]ClinicalWorks Submission
--- OUTSIDE RECORDS SUMMARY | 2018-11-24 09:43 | XMS REPORT ---
Author Author BRAXTON ABDI [facility] Address [address] [place] [address] Care Team Providers Care Cage Maker Machine Name Role Phone BRAXTON ABDI Unavailable PROBLEMS Type Condition ICD9-CM Code MBS70-DP Code Onset Dates Condition Status SNOMED Code Problem Major depressive disorder with single episode, remission status unspecified F32.9 Active 31783444 Problem Sciatica of left side M54.32 Active 28809182 Problem Sciatica, right side M54.31 Active 85486614 Problem Morbid obesity E66.01 Active 614925819 Problem Mood disorder F39 Active 49088229 Problem Other chronic pain G89.29 Active 73031965 Problem Muscle spasm M62.838 Active 89317971 Problem Fibromyalgia M79.7 Active 285361345 Problem Chronic pain disorder G89.4 Active 591555839 Problem Insomnia G47.00 Active 679079237 Problem GERD (gastroesophageal reflux disease) K21.9 Active 972620207 Problem Obesity E66.9 Active 228916927 Problem Skin tags, multiple acquired L91.8 Active 568591949 Problem Anxiety F41.9 Active 49517603 Problem Anemia D64.9 Active 807491753 Problem Sciatica M54.30 Active 59393918 Problem Major depressive disorder, recurrent episode, moderate F33.1 Active 846647242 ALLERGIES No Known Allergies ENCOUNTERS Encounter Location Date Diagnosis [facility] [id number] [place] [id number] Feb, Chronic pain disorder G89.4 and Obesity E66.9 [facility] [id number] [place] [phone] Jan, Insomnia G47.00 [facility] [address] [id number] [id number] Jan, Obesity E66.9 and Chronic pain disorder G89.4 [facility] [id number] [place] [id number] Jan, Chronic pain disorder G89.4 [id number] [place] [address]26- 7132 Jan, [id number] [place] [address] 72891- 8363 Dec, [facility] [address] [place] [id number] Dec, Chronic pain disorder G89.4 [facility] [address] [place] [id number] Dec, Calcaneal spur of left foot M77.32 and BMI 40.0-44.9, adult Z68.41 [address] [place] [address] 093762- 3446 Nov, Chronic pain disorder G89.4 ; Sciatica, right side M54.31 ; Pain of left heel M79.672 ; Morbid obesity E66.01 ; Mood disorder F39 ; Obesity E66.9 ; Anxiety F41.9 ; Insomnia G47.00 and Muscle spasm M62.838 [facility] [address] [place] [address] [id number] Nov, Chronic pain disorder G89.4 ; Sciatica, right side M54.31 ; Morbid obesity E66.01 ; Mood disorder F39 ; Obesity E66.9 ; Pain of left heel M79.672 ; Anxiety F41.9 ; Insomnia G47.00 ; Muscle spasm M62.838 and BMI 40.0-44.9, adult Z68.41 [address] [place] [address]32- 3053 Oct, Chronic pain disorder G89.4 [place] [id number] [place] [address] 68215- 0463 Sep, Anxiety F41.9 ; Fibromyalgia M79.7 ; Chronic pain disorder G89.4 ; Mood disorder F39 ; GERD (gastroesophageal reflux disease) K21.9 and Muscle spasm M62.838 [address] [address] Sep, Plantar fasciitis M72.2 ; Morbid obesity E66.01 and BMI 40.0 -44.9, adult Z68.41 [address] [address] Aug, [address] [address] Aug, Anxiety F41.9 ; Muscle spasm M62.838 ; Major depressive disorder, recurrent episode, moderate F33.1 ; Obesity E66.9 ; Insomnia G47.00 ; Fibromyalgia M79.7 ; Chronic pain disorder G89.4 and Other chronic pain G89.29 [address] [place] [address] Jul, Muscle spasm M62.838 ; Anxiety F41.9 ; Sciatica M54.30 ; Insomnia G47.00 ; Major depressive disorder, recurrent episode, moderate F33.1 ; Other chronic pain G89.29 and GERD (gastroesophageal reflux disease) K21.9 [facility] [address] [address] Jun, Acute non-recurrent maxillary sinusitis J01.00 [facility] [address] [address] Jun, Acute nasopharyngitis (common cold) J00 [address] [address] May, Anxiety F41.9 [address] [address]- [address] Apr, Insomnia G47.00 [place] [address] [address]- [address] March, Anxiety F41.9 and Insomnia G47.00 [address] [place] [address]- [address] Feb, Obesity E66.9 and Screening cholesterol level Z13.220 [facility] [address] [address] Feb, Insomnia G47.00 [facility] [address] [address] 24 Dec, 2016 Sciatica M54.30 ; Obesity E66.9 ; Anxiety F41.9 ; Insomnia G47.00 ; GERD (gastroesophageal reflux disease) K21.9 ; Major depressive disorder, recurrent episode, moderate F33.1 ; Pain management R52 and Screening cholesterol level Z13.220 [address] [address] [address] Dec, [facility] [id number] [place] [address] Nov, Acute non-recurrent frontal sinusitis J01.10 and Sore throat J02.9 [facility] [address] [address]- [address] Nov, [facility] [address] 20[address]- 4733 Nov, Sciatica, right side M54.31 and Sciatica of left side M54.32 [facility] [id number] [place] [address] 60595- 6922 Oct, [facility] [address] 8[address]- [address]10 Sep, [facility] [id number] [place] [address] 42178- 4834 14 Aug, 2016 [facility] [address] [address]- [address] 11 Aug, 2016 [facility] [address] [address]17- [address]10 16 Jul, 2016 [facility] [address] 23951- [address] Jul, [facility] [address] [place] [address] 67803- 3651 Jun, Sciatica M54.30 ; Insomnia G47.00 ; Obesity E66.9 ; Anxiety F41.9 and Major depressive disorder with single episode, remission status unspecified F32.9 [facility] [id number] [place] [address] 63771- 1519 Jun, Major depressive disorder with single episode, remission status unspecified F32.9 [facility] [id number] [place] [address] 64323- 9050 Jun, [address] [id number] [place] [address] 57712- 1213 Jun, [facility] [id number] [place] [address] 12942- 6301 Jun, Major depressive disorder with single episode, remission status unspecified F32.9 [place] [id number] [place] [address] 51956- 0502 Jun, Major depressive disorder, recurrent episode, moderate F33.1 [place] [id number] [place] [address] 89838- 7486 May, [facility] [id number] [place] [address] 12464- 7102 Apr, [place] [id number] [place] [address] 86402- 5299 March, Obesity E66.9 ; Anxiety F41.9 ; Insomnia G47.00 ; GERD ( gastroesophageal reflux disease) K21.9 and Other chronic pain G89.29 [facility] [id number] [place] [address] 21277- 9076 March, Sciatica M54.30 [facility] [id number] [place] [address] 05082- 6880 March, Insomnia G47.00 and Anxiety F41.9 [id number] [place] [address] 19344- 2866 Feb, Sciatica M54.30 [address] [address] 15267- 7579 Feb, Dental examination Z01.20 [address] [address] 01620- 9864 Jan, Obesity E66.9 ; Sciatica M54.30 ; Anxiety F41.9 ; Insomnia G47.00 ; GERD (gastroesophageal reflux disease) K21.9 and Anemia D64.9 [address] [address] [address]- [address] Dec, [address] 74074- 9578 Dec, Skin tags, multiple acquired L91.8 [place] [address] 40802- 6708 Dec, [place] [address] 84813- 6583 Nov, Obesity E66.9 [address] [address] 55962- 5643 Nov, Sciatica M54.30 ; Obesity E66.9 ; Anxiety F41.9 ; Insomnia G47.00 and GERD (gastroesophageal reflux disease) K21.9 [id number] [place] [address] 64320- 7730 Aug, Sciatica M54.30 ; Obesity E66.9 ; Anxiety F41.9 ; Insomnia G47.00 and GERD (gastroesophageal reflux disease) K21.9 [id number] [place] [address] 50134- 5404 Feb, [id number] [place] [address] 14961- 0780 Feb, [address] [id number] [address] Feb, [facility] [address] [address]46 Feb, [facility] [address] [place] [address] 16416- 2546 Feb, [facility] [id number] [place] [address] 15960- 2546 Jan, [facility] [address] [place] [address] [phone] Nov, [id number] [place] [address] [phone] Nov, [facility] [id number] [place] [address] 25679 2546 Oct, [place] [id number] [place] [address] 85648 2546 Feb, [facility] [id number] [place] [address] 02941 2546 Aug, [facility] [address] [place] [address] 73583- 6878 Jul, IMMUNIZATIONS No Known Immunizations SOCIAL HISTORY Never Assessed REASON FOR VISIT Pain management--tcuppettRN, -Patients grandmother past away 2 months ago and having difficulty with anxiety and depression, -Needing medication refills PLAN OF CARE Activity Details Follow Up 4 Weeks Reason: VITAL SIGNS Height 63 in 2017-07-16 Weight 239.9 lbs 2017-07-16 Temperature 97.8 degrees Fahrenheit 2017-07-16 Heart Rate 76 bpm 2017-07-16 Respiratory Rate 18 2017-07-16 BMI 42.49 kg/m2 2017-07-16 Blood pressure systolic 116 mmHg 2017-07-16 Blood pressure diastolic 70 mmHg 2017-07-16 MEDICATIONS Medication Instructions Dosage Frequency Start Date End Date Duration Status Albuterol Sulfate (2.5 MG/3ML) 0.083% Inhalation Three times a day 3 ml 8h Active Xanax 1 MG Orally Twice a day prn 1 tablet 28 days Active Cyclobenzaprine HCl 10 mg Orally Three times a day 1 tablet as needed 8h Jul, Sep, 60 days Active Alprazolam 1 MG Orally Twice a day 1 tablet 12h Jul, 30 days Active Ambien 10 mg Orally Once a day 1 tablet at bedtime as needed 24h Jul, 30 days Active Hydrocodone-Acetaminophen 7.5-325 MG Orally 3 times a day 1 tablet as needed 8h May, 28 Active Cymbalta 20 mg Orally Twice a day 1 cap daily x1 week, then 2 caps daily 12h Jul, 30 day(s) Active Ambien 10 mg Orally Once a day 1 tablet at bedtime as needed 24h Jan, 28 days Active Hydrocodone-Acetaminophen 7.5-325 MG Orally 3 times a day 1 tablet as needed 8h Jul, Aug, 30 days Active Omeprazole 40 mg Orally Once a day 1 capsule 24h Jul, 90 days Active RESULTS No Results PROCEDURES [...]
--- OUTSIDE RECORDS SUMMARY | 2018-11-24 09:43 | XMS REPORT ---
Author Author BRAXTON ABDI [facility] Address [address] [place] [address] Care Team Providers Care Zoology Technical Officer Name Role Phone DAVIDRIPKAIA BRAXTON Unavailable PROBLEMS Type Condition ICD9-CM Code COZ17-IE Code Onset Dates Condition Status SNOMED Code Problem Major depressive disorder with single episode, remission status unspecified F32.9 Active 02052095 Problem Sciatica of left side M54.32 Active 37352244 Problem Sciatica, right side M54.31 Active 22462378 Problem Morbid obesity E66.01 Active 469391086 Problem Mood disorder F39 Active 56739938 Problem Other chronic pain G89.29 Active 21138397 Problem Muscle spasm M62.838 Active 01130345 Problem Fibromyalgia M79.7 Active 277446884 Problem Chronic pain disorder G89.4 Active 598537653 Problem Insomnia G47.00 Active 183399631 Problem GERD (gastroesophageal reflux disease) K21.9 Active 601373525 Problem Obesity E66.9 Active 009545452 Problem Skin tags, multiple acquired L91.8 Active 858188164 Problem Anxiety F41.9 Active 76996852 Problem Anemia D64.9 Active 378446651 Problem Sciatica M54.30 Active 98418157 Problem Major depressive disorder, recurrent episode, moderate F33.1 Active 675216709 ALLERGIES No Known Allergies ENCOUNTERS Encounter Location Date Diagnosis [facility] [address] [id number] [id number] March, Chronic pain disorder G89.4 and Obesity E66.9 [facility] [address], [place] [address] March, [facility] [id number] [place] [id number] Feb, Chronic pain disorder G89.4 [facility] [id number] [place] [id number] Feb, Chronic pain disorder G89.4 and Obesity E66.9 [facility] [id number] [place] [id number] Jan, Insomnia G47.00 [facility] [address] [id number] Jan, Obesity E66.9 and Chronic pain disorder G89.4 [address] [place] [id number] Jan, Chronic pain disorder G89.4 [place] [id number] [place] [address] 47385- 7796 Jan, [facility] [id number] [place] [address] 11324- 9416 Dec, [address] [id number] Dec, Chronic pain disorder G89.4 [address] [place] [id number] Dec, Calcaneal spur of left foot M77.32 and BMI 40.0-44.9, adult Z68.41 [place] [address] [place] [address] 8[address]707- 0875 Nov, Chronic pain disorder G89.4 ; Sciatica, right side M54.31 ; Pain of left heel M79.672 ; Morbid obesity E66.01 ; Mood disorder F39 ; Obesity E66.9 ; Anxiety F41.9 ; Insomnia G47.00 and Muscle spasm M62.838 [facility] [address] [id number] [id number] Nov, Chronic pain disorder G89.4 ; Sciatica, right side M54.31 ; Morbid obesity E66.01 ; Mood disorder F39 ; Obesity E66.9 ; Pain of left heel M79.672 ; Anxiety F41.9 ; Insomnia G47.00 ; Muscle spasm M62.838 and BMI 40.0-44.9, adult Z68.41 [place] [id number] [place] [address] 04407- 8034 Oct, Chronic pain disorder G89.4 [place] [address] 36223- 7224 Sep, Anxiety F41.9 ; Fibromyalgia M79.7 ; Chronic pain disorder G89.4 ; Mood disorder F39 ; GERD (gastroesophageal reflux disease) K21.9 and Muscle spasm M62.838 [place] [address] 94129- 5555 Sep, Plantar fasciitis M72.2 ; Morbid obesity E66.01 and BMI 40.0 -44.9, adult Z68.41 [place] [address] 27511- 1206 Aug, [place] [address] 78729- 8604 Aug, Anxiety F41.9 ; Muscle spasm M62.838 ; Major depressive disorder, recurrent episode, moderate F33.1 ; Obesity E66.9 ; Insomnia G47.00 ; Fibromyalgia M79.7 ; Chronic pain disorder G89.4 and Other chronic pain G89.29 [place] [address] 44076- 1222 Jul, Muscle spasm M62.838 ; Anxiety F41.9 ; Sciatica M54.30 ; Insomnia G47.00 ; Major depressive disorder, recurrent episode, moderate F33.1 ; Other chronic pain G89.29 and GERD (gastroesophageal reflux disease) K21.9 [facility] [id number] [place] [address] 66900 -2848 Jun, Acute non-recurrent maxillary sinusitis J01.00 [facility] WALK IN [facility] [address] [place] [address] 12307 -1516 Jun, Acute nasopharyngitis (common cold) J00 [place] [address] 78197- 9611 May, Anxiety F41.9 [facility] [id number] [place] [address] 52195- 5142 Apr, Insomnia G47.00 [place] [id number] [place] [address] 49268- 4618 March, Anxiety F41.9 and Insomnia G47.00 [facility] [id number] [place] [address] 09748- 4973 Feb, Obesity E66.9 and Screening cholesterol level Z13.220 [place] [address] 04172- 4543 Feb, Insomnia G47.00 [place] [address] 79763- 6897 Dec, Sciatica M54.30 ; Obesity E66.9 ; Anxiety F41.9 ; Insomnia G47.00 ; GERD (gastroesophageal reflux disease) K21.9 ; Major depressive disorder, recurrent episode, moderate F33.1 ; Pain management R52 and Screening cholesterol level Z13.220 [place] [id number] [place] [address] 72693- 4143 Dec, [facility] IN [facility] [id number] [place] [address] 84459 -1804 Nov, Acute non-recurrent frontal sinusitis J01.10 and Sore throat J02.9 [place] [id number] [place] [address] 28468- 1262 Nov, [facility] [id number] [place] [address] 45476- 6648 Nov, Sciatica, right side M54.31 and Sciatica of left side M54.32 [facility] [id number] [place] [address] 31440- 8621 Oct, [facility] [id number] [place] [address] 30991- 0456 Sep, [facility] [address] 07849100[place] [address] 14 Aug, 2016 [facility] [address] [place] [address] 84664- 2825 11 Aug, 2016 [facility] [address] [place] [address] 95654- 7839 16 Jul, 2016 [facility] [id number] [place] [address] 09011- 4319 Jul, [facility] [id number] [place] [address] 98481- 1131 Jun, Sciatica M54.30 ; Insomnia G47.00 ; Obesity E66.9 ; Anxiety F41.9 and Major depressive disorder with single episode, remission status unspecified F32.9 [place] [address] [place] [address] 10504- 3208 Jun, Major depressive disorder with single episode, remission status unspecified F32.9 [facility] [address] [place] [address] 20253- 5529 Jun, [facility] [address] [place] [address] 95951- 5351 Jun, [facility] [address] [place] [address] 97422- 8383 Jun, Major depressive disorder with single episode, remission status unspecified F32.9 [facility] [address] [address] 6[address] Jun, Major depressive disorder, recurrent episode, moderate F33.1 [facility] [address], [place] [address] 45[address] May, [facility] [address] [place] [address] 88373- 2807 Apr, [facility] [address], [place] [address] March, Obesity E66.9 ; Anxiety F41.9 ; Insomnia G47.00 ; GERD ( gastroesophageal reflux disease) K21.9 and Other chronic pain G89.29 [place] [address] 27796- 6099 March, Sciatica M54.30 [place] [address] 16232- 9557 March, Insomnia G47.00 and Anxiety F41.9 [place] [address] 72578- 1085 Feb, Sciatica M54.30 [place] [address] 72732- 1325 Feb, Dental examination Z01.20 [place] [address] 72199- 2787 Jan, Obesity E66.9 ; Sciatica M54.30 ; Anxiety F41.9 ; Insomnia G47.00 ; GERD (gastroesophageal reflux disease) K21.9 and Anemia D64.9 [place] [address] 00935- 5650 Dec, [place] [address] 25705- 3294 Dec, Skin tags, multiple acquired L91.8 [place] [address] 23498- 2252 Dec, [place] [address] 67098- 5132 Nov, Obesity E66.9 [place] [address] 69763- 4347 Nov, Sciatica M54.30 ; Obesity E66.9 ; Anxiety F41.9 ; Insomnia G47.00 and GERD (gastroesophageal reflux disease) K21.9 [place] [address] 71300- 4693 Aug, Sciatica M54.30 ; Obesity E66.9 ; Anxiety F41.9 ; Insomnia G47.00 and GERD (gastroesophageal reflux disease) K21.9 [facility] [id number] [place] [address] 10830- 3734 14 Feb, 2015 [facility] [id number] [place] [address] 19929- 9022 Feb, [facility] [address] 181856- 7915 Feb, [facility] [address] 68868- 6725 Feb, [place] [address] 00422- 3072 Feb, [place] [id number] [place] [address] 34356- 4026 Jan, [id number] [place] [address] [id number] Nov, [address] [id number] [place] [address] [id number] Nov, [place] [address] 70147- 0616 Oct, [place] [id number] [place] [address] 04331- 5906 Feb, [place] [id number] [place] [address] 77102- 5158 Aug, [place] [id number] [place] [address] 86893- 9306 Jul, IMMUNIZATIONS No Known Immunizations SOCIAL HISTORY Never Assessed REASON FOR VISIT Pain management (chronic)--tcuppettRN, -Stopped the the clonazepam. Did not like the way it made her feel PLAN OF CARE Activity Details Follow Up 4 Weeks Reason: VITAL SIGNS Height 63 in 2017-10-01 Weight 252.5 lbs 2017-10-01 Temperature 97.4 degrees Fahrenheit 2017-10-01 Heart Rate 70 bpm 2017-10-01 Respiratory Rate 18 2017-10-01 BMI 44.72 kg/m2 2017-10-01 Blood pressure systolic 124 mmHg 2017-10-01 Blood pressure diastolic 78 mmHg 2017-10-01 MEDICATIONS Medication Instructions Dosage Frequency Start Date End Date Duration Status Albuterol Sulfate (2.5 MG/3ML) 0.083% Inhalation Three times a day 3 ml 8h Not-Taking Diclofenac Sodium 75 MG Orally Twice a day 1 tablet with food or milk 12h Sep, Nov, 30 day(s) Active Hydrocodone-Acetaminophen 7.5-325 MG Orally every 8 hours 1 tablet as needed 8h Sep, Sep, 28 days Active Flonase 50 MCG/ACT Nasally Once a day 1 spray in each nostril 24h Jun, 30 day(s) Not-Taking Cyclobenzaprine HCl 10 mg Orally Three times a day 1 tablet as needed 8h 12 Jul, 2017 Dec, 90 days Active Amitriptyline HCl 25 MG Orally Once a day 1 tablet x2 weeks then 2 tablets daily 24h Sep, 90 days Active Clonazepam 1 MG Orally Twice a day 1 tablet 12h Aug, Active Hydrocodone-Acetaminophen 7.5-325 MG Orally 3 times a day 1 tablet as needed 8h Sep, Oct, 28 days Active Ambien 10 mg Orally Once a day 1 tablet at bedtime as needed 24h Jul, 30 days Active Aciphex 20 mg Orally Once a day 1 tablet 24h Sep, 30 day(s) Active Alprazolam 1 MG Orally once daily as needed 1 tablet PRN breakthrough panic attack Aug, 30 days Not-Taking RESULTS No Results PROCEDURES No Known procedures [...]
--- OUTSIDE RECORDS SUMMARY | 2018-11-24 09:43 | XMS REPORT ---
Author Author JOY VUONG Organization [facility] Address [address] [place] [address] Care Team Providers Care Terra Cotta Mold Maker Name Role Phone JOY VUONG Unavailable PROBLEMS Type Condition ICD9-CM Code TCU51-PB Code Onset Dates Condition Status SNOMED Code Problem Major depressive disorder with single episode, remission status unspecified F32.9 Active 12232323 Problem Sciatica of left side M54.32 Active 16237511 Problem Sciatica, right side M54.31 Active 17956668 Problem Morbid obesity E66.01 Active 415271590 Problem Mood disorder F39 Active 32868229 Problem Other chronic pain G89.29 Active 37953838 Problem Muscle spasm M62.838 Active 44094551 Problem Fibromyalgia M79.7 Active 528840265 Problem Chronic pain disorder G89.4 Active 696286057 Problem Insomnia G47.00 Active 994144018 Problem GERD (gastroesophageal reflux disease) K21.9 Active 102051061 Problem Obesity E66.9 Active 563649493 Problem Skin tags, multiple acquired L91.8 Active 901687592 Problem Anxiety F41.9 Active 72508649 Problem Anemia D64.9 Active 825903959 Problem Sciatica M54.30 Active 11333202 Problem Major depressive disorder, recurrent episode, moderate F33.1 Active 182425471 ALLERGIES No Information ENCOUNTERS Encounter Location Date Diagnosis [facility] [address] [id number], [place] [address] Feb, [facility] [address] [id number] [id number] Jan, Chronic pain disorder G89.4 [facility] [address], [place] [address] 7[address] Jan, [facility] [address] [id number], [place] [address]- 4827 Dec, [facility] [address] [place] [address] [id number] Dec, Chronic pain disorder G89.4 [id number] [place] [address] [id number] Dec, Calcaneal spur of left foot M77.32 and BMI 40.0-44.9, adult Z68.41 [place] [address] 46027- 8031 Nov, Chronic pain disorder G89.4 ; Sciatica, right side M54.31 ; Pain of left heel M79.672 ; Morbid obesity E66.01 ; Mood disorder F39 ; Obesity E66.9 ; Anxiety F41.9 ; Insomnia G47.00 and Muscle spasm M62.838 [id number] [place] [address] [id number] Nov, Chronic pain disorder G89.4 ; Sciatica, right side M54.31 ; Morbid obesity E66.01 ; Mood disorder F39 ; Obesity E66.9 ; Pain of left heel M79.672 ; Anxiety F41.9 ; Insomnia G47.00 ; Muscle spasm M62.838 and BMI 40.0-44.9, adult Z68.41 [place] [address] 83335- 6158 Oct, Chronic pain disorder G89.4 [place] [id number] [place] [address] 51961- 4160 Sep, Anxiety F41.9 ; Fibromyalgia M79.7 ; Chronic pain disorder G89.4 ; Mood disorder F39 ; GERD (gastroesophageal reflux disease) K21.9 and Muscle spasm M62.838 [place] [address] 30174- 6100 Sep, Plantar fasciitis M72.2 ; Morbid obesity E66.01 and BMI 40.0 -44.9, adult Z68.41 [address] [address] 57809- 5372 Aug, [place] [id number] [place] [address] 20501- 3224 Aug, Anxiety F41.9 ; Muscle spasm M62.838 ; Major depressive disorder, recurrent episode, moderate F33.1 ; Obesity E66.9 ; Insomnia G47.00 ; Fibromyalgia M79.7 ; Chronic pain disorder G89.4 and Other chronic pain G89.29 [place] [address] 59626- 4275 Jul, Muscle spasm M62.838 ; Anxiety F41.9 ; Sciatica M54.30 ; Insomnia G47.00 ; Major depressive disorder, recurrent episode, moderate F33.1 ; Other chronic pain G89.29 and GERD (gastroesophageal reflux disease) K21.9 [facility] WALK IN [address] [address]262 -[address]348 Jun, Acute non-recurrent maxillary sinusitis J01.00 [facility] WALK IN [address] 59236 -2558 Jun, Acute nasopharyngitis (common cold) J00 [address] [place] [address] 66691- 1793 May, Anxiety F41.[address] 01584- 5403 Apr, Insomnia G47.[address] 04704- 5013 March, Anxiety F41.9 and Insomnia G47.[address] 56313- 0148 Feb, Obesity E66.9 and Screening cholesterol level Z13.[address] 60128- 8129 Feb, Insomnia G47.[address] 98494- 3594 Dec, Sciatica M54.30 ; Obesity E66.9 ; Anxiety F41.9 ; Insomnia G47.00 ; GERD (gastroesophageal reflux disease) K21.9 ; Major depressive disorder, recurrent episode, moderate F33.1 ; Pain management R52 and Screening cholesterol level Z13.220 [facility] [id number] [place] [address] 89602- 0772 07 Dec, 2016 [facility] IN [facility] [id number] [place] [address] 67220 -0692 Nov, Acute non-recurrent frontal sinusitis J01.10 and Sore throat J02.9 [facility] [id number] [place] [address] 39064- 1710 Nov, [facility] [id number] [place] [address] 44915- 3497 Nov, Sciatica, right side M54.31 and Sciatica of left side M54.32 [place] [id number] [place] [address] 18528- 6902 Oct, [facility] [id number] [place] [address] 53956- 9531 Sep, [facility] [id number] [place] [address] 69458- 8867 14 Aug, 2016 [facility] [id number] [place] [address] 93978- 8104 Aug, [facility] [id number] [place] [address] 98757- 3780 16 Jul, 2016 [facility] [id number] [place] [address] 97245- 4907 Jul, [facility] [id number] [place] [address] 28965- 9238 Jun, Sciatica M54.30 ; Insomnia G47.00 ; Obesity E66.9 ; Anxiety F41.9 and Major depressive disorder with single episode, remission status unspecified F32.9 [facility] [address]65[place], [place] [address]- 7724 Jun, Major depressive disorder with single episode, remission status unspecified F32.9 [facility] [id number] [place] [address] 32198- 4386 Jun, [facility] [id number] [place] [address] 69515- 3603 Jun, [facility] [id number] [place] [address] 61174- 6274 Jun, Major depressive disorder with single episode, remission status unspecified F32.9 [facility] [id number] [place] [address] 68415- 7390 Jun, Major depressive disorder, recurrent episode, moderate F33.1 [place] [id number] [place] [address] 89142- 8501 May, [facility] [id number] [place] [address] 08136- 7371 Apr, [facility] [id number] [place] [address] 20612- 4290 March, Obesity E66.9 ; Anxiety F41.9 ; Insomnia G47.00 ; GERD ( gastroesophageal reflux disease) K21.9 and Other chronic pain G89.29 [place] [id number] [place] [address] 95816- 0286 March, Sciatica M54.30 [facility] [id number] [place] [address] 11872- 9438 March, Insomnia G47.00 and Anxiety F41.9 [place] [id number] [place] [address] 36723- 2552 Feb, Sciatica M54.30 [facility] [id number] [place] [address] 38918- 6786 Feb, Dental examination Z01.20 [place] [id number] [place] [address] 77138- 6670 Jan, Obesity E66.9 ; Sciatica M54.30 ; Anxiety F41.9 ; Insomnia G47.00 ; GERD (gastroesophageal reflux disease) K21.9 and Anemia D64.9 [facility] [id number] [place] [address] 84316- 9779 Dec, [facility] [address] 36013- 9429 Dec, Skin tags, multiple acquired L91.8 [place] [address] 15608- 8448 Dec, [place] [address] 08429- 2841 Nov, Obesity E66.9 [place] [address] 68324- 7468 Nov, Sciatica M54.30 ; Obesity E66.9 ; Anxiety F41.9 ; Insomnia G47.00 and GERD (gastroesophageal reflux disease) K21.9 [place] [id number] [place] [address] 28843- 2140 Aug, Sciatica M54.30 ; Obesity E66.9 ; Anxiety F41.9 ; Insomnia G47.00 and GERD (gastroesophageal reflux disease) K21.9 [place] [id number] [place] [address] 00581- 8839 Feb, [facility] [address] 51869- 1288 Feb, [place] [address] 38725- 8741 Feb, [place] [address] 68999- 3608 Feb, [facility] [id number] [place] [address] 80683- 4981 Feb, [place] [id number] [address]- 6896 16 Jan, 2012 [facility] [address] [facility] [id number] [place] [id number] Nov, [facility] [address] [id number] [id number] Nov, [facility] [address], [place] [address]- 1043 Oct, [facility] [address], [place] [address]- 5936 Feb, [facility] [address], [place] [address]- 0421 Aug, [facility] [address] [id number], [place] [address]- 8507 10 Jul, 2010 IMMUNIZATIONS No Known Immunizations SOCIAL HISTORY Never Assessed REASON FOR VISIT Controlled Med Refill Request PLAN OF CARE VITAL SIGNS MEDICATIONS Medication Instructions Dosage Frequency Start Date End Date Duration Status Hydrocodone-Acetaminophen 7.5-325 MG Orally 3 times a day 1 tablet as needed 8h 23 Apr, 2017 28 Active Ambien 10 mg Orally Once a day 1 tablet at bedtime as needed 24h Jan, 28 days Active Alprazolam 1 MG Orally Twice a day 1 tablet 12h 28 Active RESULTS No Results PROCEDURES No Known [...]
--- OUTSIDE RECORDS SUMMARY | 2018-11-24 09:43 | XMS REPORT ---
Author Author FIDELINA TIPTON [facility] [employer] Address Unknown Phone Unavailable Care Team Providers Care Drafter Electronic Name Role Phone FIDELINA TIPTON CP Unavailable Allergies No Known Allergies Problems Problem Type Condition Code Onset Dates Condition Status Assessment Sciatica M54.30 Active Problem Insomnia G47.00 Active Problem GERD (gastroesophageal reflux disease) K21.9 Active Problem Major depressive disorder, recurrent episode, moderate F33.1 Active Problem Anemia D64.9 Active Problem Major depressive disorder with single episode, remission status unspecified F32.9 Active Problem Obesity E66.9 Active Problem Anxiety F41.9 Active Problem Skin tags, multiple acquired L91.8 Active Problem Sciatica M54.30 Active Assessment Major depressive disorder with single episode, remission status unspecified F32.9 Active Assessment Anxiety F41.9 Active Assessment Obesity E66.9 Active Assessment Insomnia G47.00 Active Medications Medication Code System Code Instructions Start Date End Date Status Dosage Ambien [facility] [address]-07 10 MG Orally Once a day January 31, 2016 1 tablet at bedtime as needed Xanax [facility] [address]-52 1 MG Orally Twice a day prn 1 tablet Lexapro [facility] [address]-89 10 mg Orally Once a day Jun 15, 2016 1 Hydrocodone-Acetaminophen [facility] [address]-71 7.5-325 MG Orally 2 times a day 1 tablet as needed Procedures Procedure Coding System Code Date Office Visit, Est Pt., Level 4 CPT-4 13587 Jun 25, 2016 Vital Signs Date/Time: Jun 25, 2016 Cardiac Monitoring Heart Rate 80 bpm Weight 229 lbs Height 63 in BMI 40.56 Index Blood Pressure Diastolic 70 mmHg Blood Pressure Systolic 110 mmHg Results No Known Results Summary Purpose eClinicalWorks Submission
--- OUTSIDE RECORDS SUMMARY | 2018-11-24 09:44 | XMS REPORT ---
Author Author FIDELINA TIPTON [facility] eClinicalWorks Address Unknown Phone Unavailable Care Team Providers Care Card Player Name Role Phone FIDELINA TIPTON CP Unavailable Allergies No Known Allergies Problems Problem Type Condition Code Onset Dates Condition Status Assessment Major depressive disorder with single episode, remission status unspecified F32.9 Active Problem Insomnia G47.00 Active Problem GERD [...] Instructions Start Date End Date Status Dosage Lexapro [facility] [address]-49 10 mg Orally Once a day Jun 15, 2016 1 Results No Known Results Summary Purpose [employer] Submission
--- OUTSIDE RECORDS SUMMARY | 2018-11-24 09:44 | XMS REPORT ---
Author Author FIDELINA Valdez Organization [facility] Address [address] [place] [address] Care Team Providers Care Litharge Supervisor Name Role Phone FIDELINA Valdez Unavailable PROBLEMS Type Condition ICD9-CM Code [id number] Code Onset Dates Condition Status SNOMED Code Problem Major depressive disorder with single episode, remission status unspecified F32.9 Active 26794588 Problem Sciatica of left side M54.32 Active 78022584 Problem Sciatica, right side M54.31 Active 26314248 Problem Morbid obesity E66.01 Active 966769192 Problem Mood disorder F39 Active 49257423 Problem Other chronic pain G89.29 Active 77431302 Problem Muscle spasm M62.838 Active 19654886 Problem Fibromyalgia M79.7 Active 189113544 Problem Chronic pain disorder G89.4 Active 426644793 Problem Insomnia G47.00 Active 463147033 Problem GERD (gastroesophageal reflux disease) K21.9 Active 325825090 Problem Obesity E66.9 Active 800253600 Problem Skin tags, multiple acquired L91.8 Active 910905714 Problem Anxiety F41.9 Active 86473949 Problem Anemia D64.9 Active 814363683 Problem Sciatica M54.30 Active 95612378 Problem Major depressive disorder, recurrent episode, moderate F33.1 Active 678385071 ALLERGIES No Information ENCOUNTERS Encounter Location Date Diagnosis [facility] [id number], [place] [address] Feb, [facility] [id number] [place] [id number] Jan, Insomnia G47.00 [facility] [id number] [id number] Jan, Obesity E66.9 and Chronic pain disorder G89.4 [facility] [id number] [place] [id number] Jan, Chronic pain disorder G89.4 [address] [address] Jan, [id number] [place] [phone] Dec, [id number] [phone] Dec, Chronic pain disorder G89.4 [address] [place] [id number] Dec, Calcaneal spur of left foot M77.32 and BMI 40.0-44.9, adult Z68.41 [id number] [place] [address] Nov, Chronic pain disorder G89.4 ; Sciatica, right side M54.31 ; Pain of left heel M79.672 ; Morbid obesity E66.01 ; Mood disorder F39 ; Obesity E66.9 ; Anxiety F41.9 ; Insomnia G47.00 and Muscle spasm M62.[address] [place] [address] [id number] Nov, Chronic pain disorder G89.4 ; Sciatica, right side M54.31 ; Morbid obesity E66.01 ; Mood disorder F39 ; Obesity E66.9 ; Pain of left heel M79.672 ; Anxiety F41.9 ; Insomnia G47.00 ; Muscle spasm M62.838 and BMI 40.0-44.9, adult Z68.41 [address], [place] [address] Oct, Chronic pain disorder G89.4 [id number] [place] [address] Sep, Anxiety F41.9 ; Fibromyalgia M79.7 ; Chronic pain disorder G89.4 ; Mood disorder F39 ; GERD (gastroesophageal reflux disease) K21.9 and Muscle spasm M62.838 [address] [address] Sep, Plantar fasciitis M72.2 ; Morbid obesity E66.01 and BMI 40.0 -44.9, adult Z68.41 [address] [address] Aug, [address] [address] Aug, Anxiety F41.9 ; Muscle spasm M62.838 ; Major depressive disorder, recurrent episode, moderate F33.1 ; Obesity E66.9 ; Insomnia G47.00 ; Fibromyalgia M79.7 ; Chronic pain disorder G89.4 and Other chronic pain G89.29 [address] [address] Jul, Muscle spasm M62.838 ; Anxiety F41.9 ; Sciatica M54.30 ; Insomnia G47.00 ; Major depressive disorder, recurrent episode, moderate F33.1 ; Other chronic pain G89.29 and GERD (gastroesophageal reflux disease) K21.[address] [facility] [address] [address] Jun, Acute non-recurrent maxillary sinusitis J01.[address] [facility] [address] [address] Jun, Acute nasopharyngitis (common cold) J00 [address] [address] May, Anxiety F41.9 [address] [address] Apr, Insomnia G47.00 [address] [address] March, Anxiety F41.9 and Insomnia G47.00 [address] [address] Feb, Obesity E66.9 and Screening cholesterol level Z13.220 [facility] [id number] [place] [address] Feb, Insomnia G47.00 [facility] [address] [address] Dec, 2016 Sciatica M54.30 ; Obesity E66.9 ; Anxiety F41.9 ; Insomnia G47.00 ; GERD (gastroesophageal reflux disease) K21.9 ; Major depressive disorder, recurrent episode, moderate F33.1 ; Pain management R52 and Screening cholesterol level Z13.220 [facility] [address] [address] 07 Dec, 2016 [facility] IN [facility] [address] [address] Nov, Acute non-recurrent frontal sinusitis J01.10 and Sore throat J02.9 [facility] [address] [address] Nov, [facility] [address] [address] Nov, Sciatica, right side M54.31 and Sciatica of left side M54.32 [id number] [place] [address] Oct, [facility] [id number] [place] [address] Sep, [facility] [id number] [place] [address] 14 Aug, 2016 [facility] [address] [address] 11 Aug, 2016 [facility] [id number] [place] [address] 16 Jul, 2016 [facility] [address] [address] Jul, [facility] [address] [place] [address] Jun, Sciatica M54.30 ; Insomnia G47.00 ; Obesity E66.9 ; Anxiety F41.9 and Major depressive disorder with single episode, remission status unspecified F32.9 [facility] [id number] [place] [address] Jun, Major depressive disorder with single episode, remission status unspecified F32.9 [facility] [id number] [place] [address] Jun, [id number] [place] [address] Jun, [id number] [place] [address] Jun, Major depressive disorder with single episode, remission status unspecified F32.9 [id number] [place] [address] Jun, Major depressive disorder, recurrent episode, moderate F33.1 [id number] [place] [address] May, [id number] [place] [address] Apr, [id number] [place] [address] March, Obesity E66.9 ; Anxiety F41.9 ; Insomnia G47.00 ; GERD ( gastroesophageal reflux disease) K21.9 and Other chronic pain G89.29 [id number] [place] [address] March, Sciatica M54.30 [id number] [place] [address] March, Insomnia G47.00 and Anxiety F41.9 [address] [address] Feb, Sciatica M54.30 [address] [address] Feb, Dental examination Z01.20 [address] [address] Jan, Obesity E66.9 ; Sciatica M54.30 ; Anxiety F41.9 ; Insomnia G47.00 ; GERD (gastroesophageal reflux disease) K21.9 and Anemia D64.9 [address] [address] Dec, [address] [address] Dec, Skin tags, multiple acquired L91.8 [address] [address] Dec, [address] [address] Nov, Obesity E66.9 [address] [address] Nov, Sciatica M54.30 ; Obesity E66.9 ; Anxiety F41.9 ; Insomnia G47.00 and GERD (gastroesophageal reflux disease) K21.9 [address] [address] Aug, Sciatica M54.30 ; Obesity E66.9 ; Anxiety F41.9 ; Insomnia G47.00 and GERD (gastroesophageal reflux disease) K21.9 [address] [address] Feb, [address] [address] Feb, [address] [address] Feb, [facility] [address], [place] [address] Feb, [facility] [address], [place] [address] Feb, [facility] [address], [place] [address] Jan, [facility] [address] [id number] Nov, [facility] [address] [id number] Nov, [facility] [address], [place] [address] Oct, [facility] [address], [place] [address] Feb, [facility] [address], [place] [address] Aug, [facility] [id number], [place] [address] Jul, IMMUNIZATIONS No Known Immunizations SOCIAL HISTORY Never Assessed REASON FOR VISIT Controlled Refill Request Due 05/24 PLAN OF CARE VITAL SIGNS MEDICATIONS Medication Instructions Dosage Frequency Start Date End Date Duration Status Hydrocodone-Acetaminophen 7.5-325 MG Orally 3 times a day 1 tablet as needed 8h 24 May, 2017 28 Active Alprazolam 1 MG Orally Twice a day 1 tablet 12h 28 Active Xanax 1 MG Orally Twice a [...]
--- OUTSIDE RECORDS SUMMARY | 2018-11-24 09:44 | XMS REPORT ---
Author Author FIDELINA TIPTON Organization [facility] Address [address] [place] [address] Care Team Providers Care Junior Oracle Dba Name Role Phone TIPTON, FIDELINA Unavailable PROBLEMS Type Condition ICD9-CM Code [id number] Code Onset Dates Condition Status SNOMED Code Problem Anemia D64.9 Active 853632347 Problem Major depressive disorder with single episode, remission status unspecified F32.9 Active 99545816 Problem Major depressive disorder, recurrent episode, moderate F33.1 Active 654719826 Problem Fibromyalgia M79.7 Active 606906644 Problem Chronic pain disorder G89.4 Active 047729472 Problem Sciatica of left side M54.32 Active 86600644 Problem Sciatica, right side M54.31 Active 63833789 Problem Other chronic pain G89.29 Active 82672774 Problem Muscle spasm M62.838 Active 74793450 Problem Anxiety F41.9 Active 72812964 Problem Obesity E66.9 Active 074638173 Problem Insomnia G47.00 Active 822899164 Problem Sciatica M54.30 Active 72983228 Problem GERD (gastroesophageal reflux disease) K21.9 Active 443415497 Problem Skin tags, multiple acquired L91.8 Active 849488926 ALLERGIES No Information SOCIAL HISTORY Never Assessed PLAN OF CARE VITAL SIGNS MEDICATIONS Medication Instructions Dosage Frequency Start Date End Date Duration Status Ambien 10 mg Orally Once a day 1 tablet at bedtime as needed 24h Jan, 28 days Active Xanax 1 MG Orally Twice a day prn 1 tablet 28 days Active Hydrocodone-Acetaminophen 7.5-325 MG Orally 3 times a day 1 tablet as needed 8h Feb, 28 Active RESULTS No Results PROCEDURES No Known procedures IMMUNIZATIONS No Known Immunizations MEDICAL (GENERAL) HISTORY [...]
--- OUTSIDE RECORDS SUMMARY | 2018-11-24 09:44 | XMS REPORT ---
Author FIDELINA Townsend [facility] eClinicalWorks Address Unknown Phone Unavailable Care Team Providers Care Ladle Filler Name Role Phone FIDELINA TIPTON CP Unavailable Allergies No Known Allergies Problems Problem Type Condition Code Onset Dates Condition Status Assessment Sciatica M54.30 Active Problem Skin tags, multiple acquired L91.8 Active Problem Sciatica M54.30 Active Problem Anemia D64.9 Active Problem Insomnia G47.00 Active Problem GERD (gastroesophageal reflux disease) K21.9 Active Problem Obesity E66.9 Active Problem Anxiety F41.9 Active Medications Medication Code System Code Instructions Start Date End Date Status Dosage Hydrocodone-Acetaminophen [facility] [address]-91 7.5-325 MG Orally 2 times a day 1 tablet as needed Results No Known Results Summary Purpose eClinicalWorks Submission
--- OUTSIDE RECORDS SUMMARY | 2018-11-24 09:44 | XMS REPORT ---
Author FIDELINA Townsend [facility] eClinicalWorks Address Unknown Phone Unavailable Care Team Providers Care Industrial Psychologist Name Role Phone FIDELINA TIPTON CP Unavailable [...] Start Date End Date Status Dosage Hydrocodone-Acetaminophen [facility] [address]-39 7.5-325 MG Orally 2 times a day Sep 17, 2016 1 tablet as needed Xanax [facility] [address]-82 1 MG Orally Twice a day prn 1 tablet Results No Known Results Summary Purpose [employer]Works Submission
--- OUTSIDE RECORDS SUMMARY | 2018-11-24 09:44 | XMS REPORT ---
Author Author SWAPNA WILSON Organization [employer] Address Unknown Phone Unavailable Care Team Providers Care Chemical Research Worker Name Role Phone SWAPNA WILSON CP Unavailable Allergies No Known Allergies Problems Problem Type Condition Code Onset Dates Condition Status Assessment Major depressive disorder, recurrent episode, moderate F33.1 Active Problem Insomnia G47.00 Active Problem GERD (gastroesophageal reflux disease) K21.9 Active Problem Major depressive disorder, recurrent episode, moderate F33.1 Active Problem Anemia D64.9 Active Problem Major depressive disorder with single episode, remission status unspecified F32.9 Active Problem Obesity E66.9 Active Problem Anxiety F41.9 Active Problem Skin tags, multiple acquired L91.8 Active Problem Sciatica M54.30 Active Medications No Known Medications Procedures Procedure Coding System Code Date Psychotherapy, patient &/family, 45 minutes, established patient CPT-4 [id number] Jun 15, 2016 Results No Known Results Summary Purpose [email or web address] Submission
--- OUTSIDE RECORDS SUMMARY | 2018-11-24 09:44 | XMS REPORT ---
Author Author FIDELINA TIPTON Organization [facility] Address [address] [place] [address] Care Team Providers Care Spacer Type Bar And Segment Name Role Phone FIDELINA TIPTON Unavailable PROBLEMS Type Condition ICD9-CM Code [id number] Code Onset Dates Condition Status SNOMED Code Problem Sciatica M54.30 Active 16937651 Problem Anemia D64.9 Active 618100408 Problem Skin tags, multiple acquired L91.8 Active 313238401 Problem Insomnia G47.00 Active 692067992 Problem GERD (gastroesophageal reflux disease) K21.9 Active 248550760 Problem Anxiety F41.9 Active 10852434 Problem Obesity E66.9 Active 185617330 Problem Other chronic pain G89.29 Active 66902972 Problem Muscle spasm M62.838 Active 51149207 Problem Major depressive disorder with single episode, remission status unspecified F32.9 Active 21188453 Problem Major depressive disorder, recurrent episode, moderate F33.1 Active 187136004 Problem Sciatica of left side M54.32 Active 86527986 Problem Sciatica, right side M54.31 Active 03576218 ALLERGIES No Information SOCIAL HISTORY Never Assessed PLAN OF CARE VITAL SIGNS MEDICATIONS Unknown [...]
--- OUTSIDE RECORDS SUMMARY | 2018-11-24 09:45 | XMS REPORT | Continuity of Care Document ---
Author Author [facility] Address Unknown Phone Unavailable Allergies Active Description Code Type Severity Reaction Onset Reported/Identified Relationship to Patient Clinical Status Yes No Known Drug Allergies [id number] Drug Allergy Unknown N/A 11/14/2018 Medications There is no data. Problems Date Dx Coded Attending Type Code Diagnosis Diagnosed By 07/03/2010 CANDI BARTLETT DDS 251.1 HYPERINSULINISM 07/03/2010 CANDI BARTLETT DDS 256.4 POLYCYSTIC OVARIES 07/03/2010 CANDI BARTLETT DDS 278.01 OBESITY MORBID BMI >40 07/14/2010 CANDI BARTLETT DDS 787.91 DIARRHEA 02/14/2011 CANDI BARTLETT DDS 626.4 IRREGULAR MENSTRUAL CYCLE 02/14/2011 CANDI BARTLETT DDS 780.50 SLEEP DISTURBANCE, UNSPECIFIED 02/14/2011 CANDI BARTLETT DDS V25.02 CONTRACEPTION COUNSELING- ANY METHOD 02/14/2011 CANDI BARTLETT DDS V72.31 STABBER EXAM, ROUTINE 04/22/2011 Ot 924.00 CONTUSION OF THIGH 04/22/2011 Ot 924.11 CONTUSION OF KNEE 04/22/2011 Ot 959.6 HIP THIGH INJURY NOS 04/22/2011 Ot E000.8 OTHER EXTERNAL CAUSE STATUS 04/22/2011 Ot E002.5 ACTIVITIES INVG ROWING/CANOEING/KAYAKING 04/22/2011 Ot [address] NEC 04/22/2011 Ot E888.1 FALL STRIKING OBJECT NEC 10/25/2011 CANDI BARTLETT DDS V25.43 SURVEILLANCE OF IMPLANTABLE SUBDERMAL CONTRACEPTIVE 05/21/2013 GUANAKO TOURE, JOSE JUAN Ot 574.10 CHOLELITH W CHOLECYS NEC 08/26/2014 AZAEL JOHNSON DO Ot 278.01 MORBID OBESITY 08/26/2014 AZAEL JOHNSON DO Ot 553.1 UMBILICAL HERNIA 08/26/2014 AZAEL JOHNSON DO Ot 614.6 FEM PELVIC PERITON ADH-POST-OP/INF 08/26/2014 AZAEL JOHNSON DO Ot 625.9 FEM GENITAL SYMPTOMS NOS 08/26/2014 AZAEL JOHNSON DO Ot 626.8 MENSTRUAL DISORDER NEC 08/26/2014 AZAEL JOHNSON DO Ot V85.44 BODY MASS INDEX 60.0-69.9, ADULT 12/31/2014 Ot 626.0 12/31/2014 Ot 789.00 12/31/2014 Ot 789.1 12/31/2014 Ot 789.00 12/31/2014 Ot 278.1 12/31/2014 ROMARIO TOURE, LINCOLN Avitia Ot 574.20 12/31/2014 ROMARIO TOURE, LINCOLN Avitia Ot 789.01 12/31/2014 GUANAKO TOURE, JOSE JUAN Ot 574.10 12/31/2014 GUANAKO TOURE, JOSE JUAN Ot V72.63 12/31/2014 GUANAKO TOURE, JOSE JUAN Ot V74.8 12/31/2014 ROMARIO TOURE, LINCOLN Avitia Ot 621.6 12/31/2014 ROMARIO TOURE, LINCOLN Avitia Ot 625.9 12/31/2014 LINCOLN DOSS MD Ot 626.8 12/31/2014 AZAEL JOHNSON DO Ot 625.9 12/31/2014 AZAEL JOHNSON DO Ot 626.2 12/31/2014 AZAEL JOHNSON DO Ot 626.8 12/31/2014 AZAEL JOHNSON DO Ot V72.63 12/31/2014 AZAEL JOHNSON DO Ot V74.8 12/31/2014 Ot 626.0 12/31/2014 Ot 789.00 12/31/2014 Ot 789.1 12/31/2014 Ot 789.00 12/31/2014 Ot 278.1 12/31/2014 ROMARIO TOURE, LINCOLN Avitia Ot 574.20 12/31/2014 LINCOLN DOSS MD Ot 789.01 12/31/2014 GUANAKO TOURE, JOSE JUAN Ot 574.10 12/31/2014 GUANAKO TOURE, JOSE JUAN Ot V72.63 12/31/2014 GUANAKO TOURE, JOSE JUAN Ot V74.8 12/31/2014 LINCOLN DOSS MD Ot 621.6 12/31/2014 LINCOLN DOSS MD Ot 625.9 12/31/2014 LINCOLN DOSS MD Ot 626.8 12/31/2014 AZAEL JOHNSON DO Ot 625.9 12/31/2014 AZAEL JOHNSON DO Ot 626.2 12/31/2014 AZAEL JOHNSON DO Ot 626.8 12/31/2014 AZAEL JOHNSON DO Ot V72.63 12/31/2014 AZAEL JOHNSON DO Ot V74.8 03/30/2016 Ot 626.0 ABSENCE OF MENSTRUATION 03/30/2016 Ot 789.00 ABDOMINAL PAIN, UNSPECIFIED SITE 03/30/2016 Ot 789.1 HEPATOMEGALY 03/30/2016 Ot 789.00 ABDOMINAL PAIN, UNSPECIFIED SITE 03/30/2016 Ot 278.1 LOCALIZED ADIPOSITY 03/30/2016 LINCOLN DOSS MD Ot 574.20 CHOLELITHIASIS NOS 03/30/2016 LINCOLN DOSS MD Ot 789.01 ABDOMINAL PAIN, RIGHT UPPER QUADRANT 03/30/2016 GUANAKO TOURE, JOSE JUAN Ot 574.10 CHOLELITH W CHOLECYS NEC 03/30/2016 JOSE JUAN MUJICA MD Ot V72.63 PRE-PROCEDURAL LABORATORY EXAMINATION 03/30/2016 JOSE JUAN MUJICA MD Ot V74.8 SCREEN-BACTERIAL DIS NEC 03/30/2016 LINCOLN DOSS MD Ot 621.6 MALPOSITION OF UTERUS 03/30/2016 LINCOLN DOSS MD Ot 625.9 FEM GENITAL SYMPTOMS NOS 03/30/2016 LINCOLN DOSS MD Ot 626.8 MENSTRUAL DISORDER NEC 03/30/2016 AZAEL JOHNSON DO Ot 625.9 FEM GENITAL SYMPTOMS NOS 03/30/2016 AZAEL JOHNSON DO Ot 626.2 EXCESSIVE MENSTRUATION 03/30/2016 AZAEL JOHNSON DO Ot 626.8 MENSTRUAL DISORDER NEC 03/30/2016 AZAEL JOHNSON DO Ot V72.63 PRE-PROCEDURAL LABORATORY EXAMINATION 03/30/2016 AZAEL JOHNSON DO Ot V74.8 SCREEN-BACTERIAL DIS NEC 03/30/2016 Ot V72.83 EXAM PRE- OPERATIVE NEC 05/03/2016 Ot V72.83 EXAM PRE- OPERATIVE NEC 11/05/2018 ROMARIO TOURE, LINCOLN Avitia Ot 621.6 MALPOSITION OF UTERUS 11/05/2018 LINCOLN DOSS MD Ot 625.9 FEM GENITAL SYMPTOMS NOS 11/05/2018 LINCOLN DOSS MD Ot 626.8 MENSTRUAL DISORDER NEC 11/05/2018 BALJINDERECH DO, AZAEL S Ot 625.9 FEM GENITAL SYMPTOMS NOS 11/05/2018 FENECH DO, AZAEL S Ot 626.2 EXCESSIVE MENSTRUATION 11/05/2018 FENECH DO, AZAEL S Ot 626.8 MENSTRUAL DISORDER NEC 11/05/2018 BALJINDERECH DO, AZAEL S Ot V72.63 PRE-PROCEDURAL LABORATORY EXAMINATION 11/05/2018 ELIZABETH DO, AZAEL S Ot V74.8 SCREEN-BACTERIAL DIS NEC 11/05/2018 Ot V72.83 EXAM PRE- OPERATIVE NEC 11/05/2018 ALEXANDRA ROSALES MD Ot F41.9 ANXIETY DISORDER, UNSPECIFIED 11/05/2018 ALEXANDRA ROSALES MD Ot K21.9 GASTRO-ESOPHAGEAL REFLUX DISEASE WITHOUT 11/05/2018 ALEXANDRA ROSALES MD Ot M54.5 LOW BACK PAIN 11/05/2018 ALEXANDRA ROSALES MD Ot R10.32 LEFT LOWER QUADRANT PAIN 11/05/2018 ALEXANDRA ROSALES MD Ot Z90.710 ACQUIRED ABSENCE OF BOTH CERVIX AND UTER 11/05/2018 ALEXANDRA ROSALES MD Ot Z98.84 BARIATRIC SURGERY STATUS 11/05/2018 ALEXANDRA ROSALES MD Ot Z98.890 OTHER SPECIFIED POSTPROCEDURAL STATES 11/07/2018 ALEXANDRA ROSALSE MD Ot F41.9 ANXIETY DISORDER, UNSPECIFIED 11/07/2018 ALEXANDRA ROSALES MD Ot K21.9 GASTRO-ESOPHAGEAL REFLUX DISEASE WITHOUT 11/07/2018 ALEXANDRA ROSALES MD Ot M54.5 LOW BACK PAIN 11/07/2018 ALEXANDRA ROSALES MD Ot R10.32 LEFT LOWER QUADRANT PAIN 11/07/2018 ALEXANDRA ROSALES MD Ot Z90.710 ACQUIRED ABSENCE OF BOTH CERVIX AND UTER 11/07/2018 ALEXANDRA ROSALES MD Ot Z98.84 BARIATRIC SURGERY STATUS 11/07/2018 ALEXANDRA ROSALES MD Ot Z98.890 OTHER SPECIFIED POSTPROCEDURAL STATES 11/13/2018 ROMARIO TOURE, LINCOLN Avitia Ot 621.6 MALPOSITION OF UTERUS 11/13/2018 LINCOLN DOSS MD Ot 625.9 FEM GENITAL SYMPTOMS NOS 11/13/2018 LINCOLN DOSS MD Ot 626.8 MENSTRUAL DISORDER NEC 11/13/2018 AZAEL JOHNSON DO Ot 625.9 FEM GENITAL SYMPTOMS NOS 11/13/2018 ELIZABETH YOUSSEF AZAEL Butler Ot 626.2 EXCESSIVE MENSTRUATION 11/13/2018 ELIZABETH YOUSSEF AZAEL Butler Ot 626.8 MENSTRUAL DISORDER NEC 11/13/2018 AZAEL JOHNSON DO Ot V72.63 PRE-PROCEDURAL LABORATORY EXAMINATION 11/13/2018 ELIZABETH YOUSSEF AZAEL Butler Ot V74.8 SCREEN-BACTERIAL DIS NEC 11/13/2018 Ot V72.83 EXAM PRE- OPERATIVE NEC 11/17/2018 BRITTNEY MONTEZ DO, Ot Z01.818 ENCOUNTER FOR OTHER PREPROCEDURAL EXAMIN 11/17/2018 BRITTNEY MONTEZ DO Ot Z01.818 ENCOUNTER FOR OTHER PREPROCEDURAL EXAMIN 11/19/2018 BRITTNEY MONTEZ DO Ot K21.9 GASTRO-ESOPHAGEAL REFLUX DISEASE WITHOUT 11/19/2018 BRITTNEY MONTEZ DO Ot K42.0 UMBILICAL HERNIA WITH OBSTRUCTION, WITHO 11/19/2018 BRITTNEY MONTEZ DO Ot K62.5 HEMORRHAGE OF ANUS AND RECTUM 11/19/2018 BRITTNEY MONTEZ DO Ot K63.89 OTHER SPECIFIED DISEASES OF INTESTINE 11/19/2018 BRITTNEY MONTEZ DO Ot M79.7 FIBROMYALGIA 11/19/2018 BRITTNEY MONTEZ DO, Ot Z87.891 PERSONAL HISTORY OF NICOTINE DEPENDENCE Procedures There is no data. Results Test Result Range CBC With Differential/Platelet - 02/28/17 08:42 WBC 6.8 x10E3/uL 3.4-10.8 RBC 5.06 x10E6/uL 3.77-5.28 Hemoglobin 14.0 g/dL 11.1-15.9 Hematocrit 44.1 % 34.0-46.6 MCV 87 fL 79-97 MCH 27.7 pg 26.6-33.0 MCHC 31.7 g/dL 31.5-35.7 RDW 13.7 % 12.3-15.4 Platelets 189 x10E3/uL 150-379 Neutrophils 57 % Lymphs 35 % Monocytes 5 % Eos 3 % Basos 0 % Neutrophils (Absolute) 3.9 x10E3/uL 1.4-7.0 Lymphs (Absolute) 2.4 x10E3/uL 0.7-3.1 Monocytes(Absolute) 0.4 x10E3/uL 0.1-0.9 Eos (Absolute) 0.2 x10E3/uL 0.0-0.4 Baso (Absolute) 0.0 x10E3/uL 0.0-0.2 Immature Granulocytes 0 % Immature Grans (Abs) 0.0 x10E3/uL 0.0-0.1 Comp. Metabolic Panel (14) - 02/28/17 08:42 Glucose, Serum 90 mg/dL 65-99 BUN 11 mg/dL 6-20 Creatinine, Serum 0.57 mg/dL 0.57-1.00 eGFR If NonAfricn Am 123 mL/min/1.73 >59 eGFR If Africn Am 142 mL/min/1.73 >59 BUN/Creatinine Ratio 19 9-23 Sodium, Serum 139 mmol/L 134-144 Potassium, Serum 4.4 mmol/L 3.5-5.2 Chloride, Serum 103 mmol/L 96-106 Carbon Dioxide, Total 24 mmol/L 18-29 Calcium, Serum 9.2 mg/dL 8.7-10.2 Protein, Total, Serum 6.2 g/dL 6.0-8.5 Albumin, Serum 4.1 g/dL 3.5-5.5 Globulin, Total 2.1 g/dL 1.5-4.5 A/G Ratio 2.0 1.2-2.2 Bilirubin, Total 0.5 mg/dL 0.0-1.2 Alkaline Phosphatase, S 75 IU/L 39-117 AST (SGOT) 12 IU/L 0-40 ALT (SGPT) 15 IU/L 0-32 Lipid Panel - 02/28/17 08:42 Cholesterol, Total 215 mg/dL 100-199 Triglycerides 143 mg/dL 0-149 HDL Cholesterol 47 mg/dL >39 VLDL Cholesterol Elbert 29 mg/dL 5-40 LDL Cholesterol Calc 139 mg/dL 0-99 TSH - 02/28/17 08:42 TSH 0.558 uIU/mL 0.450-4.500 JENNIFER - 12/11/18 08:37 JENNIFER SCREEN, IFA NEGATIVE NEGATIVE Complete urinalysis with reflex to culture - 11/05/18 08:28 Urine color determination YELLOW NRG Urine clarity determination SLIGHTLY CLOUDY NRG Urine pH measurement by test strip 6.5 5-9 Specific gravity of urine by test strip 1.020 1.016- 1.022 Urine protein assay by test strip, semi-quantitative 1+ NEGATIVE Urine glucose detection by automated test strip NEGATIVE NEGATIVE Erythrocytes detection in urine sediment by light microscopy NEGATIVE NEGATIVE Urine ketones detection by automated test strip NEGATIVE NEGATIVE Urine nitrite detection by test strip NEGATIVE NEGATIVE Urine total bilirubin detection by test strip NEGATIVE NEGATIVE Urine urobilinogen measurement by automated test strip (mass/volume) NORMAL NORMAL Urine leukocyte esterase detection by dipstick NEGATIVE NEGATIVE Automated urine sediment erythrocyte count by microscopy (number/high power field) NONE NRG Automated urine sediment leukocyte count by microscopy (number/high power field ) [HPF] NRG Bacteria detection in urine sediment by light microscopy LARGE NRG Squamous epithelial cells detection in urine sediment by light microscopy 10-25 NRG Crystals detection in urine sediment by light microscopy NONE NRG Casts detection in urine sediment by light microscopy NONE NRG Mucus detection in urine sediment by light microscopy SMALL NRG Complete urinalysis with reflex to culture YES NRG Bacterial urine culture - 11/05/18 08:28 Bacterial urine culture SEE COMMEN NRG COLONY COUNT . NRG Complete blood count (CBC) with automated white blood cell (WBC) differential - 11/05/18 08:43 Blood leukocytes automated count (number/volume) 8.4 10*3/uL 4.3-11.0 Blood erythrocytes automated count (number/volume) 4.74 10*6/uL 4.35-5.85 Venous blood hemoglobin measurement (mass/volume) 13.2 g/dL 11.5-16.0 Blood hematocrit (volume fraction) 42 % 35-52 Automated erythrocyte mean corpuscular volume 88 [foz_us] 80-99 Automated erythrocyte mean corpuscular hemoglobin (mass per erythrocyte) 28 pg 25-34 Automated erythrocyte mean corpuscular hemoglobin concentration measurement ( mass/volume) 32 g/dL 32-36 Automated erythrocyte distribution width ratio 14.5 % 10.0-14.5 Automated blood platelet count (count/volume) 182 10*3/uL 130-400 Automated blood platelet mean volume measurement 13.1 [foz_us] 7.4-10.4 Automated blood neutrophils/100 leukocytes 61 % 42-75 Automated blood lymphocytes/100 leukocytes 31 % 12-44 Blood monocytes/100 leukocytes 7 % 0-12 Automated blood eosinophils/100 leukocytes 1 % 0-10 Automated blood basophils/100 leukocytes 1 % 0-10 Blood neutrophils automated count (number/volume) 5.1 10*3 1.8-7.8 Blood lymphocytes automated count (number/volume) 2.6 10*3 1.0-4.0 Blood monocytes automated count (number/volume) 0.6 10*3 0.0-1.0 Automated eosinophil count 0.1 10*3/uL 0.0-0.3 Automated blood basophil count (count/volume) 0.0 10*3/uL 0.0-0.1 Comprehensive metabolic panel - 11/05/18 08:43 Serum or plasma sodium measurement (moles/volume) 139 mmol/L 135-145 Serum or plasma potassium measurement (moles/volume) 3.8 mmol/L 3.6-5.0 Serum or plasma chloride measurement (moles/volume) 106 mmol/L 98-107 Carbon dioxide 24 mmol/L 21-32 Serum or plasma anion gap determination (moles/volume) 9 mmol/L 5-14 Serum or plasma urea nitrogen measurement (mass/volume) 12 mg/dL 7-18 Serum or plasma creatinine measurement (mass/volume) 0.73 mg/dL 0.60-1.30 Serum or plasma urea nitrogen/creatinine mass ratio 16 NRG Serum or plasma creatinine measurement with calculation of estimated glomerular filtration rate > NRG Serum or plasma glucose measurement (mass/volume) 83 mg/dL 70-105 Serum or plasma calcium measurement (mass/volume) 9.1 mg/dL 8.5-10.1 Serum or plasma total bilirubin measurement (mass/volume) 0.5 mg/dL 0.1-1.0 Serum or plasma alkaline phosphatase measurement (enzymatic activity/volume) 92 U/L 40-136 Serum or plasma aspartate aminotransferase measurement (enzymatic activity/ volume) 14 U/L 5-34 Serum or plasma alanine aminotransferase measurement (enzymatic activity/volume ) 17 U/L 0-55 Serum or plasma protein measurement (mass/volume) 6.4 g/dL 6.4-8.2 Serum or plasma albumin measurement (mass/volume) 3.9 g/dL 3.2-4.5 CALCIUM CORRECTED 9.2 mg/dL 8.5-10.1 Lipase - 11/05/18 08:43 Lipase 26 U/L 8-78 Serum or plasma C reactive protein measurement (mass/volume) - 11/05/18 08:43 Serum or plasma C reactive protein measurement (mass/volume) 0.52 mg /dL 0.00-0.50 Methicillin resistant Staphylococcus aureus (MRSA) screening culture - 09:41 Methicillin resistant Staphylococcus aureus (MRSA) screening culture NEG NRG Encounters ACCT No. Visit Date/Time Discharge Status Pt. Type Provider Facility Loc./Unit Complaint [id number] 09/09/2012 13:17:00 09/09/2012 23:59:59 CLS Outpatient TRI ANDRADE CANDI F [id number] 11/17/2018 09:09:00 11/17/2018 15:05:00 DIS Outpatient BRITTNEY MONTEZ DO [facility] ENDO RECTAL BLEEDING [id number] 11/17/2018 05:35:00 11/17/2018 10:54:00 DIS Outpatient BRITTNEY MONTEZ DO [facility] PREOP LAPAROSCOPIC UMBILICAL HERNIA REPAIR;COLONOSCOPY [id number] 11/14/2018 05:38:00 11/14/2018 11:01:00 DIS Outpatient BRITTNEY MONTEZ DO [facility] PREOP COLONOSCOPY [id number] 11/05/2018 08:22:00 11/05/2018 12:15:00 DIS Emergency ALEXANDRA ROSALES MD [facility] ER LOWER ABD PAIN [id number] 08/26/2014 07:29:00 08/26/2014 18:35:00 [facility]RON[facility]ELV[facility] [id number] 08/18/2014 09:02:00 08/18/2014 23:59:59 CLS Outpatient AZAEL JOHNSON DO [facility] PREOP DYSMENORRHEA; CHRONIC PELVIC PAIN [id number] 03/18/2014 10:13:00 03/18/2014 23:59:59 CLS Outpatient LINCOLN DOSS MD [facility] RAD DUB [id number] 09/29/2013 10:15:00 09/29/2013 23:59:59 CLS Outpatient LINCOLN DOSS MD [facility] RAD LT SIDED PELVIC PAIN [id number] 05/21/2013 08:51:00 05/21/2013 18:05:00 DIS Outpatient JOSE JUAN MUJICA MD [facility] CHRONIC CHOLECYSTITIS [id number] 05/14/2013 11:02:00 05/14/2013 23:59:59 CLS Outpatient JOSE JUAN MUJICA MD [facility] PREOP [id number] 04/20/2013 09:06:00 04/20/2013 23:59:59 CLS Outpatient LINCOLN DOSS MD [facility] RAD [id number] 03/10/2013 18:31:00 03/10/2013 23:59:59 CLS Outpatient [id number] 11/24/2018 11:00:00 PEN Preadmit BRITTNEY MONTEZ DO [facility] UMBILICAL HERNIA; RECTAL BLEEDING [id number] 11/14/2018 10:47:00 Document Registration [id number] 12/31/2014 12:28:00 Document Registration [id number] 12/31/2014 12:28:00 Document Registration [id number] 12/31/2014 12:26:00 Document Registration [id number] 11/02/2011 09:13:00 Document Registration [id number] 06/27/2011 09:30:00 Document Registration [id number] 06/22/2011 09:12:00 Document Registration [id number] 06/22/2011 09:11:00 Document Registration [id number] 04/22/2011 10:09:00 Document Registration [id number] 10/17/2018 09:20:00 10/17/2018 23:59:59 CLS Outpatient [facility] [id number] 10/14/2018 08:20:00 Document Registration [id number] 03/01/2017 08:42:00 Document Registration
[2018-11-24] MEDS ORDERED: LIDOCAINE/EPI 1%-1:100,000 (XYLOCAINE) 20ML ONE (10:02)
[2018-11-24] MEDS ORDERED: ROCURONIUM 10 MG/ML 5 ML SYRINGE IV ONE (10:10)
[2018-11-24] MEDS ORDERED: LIDOCAINE PF 2% 5 ML (XYLOCAINE) VIAL ONE (10:10)
[2018-11-24] MEDS ORDERED: SEVOFLURANE (ULTANE) 15 ML INHAL SOLN ONE ×3 (10:10→12:08)
[2018-11-24] MEDS ORDERED: ONDANSETRON 4 MG/2 ML (SDV) Z0FRAN ONE (10:10)
[2018-11-24] MEDS ORDERED: proPOfol 200 MG/20 ML (DIPRIVAN) VIAL IV ONE (10:10)
[2018-11-24] MEDS ORDERED: DEXAMETHASONE 10 MG/ML (DECADRON) 1 ML VIAL ONE (10:10)
[2018-11-24] MEDS ORDERED: MIDAZOLAM 2 MG/2 ML (VERSED) VIAL ONE (10:11)
[2018-11-24] MEDS ORDERED: fentaNYL INJECTION 100 MCG/2 ML AMP ONE ×2 (10:11→12:13)
[2018-11-24] MEDS ORDERED: FAMOTIDINE 20MG/2ML IV (PEPCID) ONE (10:17)
[2018-11-24] MEDS ORDERED: FAMOTIDINE 20MG/2ML IV (PEPCID) IV ONE (10:30)
--- NOTE | 2018-11-24 11:11 | Progress Note-Pre Operative ---
Pre-Operative Progress Note H&P Reviewed The H&P was reviewed, patient examined and no changes noted. Time Seen by Provider: 11:01 Date H&P Reviewed: Nov 24, 2018 Time H&P Reviewed: 11:03 Pre-Operative Diagnosis: Incarcerated Umbilical Hernia BRITTNEY MONTEZ DO Nov 24, 2018 11:11
[2018-11-24] MEDS ORDERED: GLYCOPYRROLATE 0.2 MG/ML (ROBINUL) 2 ML VIAL ONE (12:09)
[2018-11-24] MEDS ORDERED: DESFLURANE (SUPRANE) 15 ML INHAL SOLN ONE ×4 (12:09→12:36)
[2018-11-24] MEDS ORDERED: LACTATED RINGERS 1,000 ML IV ONE (12:09)
[2018-11-24] MEDS ORDERED: NEOSTIGMINE 1 MG/ML 5 ML SYRINGE ONE (12:09)
--- NOTE | 2018-11-24 12:38 | Progress Note-Post Operative ---
Post-Operative Progess Note Surgeon (s)/Deck Cadet (s) Surgeon BRITTNEY MONTEZ DO Deck Cadet: Chantal Pre-Operative Diagnosis Incarcerated Umbilical Hernia Post-Operative Diagnosis Incarcerated Ventral/Incision Hernia Incarcerated Umbilical hernia Intra-Abdominal mass x 2 Procedure & Operative Findings Date of Procedure 11/24/18 Procedure Performed/Findings 1. Lap Ventral/Incisional Herniarraphy with mesh placement 2. Lap Umbilical Herniarraphy 3. Excision of two Intraabdominal masses Anesthesia Type GET Estimated Blood Loss Estimated blood loss (mL): less 10ml Specimens/Packing Specimens Removed hernia contents intra-abdominal mass x 2 BRITTNEY MONTEZ DO Nov 24, 2018 12:38
[2018-11-24] MEDS ORDERED: HYDR-3816 PO (12:39)
--- NOTE | 2018-11-24 12:41 | Discharge Inst-Surgical ---
Discharge Inst-Surgical Depart Medication/Instructions New, Converted or Re-Newed RX: RX Given to Pt/Family Patient Instructions Follow up Appt: Make appointment for 1 week. Instructions: No lifting greater than 10 pounds. No strenuous activity. May shower in 24 hours, no tub bath or soaking. Use incentive spirometer at home as directed. No Smoking Skin/Wound Care: May remove bandages in am. You need to leave the Dermabond on over incision it will fall off on its own. Symptoms to Report: Appetite Changes, Extremity Discoloration, Numbness/Tingling, Swelling Increased , Bleeding Excessive, Eyesight Changes, Pain Increased, Urine Color Change, Constipation(Persistent), Fever over 101 degree F, Pain/Pressure in chest, Urinating Difficulty, Cough Up/Vomit Blood, Heart Beat Irreg/Pounding, Pain/ Pressure in jaw, Vaginal Bleeding Increase, Cramps in feet or legs, Lightheadedness, Pain/Pressure in shoulder, Diarrhea(Persistent), Memory Changes Suddenly, Questions/Concerns, Weight gain consecutive days, Dizziness/ Fainting, Nausea/Vomiting, Shortness of Breath, Weight gain over 2 pounds If questions or concerns contact your physician Or seek help at emergency department. Activity Activity as Tolerated: Yes Activity Instructions: Avoid Stress to Incision Driving Instructions: No Driving/Refer to Dr. Palacio Discharge Diet: No Restrictions Diet After 24 Hours: Clear Liquid if Nauseous If Any Problems/Questions/Issu: Contact Your Physician, Go to Emergency Room Skin/Wound Care Infection Signs and Symptoms: Increased Redness, Foul Odor of Wound, Increased Drainage, Skin Itchy or Has a Rash, Increased Swelling, Temperature Above 101 F Wound Care Comment: Heating pad to shoulder or neck tonight for pain Bathing Instructions: Shower Stitches/Nicola/Dermabond Dis: Dermabond Ice Pack: Ice On and Off Site (as needed for pain at incision sites) BRITTNEY MONTEZ DO Nov 24, 2018 12:41
[2018-11-24] MEDS ORDERED: HYDROmorphone 2 MG/ML VIAL (DILAUDID) IV ONE (13:00)
[2018-11-24] MEDS ORDERED: ONDANSETRON 4 MG/2 ML (SDV) Z0FRAN IVP PRN (13:00)
[2018-11-24] MEDS ORDERED: morphine INJ 10 MG/ML 1ML (SYR OR VIAL) IVP ONE (13:00)
[2018-11-24 13:45] VITALS: BP 109/79
[2018-11-24] MEDS ORDERED: HYDROcodone/APAP 7.5 MG/325 MG (LORTAB, LORCET PLUS) TABLET PO ONE ×2 (14:14→14:15)
[2018-11-24 14:15] VITALS: BP 115/66
[2018-11-24 14:51] VITALS: BP 120/65
--- NOTE | 2018-11-24 15:15 | Anesthesia-General Post-Op ---
General Patient Condition Mental Status/LOC: Same as Preop Cardiovascular: Satisfactory Nausea/Vomiting: Absent Respiratory: Satisfactory Pain: Controlled Complications: Absent Post Op Complications Complications None Follow Up Care/Instructions Patient Instructions None needed. Anesthesia/Patient Condition Patient Condition Patient is doing well, no complaints, stable vital signs, no apparent adverse anesthesia problems. No complications reported per nursing. ROX ARVIZU CRNA Nov 24, 2018 15:15
--- NOTE | 2018-11-24 23:58 | OPERATIVE REPORT ---
DATE OF SERVICE: PREOPERATIVE DIAGNOSIS: Incarcerated umbilical hernia. POSTOPERATIVE DIAGNOSES: 1. Incarcerated ventral incisional hernia. 2. Incarcerated umbilical hernia. 3. Intra-abdominal mass x2. PROCEDURES: 1. Laparoscopic ventral incisional herniorrhaphy with mesh placement. 2. Laparoscopic umbilical herniorrhaphy with mesh placement. 3. Excision of intra-abdominal mass x2. SURGEON: Teto Ng DO. CUSTOMER ADVISOR: Lico Cornejo DO ANESTHESIA: General endotracheal tube. SPECIMENS: Hernia contents from the ventral incisional hernia as well as hernia contents from the umbilical hernia and then two intra-abdominal masses. BLOOD LOSS: Less than 10 mL. FLUIDS: Per anesthesia. POSTOPERATIVE CONDITION: Stable. INDICATION FOR PROCEDURE: The patient is a 33-year-old female who has been having pain in the abdomen and a CAT scan, which showed an incarcerated hernia thought to be umbilical. FINDINGS: The patient had a large ventral incisional hernia as well as she had a small umbilical hernia, both of them had incarcerated fat in them. Also while doing the procedure, found two abdominal masses in the omentum. These were removed and sent to pathology. PROCEDURE NOTE: After informed consent was obtained, the patient was brought to the operating room, placed on the table in supine position. She was sterilely prepped and draped in normal fashion. Local lidocaine was used to infiltrate the skin and the left upper quadrant. Made an incision with #11 blade, carried down through the skin into subcutaneous tissue and deepened down to subcutaneous tissue with Bovie electrocautery down to the fascia. Fascia incised with electrocautery, bluntly moved the muscle out of the way with S retractor and then went through the posterior fascia and the peritoneum bluntly, placed 11 mm trocar port under direct visualization, created pneumoperitoneum. Upon entering, noted adhesions, placed 2 more ports in normal fashion using local lidocaine, 11 blade for stab incision and Versed system, all done under direct visualization, one left lower quadrant, one in the right lower quadrant, then took down the adhesions so we could see. There were some adhesions to the abdominal wall, these were taken out. Also noted two abdominal masses. An intra-abdominal mass suck in the omentum. Elected to continue taking down the adhesions. I saw a large hernia defect with a lot of the incarcerated fat, carefully start pulling this fat out. There was a large amount, may have left some fat in this area and then found what was noted to be an incarcerated umbilical hernia as well, pull the fat out of incarcerated umbilical hernia and then elected to left the fat pieces in the abdomen and then elected to close this hernia defect with an 0 Vicryl. Made a stab incision in the abdominal wall and then using the Rachid-Aga past the 0 Vicryl to create a utgvky-jx-vbbaw to close this fascial defect. It closed nicely, tightly sutured this down, noted 2 masses in the omental fat. These were removed with the LigaSure and also used the LigaSure to help take down some of these adhesions and once these were taken out, I then placed a bag in the abdomen, placed 2 pieces of fat from the hernias into the bag and then placed 2 masses into the bag and then removed this through the left upper quadrant incision. Placed the port back into the abdomen. At this point, elected to place a 6-inch diameter Bard mesh for the Rachid-Aga back into the abdomen, put the mesh into the abdomen through the left lower quadrant, grasping the part of the mesh and bring this up through the abdominal wall and then insufflated the balloon to hold the mesh out in place. Then, using a SecureStrap tacked at the 6 o'clock, 9 o'clock and then 3 o'clock, 12 o'clock position, removed the balloon and then tacked in between these areas about 0.5 cm to 1 cm intervals and then placed more tacks in the middle, had brought the abdominal pressure down to 12 mm, so could see how it looked insufflated. At the end, I had covered both hernias with mesh. Mesh appeared to be in good position. There was no bleeding at this point, then removed all ports under direct visualization and allowed pneumoperitoneum to escape, closed left upper quadrant incision, closing the fascia with 0 Vicryl itfinj-cw-mwdvl suture, then closed 2 small 5 mm incision with a single interrupted 4-0 undyed Monocryl subcuticular stitch, closed the left upper quadrant incision with 3 interrupted 4-0 undyed Monocryl subcuticular stitches. Area was cleaned and dried. Dermabond was placed as well as bandage. The patient then transferred to recovery room in stable condition. Sponge, instrument and needle count was correct at the end of the case. Dr. Cornejo assisted in this case helping to make incisions, close incisions, identify anatomy, holding anatomy out of the way. Job ID: [id number] DocumentID: [id number] Dictated Date: 11/24/2018 13:53:39 Drop Man Date: 11/24/2018 23:58:15 Dictated By: DO NICOLE GUZMAN
== END 2018-11-24 15:14 | disposition home or self-care (01) ==
LOC: SDC 09:15
PROVIDERS: ATTEND Surgery
DX: K43.0 Incisional hernia with obstruction, without gangrene (principal); K42.0 Umbilical hernia with obstruction, without gangrene; R22.2 Localized swelling, mass and lump, trunk; M79.7 Fibromyalgia; K21.9 Gastro-esophageal reflux disease without esophagitis; F17.210 Nicotine dependence, cigarettes, uncomplicated; F32.9 Major depressive disorder, single episode, unspecified; F41.9 Anxiety disorder, unspecified; E66.01 Morbid (severe) obesity due to excess calories; Z68.42 Body mass index [BMI] 45.0-49.9, adult; Z79.899 Other long term (current) drug therapy; Z98.84 Bariatric surgery status
CPT/HCPCS: 88302; 88311

== ENCOUNTER → 2020-03-22 | Outpatient (CLI) | payer OTHER ==
[~2020-03-22] MED LIST changes: +HYDR-34 PO; -HYDR-3816 PO
--- NOTE | 2020-03-22 13:15 | Diagnostic Imaging Report ---
INDICATION: Low back pain. COMPARISON: None available. TECHNIQUE: Five views of the lumbosacral spine were obtained. FINDINGS: Normal lordosis of the lumbar spine. No spondylolisthesis or pars defects. Vertebral bodies are normal in stature without fracture or ankylosis. No ankylosis of the posterior elements. Intervertebral disc space heights are well-preserved. SI joints are normal. IMPRESSION: Normal radiographs of the lumbosacral spine. Dictated by: Dictated on workstation # [id number]
== END ==
LOC: RAD 09:14
PROVIDERS: ATTEND Nurse Practitioner Family
DX: M54.5 Low back pain (principal)
CPT/HCPCS: 72110

== ENCOUNTER → 2020-03-25 | Outpatient (CLI) | payer OTHER ==
--- NOTE | 2020-03-25 09:25 | Diagnostic Imaging Report ---
PROCEDURE: MRI lumbar spine. TECHNIQUE: Multiplanar, multisequence MRI of the lumbar spine was performed without contrast. DATE: March 25, 2020. COMPARISON: Lumbar spine radiograph March 22, 2020. INDICATION: 34-year-old female, low back pain extending down the right lower extremity. FINDINGS: There is normal lumbosacral spine alignment. The bone marrow signal is unremarkable. The visualized cord and conus medullaris is unremarkable and terminates at the L2 level. The disc heights are well preserved. There is no disc dessication. At T10-T11, there is a very small paracentral disc extrusion without spinal stenosis or foraminal narrowing. L1-L2: There is no disc bulge. The facet joints and ligamentum flavum are unremarkable. There is no foraminal narrowing. There is no spinal canal stenosis. L2-L3: There is no disc bulge. The facet joints and ligamentum flavum are unremarkable. There is no foraminal narrowing. There is no spinal canal stenosis. L3-L4: There is no disc bulge. There are minimal right facet degenerative changes. There are periarticular cysts adjacent to the posterior aspect of the right facet articulation measuring up to approximately 6 x 3 mm in size. There is no foraminal narrowing. There is no spinal canal stenosis. L4-L5: There is no disc bulge. There are mild bilateral facet degenerative changes. There are periarticular cysts adjacent to the facet articulations posteriorly. The largest is on the right measures approximately 5 x 4 mm in size. There is no foraminal narrowing. There is no spinal canal stenosis. L5-S1: There is no disc bulge. The facet joints and ligamentum flavum are unremarkable. There is no foraminal narrowing. There is no spinal canal stenosis. IMPRESSION: 1. T10-T11 very small paracentral disc extrusion without spinal stenosis or foraminal narrowing. 2. Facet degenerative changes at L3-L4 and L4-L5 with periarticular cysts adjacent to the facet articulations posteriorly. 3. No foraminal or spinal stenosis in the included field of view of imaging. 4. Unremarkable bone marrow signal and bone alignment. Dictated by: Dictated on workstation # [id number]
== END ==
LOC: RAD 08:10
PROVIDERS: ATTEND Nurse Practitioner Family
DX: M47.26 Other spondylosis with radiculopathy, lumbar region (principal); M47.814 Spondylosis without myelopathy or radiculopathy, thoracic region; M53.86 Other specified dorsopathies, lumbar region
CPT/HCPCS: 72148

== ENCOUNTER 2021-03-01 05:28 | Outpatient (RCR) | payer OTHER ==
[~2021-03-01] VITALS: Ht 155 cm; Wt 124.7 kg
[~2021-03-01 05:28] MED LIST changes: +CITA20TA12 PO
== END 2021-03-01 09:18 | disposition home or self-care (01) ==
LOC: PREOP 05:28
PROVIDERS: ATTEND Surgery
DX: Z01.812 Encounter for preprocedural laboratory examination (principal); K21.9 Gastro-esophageal reflux disease without esophagitis; R10.13 Epigastric pain; Z20.822 Contact with and (suspected) exposure to COVID-19
CPT/HCPCS: 87635

== ENCOUNTER 2021-03-03 10:36 | Day surgery (SDC) | payer OTHER ==
[2021-03-03] VITALS (9 sets, daily range): BP systolic 104–119; BP diastolic 60–72
[~2021-03-03] VITALS: Ht 155 cm; Wt 124.7 kg
[2021-03-03] MEDS ORDERED: LACTATED RINGERS 1,000 ML IV ONE (10:38)
[2021-03-03] MEDS ORDERED: LACTATED RINGERS 1,000 ML IV STA (10:43)
[2021-03-03] MEDS ORDERED: HURRICAINE EXT TUBE (BENZOCAINE) XX PRN (10:45)
[2021-03-03] MEDS ORDERED: proPOfol 200 MG/20 ML (DIPRIVAN) VIAL IV ONE (11:52)
[2021-03-03] MEDS ORDERED: MIDAZOLAM 2 MG/2 ML (VERSED) VIAL ONE (11:52)
--- NOTE | 2021-03-03 12:54 | Progress Note-Pre Operative ---
Pre-Operative Progress Note H&P Reviewed The H&P was reviewed, patient examined and no changes noted. Time Seen by Provider: 12:52 Date H&P Reviewed: Mar 03, 2021 Time H&P Reviewed: 12:52 Pre-Operative Diagnosis: Gastritis, hx of Gastric sleeve BRITTNEY MONTEZ DO Mar 03, 2021 12:54
--- NOTE | 2021-03-03 13:08 | Progress Note-Post Operative ---
Post-Operative Progess Note Surgeon (s)/Professor/Nurse Anesthetist (s) Surgeon BRITTNEY MONTEZ DO Professor/Nurse Anesthetist: none Pre-Operative Diagnosis Gastritis, hx of Gastric sleeve Post-Operative Diagnosis Gastritis Procedure & Operative Findings Date of Procedure 03/03/21 Procedure Performed/Findings EGD with bx Anesthesia Type IV sedation by APPELLATE COURT CLERK Estimated Blood Loss Estimated blood loss (mL): scant Specimens/Packing Specimens Removed antral bx GE jxn bx BRITTNEY MONTEZ DO Mar 03, 2021 13:08
--- NOTE | 2021-03-03 13:09 | Endoscopy Discharge Instruct ---
Endo Procedure/Findings Findings 1.: Gastritis 2.: Hiatal Hernia (very small) Discharge Instructions - Activity: You might feel a little sleepy until tomorrow. This is due to the medicine you received to relax you. Until tomorrow, you should: NOT drive a car, operate machinery or power tools. NOT drink any alcoholic beverages. NOT make any important decisions or sign importortant papers. Do not return to work until tomorrow, unless otherwise instructed. Resume previous activities tomorrow. Diet: Start by taking liquids. If you tolerate liquids, advance to solid food. 1.: EGD in 3 years Notify Physician - If you experience excessive bleeding, unusual abdominal pain, fever, or chest pain, contact your doctor immediately. BRITTNEY MONTEZ DO Mar 03, 2021 13:09
--- NOTE | 2021-03-03 13:10 | Anesthesia-General Post-Op ---
MAC Patient Condition Mental Status/LOC: Same as Preop Cardiovascular: Satisfactory Nausea/Vomiting: Absent Respiratory: Satisfactory Pain: Controlled Complications: Absent Post Op Complications Complications None Follow Up Care/Instructions Patient Instructions None needed. Anesthesiology Discharge Order Discharge Order Patient is doing well, no complaints, stable vital signs, no apparent adverse anesthesia problems. No complications reported per nursing. LAXMI BUCKNER CRNA Mar 03, 2021 13:10
--- NOTE | 2021-03-03 19:24 | OPERATIVE REPORT ---
DATE OF SERVICE: 03/03/2021 PREOPERATIVE DIAGNOSIS: Gastritis. POSTOPERATIVE DIAGNOSES: Gastritis, possible small hiatal hernia. PROCEDURE: EGD with biopsy. SURGEON: Teto Ng DO EDUCATION MANAGERS: None. ANESTHESIA: IV sedation by [employer]IC[employer]. SPECIMEN: Biopsy from the antrum, biopsy of the GE junction. BLOOD LOSS: Scant. FLUIDS: Per anesthesia. POSTOPERATIVE CONDITION: Stable. INDICATION FOR PROCEDURE: The patient is a 35-year-old female who has had a gastric sleeve and she now needs a workup. EGD done so that she can get her Jimmie-en-Y bypass. FINDINGS: The patient had some mild gastritis. Duodenum, first, second and third portion looked fine, possibly small hiatal hernia. PROCEDURE NOTE: After informed consent was obtained, the patient was brought to the endoscopy suite, placed in bed in left lateral decubitus position. She was administered IV sedation by the [employer] ELECT[employer]ICIAN who then monitored her vitals the entire time, heart rate, blood pressure and pulse ox, then inserted the scope down the mouth through the esophagus and into the stomach, could tell that she had a gastric sleeve. Able to push towards the antrum, there was some mild inflammation, took a picture of this and then pushed into the duodenum. Able to get at least into the second and possibly third portion of duodenum looked fine, took a picture and then pulled back into the antrum. Did a biopsy of the antrum and then pulled back the scope to the GE junction, unable to retroflex because of her previous gastric sleeve, but it looked like she may have had a small hiatal hernia. There were no changes at the esophagus. No esophagitis, but did a biopsy of the GE junction and then pulled the scope up the esophagus, took a few more pictures and then pulled the scope out. The patient tolerated the procedure. She was recovered in the endoscopy suite. Job ID: [id number] DocumentID: [id number] Dictated Date: 03/03/2021 13:08:09 Crime Scene Photographer Date: 03/03/2021 19:23:20 Dictated By: TETO NG DO
== END 2021-03-03 14:00 | disposition home or self-care (01) ==
LOC: ENDO 10:36
PROVIDERS: ATTEND Surgery
DX: K29.50 Unspecified chronic gastritis without bleeding (principal); K21.00 Gastro-esophageal reflux disease with esophagitis, without bleeding; F41.9 Anxiety disorder, unspecified; E66.01 Morbid (severe) obesity due to excess calories; Z68.43 Body mass index [BMI] 50.0-59.9, adult; Z79.899 Other long term (current) drug therapy; Z98.84 Bariatric surgery status
CPT/HCPCS: 88305